=== PATIENT | male | born 1940 | race Caucasian/White ===

== ENCOUNTER → 2016-10-28 | Outpatient (CLI) | payer OTHER, MEDICARE ==
[2016-10-28 09:36] LABS: BASO % 0.2 %; BASO ABS # 0.02 K/uL (0-0.2); COMPLETE YES; EOS % 2.6 %; HEMATOCRIT 43.9 % (42-52); IG% 0.2 %; LYMPH % 49.6 %; LYMPH ABS # 4.22 K/uL (1.2-3.4); MEAN CELL VOLUME 90.7 fL (80-100); MEAN CORPUSCULAR HGB CONC 34.2 g/dl (32-36); MEAN PLATELET VOLUME 9.4 fL (7.4-10.4); MONO % 3.8 %; NEUT % 43.6 %; PLATELET COUNT 160 K/uL (130-400); RED BLOOD COUNT 4.84 M/uL (4.7-6.1)
[2016-10-28 09:55] LABS: AST/SGOT 18 U/L (15-37); BLOOD UREA NITROGEN 17 mg/dl (7-18); BUN/CREATININE RATIO 17.2 (10-20); CARBON DIOXIDE 32 mmol/L (21-32); CHLORIDE 105 mmol/L (98-107); CHOLESTEROL 224 mg/dl (0-200); CREATININE 0.98 mg/dl (0.60-1.40); GLUCOSE 116 mg/dl (70-99); POTASSIUM 4.6 mmol/L (3.5-5.1); SODIUM 142 mmol/L (136-145); TRIGLYCERIDES 99 mg/dl (0-150); VERY LOW DENSITY LIPOPROT CALC 20 mg/dl
[2016-10-28 10:05] LABS: ALB/GLOB RATIO 1.3 (0.9-2); ALKALINE PHOSPHATASE 65 U/L (45-117); ALT/SGPT 19 U/L (12-78); CHOLESTEROL/HDL RATIO 2.9; HDL CHOLESTEROL 78 mg/dl
[2016-10-28 10:09] LABS: CALCIUM 9.3 mg/dl (8.5-10.1)
== END | disposition home or self-care (01) ==
LOC: C.LAB 07:05
PROVIDERS: ATTEND Internal Medicine
DX: E78.5 Hyperlipidemia, unspecified (principal); R06.00 Dyspnea, unspecified; I73.00 Raynaud's syndrome without gangrene

== ENCOUNTER → 2016-10-31 | Outpatient (CLI) | payer OTHER, MEDICARE ==
--- NOTE | 2016-10-31 18:31 | EXERCISE STRESS ECHO ---
*NOTICE TO RECEIVING DEMOCRAT AGENCY This information is strictly Confidential and protected under [place] law. [place] law prohibits you from making any further disclosure of this information unless further disclosure is expressly permitted by the written consent of the person to whom it pertains or is authorized by law. A general authorization for the release of medical or other information is not sufficient for this purpose. Hospital accepts no responsibility if the information is made available to any other person, INCLUDING THE PATIENT. Interpretation Summary * Name: BRADY CALDERON Study Date: 10/31/2016 09:33 AM BP: 147/59 mmHg * Patient Location: [facility] HR: 47 * : 1940 (M/d/yyyy) Gender: Male Height: 68 in * Age: 76 yrs Ethnicity: CA Weight: 180 lb * Ordering Physician: Quinn Rodrigues * Referring Physician: Quinn Rodrigues * Performed By: Swapna Hyde RCS * * Reason For Study: EXERTIONAL DYSPNEA * BSA: 2.0 m2 * -- Conclusions -- * There is mild concentric left ventricular hypertrophy. * Left ventricular systolic function is normal. * Mild valvular aortic stenosis. * Right ventricular systolic pressure is elevated at 40-50mmHg. * The left atrium is mildly dilated. * The right atrium is mildly dilated. * Diagnostic exercise echocardiogram terminated due to hypertensive BP response to exercise. * Abnormal EKG response without evidence of inducible ischemia on echocardiogram suggesting a false positive EKG. * Impression: * Negative exercise echocardiogram. Procedure Details * Left Ventricular Findings with Stress Diagnostic exercise echocardiogram terminated due to hypertensive BP response to exercise. Abnormal EKG response without evidence of inducible ischemia on echocardiogram suggesting a false positive EKG. Impression: Negative exercise echocardiogram. * Left Ventricle The left ventricle is normal in size. There is mild concentric left ventricular hypertrophy. Ejection Fraction = 55-60%. Left ventricular systolic function is normal. The left ventricular wall motion is normal. * Right Ventricle The right ventricle is normal in size and function. * Atria The left atrium is mildly dilated. The right atrium is mildly dilated. * Mitral Valve The mitral valve is grossly normal. Significant mitral regurgitation is absent. * Tricuspid Valve The tricuspid valve is not well visualized, but is grossly normal. There is mild tricuspid regurgitation. Right ventricular systolic pressure is elevated at 40-50mmHg. * Aortic Valve The aortic valve is trileaflet. Mild valvular aortic stenosis. There is no significant aortic regurgitation. * Great Vessels The aortic root is normal size. * Pericardium There is no pericardial effusion. * Stress Parameters Normal baseline electrocardiogram. There was development of 1mm flat ST depression at peak exertion that resolved quickly in recovery The stress portion of this study was personally supervised by the undersigned interpreting physician. Rest heart rate was '47' BPM. Rest blood pressure was '147/59' Maximum heart rate achieved was 125 bpm. Maximum heart rate was 85 % of maximum age-predicted heart rate. Maximum blood pressure was '208/77' Total exercise time was '10:00' Maximum exercise MET level achieved was '11.70' METS Maximum treadmill speed was '4.20' miles per hour. Maximum treadmill elevation was '16.00'% grade. * Left Ventricular Findings with Stress Baseline EKG was normal with development of ischemic changes during exercise No symptoms were reported BP response to exercise was hypertensive Echo images werre normal at baseline and there was normal augmentation of the LV without development of regional wall motion abnormalities. * * MMode 2D Measurements and Calculations * IVSd 1.6 cm * IVSs 2.0 cm * * LVIDd 4.1 cm * LVIDs 3.2 cm * LVPWd 1.3 cm * LVPWs 1.3 cm * * IVS/LVPW 1.2 * FS 21.8 % * EDV(Teich) 75.6 ml * ESV(Teich) 41.9 ml * EF(Teich) 44.5 % * * EDV(cubed) 70.5 ml * ESV(cubed) 33.7 ml * EF(cubed) 52.2 % * % IVS thick 25.4 % * % LVPW thick -0.50 % * * LV mass(C)d 232.2 grams * LV mass(C)dI 118.8 grams/m\S\2 * LV mass(C)s 204.5 grams * LV mass(C)sI 104.6 grams/m\S\2 * * SV(Teich) 33.7 ml * SI(Teich) 17.2 ml/m\S\2 * SV(cubed) 36.8 ml * SI(cubed) 18.8 ml/m\S\2 * * Ao root diam 2.9 cm * Ao root area 6.5 cm\S\2 * LA dimension 4.3 cm * * LA/Ao 1.5 * LVOT diam 2.0 cm * LVOT area 3.2 cm\S\2 * * LVAd ap4 36.7 cm\S\2 * LVLd ap4 8.4 cm * EDV(MOD-sp4) 126.9 ml * EDV(sp4-el) 135.3 ml * LVAs ap4 23.2 cm\S\2 * LVLs ap4 6.9 cm * ESV(MOD-sp4) 64.0 ml * ESV(sp4-el) 65.9 ml * EF(MOD-sp4) 49.6 % * EF(sp4-el) 51.3 % * * LVAd ap2 32.4 cm\S\2 * LVLd ap2 8.7 cm * EDV(MOD-sp2) 98.0 ml * EDV(sp2-el) 102.2 ml * LVAs ap2 21.7 cm\S\2 * LVLs ap2 7.2 cm * ESV(MOD-sp2) 52.2 ml * ESV(sp2-el) 55.4 ml * EF(MOD-sp2) 46.8 % * EF(sp2-el) 45.8 % * * LVLd %diff 3.3 % * EDV(MOD-bp) 112.2 ml * LVLs %diff 4.6 % * ESV(MOD-bp) 59.3 ml * EF(MOD-bp) 47.2 % * * SV(MOD-sp4) 62.9 ml * SI(MOD-sp4) 32.2 ml/m\S\2 * * SV(MOD-sp2) 45.8 ml * SI(MOD-sp2) 23.4 ml/m\S\2 * * SV(MOD-bp) 53.0 ml * SI(MOD-bp) 27.1 ml/m\S\2 * * SV(sp4-el) 69.4 ml * SI(sp4-el) 35.5 ml/m\S\2 * * SV(sp2-el) 46.8 ml * SI(sp2-el) 23.9 ml/m\S\2 * * * Doppler Measurements and Calculations * MV E max josh 85.7 cm/sec * MV A max josh 62.6 cm/sec * * MV E/A 1.4 * * MV P1/2t max josh 93.0 cm/sec * MV P1/2t 114.1 msec * MVA(P1/2t) 1.9 cm\S\2 * MV dec slope 238.7 cm/sec\S\2 * MV dec time 0.26 sec * * Ao V2 max 238.9 cm/sec * Ao max PG 22.8 mmHg * Ao max PG (full) 18.2 mmHg * JEROME(V,A) 1.4 cm\S\2 * JEROME(V,D) 1.4 cm\S\2 * * LV V1 max PG 4.6 mmHg * * LV V1 max 107.3 cm/sec * * MR max josh 591.9 cm/sec * MR max PG 140.1 mmHg * * PA V2 max 94.2 cm/sec * PA max PG 3.5 mmHg * * PI max josh 150.7 cm/sec * PI max PG 9.1 mmHg * PI dec slope 92.8 cm/sec\S\2 * PI P1/2t 475.6 msec * * TR max josh 299.6 cm/sec * * * *
--- NOTE | 2016-11-05 11:39 | CODING QUERY MEDICAL NECESSITY ---
SUPPORTING DIAGNOSIS NEEDED A supporting diagnosis is required for the test/procedure performed on this patient in order for us to be reimbursed by the patient's insurance. Please provide a supporting diagnosis for the following test/procedure listed below next to the test name along with your signature. *If there is no additional diagnosis for this patient that would support the following test/procedure please document that below next to the test/procedure. Test(s)/Procedure(s) that require a supporting diagnosis: * ECHO EXERCISE DIAGNOSIS: Provider Signature: Date: Thank you Mandy Singh [employer] Management Once completed, please kindly fax back to [phone] For questions please call [phone]
== END | disposition home or self-care (01) ==
LOC: C.CPL 09:15
PROVIDERS: ATTEND Internal Medicine
DX: R06.09 Other forms of dyspnea (principal)

== ENCOUNTER → 2016-11-05 | Outpatient (CLI) | payer OTHER, MEDICARE ==
[2016-11-05 13:03] LABS: ESTIMATED AVERAGE GLUCOSE 114 mg/dl; HA1C FLAG Normal (Normal)
== END | disposition home or self-care (01) ==
LOC: C.LABSPEC 12:19
PROVIDERS: ATTEND Internal Medicine
DX: R73.9 Hyperglycemia, unspecified (principal)

== ENCOUNTER → 2017-01-20 | Outpatient (CLI) | payer OTHER, MEDICARE | END | disposition home or self-care (01) | LOC: C.LABSPEC 14:59 | PROVIDERS: ATTEND Internal Medicine | DX: N39.0 Urinary tract infection, site not specified (principal) ==

== ENCOUNTER → 2017-02-25 | Outpatient (CLI) | payer OTHER, MEDICARE ==
[2017-02-25 14:59] LABS: HEMATOCRIT 42.5 % (42-52); MEAN CELL VOLUME 88.5 fL (80-100); MEAN CORPUSCULAR HEMOGLOBIN 31.5 pg (25-34); MEAN CORPUSCULAR HGB CONC 35.5 g/dl (32-36); MEAN PLATELET VOLUME 10.1 fL (7.4-10.4); PLATELET COUNT 147 K/uL (130-400); WHITE BLOOD COUNT 9.15 K/uL (4.8-10.8)
[2017-02-25 15:08] LABS: ALT/SGPT 16 U/L (12-78); AST/SGOT 16 U/L (15-37); BLOOD UREA NITROGEN 18 mg/dl (7-18); BUN/CREATININE RATIO 20.1 (10-20); CARBON DIOXIDE 28 mmol/L (21-32); CHLORIDE 106 mmol/L (98-107); CREATININE 0.92 mg/dl (0.60-1.40); GLUCOSE 96 mg/dl (70-99); POTASSIUM 4.7 mmol/L (3.5-5.1); SODIUM 140 mmol/L (136-145)
[2017-02-25 15:11] LABS: ALB/GLOB RATIO 1.2 (0.9-2); ALKALINE PHOSPHATASE 72 U/L (45-117); AMYLASE 47 U/L (25-115)
[2017-02-25 15:26] LABS: URINE APPEARANCE CLEAR (CLEAR); URINE BILIRUBIN NEG (NEG); URINE COLOR YELLOW; URINE NITRITE NEG (NEG); URINE SPECIFIC GRAVITY 1.016 (1.000-1.030); UROBILINOGEN NEG (NEG)
[2017-02-25 15:52] LABS: MANUAL MICROSCOPIC REQUIRED? NO; REVIEW REQ? NO
[2017-02-25 16:17] LABS: BASO % 0.1 %; BASO ABS # 0.01 K/uL (0-0.2); COMPLETE YES; IG% 0.4 %; LYMPH % 54.4 %; LYMPH ABS # 4.98 K/uL (1.2-3.4); MONO % 5.1 %; SMUDGE CELLS PRESENT
== END | disposition home or self-care (01) ==
LOC: C.LABSPEC 14:44
PROVIDERS: ATTEND Internal Medicine
DX: R10.31 Right lower quadrant pain (principal); R10.11 Right upper quadrant pain

== ENCOUNTER → 2017-02-26 | Outpatient (CLI) | payer OTHER, MEDICARE ==
[~2017-02-26] MED LIST: OPTIRAY 320 IV PRN
--- NOTE | 2017-02-26 08:02 | DIAGNOSTIC IMAGING REPORT ---
ABD/PELVIS IV AND ORAL CONT HISTORY: 76 years-old Male R SIDE ABD PAIN/MASS acute right-sided abdominal pain. Initial exam COMPARISON: CT abdomen and pelvis 09/11/2015 TECHNIQUE: Multiple axial CT images of the abdomen and pelvis were obtained following the administration of both IV and oral contrast. Under 19 mL Optiray 320 was administered. A dose lowering technique was used consistent with the principals of ALA. FINDINGS: Lung bases are generally clear. There is no pneumoperitoneum identified. Imaged inferior cardiac chambers are mildly enlarged. Coronary arterial calcifications are present. The liver, spleen, gallbladder, pancreas and adrenal glands are unremarkable. Low attenuating subcentimeter lesions of the kidneys are seen, too small to characterize suggesting cysts. No renal calculi or hydronephrosis. Ureters and urinary bladder are unremarkable. Prostate is enlarged with central coarse calcifications. Moderate plaquing of the abdominal aorta without aneurysm or dissection. There are a few mildly prominent periaortic and iliac chain lymph nodes measuring up to 9 mm as seen on image 225 of series 3 for example these findings are unchanged from 09/11/2015 and likely physiologic. Note is made of retroaortic course of the left renal vein. There is no bowel obstruction or focal bowel wall thickening identified. Moderate volume of formed stool throughout the colon. The appendix appears normal. Soft tissues are unremarkable. Multilevel endplate spurring and advanced facet arthropathy of the spine. 6 mm anterolisthesis L4 on L5 is likely secondary to long-standing facet disease. Bones are mildly demineralized. IMPRESSION: 1. Moderate volume of formed stool throughout the colon suggests constipation. This may account for the cause of palpable concern. No focal mass identified within the abdomen or pelvis. 2. Prostamegaly. 3. Mildly prominent periaortic and iliac chain lymph nodes measuring up to 9 mm appear unchanged from comparison study 09/11/2015 suggesting physiologic etiology. The above report was generated using voice recognition software. It may contain grammatical, syntax or spelling errors. Electronically signed by: Chele Monteiro M.D. 02/26/2017 8:01 AM Dictated Date/Time: 02/26/2017 7:52 AM
== END | disposition home or self-care (01) ==
LOC: C.CTS 07:20
PROVIDERS: ATTEND Internal Medicine
DX: R10.9 Unspecified abdominal pain (principal); R19.00 Intra-abdominal and pelvic swelling, mass and lump, unspecified site; N40.0 Benign prostatic hyperplasia without lower urinary tract symptoms

== ENCOUNTER → 2017-03-30 | Outpatient (CLI) | payer OTHER, MEDICARE | LOC: C.LAB 11:54 | PROVIDERS: ATTEND Urology | DX: Z12.5 Encounter for screening for malignant neoplasm of prostate (principal) ==

== ENCOUNTER → 2017-06-03 | Outpatient (CLI) | payer OTHER, MEDICARE ==
[2017-06-03 15:25] LABS: HEMATOCRIT 42.6 % (42-52); HEMOGLOBIN 15.4 g/dL (14.0-18.0); MEAN CORPUSCULAR HEMOGLOBIN 31.8 pg (25-34); MEAN CORPUSCULAR HGB CONC 36.2 g/dl (32-36); MEAN PLATELET VOLUME 9.8 fL (7.4-10.4); PLATELET COUNT 159 K/uL (130-400); RED CELL DISTRIBUTION WIDTH CV 12.8 % (11.5-14.5); RED CELL DISTRIBUTION WIDTH SD 41.2 fL (36.4-46.3); WHITE BLOOD COUNT 9.34 K/uL (4.8-10.8)
[2017-06-03 15:34] LABS: BLOOD UREA NITROGEN 21 mg/dl (7-18); CALCIUM 9.3 mg/dl (8.5-10.1); CARBON DIOXIDE 27 mmol/L (21-32); CREATININE 0.89 mg/dl (0.60-1.40); GLUCOSE 121 mg/dl (70-99); POTASSIUM 4.4 mmol/L (3.5-5.1); SODIUM 136 mmol/L (136-145)
[2017-06-03 17:22] LABS: BASO % 0.2 %; BASO ABS # 0.02 K/uL (0-0.2); EOS % 1.4 %; EOS ABS # 0.13 K/uL (0-0.5); IG# 0.04 K/uL (0.00-0.02); LYMPH ABS # 4.76 K/uL (1.2-3.4); MONO % 5.7 %; MONO ABS # 0.53 K/uL (0.11-0.59); NEUT % 41.3 %; NEUT ABS # 3.86 K/uL (1.4-6.5)
== END | disposition home or self-care (01) ==
LOC: C.LABSPEC 14:49
PROVIDERS: ATTEND Internal Medicine
DX: Z01.818 Encounter for other preprocedural examination (principal)

== ENCOUNTER → 2017-07-09 | Outpatient (CLI) | payer OTHER, MEDICARE | END | disposition home or self-care (01) | LOC: C.PATHSPEC 17:43 | PROVIDERS: ATTEND Surgery | DX: M79.9 Soft tissue disorder, unspecified (principal) ==

== ENCOUNTER → 2017-07-24 | Outpatient (CLI) | payer OTHER, MEDICARE | END | disposition home or self-care (01) | LOC: C.LABSPEC 13:07 | PROVIDERS: ATTEND Internal Medicine | DX: T81.9XXA Unspecified complication of procedure, initial encounter (principal); X58.XXXA Exposure to other specified factors, initial encounter ==

== ENCOUNTER → 2017-12-31 | Day surgery (SDC) | payer OTHER, MEDICARE ==
[2017-12-23 14:50] VITALS: Ht 172.7 cm; Wt 77.3 kg
[~2017-12-31] VITALS: Ht 172.7 cm; Wt 77.3 kg
[~2017-12-31] MED LIST changes: +ASPI81TA28 PO; +DEXAMETHASONE SOD INJ 4 MG/ML VIAL ONE; +LIDOCAINE HCL 1% MPF 5 ML VIAL ONE; +MINO50TA PO; +OMEG10007 PO; -OPTIRAY 320 IV PRN
--- NOTE | 2017-12-31 09:24 | History & Physical Bridge - SC ---
H&P Re-Evaluation Bridge Note: I have examined the patient, reviewed the History & Physical and in the interval since the performance of the History & Physical I have noted the following changes of clinical significance: No changes noted
--- NOTE | 2017-12-31 09:44 | Discharge Instructions-SurgCtr ---
Discharge Instructions Date of Service Dec 31, 2017. Visit Reason for Visit: Lumbar Spinal Stenosis Discharge Discharge Diagnosis / Problem: same Discharge Goals Goal(s): Improve function Activity Recommendations Activity Limitations: resume your previous activity Anesthesia . Post Anesthesia Instructions: If you have had General Anesthesia or IV Sedation: * Do not drive today. * Resume driving when surgeon permits. * Do not make important decisions or sign legal documents today. * Call surgeon for: 1. Temperature elevations greater than 101 degrees F. 2. Uncontrollable pain. 3. Excessive bleeding. 4. Persistent nausea and vomiting. 5. Medication intolerance (nausea, vomiting or rash). * For nausea and vomiting use only clear liquids such as: tea, soda, bouillon until nausea subsides, then gradually increase diet as tolerated. * If you have any concerns or questions, call your surgeon's office. If physician is unavailable and it is an emergency, call 911 or go to the nearest emergency room. . Diet Recommendations Home Diet: no limitations Procedures Procedures Performed: L3-4, L4-5 Epidural Steroid Injection Pending Studies Studies pending at discharge: no Medical Emergencies . Who to Call and When: Medical Emergencies: If at any time you feel your situation is an emergency, please call 911 immediately. . Non-Emergent Contact Non-Emergency issues call your: Primary Care Provider . . "Provider Documentation" section prepared by Stevie Goldberg. .
--- NOTE | 2017-12-31 09:45 | [facility] Post Operative Brief Note ---
Immediate Operative Summary Operative Date Dec 31, 2017. Pre-Operative Diagnosis Spinal stenosis/spondylolisthesis Post-Operative Diagnosis Same Procedure(s) Performed L3-4, L4-5 Epidural Ster[address] In[address] Sur[address] Goldberg Proof Coins Inspector Surgeon(s) None Estimated Blood Loss 0 Findings Consistent with Post-Op Diagnosis Specimens 0 Anesthesia Type Local
[2017-12-31 09:49] VITALS: BP 171/76; PULSE 60; TEMP 36.5; O2SAT 96
--- NOTE | 2017-12-31 11:00 | OPERATIVE REPORT ---
DATE OF OPERATION: 12/31/2017 PREOPERATIVE DIAGNOSIS: Spinal stenosis, lumbar spine. POSTOPERATIVE DIAGNOSIS: Spinal stenosis, lumbar spine. PROCEDURE: Epidural steroid injections L3-L4, L4-L5 lumbar. No complications. DESCRIPTION OF PROCEDURE: The patient was taken to the minor procedure room and placed prone, scrubbed, prepped and draped sterile. I did an air acceptance technique, I did 2 levels, injected a 22-gauge spinal needle to the epidural area. The fit was perfect. Dexamethasone 1 mL injected in each of these areas without incident. The patient tolerated it well. Discharged to home. I attest to the content of the Intraoperative Record and any orders documented therein. Any exception s are noted below.
== END | disposition home or self-care (01) ==
LOC: X.SURG 08:42
PROVIDERS: ATTEND Orthopaedic Surgery Orthopaedic Surgery of the Spine
DX: M43.16 Spondylolisthesis, lumbar region (principal); M48.061 Spinal stenosis, lumbar region without neurogenic claudication; Z96.21 Cochlear implant status; Z79.82 Long term (current) use of aspirin

== ENCOUNTER 2022-05-23 14:50 | Inpatient (IN) ==
--- NOTE | 2022-05-23 15:09 | ED Triage Note ---
Date of Service May 23, 2022 History of Present Illness This patient was briefly evaluated while in triage. An abbreviated physical exam was performed. This patient is a 82-year-old Male with past medical history of CVA who presents to the ED for evaluation of left calf pain. Pain started yesterday suddenly, no injury. He has right sided weakness due to his previous stroke. Physical Exam VITALS: Vitals are noted on the nurse's note and reviewed by myself. GENERAL: This is an 82-year-old male, in no acute distress, well-developed well- nourished. SKIN: The skin was without rashes, erythema, edema, or bruising. EXTREMITIES: Tenderness in the left calf. No redness or warmth. No obvious edema. Initial orders for labs and / or imaging were placed and patient was placed in the waiting area until a bed is available. Please see further documentation for the full ED course.
[2022-05-23] MEDS ORDERED: FAMOTIDINE 20MG IV PUSH 20 MG/5 ML SYR IV STA (16:23)
[2022-05-23] MEDS ORDERED: ONDANSETRON INJ 2 MG/ML 2 ML VIAL IV STA (16:23)
[2022-05-23] MEDS ORDERED: ALBUT/IPRATROP 3MG/0.5MG NEB 3 ML VIAL NEB STA (16:23)
[2022-05-23] MEDS ORDERED: ACETAMINOPHEN 1,000 MG/100 ML VIAL IV STA (16:26)
[2022-05-23] MEDS ORDERED: SODIUM CHLORIDE 0.9% 1000ML 1,000 ML IV ONE (16:26)
[2022-05-23 16:31] LABS: Hematocrit (blood only) 45.2 % (40.1-51.0); Hemoglobin 15.5 g/dl (14.0-18.0); Mean Corpuscular Hemoglobin 31.3 pg (25.0-34.0); Mean Corpuscular Hgb Conc 34.3 g/dL (32.0-36.0); Mean Corpuscular Volume 91.1 fL (80.0-100.0); Mean Platelet Volume 9.7 fL (9.4-12.4); Platelet Count 256 K/uL (130-400); RDW Coefficient of Variation 12.9 % (11.5-14.5); RDW Standard Deviation 42.3 fL (36.4-46.3); Red Blood Count 4.96 M/uL (4.63-6.08); White Blood Count 26.58 K/ul (4.8-10.8)
--- NOTE | 2022-05-23 16:37 | Emergency Department Note ---
Impression & Plan Aspiration into airway, Fecal retention, Leukocytosis ED Provider Note NAME: BRADY CALDERON AGE: 82 SEX: M ARRIVES VIA: Walk-In INFORMANT: Patient ED PROVIDER(S): Ji Larson MD CHIEF COMPLAINT: Calf pain, referred. 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 The patient symptoms occur in the setting of having complained of pain yesterday for the first time. Of note, the patient had no other symptoms up until around the emergency department when he did have an episode of vomiting and subsequently has had a persistent cough. The patient is bedbound due to his prior stroke and is chronically weak on his right side but his left side has normally been strong. Of note, the patient did arrive to emergency department during time of high volume, acuity and prolonged emergency department waiting times. Critical pathways initiated from triage. On my examination the patient is uncomfortable persistent cough with heart in the 130s and temperature of 37.9 with O2 saturation 95% on room air. He appears clinically dry. He has wheeze and rhonchi of bilateral lower lung [place]. He has no significant tenderness of the left calf though there is mild edema that is asymmetric. CXR negative for acute cardiopulmonary process. WBC 26.5 with neutrophil predominance and left shift. H/H and platelets within normal limits. Chemistry without metabolic acidosis. Lactic acid 1.4, within normal limits. Procalcitonin is elevated however at 1.8. Lipase is not e levated. LFTs and electrolytes unremarkable. LUE US negative for DVT CT of the abdomen pelvis further evaluates lung bases and note is made of bibasilar opacities with mucous plugging which is suspicious for aspiration pneumonia given the clinical context. Note is made of moderate to extensive col onic fecal retention which may have contributed to patient's nausea and vomiting. Upon reevaluation patient was improved appearing after IV fluid hydration APAP, DuoNeb. He was treated empirically with IV Zosyn. Given the patient's severity of symptoms with fever and leukocytosis the patient and his at bedside agree with plan for admission for further management. Case was discussed with Dr. Conn, [facility] hospitalist, who will evaluate the patient for admission. Triage Nursing notes reviewed and agree them. Prior medical records reviewed Vital Signs: reviewed Differential diagnosis: Reactive airway disease, pneumonia, pneumothorax, COPD, CHF, infections, cardiac ischemia, pulmonary embolism, musculoskeletal, gastrointestinal, as well as other pathologies. ER treatment provided: See below. Diagnostics interpreted by me: Cardiac Monitoring: An order for continuous cardiac monitoring was placed and demonstrated Sinus tachycardia, 130 bpm, no ectopy. Laboratory studies: See below Imaging studies: See below Consultation(s): Case was discussed with Dr. Conn, [facility] hospitalist, who will evaluate the patient for admission. HPI: The patient is a pleasant 82-year-old gentleman with a past medical history of stroke/intraparenchymal hemorrhage related to hypertension who presents to the emergency department via private vehicle,accompanied by his for evaluation of left calf pain referred by the PCP office. The patient symptoms occur in the setting of having complained of pain yesterday for the first time. Of note, the patient had no other symptoms up until around the emergency department when he did have an episode of vomiting and subsequently has had a persistent cough. The patient is bedbound due to his prior stroke and is chronically weak on his right side but his left side has normally been strong. ROS: See above HPI for pertinent positives & negatives. A total of 10 systems reviewed and were otherwise negative. VITALS:See Below PHYSICAL EXAMINATION: GENERAL: Awake, alert, fatigued-appearing, in no distress HENT: Normocephalic, atraumatic. Oropharynx with dry mucous membranes and otherwise unremarkable. EYES: Normal conjunctiva. Sclera non-icteric. NECK: Supple. No nuchal rigidity. FROM. No JVD. RESPIRATORY: Wheezes and rhonchi bilateral lower lung [place] CARDIAC: Tachycardic rate, normal rhythm. Extremities warm and well perfused. Pulses equal. ABDOMEN: Soft, non-distended. No tenderness to palpation. No rebound or guarding. No masses. RECTAL: Deferred. MUSCULOSKELETAL: Chest examination reveals no tenderness. The back is symmetrical on inspection without obvious abnormality. There is no CVA tenderness to palpation. No joint edema. LOWER EXTREMITIES: No significant tenderness of the left calf though there is mild edema that is asymmetric. NEURO: Right-sided hemiparesis at baseline SKIN: No rash or jaundice noted. ED COURSE: Critical Care: I have personally spent greater than 35 minutes of critical care time in the direct management of this patient. This includes bedside care, interpretation of diagnostic studies, and testing, discussion with consultants, patient, and family members, and other required patient management activities. This 35 minutes is in excess of all separately billable procedures. Ji Larson MD Past Med/Surg History Medical History CVA (cerebrovascular accident due to intracerebral hemorrhage) Diabetes mellitus type 2 in nonobese Gout Hearing impaired Hyperlipidemia Hypertension Family History Other Family history non-contributory Social History Smoking Status: Former smoker Tobacco Type: Cigarettes Preferred Language: Citizen Of [place] Feels Safe at Home: Yes Allergies Allergies Allergy/AdvReac Type Severity Reaction Status Date / Time No Known Allergies Allergy Verified 05/23/22 19:49 Home Meds Home Medications Medication Instructions Recorded Confirmed amlodipine 5 mg tablet 5 mg PO HS 03/11/21 05/23/22 atorvastatin 20 mg tablet 20 mg PO HS 03/11/21 05/23/22 acetaminophen 325 mg tablet 650 mg PO Q4 PRN Pain 04/05/21 05/23/22 (Tylenol) docusate sodium 100 mg capsule 100 mg PO BID 05/23/22 05/23/22 (Stool Softener) lactulose 10 gram/15 mL oral 0 g PO DIRECTED PRN Constipation 05/23/22 05/23/22 solution losartan 50 mg tablet 50 mg PO DAILY 05/23/22 05/23/22 metformin 500 mg tablet 500 mg PO BID 05/23/22 05/23/22 Previous Rx's Medication Instructions Recorded sennosides 8.6 mg-docusate sodium 1 - 2 tab-cap PO BID PRN 04/01/22 50 mg tablet (Senokot-S) constipation #60 tabs Results & Data (ED) Vital Signs Vital Signs - 24 hr 05/23/22 15:04 05/23/22 16:32 05/23/22 17:16 Temperature 36.5 C 37.9 C H Temperature Source Temporal Artery Scan Oral Pulse Rate 102 H Pulse Rate [Apical] 130 H 103 H Pulse Rhythm Regular Pulse Strength Normal Respiratory Rate 18 20 20 Respiratory Effort / Characteristics Non-Labored Spontaneous Non-Labored Respiratory Depth Normal Normal Respiratory Pattern Regular Blood Pressure 158/72 H Blood Pressure [Left Arm] 139/80 136/68 Blood Pressure Mean 100 Blood Pressure Mean [Left Arm] 99 90 Blood Pressure Position Sitting Pulse Oximetry 98 95 92 Oxygen Delivery Method Room Air Room Air Room Air Sepsis Recent Fever Within 48 Hours No Sepsis New/Unexplained Change in Mental Status No Sepsis Action Taken by Nursing No Action Required 05/23/22 18:11 05/23/22 19:54 Temperature 38.1 C H 37.6 C H Temperature Source Oral Oral Pulse Rate Pulse Rate [Apical] 92 H 88 Pulse Rhythm Pulse Strength Respiratory Rate 18 18 Respiratory Effort / Characteristics Non-Labored Non-Labored Respiratory Depth Normal Normal Respiratory Pattern Blood Pressure Blood Pressure [Left Arm] 122/60 112/59 L Blood Pressure Mean Blood Pressure Mean [Left Arm] 80 76 Blood Pressure Position Pulse Oximetry 92 95 Oxygen Delivery Method Room Air Room Air Sepsis Recent Fever Within 48 Hours Sepsis New/Unexplained Change in Mental Status Sepsis Action Taken by Nursing Laboratory Data Attestation: I reviewed the patient's lab results. 05/23/22 16:15 05/23/22 16:15 Lab Results 05/23/22 05/23/22 05/23/22 Range/Units 16:15 16:15 16:15 WBC 26.58 H (4.8-10.8) K/ul RBC 4.96 (4.63-6.08) M/uL Hgb 15.5 (14.0-18.0) g/dl Hct 45.2 (40.1-51.0) % MCV 91.1 (80.0-100.0) fL MCH 31.3 (25.0-34.0) pg MCHC 34.3 (32.0-36.0) g/dL RDW Std Deviation 42.3 (36.4-46.3) fL RDW Coeff of Kenny 12.9 (11.5-14.5) % Plt Count 256 (130-400) K/uL MPV 9.7 (9.4-12.4) fL Immature Gran % (Auto) 0.6 % Neut % (Auto) 44.3 % Lymph % (Auto) 52.3 % Thomas % (Auto) 2.0 % Eos % (Auto) 0.5 % Baso % (Auto) 0.3 % Neut # (Auto) 11.79 H (1.4-6.5) K/uL Lymph # (Auto) 13.89 H (1.2-3.4) K/uL Thomas # (Auto) 0.53 (0.24-0.82) K/uL Eos # (Auto) 0.14 (0-0.50) K/uL Baso # (Auto) 0.08 (0-0.2) K/uL Immature Gran # (Auto) 0.15 H (0.00-0.02) K/uL PT 10.9 (9.0-12.0) Seconds INR 1.0 (0.9-1.1) APTT 25.4 (21.0-31.0) Seconds PTT Ratio 0.9 Sodium 141 (136-145) mmol/L Potassium 4.2 (3.5-5.1) mmol/L Chloride 103 (98-107) mmol/L Carbon Dioxide 24 (21-32) mmol/L Anion Gap 14 H (3-11) BUN 27 H (6-23) mg/dl Creatinine 1.31 (0.6-1.4) mg/dl Est Cr Clr Drug Dosing Not Reportable Est GFR ( Amer) 59.2 ml/min Est GFR (Non-Af Amer) 51.1 ml/min BUN/Creatinine Ratio 20.6 H (10-20) Glucose 154 H (70-99(Fasting)) mg/dl Lactate (0.4-2.0) mmol/L Calcium 10.2 H (8.5-10.1) mg/dl Total Bilirubin 0.8 (0.2-1.0) mg/dl AST 15 (13-39) U/L ALT 10 (7-52) U/L Alkaline Phosphatase 83 (34-104) U/L Total Protein 7.4 (6.0-8.3) gm/dl Albumin 4.7 (3.4-5.0) gm/dl Globulin 2.7 (2.5-4.0) gm/dl Albumin/Globulin Ratio 1.7 (0.9-2) Lipase (11-82) U/L Procalcitonin (0-0.5) ng/ml SARS-CoV-2 (PCR) (Negative) Influenza Type A (PCR) (Neg) Influenza Type B (PCR) (Neg) RSV (RT-PCR) (Neg) 05/23/22 05/23/22 05/23/22 Range/Units 16:15 16:45 18:33 WBC (4.8-10.8) K/ul RBC (4.63-6.08) M/uL Hgb (14.0-18.0) g/dl Hct (40.1-51.0) % MCV (80.0-100.0) fL MCH (25.0-34.0) pg MCHC (32.0-36.0) g/dL RDW Std Deviation (36.4-46.3) fL RDW Coeff of Kenny (11.5-14.5) % Plt Count (130-400) K/uL MPV (9.4-12.4) fL Immature Gran % (Auto) % Neut % (Auto) % Lymph % (Auto) % Thomas % (Auto) % Eos % (Auto) % Baso % (Auto) % Neut # (Auto) (1.4-6.5) K/uL Lymph # (Auto) (1.2-3.4) K/uL Thomas # (Auto) (0.24-0.82) K/uL Eos # (Auto) (0-0.50) K/uL Baso # (Auto) (0-0.2) K/uL Immature Gran # (Auto) (0.00-0.02) K/uL PT (9.0-12.0) Seconds INR (0.9-1.1) APTT (21.0-31.0) Seconds PTT Ratio Sodium (136-145) mmol/L Potassium (3.5-5.1) mmol/L Chloride (98-107) mmol/L Carbon Dioxide (21-32) mmol/L Anion Gap (3-11) BUN (6-23) mg/dl Creatinine (0.6-1.4) mg/dl Est Cr Clr Drug Dosing Est GFR ( Amer) ml/min Est GFR (Non-Af Amer) ml/min BUN/Creatinine Ratio (10-20) Glucose (70-99(Fasting)) mg/dl Lactate 1.4 (0.4-2.0) mmol/L Calcium (8.5-10.1) mg/dl Total Bilirubin (0.2-1.0) mg/dl AST (13-39) U/L ALT (7-52) U/L Alkaline Phosphatase (34-104) U/L Total Protein (6.0-8.3) gm/dl Albumin (3.4-5.0) gm/dl Globulin (2.5-4.0) gm/dl Albumin/Globulin Ratio (0.9-2) Lipase 46 (11-82) U/L Procalcitonin (0-0.5) ng/ml SARS-CoV-2 (PCR) NEGATIVE (Negative) Influenza Type A (PCR) Negative (Neg) Influenza Type B (PCR) Negative (Neg) RSV (RT-PCR) Negative (Neg) 05/23/22 Range/Units 18:34 WBC (4.8-10.8) K/ul RBC (4.63-6.08) M/uL Hgb (14.0-18.0) g/dl Hct (40.1-51.0) % MCV (80.0-100.0) fL MCH (25.0-34.0) pg MCHC (32.0-36.0) g/dL RDW Std Deviation (36.4-46.3) fL RDW Coeff of Kenny (11.5-14.5) % Plt Count (130-400) K/uL MPV (9.4-12.4) fL Immature Gran % (Auto) % Neut % (Auto) % Lymph % (Auto) % Thomas % (Auto) % Eos % (Auto) % Baso % (Auto) % Neut # (Auto) (1.4-6.5) K/uL Lymph # (Auto) (1.2-3.4) K/uL Thomas # (Auto) (0.24-0.82) K/uL Eos # (Auto) (0-0.50) K/uL Baso # (Auto) (0-0.2) K/uL Immature Gran # (Auto) (0.00-0.02) K/uL PT (9.0-12.0) Seconds INR (0.9-1.1) APTT (21.0-31.0) Seconds PTT Ratio Sodium (136-145) mmol/L Potassium (3.5-5.1) mmol/L Chloride (98-107) mmol/L Carbon Dioxide (21-32) mmol/L Anion Gap (3-11) BUN (6-23) mg/dl Creatinine (0.6-1.4) mg/dl Est Cr Clr Drug Dosing Est GFR ( Amer) ml/min Est GFR (Non-Af Amer) ml/min BUN/Creatinine Ratio (10-20) Glucose (70-99(Fasting)) mg/dl Lactate (0.4-2.0) mmol/L Calcium (8.5-10.1) mg/dl Total Bilirubin (0.2-1.0) mg/dl AST (13-39) U/L ALT (7-52) U/L Alkaline Phosphatase (34-104) U/L Total Protein (6.0-8.3) gm/dl Albumin (3.4-5.0) gm/dl Globulin (2.5-4.0) gm/dl Albumin/Globulin Ratio (0.9-2) Lipase (11-82) U/L Procalcitonin 1.82 H (0-0.5) ng/ml SARS-CoV-2 (PCR) (Negative) Influenza Type A (PCR) (Neg) Influenza Type B (PCR) (Neg) RSV (RT-PCR) (Neg) Administered Medications Amlodipine Besylate (Amlodipine Besylate 5 Mg Tab) 5 mg PO HS LOLA Stop: 06/22/22 21:44 Last Admin: 05/23/22 23:26 Dose: Not Given Documented By: CORRECTION Atorvastatin Calcium (Atorvastatin 20 Mg Tab) 20 mg PO HS LOLA Stop: 06/22/22 21:44 Last Admin: 05/23/22 23:26 Dose: Not Given Documented By: NOEMÍ Docusate Sodium (Docusate Sodium 100 Mg Cap) 100 mg PO BID LOLA Stop: 06/22/22 21:44 Last Admin: 05/23/22 23:26 Dose: Not Given Documented By: NOEMÍ Guaifenesin (Guaifenesin 600 Mg Tabcr) 1,200 mg PO Q12 LOLA Stop: 06/22/22 21:44 Last Admin: 05/23/22 23:26 Dose: Not Given Documented By: CORRECTION Piperacillin Sod/Tazobactam (Sod 3.375 gm/ Dextrose) 115 mls @ 28.75 mls/hr IV Q8H [facility]; Protocol Stop: 05/31/22 00:00 Last Admin: 05/24/22 00:38 Dose: 28.8 mls/hr Documented By: NOEMÍ Lactated Ringer's (Lr) 1,000 mls @ 100 mls/hr IV .Q10H LOLA Stop: 05/24/22 17:44 Last Admin: 05/23/22 21:56 Dose: 100 mls/hr Documented By: NOEMÍ Acetaminophen (Ofirmev) 1,000 mg in 100 mls @ 400 mls/hr IV Q8H PRN PRN Reason: fever or pain Stop: 05/26/22 22:48 Last Infusion: 05/23/22 23:29 Dose: 0 mls/hr Documented By: Admin: 05/23/22 23:11 Dose: 400 mls/hr Documented By: NOEMÍ Insulin Aspart (Insulin Aspart Per Unit) 0 units SC ACHS [facility] Stop: 06/22/22 21:44 Last Admin: 05/23/22 23:27 Dose: Not Given Documented By: NOEMÍ Co-signed By: BETSEY Insulin Glargine (Lantus Per Unit Charge) 5 units SQ BID LOLA Stop: 06/22/22 21:44 Last Admin: 05/23/22 23:26 Dose: Not Given Documented By: NOEMÍ Ondansetron HCl (Ondansetron Inj 2 Mg/Ml 2 Ml Vial) 4 mg IV Q6H PRN PRN Reason: Nausea Stop: 06/22/22 21:44 Last Admin: 05/23/22 22:39 Dose: 4 mg Documented By: NOEMÍ Discontinued Medications Albuterol (Albut/Ipratrop 3mg/0.5mg Neb 3 Ml Vial) 3 ml NEB NOW STA; Protocol Stop: 05/23/22 16:24 Last Admin: 05/23/22 16:37 Dose: 3 ml Documented By: SUBHASH Famotidine (Pepcid 20mg Iv Push) 20 mg in 5 mls @ 2.5 mls/min IV NOW STA Stop: 05/23/22 16:24 Last Admin: 05/23/22 16:37 Dose: 2.5 mls/min Documented By: SUBHASH Sodium Chloride (Nss 1000ml) 1,000 mls @ 999 mls/hr IV .Q1H1M ONE Stop: 05/23/22 17:26 Last Infusion: 05/23/22 17:35 Dose: 0 mls/hr Documented By: Admin: 05/23/22 16:34 Dose: 999 mls/hr Documented By: SUBHASH Acetaminophen (Ofirmev) 1,000 mg in 100 mls @ 400 mls/hr IV NOW STA Stop: 05/23/22 16:40 Last Infusion: 05/23/22 16:52 Dose: 0 mls/hr Documented By: Admin: 05/23/22 16:37 Dose: 400 mls/hr Documented By: SUBHASH Piperacillin Sod/Tazobactam Sod (Zosyn) 4.5 gm in 120 mls @ 240 mls/hr IV NOW ONE Stop: 05/23/22 18:28 Last Infusion: 05/23/22 19:20 Dose: 0 mls/hr Documented By: Admin: 05/23/22 18:32 Dose: 240 mls/hr Documented By: FREEMAN Ioversol (Optiray 350 100ml) 84 ml IV ONCE ONE Stop: 05/23/22 18:59 Last Admin: 05/23/22 18:59 Dose: 84 ml Documented By: ROCHELLE Ondansetron HCl (Ondansetron Inj 2 Mg/Ml 2 Ml Vial) 4 mg IV NOW STA Stop: 05/23/22 16:24 Last Admin: 05/23/22 16:36 Dose: 4 mg Documented By: SUBHASH Imaging Data Radiologist's Impression: Venous Doppler Study 05/23/22 15:05 LEFT LOWER EXTREMITY VENOUS DOPPLER HISTORY: Acute pain and swelling of the left lower extremity Left calf pain COMPARISON STUDY: None. FINDINGS: There is normal compressibility, flow, and augmentation within the left lower extremity deep venous system. IMPRESSION: No DVT within the left lower extremity. ACT 112: Negative or not required by law. Electronically signed by: Ronnie Monteiro M.D. 05/23/2022 6:12 PM Abdomen/Pelvis CT 05/23/22 16:[address] WITH IV CONTRAST CT DOSE: 462.51 mGy.cm HISTORY: Acute nausea with vomiting nausea vomiting TECHNIQUE: Multiaxial CT images of the abdomen and pelvis were performed following the IV administration of 84 cc of Optiray, A dose lowering technique was utilized adhering to the principles of ALARA. COMPARISON STUDY: 02/26/2017 FINDINGS: Extensive coronary artery calcifications. Mild nonspecific subcarinal lymphadenopathy. Mucous plugging with patchy bibasilar groundglass opacities, left greater than right. No pneumatosis or pneumoperitoneum. Study is limited secondary to respiratory motion artifact and upper extremity positioning. Spleen is enlarged measuring up to 15.5 cm in length. Unremarkable pancreas and adrenal glands. Mild gallbladder distention is similar to prior. Unremarkable liver. Patency of the hepatic and portal veins. Unremarkable kidneys. Subcentimeter hypodense foci of the left kidney are too small to characterize, however favor cysts. Heterogeneous prostate with prostamegaly. The majority of the right mid transitional zone is hypodense measuring up to 2 cm. Urinary bladder wall thickening with partial distention. Atherosclerosis of the aorta. Iliac chain lymph nodes measuring up to 10 mm are similar to prior. No bowel obstruction. Moderate to extensive colonic fecal retention. Mild rectal wall thickening with trace perirectal stranding. No CT evidence of acute appendicitis. Unremarkable soft tissues. Degenerative changes of the spine, pelvis and hips. Posterior interbody chon and screw fusion hardware L4-L5. IMPRESSION: 1. Moderate to extensive colonic fecal retention with findings suggestive of stercoral proctitis. 2. No bowel obstruction or pneumoperitoneum. 3. Prostamegaly with chronic bladder obstruction. Questioned lesion versus heterogeneity of the prostate. Correlate with PSA level. 4. Bibasilar opacities with mucous plugging suggestive of pneumonia versus aspiration pneumonitis. 5. Splenomegaly. 6. Bilateral iliac chain lymphadenopathy, similar to prior. 7. Additional findings as above. ACT 112: Negative or not required by law. The above report was generated using voice recognition software. It may contain grammatical, syntax or spelling errors. Electronically signed by: Ronnie Monteiro M.D. 05/23/2022 7:44 PM Chest X-Ray 05/23/22 16:23 XR chest 1V portable CLINICAL HISTORY: sob TECHNIQUE: Single frontal radiograph of the chest was obtained. Comparison: Comparison is made to chest radiograph 05/29/2021 FINDINGS: No lines and tubes are seen. The cardiomediastinal silhouette is normal. The lungs are clear. No evidence of pleural effusion or pneumothorax. IMPRESSION: No acute abnormalities and in particular no evidence of pneumonia. ACT 112: Negative or not required by law. Electronically signed by: Leo Hannah M.D. 05/23/2022 4:51 PM Discharge Plan Visit Data Chief Complaint: Calf Pain Stated Complaint: L CALF PAIN ED Provider: Ji Larson Discharge Problem: Aspiration into airway, Fecal retention, Leukocytosis Patient Disposition: Admitted As Inpatient Discharge Instructions Interventions: ED Discharge Assessment Last Done: 05/23/22 21:29
[2022-05-23 16:45] LABS: Partial Thromboplastin Ratio 0.9; Partial Thromboplastin Time 25.4 Seconds (21.0-31.0); Prothrombin Time 10.9 Seconds (9.0-12.0)
--- NOTE | 2022-05-23 16:52 | XRay Report ---
XR chest 1V portable CLINICAL HISTORY: sob TECHNIQUE: Single frontal radiograph of the chest was obtained. Comparison: Comparison is made to chest radiograph 05/29/2021 FINDINGS: No lines and tubes are seen. The cardiomediastinal silhouette is normal. The lungs are clear. No evid ence of pleural effusion or pneumothorax. IMPRESSION: No acute abnormalities and in particular no evidence of pneumonia. ACT 112: Negative or not required by law. Electronically signed by: Leo Hannah M.D. 05/23/2022 4:51 PM
[2022-05-23 16:58] LABS: Alanine Aminotransferase 10 U/L (7-52); Albumin Globulin Ratio 1.7 (0.9-2); Albumin Level 4.7 gm/dl (3.4-5.0); Alkaline Phosphatase 83 U/L (34-104); Anion Gap 14 (3-11); Aspartate Aminotransferase 15 U/L (13-39); BUN Creatinine Ratio 20.6 (10-20); Bilirubin,Total 0.8 mg/dl (0.2-1.0); Blood Urea Nitrogen 27 mg/dl (6-23); Calcium 10.2 mg/dl (8.5-10.1); Carbon Dioxide 24 mmol/L (21-32); Chloride 103 mmol/L (98-107); Est GFR (African American) 59.2 ml/min; Est GFR (Non-African American) 51.1 ml/min; Globulin 2.7 gm/dl (2.5-4.0); Glucose 154 mg/dl (70-99(Fasting)); Potassium 4.2 mmol/L (3.5-5.1); Sodium 141 mmol/L (136-145); Total Protein 7.4 gm/dl (6.0-8.3)
[2022-05-23 17:11] LABS: Basophils # (auto) 0.08 K/uL (0-0.2); Basophils % (auto) 0.3 %; Eosinophils # (auto) 0.14 K/uL (0-0.50); Eosinophils % (auto) 0.5 %; Immature Granulocytes # (auto) 0.15 K/uL (0.00-0.02); Immature Granulocytes % (auto) 0.6 %; Lymphocytes # (auto) 13.89 K/uL (1.2-3.4); Lymphocytes % (auto) 52.3 %; Monocytes # (auto) 0.53 K/uL (0.24-0.82); Neutrophils # (auto) 11.79 K/uL (1.4-6.5); Neutrophils % (auto) 44.3 %
[2022-05-23 17:47] LABS: Influenza A virus by PCR Negative (Neg); Influenza B virus by PCR Negative (Neg); RSV by PCR Negative (Neg); SARS CoV2 RNA(COVID-19) Ceph NEGATIVE (Negative)
[2022-05-23] MEDS ORDERED: PIPERACILLIN/TAZOBACTAM 4.5 GM/120 ML BAG IV ONE (17:59)
--- NOTE | 2022-05-23 18:13 | Ultrasound Report ---
LEFT LOWER EXTREMITY VENOUS DOPPLER HISTORY: Acute pain and swelling of the left lower extremity Left calf pain COMPARISON STUDY: None. FINDINGS: There is normal compressibility, flow, and augmentation within the left lower extremity irma p venous system. IMPRESSION: No DVT within the left lower extremity. ACT 112: Negative or not required by law. Electronically signed by: Ronnie Monteiro M.D. 05/23/2022 6:12 PM
[2022-05-23] MEDS ORDERED: OPTIRAY 350 100ml IV ONE (18:58)
--- NOTE | 2022-05-23 19:46 | CT Scan Report ---
ABDOMEN AND PELVIS CT WITH IV CONTRAST CT DOSE: 462.51 mGy.cm HISTORY: Acute nausea with vomiting nausea vomiting TECHNIQUE: Multiaxial CT images of the abdomen and pelvis were performed following the IV administrat ion of 84 cc of Optiray, A dose lowering technique was utilized adhering to the principles of ALARA. COMPARISON STUDY: 02/26/2017 FINDINGS: Extensive coronary artery calcifications. Mild nonspecific subcarinal lymphadenopathy. Muco us plugging with patchy bibasilar groundglass opacities, left greater than right. No pneumatosis or p neumoperitoneum. Study is limited secondary to respiratory motion artifact and upper extremity positi oning. Spleen is enlarged measuring up to 15.5 cm in length. Unremarkable pancreas and adrenal glands . Mild gallbladder distention is similar to prior. Unremarkable liver. Patency of the hepatic and por tony veins. Unremarkable kidneys. Subcentimeter hypodense foci of the left kidney are too small to characterize, however favor cysts. Heterogeneous prostate with prostamegaly. The majority of the right mid transiti onal zone is hypodense measuring up to 2 cm. Urinary bladder wall thickening with partial distention. Atherosclerosis of the aorta. Iliac chain lymph nodes measuring up to 10 mm are similar to prior. No bowel obstruction. Moderate to extensive colonic fecal retention. Mild rectal wall thickening with trace perirectal stranding. No CT evidence of acute appendicitis. Unremarkable soft tissues. Degener ative changes of the spine, pelvis and hips. Posterior interbody chon and screw fusion hardware L4-L5. IMPRESSION: 1. Moderate to extensive colonic fecal retention with findings suggestive of stercoral proctitis. 2. No bowel obstruction or pneumoperitoneum. 3. Prostamegaly with chronic bladder obstruction. Questioned lesion versus heterogeneity of the prost ate. Correlate with PSA level. 4. Bibasilar opacities with mucous plugging suggestive of pneumonia versus aspiration pneumonitis. 5. Splenomegaly. 6. Bilateral iliac chain lymphadenopathy, similar to prior. 7. Additional findings as above. ACT 112: Negative or not required by law. The above report was generated using voice recognition software. It may contain grammatical, syntax o r spelling errors. Electronically signed by: Ronnie Monteiro M.D. 05/23/2022 7:44 PM
--- NOTE | 2022-05-23 20:11 | History & Physical Report ---
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 Patient began coughing violently while in the ER and subsequently vomited and aspirated. Meets sepsis criteria with SIRS 2/4 with a pulmonary source of infection. Presently febrile at 38.5, elevated WBC=26.58 and elevated procalcitonin at 1.82. No respiratory distress. Patient with adequate oxygenation on room air. He had a stroke in the past with residual right sided deficit. His does report that he often pockets food in his right cheek. She reports that she sweeps his mouth after meals. Has never aspirated in the past. -Observation to medical -Maintain aspiration precautions -Monitor for oral pocketing -Monitor respiratory status -Continue Zosyn -Tylenol as needed for fever -Mucinex BID -CXR in AM -Flutter valve and incentive spirometry (2) Fecal retention: Plan: Patient with moderate to extensive colonic fecal retention with findings suggestive of stercoral proctitis. No bowel obstruction noted. -Miralax 17gm po daily -Colace 100mg po BID -Docusate/Senna 2tabs po BID PRN -Dulcolax suppository daily -Gentle IVF (3) Hypertension: Plan: Blood pressure well controlled. Presently 129/70 -Continue Amlodipine 5mg po qHS -Continue Losartan 50mg po daily -Monitor (4) Hyperlipidemia: Plan: Chronic. Stable -Continue Atorvastatin (5) CVA (cerebrovascular accident due to intracerebral hemorrhage): Plan: Remote history -Aspiration precautions -Turn and position as needed (6) Diabetes mellitus type 2 in nonobese: Plan: Well controlled DM. Last GfbB2F=9.4. 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 Patient woke this morning with pain and cramping in his left calf. His called the PCP and it was recommended that he come to get a LLE ultrasound to rule out DVT. Patient was in the ER waiting room when he began to cough violently. He then vomited and aspirated his vomit. No respiratory distress at present. No oxygen requirement. is at bedside and provides history. No additional complaints. Patient does have some constipation at baseline. He denies fever, chills, SOB, abdominal pain, nausea. In the ER he is febrile at 38.5, HD stable, adequate oxygenation on room air. Patient continues to cough, non-productive but wet sounding. His states that he coughs frequently like this. ER Course: Zosyn 4.5gm Tylenol Pepcid Albuterol Zofran NSS x 1L Allergies Allergy/AdvReac Type Severity Reaction Status Date / Time No Known Allergies Allergy Verified 05/23/22 19:49 Home Medications Medication Instructions Recorded Confirmed Type amlodipine 5 mg tablet 5 mg PO HS 03/11/21 05/23/22 History atorvastatin 20 mg tablet 20 mg PO HS 03/11/21 05/23/22 History acetaminophen 325 mg tablet 650 mg PO Q4 PRN Pain 04/05/21 05/23/22 History (Tylenol) sennosides 8.6 mg-docusate sodium 1 - 2 tab-cap PO BID PRN 04/01/22 05/23/22 Rx 50 mg tablet (Senokot-S) constipation #60 tabs docusate sodium 100 mg capsule 100 mg PO BID 05/23/22 05/23/22 History (Stool Softener) lactulose 10 gram/15 mL oral 0 g PO DIRECTED PRN Constipation 05/23/22 05/23/22 History solution losartan 50 mg tablet 50 mg PO DAILY 05/23/22 05/23/22 History metformin 500 mg tablet 500 mg PO BID 05/23/22 05/23/22 History Past Med/Surg History Medical History (Updated 05/23/22 @ 22:36 by Lisa Conn DO) CVA (cerebrovascular accident due to intracerebral hemorrhage) Diabetes mellitus type 2 in nonobese Gout Hearing impaired Hyperlipidemia Hypertension Social History Smoking Status: Former smoker Tobacco Type: Cigarettes Preferred Language: [place] Feels Safe at Home: Yes Review of Systems Review of Systems: All systems reviewed & are unremarkable except as noted in HPI & below Physical Exam Physical Exam: General: patient resting comfortably, NAD, non-toxic in appearance, 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 Skin: warm, dry, intact, no rashes or lesions HEENT: NC/AT, PERRL, EOMI, anicteric sclera, conjunctiva without injection, external ear normal to inspection and nontender, nares patent, moist mucus membranes, dentition intact, no oropharyngeal lesions, neck supple, trachea midline, no LAD, no thyromegaly, no JVD Heart: +S1/S2, regular, 4/6 DEJAN across precordium with radiation to bilateral carotids Lungs: coarse breath sounds bilaterally, R > L, no wheeze Abd: diminished bowel sounds, soft, NT/ND, no masses/organomegaly/ascites Ext: warm, 2+ pulses in UE/LE bilaterally, no clubbing/cyanosis or edema Neuro: right sided paralysis, minimally verbal Results & Data Results & Data ([facility]) Vital Signs (Past 12 Hours) Vital Signs Temp Pulse Pulse Resp BP BP Pulse Ox 05/23/22 19:54 37.6 C H 88 18 112/59 L 95 05/23/22 18:11 38.1 C H 92 H 18 122/60 92 05/23/22 17:16 103 H 20 136/68 92 05/23/22 16:32 37.9 C H 130 H 20 139/80 95 05/23/22 15:04 36.5 C 102 H 18 158/72 H 98 O2 Del Method 05/23/22 19:54 Room Air 05/23/22 18:11 Room Air 05/23/22 17:16 Room Air 05/23/22 16:32 Room Air 05/23/22 15:04 Room Air Laboratory Results Laboratory Results WBC 26.58 K/ul (4.8-10.8) H 05/23/22 16:15 RBC 4.96 M/uL (4.63-6.08) 05/23/22 16:15 Hgb 15.5 g/dl (14.0-18.0) 05/23/22 16:15 Hct 45.2 % (40.1-51.0) 05/23/22 16:15 MCV 91.1 fL (80.0-100.0) 05/23/22 16:15 MCH 31.3 pg (25.0-34.0) 05/23/22 16:15 MCHC 34.3 g/dL (32.0-36.0) 05/23/22 16:15 RDW Std Deviation 42.3 fL (36.4-46.3) 05/23/22 16:15 RDW Coeff of Kenny 12.9 % (11.5-14.5) 05/23/22 16:15 Plt Count 256 K/uL (130-400) 05/23/22 16:15 MPV 9.7 fL (9.4-12.4) 05/23/22 16:15 Immature Gran % (Auto) 0.6 % 05/23/22 16:15 Neut % (Auto) 44.3 % 05/23/22 16:15 Lymph % (Auto) 52.3 % 05/23/22 16:15 [place] % (Auto) 2.0 % 05/23/22 16:15 Eos % (Auto) 0.5 % 05/23/22 16:15 Baso % (Auto) 0.3 % 05/23/22 16:15 Neut # (Auto) 11.79 K/uL (1.4-6.5) H 05/23/22 16:15 Lymph # (Auto) 13.89 K/uL (1.2-3.4) H 05/23/22 16:15 [place] # (Auto) 0.53 K/uL (0.24-0.82) 05/23/22 16:15 Eos # (Auto) 0.14 K/uL (0-0.50) 05/23/22 16:15 Baso # (Auto) 0.08 K/uL (0-0.2) 05/23/22 16:15 Immature Gran # (Auto) 0.15 K/uL (0.00-0.02) H 05/23/22 16:15 PT 10.9 Seconds (9.0-12.0) 05/23/22 16:15 INR 1.0 (0.9-1.1) 05/23/22 16:15 APTT 25.4 Seconds (21.0-31.0) 05/23/22 16:15 PTT Ratio 0.9 05/23/22 16:15 Sodium 141 mmol/L (136-145) 05/23/22 16:15 Potassium 4.2 mmol/L (3.5-5.1) 05/23/22 16:15 Chloride 103 mmol/L (98-107) 05/23/22 16:15 Carbon Dioxide 24 mmol/L (21-32) 05/23/22 16:15 Anion Gap 14 (3-11) H 05/23/22 16:15 BUN 27 mg/dl (6-23) H 05/23/22 16:15 Creatinine 1.31 mg/dl (0.6-1.4) 05/23/22 16:15 Est Cr Clr Drug Dosing Not Reportable 05/23/22 16:15 Est GFR ( Amer) 59.2 ml/min 05/23/22 16:15 Est GFR (Non-Af Amer) 51.1 ml/min 05/23/22 16:15 BUN/Creatinine Ratio 20.6 (10-20) H 05/23/22 16:15 Glucose 154 mg/dl (70-99(Fasting)) H 05/23/22 16:15 POC Glucose 139 mg/dl (70-99) H 05/23/22 21:54 Lactate 1.4 mmol/L (0.4-2.0) 05/23/22 18:33 Calcium 10.2 mg/dl (8.5-10.1) H 05/23/22 16:15 Total Bilirubin 0.8 mg/dl (0.2-1.0) 05/23/22 16:15 AST 15 U/L (13-39) 05/23/22 16:15 ALT 10 U/L (7-52) 05/23/22 16:15 Alkaline Phosphatase 83 U/L (34-104) 05/23/22 16:15 Total Protein 7.4 gm/dl (6.0-8.3) 05/23/22 16:15 Albumin 4.7 gm/dl (3.4-5.0) 05/23/22 16:15 Globulin 2.7 gm/dl (2.5-4.0) 05/23/22 16:15 Albumin/Globulin Ratio 1.7 (0.9-2) 05/23/22 16:15 Lipase 46 U/L (11-82) 05/23/22 16:15 Procalcitonin 1.82 ng/ml (0-0.5) H 05/23/22 18:34 SARS-CoV-2 (PCR) NEGATIVE (Negative) 05/23/22 16:45 Influenza Type A (PCR) Negative (Neg) 05/23/22 16:45 Influenza Type B (PCR) Negative (Neg) 05/23/22 16:45 RSV (RT-PCR) Negative (Neg) 05/23/22 16:45 Impressions Venous Doppler Study 05/23/22 15:05 LEFT LOWER EXTREMITY VENOUS DOPPLER HISTORY: Acute pain and swelling of the left lower extremity Left calf pain COMPARISON STUDY: None. FINDINGS: There is normal compressibility, flow, and augmentation within the le ft lower extremity deep venous system. IMPRESSION: No DVT within the left lower extremity. ACT 112: Negative or not required by law. Electronically signed by: Ronnie Monteiro M.D. 05/23/2022 6:12 PM Abdomen/Pelvis CT 05/23/22 16:[address] WITH IV CONTRAST CT DOSE: 462.51 mGy.cm HISTORY: Acute nausea with vomiting nausea vomiting TECHNIQUE: Multiaxial CT images of the abdomen and pelvis were performed following the IV administration of 84 cc of Optiray, A dose lowering technique was utilized adhering to the principles of ALARA. COMPARISON STUDY: 02/26/2017 FINDINGS: Extensive coronary artery calcifications. Mild nonspecific subcarinal lymphadenopathy. Mucous plugging with patchy bibasilar groundglass opacities, le ft greater than right. No pneumatosis or pneumoperitoneum. Study is limited secondary to respiratory motion artifact and upper extremity positioning. Spleen is enlarged measuring up to 15.5 cm in length. Unremarkable pancreas and adrenal glands. Mild gallbladder distention is similar to prior. Unremarkable liver. Patency of the hepatic and portal veins. Unremarkable kidneys. Subcentimeter hypodense foci of the left kidney are too small to characterize, however favor cysts. Heterogeneous prostate with prostamegaly. The majority of the right mid transitional zone is hypodense measuring up to 2 cm. Urinary bladder wall thickening with partial distention. Atherosclerosis of the aorta. Iliac chain lymph nodes measuring up to 10 mm are similar to prior. No bowel obstruction. Moderate to extensive colonic fecal retention. Mild rectal wall thickening with trace perirectal stranding. No CT evidence of acute appendicitis. Unremarkable soft tissues. Degenerative changes of the spine, pelvis and hips. Posterior interbody chon and screw fusion hardware L4-L5. IMPRESSION: 1. Moderate to extensive colonic fecal retention with findings suggestive of stercoral proctitis. 2. No bowel obstruction or pneumoperitoneum. 3. Prostamegaly with chronic bladder obstruction. Questioned lesion versus heterogeneity of the prostate. Correlate with PSA level. 4. Bibasilar opacities with mucous plugging suggestive of pneumonia versus aspiration pneumonitis. 5. Splenomegaly. 6. Bilateral iliac chain lymphadenopathy, similar to prior. 7. Additional findings as above. ACT 112: Negative or not required by law. The above report was generated using voice recognition software. It may contain grammatical, syntax or spelling errors. Electronically signed by: Ronnie Monteiro M.D. 05/23/2022 7:44 PM Chest X-Ray 05/23/22 16:23 XR chest 1V portable CLINICAL HISTORY: sob TECHNIQUE: Single frontal radiograph of the chest was obtained. Comparison: Comparison is made to chest radiograph 05/29/2021 FINDINGS: No lines and tubes are seen. The cardiomediastinal silhouette is normal. The lungs are clear. No evidence of pleural effusion or pneumothorax. IMPRESSION: No acute abnormalities and in particular no evidence of pneumonia. ACT 112: Negative or not required by law. Electronically signed by: Leo Hannah M.D. 05/23/2022 4:51 PM PG Care Time/CCT Total # of Minutes Spent Total Time Spent with Patient: Total time spent is greater than 50% in coordination of care (as documented) at patient's floor/unit and/or counseling patient: Coding Level of Care Code 98405 INT INP/OBS CARE 3/75MIN Diagnoses Aspiration into airway T17.908A Fecal retention K59.00 Hypertension I10 Hyperlipidemia E78.5 CVA (cerebrovascular accident due to intracerebral hemorrhage) I61.9 Diabetes mellitus type 2 in nonobese E11.9
[2022-05-23] MEDS ORDERED: ACETAMINOPHEN 325 MG TAB PO PRN (21:45)
[2022-05-23] MEDS ORDERED: CARBOHYDRATES FOR HYPOGLYCEMIA PO PRN (21:45)
[2022-05-23] MEDS ORDERED: GLUCAGON FOR INJ 1 MG VIAL SQ PRN (21:45)
[2022-05-23] MEDS ORDERED: ONDANSETRON INJ 2 MG/ML 2 ML VIAL IV PRN (21:45)
[2022-05-23] MEDS ORDERED: GLUCOSE 40% GEL 15 GM TUBE PO PRN (21:45)
[2022-05-23] MEDS ORDERED: GLUCOSE 10 TAB/TUBE PO PRN (21:45)
[2022-05-23] MEDS ORDERED: DOCUSATE SODIUM/SENNA 50/8.6MG TAB PO PRN (21:45)
[2022-05-23] MEDS ORDERED: DEXTROSE 50% 50 ML SYRINGE IV PRN (21:45)
[2022-05-23] MEDS: LACTATED RINGER'S 1,000 ML IV SCH (21:56)
[2022-05-23] MEDS: ACETAMINOPHEN 1,000 MG/100 ML VIAL IV PRN (23:11)
[2022-05-23] MEDS: LANTUS PER UNIT CHARGE SQ SCH (23:26)
[2022-05-23] MEDS: DOCUSATE SODIUM 100 MG CAP PO SCH (23:26)
[2022-05-23] MEDS: guaiFENesin 600 MG TABCR PO SCH (23:26)
[2022-05-23] MEDS: amLODIPine BESYLATE 5 MG TAB PO SCH (23:26)
[2022-05-23] MEDS: ATORVASTATIN 20 MG TAB PO SCH (23:26)
[2022-05-23] MEDS: INSULIN ASPART PER UNIT SC SCH (23:27)
[2022-05-24] MEDS: PIPERACILLIN/TAZOBACTAM 3.375 GM in DEXTROSE 5% 100 ML IV SCH ×3 (00:38→16:32)
[2022-05-24 06:44] LABS: Hematocrit (blood only) 37.6 % (40.1-51.0); Mean Corpuscular Hemoglobin 31.1 pg (25.0-34.0); Mean Corpuscular Hgb Conc 34.6 g/dL (32.0-36.0); Mean Platelet Volume 9.8 fL (9.4-12.4); Platelet Count 150 K/uL (130-400); RDW Coefficient of Variation 12.9 % (11.5-14.5); Red Blood Count 4.18 M/uL (4.63-6.08); White Blood Count 15.14 K/ul (4.8-10.8)
[2022-05-24 07:16] LABS: BUN Creatinine Ratio 19.1 (10-20); Calcium 9.4 mg/dl (8.5-10.1); Creatinine Clr Calc Pharmacy 35.5 ml/min; Est GFR (African American) 54.1 ml/min; Est GFR (Non-African American) 46.7 ml/min
--- NOTE | 2022-05-24 07:43 | Hospitalist Progress Note ---
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 Patient began coughing violently while in the ER and subsequently vomited and aspirated. Meets sepsis criteria with SIRS 2/4 with a pulmonary source of infection. Presently febrile at 38.5, elevated WBC=26.58 and elevated procalcitonin at 1.82. No respiratory distress. Patient with adequate oxygenation on room air. He had a stroke in the past with residual right sided deficit. His does report that he often pockets food in his right cheek. She reports that she sweeps his mouth after meals. Has never aspirated in the past. -[employer] evaluation ordered -Maintain aspiration precautions -Monitor for oral pocketing -Monitor respiratory status -Continue Zosyn -Tylenol as needed for fever -Mucinex BID -CXR in AM -Flutter valve and incentive spirometry (2) Fecal retention: Plan: Patient with moderate to extensive colonic fecal retention with findings suggestive of stercoral proctitis. No bowel obstruction noted. -Miralax 17gm po daily (if no BM after 24 hours to increase to 34 gm ) -Colace 100mg po BID -Dulcolax suppository prn -Gentle IVFs -Discussed increasing po water intake, fiber supplementation daily (3) Hypertension: Plan: Blood pressure stable currently 152/73 -Continue Amlodipine 5mg po qHS -Continue Losartan 50mg po daily -Monitor (4) Hyperlipidemia: Plan: Chronic. Stable -Continue Atorvastatin (5) CVA (cerebrovascular accident due to intracerebral hemorrhage): Plan: Remote history -Aspiration precautions -Turn and position as needed -Patient's states they have care givers who are there 10 hours daily and they also have family help and assistance to provide 24/7 care (6) Diabetes mellitus type 2 in nonobese: Plan: Well controlled DM. Last QpuC9H=9.4. Blood sugar presently 139 -Hold Metformin -Lantus 5u BID -ISS (7) CLL (chronic lymphocytic leukemia): Plan: Patient follows with [facility] (8) Leukocytosis: Plan: Improved Hx CLL (9) Abnormal CT of the abdomen: Plan: Discussed CT findings with patient, his and his granddaughter - the fecal retention and the need for a good bowel regimen - the prostatomegaly with chronic bladder obstruction and question of lesion vs heterogenicity of the prostate and options for urological evaluation, PSA. states she will follow up with patient's PCP - Dr Swan regarding this issue - Bibasilar opacities with mucus plugging suggestive of pneumonia vs aspiration pneumonitis - bilateral iliac chain lymphadenopathy (similar to prior) Plan DVT prophylaxis - bilateral SCD History of CVA due to intracerebral hemorrhage [employer] evaluation Admission and Anticipated Discharge Date Admission Date: May 23, 2022 Subjective When I first came into patient's room he was not talking and did not answer my questions but would shake his head yes and no. After I was in his room awhile his nurse and then his family arrived and he was able to communicate and actually answer my questions. Patient was instructed to come to the ER due to left calf pain and to r/o DVT. while in the ER waiting he vomited and aspirated his vomit and it was felt patient had aspiration pneumonia and he was made NPO. Currently patient states he has no leg pain. He still has a cough Review of Systems Constitutional: + fatigue; no fever and no chills Eyes: no blind spots, no diplopia, no eye pain and no photophobia Ear, Nose, Mouth, Throat: no nasal congestion, no post nasal drip and no mouth lesions Respiratory: + cough; no dyspnea, no hemoptysis and no pain on inspiration Cardiovascular: no chest pain, no dyspnea, no lightheadedness and no syncope Additional Comments: Initially patient was having left calf pain and was instructed by his PCP to go to the ER to r/o a DVT Patient had normal U/S doppler and currently has no calf pain Gastrointestinal: + constipation; no abdominal pain, no nausea and no vomiting Per patient has had constipation for a long time. He will go 5 days or more with no BM and then will have up to 7 BMs daily for several days and then repeat this cycle all over again. Neurologic: right sided paralysis mild aphasia Physical Exam Constitutional: well nourished, + well hydrated and + thin; no acute distress Respiratory: course breath sounds clear somewhat with coughing Cardiovascular: Rate/Rhythm: regular rate and regular rhythm Heart Sounds: normal S1, normal S2 and + murmur (3/6 DEJAN) Gastrointestinal (Abdomen): Inspection/Auscultation: abdomen normal to inspection Percussion/Palpation: abdomen soft; abdomen nontender, no guarding and no hepatosplenomegaly old healed surgical scar LUQ (previous PEG tube) Neurologic: awake mild aphasia, right sided paralysis Psychiatric: Orientation: alert, oriented to person and cooperative [facility] Results & Data Results & Data ([facility]) Vital Signs (Past 12 Hours) Vital Signs Temp Pulse Pulse Resp BP Pulse Ox O2 Del Method 05/23/22 21:45 38.5 C H 85 18 129/70 96 Room Air 05/23/22 21:29 Room Air 05/23/22 21:00 87 18 125/70 95 Room Air 05/23/22 20:30 89 18 119/58 L 94 Room Air 05/23/22 19:54 37.6 C H 88 18 112/59 L 95 Room Air Laboratory Results Abnormal lab results 05/23/22 05/23/22 05/23/22 Range/Units 16:15 16:15 18:34 WBC 26.58 H (4.8-10.8) K/ul RBC (4.63-6.08) M/uL Hgb (14.0-18.0) g/dl Hct (40.1-51.0) % Neut # (Auto) 11.79 H (1.4-6.5) K/uL Lymph # (Auto) 13.89 H (1.2-3.4) K/uL Immature Gran # (Auto) 0.15 H (0.00-0.02) K/uL Anion Gap 14 H (3-11) BUN 27 H (6-23) mg/dl Creatinine (0.6-1.4) mg/dl BUN/Creatinine Ratio 20.6 H (10-20) Glucose 154 H (70-99(Fasting)) mg/dl POC Glucose (70-99) mg/dl Calcium 10.2 H (8.5-10.1) mg/dl Procalcitonin 1.82 H (0-0.5) ng/ml 05/23/22 05/24/22 05/24/22 Range/Units 21:54 06:04 06:04 WBC 15.14 H D (4.8-10.8) K/ul RBC 4.18 L (4.63-6.08) M/uL Hgb 13.0 L (14.0-18.0) g/dl Hct 37.6 L (40.1-51.0) % Neut # (Auto) (1.4-6.5) K/uL Lymph # (Auto) (1.2-3.4) K/uL Immature Gran # (Auto) (0.00-0.02) K/uL Anion Gap (3-11) BUN 27 H (6-23) mg/dl Creatinine 1.41 H (0.6-1.4) mg/dl BUN/Creatinine Ratio (10-20) Glucose 159 H (70-99(Fasting)) mg/dl POC Glucose 139 H (70-99) mg/dl Calcium (8.5-10.1) mg/dl Procalcitonin (0-0.5) ng/ml 05/24/22 05/24/22 Range/Units 08:34 12:20 WBC (4.8-10.8) K/ul RBC (4.63-6.08) M/uL Hgb (14.0-18.0) g/dl Hct (40.1-51.0) % Neut # (Auto) (1.4-6.5) K/uL Lymph # (Auto) (1.2-3.4) K/uL Immature Gran # (Auto) (0.00-0.02) K/uL Anion Gap (3-11) BUN (6-23) mg/dl Creatinine (0.6-1.4) mg/dl BUN/Creatinine Ratio (10-20) Glucose (70-99(Fasting)) mg/dl POC Glucose 146 H 183 H (70-99) mg/dl Calcium (8.5-10.1) mg/dl Procalcitonin (0-0.5) ng/ml Diagnostic Findings Venous Doppler Study 05/23/22 15:05 LEFT LOWER EXTREMITY VENOUS DOPPLER HISTORY: Acute pain and swelling of the left lower extremity Left calf pain COMPARISON STUDY: None. FINDINGS: There is normal compressibility, flow, and augmentation within the left lower extremity deep venous system. IMPRESSION: No DVT within the left lower extremity. ACT 112: Negative or not required by law. Electronically signed by: Ronnie Monteiro M.D. 05/23/2022 6:12 PM Abdomen/Pelvis CT 05/23/22 16:[address] WITH IV CONTRAST CT DOSE: 462.51 mGy.cm HISTORY: Acute nausea with vomiting nausea vomiting TECHNIQUE: Multiaxial CT images of the abdomen and pelvis were performed following the IV administration of 84 cc of Optiray, A dose lowering technique was utilized adhering to the principles of ALARA. COMPARISON STUDY: 02/26/2017 FINDINGS: Extensive coronary artery calcifications. Mild nonspecific subcarinal lymphadenopathy. Mucous plugging with patchy bibasilar groundglass opacities, left greater than right. No pneumatosis or pneumoperitoneum. Study is limited secondary to respiratory motion artifact and upper extremity positioning. Spleen is enlarged measuring up to 15.5 cm in length. Unremarkable pancreas and adrenal glands. Mild gallbladder distention is similar to prior. Unremarkable liver. Patency of the hepatic and portal veins. Unremarkable kidneys. Subcentimeter hypodense foci of the left kidney are too small to characterize, however favor cysts. Heterogeneous prostate with prostamegaly. The majority of the right mid transitional zone is hypodense measuring up to 2 cm. Urinary bladder wall thickening with partial distention. Atherosclerosis of the aorta. Iliac chain lymph nodes measuring up to 10 mm are similar to prior. No bowel obstruction. Moderate to extensive colonic fecal retention. Mild rectal wall thickening with trace perirectal stranding. No CT evidence of acute appendicitis. Unremarkable soft tissues. Degenerative changes of the spine, pelvis and hips. Posterior interbody chon and screw fusion hardware L4-L5. IMPRESSION: 1. Moderate to extensive colonic fecal retention with findings suggestive of stercoral proctitis. 2. No bowel obstruction or pneumoperitoneum. 3. Prostamegaly with chronic bladder obstruction. Questioned lesion versus heterogeneity of the prostate. Correlate with PSA level. 4. Bibasilar opacities with mucous plugging suggestive of pneumonia versus aspiration pneumonitis. 5. Splenomegaly. 6. Bilateral iliac chain lymphadenopathy, similar to prior. 7. Additional findings as above. ACT 112: Negative or not required by law. The above report was generated using voice recognition software. It may contain grammatical, syntax or spelling errors. Electronically signed by: Ronnie Monteiro M.D. 05/23/2022 7:44 PM Chest X-Ray 05/23/22 16:23 XR chest 1V portable CLINICAL HISTORY: sob TECHNIQUE: Single frontal radiograph of the chest was obtained. Comparison: Comparison is made to chest radiograph 05/29/2021 FINDINGS: No lines and tubes are seen. The cardiomediastinal silhouette is normal. The lungs are clear. No evidence of pleural effusion or pneumothorax. IMPRESSION: No acute abnormalities and in particular no evidence of pneumonia. ACT 112: Negative or not required by law. Electronically signed by: Leo Hannah M.D. 05/23/2022 4:51 PM Chest X-Ray 05/24/22 09:00 XR chest 1V portable CLINICAL HISTORY: Aspiration TECHNIQUE: Single frontal radiograph of the chest was obtained. Comparison: Comparison is made to chest radiograph 05/23/2022 FINDINGS: No lines and tubes are seen. The cardiomediastinal silhouette is normal. Lungs are underinflated but clear apart from atelectasis in the left lung base. No evidence of pleural effusion or pneumothorax. IMPRESSION: No acute abnormality and in particular no evidence of aspiration. Lungs are underinflated atelectasis is seen in the left lung base. ACT 112: Negative or not required by law. Electronically signed by: Leo Hannah M.D. 05/24/2022 9:54 AM PG Care Time/CCT Total # of Minutes Spent Total Time Spent with Patient: Total time spent is greater than 50% in coordination of care (as documented) at patient's floor/unit and/or counseling patient: Coding Level of Care Code 28761 SUB INP/OBS CARE 2/35MIN Diagnoses Aspiration into airway T17.908A Fecal retention K59.00 Hypertension I10 Hyperlipidemia E78.5 CVA (cerebrovascular accident due to intracerebral hemorrhage) I61.9 Diabetes mellitus type 2 in nonobese E11.9 CLL (chronic lymphocytic leukemia) C91.[address] of the abdomen R93.5
[2022-05-24] MEDS: INSULIN ASPART PER UNIT SC SCH ×4 (08:40→21:28)
[2022-05-24] MEDS: LANTUS PER UNIT CHARGE SQ SCH ×2 (08:40→21:28)
[2022-05-24] MEDS: ACETAMINOPHEN 1,000 MG/100 ML VIAL IV PRN (08:44)
[2022-05-24] MEDS ORDERED: bisacodyL 10 MG SUPP PR SCH (09:00)
[2022-05-24] MEDS: LOSARTAN POTASSIUM 50 MG TAB PO SCH ×2 (09:23→10:23)
[2022-05-24] MEDS: POLYETHYLENE (MIRALAX) 17 GM PACK PO SCH (09:23)
[2022-05-24] MEDS: guaiFENesin 600 MG TABCR PO SCH ×2 (09:23→21:03)
[2022-05-24] MEDS: DOCUSATE SODIUM 100 MG CAP PO SCH ×2 (09:23→21:03)
--- NOTE | 2022-05-24 09:56 | XRay Report ---
XR chest 1V portable CLINICAL HISTORY: Aspiration TECHNIQUE: Single frontal radiograph of the chest was obtained. Comparison: Comparison is made to chest radiograph 05/23/2022 FINDINGS: No lines and tubes are seen. The cardiomediastinal silhouette is normal. Lungs are underinflated but clear apart from atelectasis in the left lung base. No evidence of pleural effusion or pneumothorax. IMPRESSION: No acute abnormality and in particular no evidence of aspiration. Lungs are underinflated atelectasis is seen in the left lung base. ACT 112: Negative or not required by law. Electronically signed by: Leo Hannah M.D. 05/24/2022 9:54 AM
[2022-05-24] MEDS ORDERED: INFLUENZA VACCINE HIGH DOSE PF 65+ 0.7 ML SYR IM ONE (12:03)
[2022-05-24] MEDS: LACTATED RINGER'S 1,000 ML IV SCH (12:24)
--- NOTE | 2022-05-24 17:25 | Urology Consultation ---
Date of Consultation May 24, 2022 Assessment & Plan (1) Enlarged prostate: (2) Bladder wall thickening: Plan 82-year-old male admitted to the hospital who was incidentally seen to have prostatomegaly and bladder wall thickening on a CT scan performed for other reasons. Patient has no urinary complaints Would not recommend any further work-up simply for incidental findings on the CT scan. Reviewed patient's recent PSAs which were well within normal limits for his age. Do not recommend any further PSA screening given his age. Additionally, he has no family history of prostate cancer No further urologic work-up needed. Offered patient outpatient follow-up but he declined and it is not necessary as he is asymptomatic Urology to sign off History of Present Illness Reason for Consultation: Urinary obstruction and prostatic megaly Attending Physician: Malcom Han History of Present Illness 82-year-old male with a history of stroke. He had left lower extremity swelling and came to the ED for DVT T work-up. While in the ED, he began to cough violently then vomited and aspirated. Initial labs showed a leukocytosis of 26.5, hemoglobin of 15.5, creatinine of 1.31. Labs today show a white blood cell count of 15.1, hemoglobin of 13, creatinine of 1.41. CT scan the abdomen pelvis was performed on 05/23/2022 which I independently reviewed. This shows a thick-walled bladder and mildly enlarged prostate with significant constipation. A PSA was 1.53 from 07/05/2020. A bladder scan in the system shows a PVR of 197. Patient denies any history of urologic procedures. He denies any dysuria, hematuria, urgency, frequency or incontinence. He has no family history of prostate cancer Allergies Allergy/AdvReac Type Severity Reaction Status Date / Time No Known Allergies Allergy Verified 05/23/22 19:49 Home Medications Medication Instructions Recorded Confirmed Type amlodipine 5 mg tablet 5 mg PO HS 03/11/21 05/23/22 History atorvastatin 20 mg tablet 20 mg PO HS 03/11/21 05/23/22 History acetaminophen 325 mg tablet 650 mg PO Q4 PRN Pain 04/05/21 05/23/22 History (Tylenol) sennosides 8.6 mg-docusate sodium 1 - 2 tab-cap PO BID PRN 04/01/22 05/23/22 Rx 50 mg tablet (Senokot-S) constipation #60 tabs docusate sodium 100 mg capsule 100 mg PO BID 05/23/22 05/23/22 History (Stool Softener) lactulose 10 gram/15 mL oral 0 g PO DIRECTED PRN Constipation 05/23/22 05/23/22 History solution losartan 50 mg tablet 50 mg PO DAILY 05/23/22 05/23/22 History metformin 500 mg tablet 500 mg PO BID 05/23/22 05/23/22 History Patient History Medical History CVA (cerebrovascular accident due to intracerebral hemorrhage) Diabetes mellitus type 2 in nonobese Gout Hearing impaired Hyperlipidemia Hypertension Family History Other Family history non-contributory Social History Smoking Status: Never smoker Tobacco Type: Cigarettes Hx Alcohol Use: Yes Alcohol type: wine Hx Substance Use: No Preferred Language: Citizen Of [place] Communication Ability: Impaired Communication Ability Comment: APHASIC 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 Officer Required: No Current Living Situation: Spouse Other Information That Helps Us Care for You: No Feels Safe at Home: Yes Safety Concerns: Feels Safe At This Time Assistive Devices: Hearing Aid - Bilateral and Wheelchair Review of Systems Review of Systems: 14 point review of systems negative outside of what is listed above in HPI Physical Exam Physical Exam: General: Alert and oriented, no acute distress HEENT: Normocephalic, mucous membranes moist Pulmonary: Nonlabored respirations Abdomen: Nondistended Extremities: Moves all 4 spontaneously Neuro: No gross deficits Skin: Warm, dry, no rashes noted Results & Data ([facility]) Vital Signs (Past 12 Hours) Vital Signs Temp Pulse Resp BP Pulse Ox O2 Del Method 05/24/22 16:35 37.1 C 74 16 131/72 96 Room Air 05/24/22 12:56 36.6 C 76 152/73 H 95 Room Air 05/24/22 11:50 36.6 C 76 152/73 H 95 Room Air 05/24/22 08:00 Room Air 05/24/22 09:09 37.4 C 71 18 130/67 97 Room Air PG Care Time/CCT Total # of Minutes Spent Total Time Spent with Patient: Total time spent is greater than 50% in coordination of care (as documented) at patient's floor/unit and/or counseling patient: Coding Level of Care Code 43884 INT INP/OBS CARE 2MIN Diagnoses Enlarged prostate N40.0 Bladder wall thickening N32.89
[2022-05-24] MEDS: amLODIPine BESYLATE 5 MG TAB PO SCH (21:02)
[2022-05-24] MEDS: ATORVASTATIN 20 MG TAB PO SCH (21:02)
[2022-05-24 23:21] LABS: A calco-baum cmplx NotReported Not Detected (NotDetected); Bact fragilis Not Reported Not Detected (NotDetected); C auris Not Reported Not Detected (NotDetected); Calbicans Not Reported Not Detected (NotDetected); Candida glabrata Not Reported Not Detected (NotDetected); Candida krusei Not Reported Not Detected (NotDetected); Cneoformans/gatti Not Reported Not Detected (NotDetected); Cparapsilosis Not Reported Not Detected (NotDetected); Ctropicalis Not Reported Not Detected (NotDetected); E cloacae compx Not Reported Not Detected (NotDetected); Efaecalis Not Reported Not Detected (NotDetected); Efaecium Not Reported Not Detected (NotDetected); Enterobacterales Not Reported Not Detected (NotDetected); Escherichia coli Not Reported Not Detected (NotDetected); H influenzae Not Reported Not Detected (NotDetected); K aerogenes Not Reported Not Detected (NotDetected); Koxytoca Not Reported Not Detected (NotDetected); Kpneumoniae grp Not Reported Not Detected (NotDetected); Lmonocyt Not Reported Not Detected (NotDetected); N meningitidis Not Reported Not Detected (NotDetected); P aeruginosa Not Reported Not Detected (NotDetected); Proteus spp Not Reported Not Detected (NotDetected); Salmonella spp Not Reported Not Detected (NotDetected); Smarcescens Not Reported Not Detected (NotDetected); Staph lugdunensis Not Reported Not Detected (NotDetected); Staph spp. Not Reported DETECTED (NotDetected); Staphaureus Not Reported Not Detected (NotDetected); Staphepi Not Reported Not Detected (NotDetected); Staphylococcus spp. DETECTED (NotDetected); Stenmaltophilia Not Reported Not Detected (NotDetected); Strep agal(GrpB) Not Reported Not Detected (NotDetected); Strep pneum Not Reported Not Detected (NotDetected); Strep pyog (GrpA) Not Reported Not Detected (NotDetected); Strep spp Not Reported Not Detected (NotDetected)
[2022-05-25] MEDS: PIPERACILLIN/TAZOBACTAM 3.375 GM in DEXTROSE 5% 100 ML IV SCH ×3 (00:05→17:09)
[2022-05-25 08:26] LABS: Hematocrit (blood only) 34.6 % (40.1-51.0); Mean Corpuscular Hemoglobin 31.3 pg (25.0-34.0); Mean Corpuscular Hgb Conc 34.7 g/dL (32.0-36.0); Mean Corpuscular Volume 90.1 fL (80.0-100.0); Mean Platelet Volume 9.5 fL (9.4-12.4); Platelet Count 135 K/uL (130-400); RDW Coefficient of Variation 12.9 % (11.5-14.5); RDW Standard Deviation 42.3 fL (36.4-46.3); Red Blood Count 3.84 M/uL (4.63-6.08); White Blood Count 13.22 K/ul (4.8-10.8)
[2022-05-25] MEDS: LOSARTAN POTASSIUM 50 MG TAB PO SCH (08:35)
[2022-05-25] MEDS: POLYETHYLENE (MIRALAX) 17 GM PACK PO SCH (08:35)
[2022-05-25] MEDS: LANTUS PER UNIT CHARGE SQ SCH ×2 (08:35→20:51)
[2022-05-25] MEDS: guaiFENesin 600 MG TABCR PO SCH ×2 (08:36→20:36)
[2022-05-25] MEDS: DOCUSATE SODIUM 100 MG CAP PO SCH ×2 (08:36→20:39)
[2022-05-25 09:10] LABS: Calcium 9.3 mg/dl (8.5-10.1); Est GFR (African American) 62.6 ml/min; Potassium 3.9 mmol/L (3.5-5.1)
[2022-05-25] MEDS: INSULIN ASPART PER UNIT SC SCH ×4 (09:43→20:52)
--- NOTE | 2022-05-25 11:16 | Hospitalist Progress Note ---
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 Patient began coughing violently while in the ER and subsequently vomited and aspirated. Meets sepsis criteria with SIRS 2/4 with a pulmonary source of infection. Presently afebrile, elevated WBC=26.58 on admission (hx CLL) currently WBC improved to 13.2 and elevated procalcitonin at 1.82. No respiratory distress. Patient with adequate oxygenation on room air - 94% Now with + blood culture - preliminary Repeat Blood Cultures He had a stroke in the past with residual right sided deficit. His does report that he often pockets food in his right cheek. She reports that she sweeps his mouth after meals. Has never aspirated in the past. -PAINTER AND BODY MECHANIC APPRENTICE evaluation ordered and recommended -Maintain aspiration precautions -Monitor for oral pocketing -Monitor respiratory status -Continue Zosyn -Tylenol as needed for fever -Mucinex BID -CXR in AM -Flutter valve and incentive spirometry (2) Bacteremia: Plan: Repeat blood cultures this afternoon Continue IV Zosyn check urine C&S (3) Fecal retention: Plan: Patient with moderate to extensive colonic fecal retention with findings sug gestive of stercoral proctitis. No bowel obstruction noted. -Miralax 17gm po daily (if no BM after 24 hours to increase to 34 gm ) -Colace 100mg po BID -Dulcolax suppository prn -Gentle IVFs -Discussed increasing po water intake, fiber supplementation daily (4) Hypertension: Plan: Blood pressure stable currently 131/70 -Continue Amlodipine 5mg po qHS -Continue Losartan 50mg po daily -Monitor (5) Hyperlipidemia: Plan: Chronic. Stable -Continue Atorvastatin (6) CVA (cerebrovascular accident due to intracerebral hemorrhage): Plan: Remote history -Aspiration precautions -Turn and position as needed -Patient's states they have care givers who are there 10 hours daily and they also have family help and assistance to provide 24/7 care (7) Diabetes mellitus type 2 in nonobese: Plan: Well controlled DM. Last BjcT9G=1.4. Blood sugar presently 139 -Hold Metformin -Lantus 5u BID -ISS (8) CLL (chronic lymphocytic leukemia): Plan: Patient follows with [facility] (9) Leukocytosis: Plan: Improving Now with bacteremia Hx CLL, so always baseline elevated (10) Abnormal CT of the abdomen: Plan: Discussed CT findings with patient, his and his granddaughter - the fecal retention and the need for a good bowel regimen - the prostatomegaly with chronic bladder obstruction and question of lesion vs heterogenicity of the prostate and options for urological evaluation, PSA. Urology was consulted - Bibasilar opacities with mucus plugging suggestive of pneumonia vs aspiration pneumonitis - bilateral iliac chain lymphadenopathy (similar to prior) Urology consulted and have signed off. Recommended no further PSA screening due to patient's age and previous normal screening Plan DVT prophylaxis - bilateral SCDs History of CVA due to intracerebral hemorrhage PAINTER AND BODY MECHANIC APPRENTICE evaluation Admission and Anticipated Discharge Date Admission Date: May 23, 2022 Subjective Patient was awake in bed. He denies any abdominal pain today. Patient's blood culture last night was + Gram + cocci Staphylococcus species. MRSA nares negative. Patient is afebrile currently. Patient's and grand daughter are at bedside. Send urine for U/A C&S. Patient continues on IV Zosyn. Review of Systems Constitutional: + fatigue; no fever and no chills Eyes: no blind spots, no diplopia, no eye pain and no photophobia Ear, Nose, Mouth, Throat: no nasal congestion, no post nasal drip and no mouth lesions Respiratory: + cough; no dyspnea, no hemoptysis and no pain on inspiration Cardiovascular: no chest pain, no dyspnea, no lightheadedness and no syncope Additional Comments: Initially patient was having left calf pain and was instructed by his PCP to go to the ER to r/o a DVT Patient had normal U/S doppler and currently has no calf pain Gastrointestinal: + constipation; no abdominal pain, no nausea and no vomiting Per patient has had constipation for a long time. He will go 5 days or more with no BM and then will have up to 7 BMs daily for several days and then repeat this cycle all over again. Integumentary: no rash, no lesions and no new lesions Neurologic: right sided paralysis mild aphasia Physical Exam Constitutional: well nourished, + well hydrated and + thin; no acute distress Respiratory: normal respiratory effort and + cough; no respiratory distress and no labored breathing Cardiovascular: Rate/Rhythm: regular rate and regular rhythm Heart Sounds: normal S1, normal S2 and + murmur (3/6 DEJAN) Gastrointestinal (Abdomen): Inspection/Auscultation: abdomen normal to inspection Percussion/Palpation: abdomen soft; abdomen nontender, no guarding and no hepatosplenomegaly Neurologic: awake Psychiatric: Orientation: alert, oriented to person and cooperative Results & Data Results & Data ([facility]) Vital Signs (Past 12 Hours) Vital Signs Temp Pulse Resp BP Pulse Ox O2 Del Method 05/25/22 08:00 37.1 C 73 22 131/70 94 Room Air Laboratory Results Abnormal lab results 05/23/22 05/24/22 05/24/22 Range/Units 18:25 12:20 17:28 WBC (4.8-10.8) K/ul RBC (4.63-6.08) M/uL Hgb (14.0-18.0) g/dl Hct (40.1-51.0) % Glucose (70-99(Fasting)) mg/dl POC Glucose 183 H 116 H (70-99) mg/dl Staphylococcus sp PCR DETECTED A (NotDetected) 05/24/22 05/25/22 05/25/22 Range/Units 20:36 08:11 08:11 WBC 13.22 H (4.8-10.8) K/ul RBC 3.84 L (4.63-6.08) M/uL Hgb 12.0 L (14.0-18.0) g/dl Hct 34.6 L (40.1-51.0) % Glucose 107 H (70-99(Fasting)) mg/dl POC Glucose 188 H (70-99) mg/dl Staphylococcus sp PCR (NotDetected) 05/25/22 Range/Units 08:17 WBC (4.8-10.8) K/ul RBC (4.63-6.08) M/uL Hgb (14.0-18.0) g/dl Hct (40.1-51.0) % Glucose (70-99(Fasting)) mg/dl POC Glucose 112 H (70-99) mg/dl Staphylococcus sp PCR (NotDetected) PG Care Time/CCT Total # of Minutes Spent Total Time Spent with Patient: Total time spent is greater than 50% in coordination of care (as documented) at patient's floor/unit and/or counseling patient: Coding Level of Care Code 51270 SUB INP/OBS CARE 2/35MIN Diagnoses Aspiration into airway T17.908A Bacteremia R78.81 Fecal retention K59.00 Hypertension I10 Hyperlipidemia E78.5 CVA (cerebrovascular accident due to intracerebral hemorrhage) I61.9 Diabetes mellitus type 2 in nonobese E11.9 CLL (chronic lymphocytic leukemia) C91.[address] of the abdomen R93.5
[2022-05-25 11:47] LABS: Appearance Urine Clear (Clear); Bacteria Urine Automated Negative (Negative); Bilirubin Urine Negative (Negative); Blood Urine 2+ (Negative); Color Urine Yellow; Epithelial Cell Urine Auto 0-5 /lpf (0-5); Glucose Urine UA Negative (Negative); Ketones Urine Negative (Negative); Leukocyte Esterase Urine 3+ (Negative); Nitrite Urine Negative (Negative); Protein Urine Trace (Negative); RBC Urine Automated 0-4 /hpf (0-4); Specific Gravity Urine 1.013 (1.000-1.030); Urobilinogen Urine Negative (Negative); WBC Urine Automated >30 /hpf (0-5); pH Urine 6.5 (4.5-7.5)
--- NOTE | 2022-05-25 15:43 | XRay Report ---
KUB CLINICAL HISTORY: Constipation. FINDINGS: An AP, portable, supine abdominal radiograph is compared to study dated 04/01/2022 and cintia elated with abdominal CT dated 05/23/2022. There is a nonobstructed abdominal bowel gas pattern. Moder ate fecal retention is noted throughout the colon. No evidence of intraperitoneal free air is seen on this supine image. There are no abnormal abdominal calcifications. Phleboliths are seen in the pelvi s. The skeletal structures are osteopenic and appear intact. There is advanced lumbosacral spondylosi s as well as scoliosis. Postsurgical change is noted in the lumbar spine. IMPRESSION: Moderate constipation. Electronically signed by: Renny Hare M.D. 05/25/2022 3:42 PM
[2022-05-25] MEDS: amLODIPine BESYLATE 5 MG TAB PO SCH (20:35)
[2022-05-25] MEDS: ATORVASTATIN 20 MG TAB PO SCH (20:36)
[2022-05-26] MEDS: PIPERACILLIN/TAZOBACTAM 3.375 GM in DEXTROSE 5% 100 ML IV SCH ×3 (00:54→16:53)
[2022-05-26 08:44] LABS: Hematocrit (blood only) 33.4 % (40.1-51.0); Hemoglobin 11.7 g/dl (14.0-18.0); Mean Corpuscular Hemoglobin 31.4 pg (25.0-34.0); Mean Corpuscular Volume 89.5 fL (80.0-100.0); Mean Platelet Volume 9.7 fL (9.4-12.4); Platelet Count 147 K/uL (130-400); RDW Coefficient of Variation 12.8 % (11.5-14.5); RDW Standard Deviation 42.2 fL (36.4-46.3); Red Blood Count 3.73 M/uL (4.63-6.08); White Blood Count 10.99 K/ul (4.8-10.8)
[2022-05-26] MEDS: POLYETHYLENE (MIRALAX) 17 GM PACK PO SCH ×2 (08:46→20:13)
[2022-05-26] MEDS: guaiFENesin 600 MG TABCR PO SCH ×2 (08:46→20:13)
[2022-05-26] MEDS: LOSARTAN POTASSIUM 50 MG TAB PO SCH (08:47)
[2022-05-26] MEDS: DOCUSATE SODIUM 100 MG CAP PO SCH ×2 (08:47→20:13)
[2022-05-26] MEDS: LANTUS PER UNIT CHARGE SQ SCH ×2 (08:56→21:30)
[2022-05-26] MEDS: INSULIN ASPART PER UNIT SC SCH ×4 (08:56→21:30)
[2022-05-26 09:51] LABS: Basophils # (auto) 0.02 K/uL (0-0.2); Basophils % (auto) 0.2 %; Eosinophils # (auto) 0.14 K/uL (0-0.50); Eosinophils % (auto) 1.3 %; Immature Granulocytes # (auto) 0.05 K/uL (0.00-0.02); Immature Granulocytes % (auto) 0.5 %; Lymphocytes # (auto) 6.78 K/uL (1.2-3.4); Lymphocytes % (auto) 61.7 %; Monocytes # (auto) 0.52 K/uL (0.24-0.82); Monocytes % (auto) 4.7 %; Neutrophils # (auto) 3.48 K/uL (1.4-6.5); Neutrophils % (auto) 31.6 %; Polychromasia 1+; Smudge Cells Present
[2022-05-26] MEDS: ACETAMINOPHEN 1,000 MG/100 ML VIAL IV PRN (11:02)
--- NOTE | 2022-05-26 17:19 | Hospitalist Progress Note ---
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 Patient began coughing violently while in the ER and subsequently vomited and aspirated. Meets sepsis criteria with SIRS 2/4 with a pulmonary source of infection. Presently afebrile, elevated WBC=26.58 on admission (hx CLL) currently WBC improved to 13.2 and elevated procalcitonin at 1.82. No respiratory distress. Patient with adequate oxygenation on room air - 94% Now with + blood culture - likely contaminant, awaiting repeat cultures x 2 He had a stroke in the past with residual right sided deficit. His does report that he often pockets food in his right cheek. She reports that she sweeps his mouth after meals. Has never aspirated in the past. -CISTERN ROOM WORKING SUPERVISOR cleared for diet with aspiration precautions -Maintain aspiration precautions -Monitor for oral pocketing -Monitor respiratory status -Continue Zosyn -Tylenol as needed for fever -Mucinex BID -Flutter valve and incentive spirometry (2) Bacteremia: Plan: Repeat blood cultures prelim no growth Continue IV Zosyn await urine C&S (3) Fecal retention: Plan: Patient with moderate to extensive colonic fecal retention with findings suggestive of stercoral proctitis. No bowel obstruction noted. -Miralax 17gm po daily (if no BM after 24 hours to increase to 34 gm ) -Colace 100mg po BID -Dulcolax suppository prn -Gentle IVFs -Discussed increasing po water intake, fiber supplementation daily (4) Hypertension: Plan: Blood pressure stable currently 119/67 -Continue Amlodipine 5mg po qHS -Continue Losartan 50mg po daily -Monitor (5) Hyperlipidemia: Plan: Chronic. Stable -Continue Atorvastatin (6) CVA (cerebrovascular accident due to intracerebral hemorrhage): Plan: Remote history -Aspiration precautions -Turn and position as needed -Patient's states they have care givers who are there 10 hours daily and they also have family help and assistance to provide 24/7 care (7) Diabetes mellitus type 2 in nonobese: Plan: Well controlled DM. Last [id number]=4.4. Blood sugar presently 139 -Hold Metformin -Lantus 5u BID -ISS (8) CLL (chronic lymphocytic leukemia): Plan: Patient follows with [facility] (9) Leukocytosis: Plan: Improving Now with bacteremia Hx CLL, so always baseline elevated (10) Abnormal CT of the abdomen: Plan: Discussed CT findings with patient, his and his granddaughter - the fecal retention and the need for a good bowel regimen - the prostatomegaly with chronic bladder obstruction and question of lesion vs heterogenicity of the prostate and options for urological evaluation, PSA. Urology was consulted - Bibasilar opacities with mucus plugging suggestive of pneumonia vs aspiration pneumonitis - bilateral iliac chain lymphadenopathy (similar to prior) Urology consulted and have signed off. Recommended no further PSA screening due to patient's age and previous normal screening Plan DVT prophylaxis - bilateral SCDs History of CVA due to intracerebral hemorrhage CISTERN ROOM WORKING SUPERVISOR evaluated and provided recs Admission and Anticipated Discharge Date Admission Date: May 25, 2022 Subjective Patient was awake in bed. He complained of suprapubic pain. Patient is afebrile currently. Nursing bladder scanned and was over 500. Moya cath placed and abdominal discomfort resolved. Patient's is at bedside. Awaiting U/A C&S and repeat cultures. Patient continues on IV Zosyn. Procalcitonin and CRP were elevated and repeat Procalcitonin improved from 13 to 7. Review of Systems Constitutional: + fatigue; no fever and no chills Eyes: no blind spots, no diplopia, no eye pain and no photophobia Ear, Nose, Mouth, Throat: no nasal congestion, no post nasal drip and no mouth lesions Respiratory: + cough; no dyspnea, no hemoptysis and no pain on inspiration Cardiovascular: no chest pain, no dyspnea, no lightheadedness and no syncope Additional Comments: Initially patient was having left calf pain and was instructed by his PCP to go to the ER to r/o a DVT Patient had normal U/S doppler and currently has no calf pain Gastrointestinal: + constipation; no abdominal pain, no nausea and no vomiting Per patient has had constipation for a long time. He will go 5 days or more with no BM and then will have up to 7 BMs daily for several days and then repeat this cycle all over again. Integumentary: no rash, no lesions and no new lesions Neurologic: right sided paralysis mild aphasia Physical Exam Constitutional: well nourished, + well hydrated and + thin; no acute distress Respiratory: normal respiratory effort and + cough; no respiratory distress and no labored breathing Cardiovascular: Rate/Rhythm: regular rate and regular rhythm Heart Sounds: normal S1, normal S2 and + murmur (3/6 DEJAN) Gastrointestinal (Abdomen): Inspection/Auscultation: abdomen normal to inspection Percussion/Palpation: + abdomen tender and abdomen soft; no guarding and no hepatosplenomegaly tender to palpation suprapubic area Neurologic: awake Psychiatric: Orientation: alert, oriented to person and cooperative Results & Data Results & Data ([facility]) Vital Signs (Past 12 Hours) Vital Signs Temp Pulse Resp BP Pulse Ox O2 Del Method 05/26/22 14:43 36.9 C 69 16 119/67 96 Room Air 05/26/22 08:15 Room Air 05/26/22 07:26 36.6 C 68 18 129/64 97 Room Air Laboratory Results Abnormal lab results 05/25/22 05/26/22 05/26/22 Range/Units 20:38 08:08 08:25 WBC 10.99 H (4.8-10.8) K/ul RBC 3.73 L (4.63-6.08) M/uL Hgb 11.7 L (14.0-18.0) g/dl Hct 33.4 L (40.1-51.0) % Lymph # (Auto) 6.78 H (1.2-3.4) K/uL Immature Gran # (Auto) 0.05 H (0.00-0.02) K/uL POC Glucose 135 H 114 H (70-99) mg/dl Procalcitonin (0-0.5) ng/ml 05/26/22 05/26/22 Range/Units 08:25 12:05 WBC (4.8-10.8) K/ul RBC (4.63-6.08) M/uL Hgb (14.0-18.0) g/dl Hct (40.1-51.0) % Lymph # (Auto) (1.2-3.4) K/uL Immature Gran # (Auto) (0.00-0.02) K/uL POC Glucose 144 H (70-99) mg/dl Procalcitonin 7.87 H (0-0.5) ng/ml PG Care Time/CCT Total # of Minutes Spent Total Time Spent with Patient: Total time spent is greater than 50% in coordination of care (as documented) at patient's floor/unit and/or counseling patient: Coding Level of Care Code 46207 SUB INP/OBS CARE 2/35MIN Diagnoses Aspiration into airway T17.908A Bacteremia R78.81 Fecal retention K59.00 Hypertension I10 Hyperlipidemia E78.5 CVA (cerebrovascular accident due to intracerebral hemorrhage) I61.9 Diabetes mellitus type 2 in nonobese E11.9 CLL (chronic lymphocytic leukemia) C91.[address] of the abdomen R93.5
[2022-05-26] MEDS: ATORVASTATIN 20 MG TAB PO SCH (20:13)
[2022-05-26] MEDS: amLODIPine BESYLATE 5 MG TAB PO SCH (20:13)
[2022-05-27] MEDS: PIPERACILLIN/TAZOBACTAM 3.375 GM in DEXTROSE 5% 100 ML IV SCH ×2 (00:25→09:09)
[2022-05-27] MEDS: INSULIN ASPART PER UNIT SC SCH ×2 (08:54→12:57)
[2022-05-27] MEDS: LANTUS PER UNIT CHARGE SQ SCH (08:55)
[2022-05-27] MEDS: DOCUSATE SODIUM 100 MG CAP PO SCH (09:08)
[2022-05-27] MEDS: POLYETHYLENE (MIRALAX) 17 GM PACK PO SCH (09:08)
[2022-05-27] MEDS: LOSARTAN POTASSIUM 50 MG TAB PO SCH (09:08)
[2022-05-27] MEDS: guaiFENesin 600 MG TABCR PO SCH (09:08)
--- NOTE | 2022-05-27 12:08 | Discharge Summary ---
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 Patient woke this morning with pain and cramping in his left calf. His called the PCP and it was recommended that he come to get a LLE ultrasound to rule out DVT. Patient was in the ER waiting room when he began to cough violently. He then vomited and aspirated his vomit. No respiratory distress at present. No oxygen requirement. is at bedside and provides history. No additional complaints. Patient does have some constipation at baseline. He denies fever, chills, SOB, abdominal pain, nausea. In the ER he is febrile at 38.5, HD stable, adequate oxygenation on room air. Patient continues to cough, non-productive but wet sounding. His states that he coughs frequently like this. 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 Skin: warm, dry, intact, no rashes or lesions HEENT: NC/AT, PERRL, EOMI, anicteric sclera, conjunctiva without injection, external ear normal to inspection and nontender, nares patent, moist mucus membranes, dentition intact, no oropharyngeal lesions, neck supple, trachea midline, no LAD, no thyromegaly, no JVD Heart: +S1/S2, regular, 4/6 DEJAN across precordium with radiation to bilateral carotids Lungs: coarse breath sounds bilaterally, R > L, no wheeze Abd: diminished bowel sounds, soft, NT/ND, no masses/organomegaly/ascites Ext: warm, 2+ pulses in UE/LE bilaterally, no clubbing/cyanosis or edema Neuro: right sided paralysis, minimally verbal Principal Diagnosis Aspiration pneumonia Discharge Exam Constitutional well nourished, + well hydrated and + thin; no acute distress Respiratory normal respiratory effort and + cough; no respiratory distress and no labored breathing Cardiovascular Rate/Rhythm: regular rate and regular rhythm Heart Sounds: normal S1, normal S2 and + murmur (3/6 DEJAN) Gastrointestinal (Abdomen) Inspection/Auscultation: abdomen normal to inspection Percussion/Palpation: abdomen soft; abdomen nontender, no guarding, abdomen not rigid and no hepatosplenomegaly Neurologic awake right side flacid 2/2 previous CVA Psychiatric Orientation: alert, oriented to person and cooperative Discharge Data Allergies Allergy/AdvReac Type Severity Reaction Status Date / Time No Known Allergies Allergy Verified 05/23/22 19:49 Consultations 05/23/22 20:17 ED Decision to Admit Stat 05/24/22 16:53 Consult Urology Routine Ordered Studies 05/23/22 15:05 US venous doppler LE LT Stat FINDINGS: There is normal compressibility, flow, and augmentation within the left lower extremity deep venous system. IMPRESSION: No DVT within the left lower extremity. 05/23/22 16:23 CT abd pelvis IV con only Stat IMPRESSION: 1. Moderate to extensive colonic fecal retention with findings suggestive of stercoral proctitis. 2. No bowel obstruction or pneumoperitoneum. 3. Prostamegaly with chronic bladder obstruction. Questioned lesion versus heterogeneity of the prostate. Correlate with PSA level. 4. Bibasilar opacities with mucous plugging suggestive of pneumonia versus aspiration pneumonitis. 5. Splenomegaly. 6. Bilateral iliac chain lymphadenopathy, similar to prior. 7. Additional findings as above. 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 Patient began coughing violently while in the ER and subsequently vomited and aspirated. Meets sepsis criteria with SIRS 2/4 with a pulmonary source of infection. Presently afebrile, elevated WBC=26.58 on admission (hx CLL) currently WBC improved to 13.2 and elevated procalcitonin at 1.82. No respiratory distress. Patient with adequate oxygenation on room air - 94% Now with + blood culture - likely contaminant, awaiting repeat cultures x 2 Repeat blood cultures negative He had a stroke in the past with residual right sided deficit. His does report that he often pockets food in his right cheek. She reports that she sweeps his mouth after meals. Has never aspirated in the past. 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 No bowel obstruction noted. -Miralax 17gm po daily (if no BM after 24 hours to increase to 34 gm ) -Colace 100mg po BID -Dulcolax suppository prn -Gentle IVFs -Discussed increasing po water intake, fiber supplementation daily Discussed good bowel regimen with patient's (4) Hypertension: Blood pressure stable currently 114/68 -Continue Amlodipine 5mg po qHS -Continue Losartan 50mg po daily -Monitor (5) Hyperlipidemia: Chronic. Stable -Continue Atorvastatin (6) CVA (cerebrovascular accident due to intracerebral hemorrhage): Remote history -Aspiration precautions -Turn and position as needed -Patient's states they have care givers who are there 10 hours daily and they also have family help and assistance to provide 01/12 care (7) Diabetes mellitus type 2 in nonobese: Well controlled DM. Last MhqH3G=5.4. Blood sugar presently 139 -Hold Metformin -Lantus 5u BID -ISS (8) CLL (chronic lymphocytic leukemia): Patient follows with [facility] (9) Leukocytosis: Improved to baseline Hx CLL, so always baseline elevated (10) Abnormal CT of the abdomen: Discussed CT findings with patient, his and his granddaughter - the fecal retention and the need for a good bowel regimen - the prostatomegaly with chronic bladder obstruction and question of lesion vs heterogenicity of the prostate and options for urological evaluation, PSA. Urology was consulted and stated they would not recommend any further work-up simply for incidental f indings on the CT scan. Reviewed patient's recent PSAs which were well within normal limits for his age. Do not recommend any further PSA screening given his age. Additionally, he has no family history of prostate cancer. No further urologic work-up needed. Offered patient outpatient follow-up but he declined and urology signed off Patient had some suprapubic tenderness and bladder scan revealed 500 and had a Moya placed. wished to d/c Moya, and have a few bladder scans prior to discharge home and go back to trying to get him to void on his own and use depends at home. She is aware if there is problems to follow up with urology. - Bibasilar opacities with mucus plugging suggestive of pneumonia vs aspiration pneumonitis - bilateral iliac chain lymphadenopathy (similar to prior) Urology consulted and have signed off. Recommended no further PSA screening due to patient's age and previous normal screening Plan DVT prophylaxis - bilateral SCDs History of CVA due to intracerebral hemorrhage PERMANENT MOLD SUPERVISOR evaluated and provided recs Total Time Total Time Spent Total Time Spent (In Minutes): 35 Discharge Plan Discharge Items Patient Disposition: Home - Self-Care Reason For Visit: ASPIRATION EVENT Discharge Diagnosis: aspiration pneumonia Condition on Discharge: Fair Activity: Resume your previous activity Lifting: None Weightbearing Comment: mainly bed ridden Non-emergency contact: Primary Care Provider Call non-emergency contact if: you have any medication questions and your symptoms worsen Follow-up/Referrals: Swapna Swan MD [Primary Care Provider] - Diet: Carb Consistent or DM2 Diet Comment: Continue with aspiration precautions and have assistance with meals Addtl Attending Provider Instructions: You cam to the ER as instructed by your family doctor for complaints of left calf pain. You had an U/S revealing no evidence of any DVT You had scan of your abdomen that incidentally revealed possible aspiration pneumonia and you were started on IV antibiotics. You had one blood culture that was initially + but then revealed contaminate. Repeat cultures were negative. You also were seen by a urologist for the finding of the enlarged prostate with chronic bladder obstruction. Discussion regarding a good bowel regimen was discussed with patient's . Patient should increase his po water intake, take daily fiber supplementation (1Tsp daily of Psyllium fiber) Take Miralax 17gm 2 x per day and stool softener 2 x per day. If no BM in 24 hours then double the miralax dose, if no BM after 48 hours then add Lactulose. And if persists after that to call family doctor. Also discussed if patient is having trouble urinating to follow up with urology. Pending Studies at Discharge: No Stand-Alone Forms: My [employer] Medications and DC Order Prescriptions: New polyethylene glycol 3350 [Miralax] 17 gram Powder In Packet 17 g PO BID 30 Days Qty: 30 0RF Continued atorvastatin 20 mg tablet 20 mg PO HS amlodipine 5 mg tablet 5 mg PO HS sennosides-docusate sodium [Senokot-S] 8.6-50 mg tablet 1 - 2 tab-cap PO BID PRN (Reason: constipation) Qty: 60 2RF losartan 50 mg tablet 50 mg PO DAILY metformin 500 mg tablet 500 mg PO BID docusate sodium [Stool Softener] 100 mg Capsule 100 mg PO BID lactulose 10 gram/15 mL solution 0 g PO DIRECTED PRN (Reason: Constipation) acetaminophen [Tylenol] 325 mg Tablet 650 mg PO Q4 PRN (Reason: Pain) Discharge Orders: Discharge Order (Routine); Ordered 05/27/22 Ordered By: Solange Rea/Other Patient Handouts: ED Constipation (Adult), High Fiber Diet Dc, Treating Constipation Admission Data Admit Date/Time: 05/25/22 15:09 Attending Provider: Malcom Han Admit Provider: Lisa Conn Primary Care Provider: Swapna Swan Other Providers: Lisa Conn ; Porter Nur ; Todd White ; Conor Bloom ; Leonie Headley ; Garcia More ; Shanna Cabrera ; Judie Mckenzie ; Maikel Mello ; Lexi Mckee ; Akanksha Levine ; Efra Stack ; Del Escamilla Coding Level of Care Code HOSP INP/OBS DISCH >30 MIN Diagnoses Aspiration into airway T17.908A Bacteremia R78.81 Fecal retention K59.00 Hypertension I10 Hyperlipidemia E78.5 CVA (cerebrovascular accident due to intracerebral hemorrhage) I61.9 Diabetes mellitus type 2 in nonobese E11.9 CLL (chronic lymphocytic leukemia) C91.[address] of the abdomen R93.5 Time Spent (min) 35
== END 2022-05-27 17:29 | disposition home or self-care (01) | DRG 871 ==
LOC: 3N 14:50 → ED 14:50 → SUATTDRO 20:11 → 3N 21:29

== ENCOUNTER 2022-12-25 15:13 | Inpatient (IN) ==
--- NOTE | 2022-12-25 15:59 | Electrocardiogram Report ---
Test Reason : Blood Pressure : / mmHG Vent. Rate : 095 BPM Atrial Rate : 095 BPM P-R Int : 132 ms QRS Dur : 082 ms QT Int : 354 ms P-R-T Axes : 036 -12 092 degrees QTc Int : 444 ms Poor data quality, interpretation may be adversely affected Normal sinus rhythm Left ventricular hypertrophy with repolarization abnormality ( R in aVL ) Abnormal ECG When compared with ECG of 11-MAR-2021 07:39, Vent. rate has increased BY 41 BPM Criteria for Septal infarct are no longer Present Confirmed by Ant Self ([id number]) on 12/25/2022 3:59:16 PM Referred By: Confirmed By:Ant Self
[2022-12-25 16:11] LABS: Hematocrit (blood only) 40.8 % (42.0-52.0); Hemoglobin 14.4 g/dl (14.0-18.0); Mean Corpuscular Hemoglobin 31.2 pg (25.0-34.0); Mean Corpuscular Hgb Conc 35.3 g/dL (32.0-36.0); Mean Corpuscular Volume 88.3 fL (80.0-100.0); Mean Platelet Volume 9.5 fL (9.4-12.4); Platelet Count 213 K/uL (130-400); RDW Coefficient of Variation 12.7 % (11.5-14.5); RDW Standard Deviation 40.9 fL (36.4-46.3); Red Blood Count 4.62 M/uL (4.70-6.10)
--- NOTE | 2022-12-25 16:17 | XRay Report ---
XR chest 1V not portable CLINICAL HISTORY: abd pain TECHNIQUE: Single frontal radiograph of the chest was obtained. Comparison: Comparison is made to chest radiograph 05/24/2022 FINDINGS: No lines and tubes are seen. The cardiomediastinal silhouette is normal. Lungs are underinflated but clear. No evidence of pleural effusion or pneumothorax. IMPRESSION: No acute chest disease. ACT 112: Negative or not required by law. Electronically signed by: Leo Hannah M.D. 12/25/2022 4:16 PM
[2022-12-25 16:26] LABS: Alanine Aminotransferase 8 U/L (7-52); Albumin Globulin Ratio 1.5 (0.9-2); Albumin Level 4.1 gm/dl (3.4-5.0); Alkaline Phosphatase 57 U/L (34-104); Anion Gap 7 (3-11); Aspartate Aminotransferase 14 U/L (13-39); BUN Creatinine Ratio 18.5 (10-20); Bilirubin,Total 1.4 mg/dl (0.2-1.0); Blood Urea Nitrogen 17 mg/dl (6-23); Calcium 9.6 mg/dl (8.6-10.3); Carbon Dioxide 27 mmol/L (21-32); Chloride 102 mmol/L (98-107); Est GFR (African American) 90.7 ml/min; Est GFR (Non-African American) 78.3 ml/min; Globulin 2.7 gm/dl (2.5-4.0); Glucose 108 mg/dl (70-99(Fasting)); Potassium 4.5 mmol/L (3.5-5.1); Sodium 136 mmol/L (136-145); Total Protein 6.8 gm/dl (6.0-8.3)
[2022-12-25 16:37] LABS: INR 1.1 (0.9-1.1); Partial Thromboplastin Ratio 1.1; Partial Thromboplastin Time 30.2 Seconds (21.0-31.0); Prothrombin Time 11.5 Seconds (9.0-12.0)
[2022-12-25] MEDS ORDERED: SODIUM CHLORIDE 0.9% 1000ML 1,000 ML IV ONE (17:37)
[2022-12-25] MEDS ORDERED: ONDANSETRON INJ 2 MG/ML 2 ML VIAL IV STA (17:37)
--- NOTE | 2022-12-25 17:40 | Emergency Department Note ---
Impression & Plan Abdominal pain, CLL (chronic lymphocytic leukemia), Abnormal CT scan, gallbladder, Leukocytosis ED Provider Note NAME: BRADY CALDERON AGE: 82 SEX: M : 1940 ARRIVES VIA: Walk-In INFORMANT: Patient ED PROVIDER(S): Chepe aBll DO CHIEF COMPLAINT: abdominal pain HPI: Patient is an 82-year-old male who presents to the ER for left mid abdominal pain. This has been present for the past 2 days. He has not been eating or drinking. He has been much more tired. He notes it is suprapubic as well. Denies any headache or change in vision. No chest pain or shortness of breath. No dysuria, urgency, or frequency. No other exacerbating or remitting factors. PAST MEDICAL HISTORY:See Below PAST SURGICAL HISTORY:See Below FAMILY HISTORY:See Below SOCIAL HISTORY:See Below HOME MEDICATIONS:See Below ALLERGIES:See Below VITALS:See Below PHYSICAL EXAMINATION: GENERAL: Sitting up in bed, alert, well appearing, well nourished, no distress, non-toxic EYE EXAM: normal conjunctiva. OROPHARYNX: Dry mucous membranes NECK: supple, no nuchal rigidity, no adenopathy, non-tender LUNGS: Clear to auscultation. Normal chest wall mechanics HEART: no murmurs, S1 normal and S2 normal ABDOMEN: abdomen soft, TTP in LUQ, normo-active bowel sounds, no masses, no rebound or guarding. UPPER EXTREMITIES: upper extremities are grossly normal. LOWER EXTREMITIES: No pitting edema. NEURO EXAM: Normal sensorium, cranial nerves II-XII grossly intact, normal speech. MEDICAL DECISION MAKING: Patient is an 82-year-old male who presents ER for above-stated complaint. IV was established blood work was obtained. External records reviewed. Labs show leukocytosis of 22,000. Does have a history of CLL and difficult to ascertain if this is truly secondary to a to his CLL as he has had a rising white count upon review of his previous lab work versus infectious. INR unremarkable. BMP was unremarkable. T. bili slightly up at 1.4. LFTs and lipase were unremarkable. UA with no white cells to suggest infection. CT abdomen pelvis shows colitis without abnormal gallbladder on CT. Ultrasound was obtained and and showed bladder wall thickening and pericholecystic fluid and could not rule out a calculus cholecystitis. Patient was covered with IV antibiotics. Discussed the case with Dr. Troy Stokes for further evaluation management and treatment admission. He is not tender in the right upper quadrant all pain is focal in the left mid abdomen. Triage Nursing notes reviewed. Limited review of prior medical records performed Vital Signs: reviewed and remarkable for no significant abnormalities Differential diagnosis: Differential diagnoses includes but is not limited to gastritis, peptic ulcer disease, GERD, gallbladder disease, pancreatitis, small bowel obstruction, appendicitis, diverticulitis, hernia, urinary tract infection, torsion, perforation, trauma, infectious. ER treatment provided: See below Diagnostics interpreted by me include EKG and cardiac monitoring as listed below: -Cardiac Monitoring: An order was placed for continuous cardiac monitoring. The monitor shows a rate of 90 with sinus rhythm. -ECG: none -Laboratory studies:Interpreted by me as stated above in MDM and shown below. Imaging studies: Xrays: As interpreted by me: Portable AP upright 1 view of the chest shows no focal infiltrate CTs show: CT abdomen pelvis showed abnormal gallbladder and colitis Consultation(s): As described in MDM Procedures:none Critical Care: None Past Med/Surg History Medical History CVA (cerebrovascular accident due to intracerebral hemorrhage) Diabetes mellitus type 2 in nonobese Gout Hearing impaired Hyperlipidemia Hypertension Family History Other Family history non-contributory Social History Smoking Status: Never smoker Tobacco Type: Cigarettes Hx Alcohol Use: Yes Alcohol type: wine Hx Substance Use: No Preferred Language: Malay Communication Ability: Impaired Communication Ability Comment: APHASIC Staff Development Nurse Required: No Current Living Situation: Spouse Feels Safe at Home: Yes Assistive Devices: Walker and Wheelchair Allergies Allergies Allergy/AdvReac Type Severity Reaction Status Date / Time No Known Allergies Allergy Verified 05/23/22 19:49 Home Meds Home Medications Medication Instructions Recorded Confirmed atorvastatin 20 mg tablet 20 mg PO HS 03/11/21 12/25/22 acetaminophen 325 mg tablet 650 mg PO Q4 PRN Pain 04/05/21 12/25/22 (Tylenol) docusate sodium 100 mg capsule 100 mg PO BID 05/23/22 12/25/22 (Stool Softener) losartan 50 mg tablet 50 mg PO DAILY 05/23/22 12/25/22 metformin 500 mg tablet 500 mg PO BID 05/23/22 12/25/22 amlodipine 2.5 mg tablet 2.5 mg PO HS 12/25/22 12/25/22 metoprolol succinate 25 mg 25 mg PO DAILY 12/25/22 12/25/22 tablet,extended release 24 hr omeprazole 20 mg capsule,delayed 20 mg PO DAILY 12/25/22 12/25/22 release paroxetine HCl 10 mg tablet 10 mg PO DAILY 12/25/22 12/25/22 Results & Data (ED) Vital Signs Vital Signs - 24 hr 12/25/22 15:28 12/25/22 17:46 Temperature 36.8 C Temperature Source Temporal Artery Scan Pulse Rate 86 Pulse Rate [Apical] 90 Pulse Rhythm Regular Pulse Rhythm [Apical] Regular Respiratory Rate 20 16 Respiratory Effort / Characteristics Non-Labored Spontaneous Respiratory Depth Normal Normal Respiratory Pattern Regular Blood Pressure 126/61 Blood Pressure [Left Arm] 132/80 Blood Pressure Mean 82 Blood Pressure Mean [Left Arm] 97 Pulse Oximetry 97 98 Oxygen Delivery Method Room Air Room Air Sepsis Recent Fever Within 48 Hours No Sepsis New/Unexplained Change in Mental Status N/A Sepsis Action Taken by Nursing No Action Required Laboratory Data 12/25/22 15:40 12/25/22 15:40 Lab Results 12/25/22 12/25/22 12/25/22 Range/Units 15:40 15:40 15:40 WBC 22.90 H (4.8-10.8) K/ul RBC 4.62 L (4.70-6.10) M/uL Hgb 14.4 (14.0-18.0) g/dl Hct 40.8 L (42.0-52.0) % MCV 88.3 (80.0-100.0) fL MCH 31.2 (25.0-34.0) pg MCHC 35.3 (32.0-36.0) g/dL RDW Std Deviation 40.9 (36.4-46.3) fL RDW Coeff of Kenny 12.7 (11.5-14.5) % Plt Count 213 (130-400) K/uL MPV 9.5 (9.4-12.4) fL Immature Gran % (Auto) 0.4 % Neut % (Auto) 33.6 % Lymph % (Auto) 62.1 % Gonzales % (Auto) 3.6 % Eos % (Auto) 0.1 % Baso % (Auto) 0.2 % Neut # (Auto) 7.68 H (1.40-6.50) K/uL Lymph # (Auto) 14.22 H (1.2-3.4) K/uL Gonzales # (Auto) 0.83 H (0.11-0.59) K/uL Eos # (Auto) 0.03 (0-0.50) K/uL Baso # (Auto) 0.04 (0-0.2) K/uL Immature Gran # (Auto) 0.10 (0.01-0.20) K/uL Acanthocytes (Spur) 1+ PT 11.5 (9.0-12.0) Seconds INR 1.1 (0.9-1.1) APTT 30.2 (21.0-31.0) Seconds PTT Ratio 1.1 Sodium 136 (136-145) mmol/L Potassium 4.5 (3.5-5.1) mmol/L Chloride 102 (98-107) mmol/L Carbon Dioxide 27 (21-32) mmol/L Anion Gap 7 (3-11) BUN 17 (6-23) mg/dl Creatinine 0.92 (0.6-1.4) mg/dl Est Cr Clr Drug Dosing Not Reportable Est GFR ( Amer) 90.7 ml/min Est GFR (Non-Af Amer) 78.3 ml/min BUN/Creatinine Ratio 18.5 (10-20) Glucose 108 H (70-99(Fasting)) mg/dl Calcium 9.6 (8.6-10.3) mg/dl Total Bilirubin 1.4 H (0.2-1.0) mg/dl AST 14 (13-39) U/L ALT 8 (7-52) U/L Alkaline Phosphatase 57 (34-104) U/L Total Protein 6.8 (6.0-8.3) gm/dl Albumin 4.1 (3.4-5.0) gm/dl Globulin 2.7 (2.5-4.0) gm/dl Albumin/Globulin Ratio 1.5 (0.9-2) Lipase 25 (11-82) U/L Urine Color Urine Appearance (Clear) Urine pH (4.5-7.5) Ur Specific Wallace (1.000-1.030) Urine Protein (Negative) Urine Glucose (UA) (Negative) Urine Ketones (Negative) Urine Blood (Negative) Urine Nitrite (Negative) Urine Bilirubin (Negative) Urine Urobilinogen (Negative) Ur Leukocyte Esterase (Negative) Urine WBC (Auto) (0-5) /hpf Urine RBC (Auto) (0-4) /hpf U Hyaline Cast (Auto) (0-5) /lpf U Epithel Cells (Auto) (0-5) /lpf Urine Bacteria (Auto) (Negative) Ur Renal Epithelial Cell 12/25/22 Range/Units Unknown WBC (4.8-10.8) K/ul RBC (4.70-6.10) M/uL Hgb (14.0-18.0) g/dl Hct (42.0-52.0) % MCV (80.0-100.0) fL MCH (25.0-34.0) pg MCHC (32.0-36.0) g/dL RDW Std Deviation (36.4-46.3) fL RDW Coeff of Kenny (11.5-14.5) % Plt Count (130-400) K/uL MPV (9.4-12.4) fL Immature Gran % (Auto) % Neut % (Auto) % Lymph % (Auto) % Gonzales % (Auto) % Eos % (Auto) % Baso % (Auto) % Neut # (Auto) (1.40-6.50) K/uL Lymph # (Auto) (1.2-3.4) K/uL Gonzales # (Auto) (0.11-0.59) K/uL Eos # (Auto) (0-0.50) K/uL Baso # (Auto) (0-0.2) K/uL Immature Gran # (Auto) (0.01-0.20) K/uL Acanthocytes (Spur) PT (9.0-12.0) Seconds INR (0.9-1.1) APTT (21.0-31.0) Seconds PTT Ratio Sodium (136-145) mmol/L Potassium (3.5-5.1) mmol/L Chloride (98-107) mmol/L Carbon Dioxide (21-32) mmol/L Anion Gap (3-11) BUN (6-23) mg/dl Creatinine (0.6-1.4) mg/dl Est Cr Clr Drug Dosing Est GFR ( Amer) ml/min Est GFR (Non-Af Amer) ml/min BUN/Creatinine Ratio (10-20) Glucose (70-99(Fasting)) mg/dl Calcium (8.6-10.3) mg/dl Total Bilirubin (0.2-1.0) mg/dl AST (13-39) U/L ALT (7-52) U/L Alkaline Phosphatase (34-104) U/L Total Protein (6.0-8.3) gm/dl Albumin (3.4-5.0) gm/dl Globulin (2.5-4.0) gm/dl Albumin/Globulin Ratio (0.9-2) Lipase (11-82) U/L Urine Color [place] Urine Appearance Clear (Clear) Urine pH 6.5 (4.5-7.5) Ur Specific Wallace 1.018 (1.000-1.030) Urine Protein 1+ H (Negative) Urine Glucose (UA) Negative (Negative) Urine Ketones Negative (Negative) Urine Blood 3+ H (Negative) Urine Nitrite Negative (Negative) Urine Bilirubin Negative (Negative) Urine Urobilinogen Negative (Negative) Ur Leukocyte Esterase Trace H (Negative) Urine WBC (Auto) 1-5 (0-5) /hpf Urine RBC (Auto) >30 H (0-4) /hpf U Hyaline Cast (Auto) 1-5 (0-5) /lpf U Epithel Cells (Auto) >30 H (0-5) /lpf Urine Bacteria (Auto) Negative (Negative) Ur Renal Epithelial Cell Not Reportable Administered Medications Discontinued Medications Sodium Chloride (Nss 1000ml) 1,000 mls @ 999 mls/hr IV .Q1H1M ONE Stop: 12/25/22 18:37 Last Admin: 12/25/22 17:54 Dose: 999 mls/hr Documented By: AGUSTIN Piperacillin Sod/Tazobactam Sod (Zosyn) 4.5 gm in 120 mls @ 240 mls/hr IV NOW ONE Stop: 12/25/22 19:17 Last Admin: 12/25/22 19:31 Dose: 240 mls/hr Documented By: ALB Ioversol (Optiray 320 100ml) 90 ml IV ONCE ONE Stop: 12/25/22 17:58 Last Admin: 12/25/22 17:58 Dose: 90 ml Documented By: DANIEL Ondansetron HCl (Ondansetron Inj 2 Mg/Ml 2 Ml Vial) 4 mg IV NOW STA Stop: 12/25/22 17:38 Last Admin: 12/25/22 17:54 Dose: 4 mg Documented By: KV Imaging Data Radiologist's Impression: Chest X-Ray 12/25/22 15:32 XR chest 1V not portable CLINICAL HISTORY: abd pain TECHNIQUE: Single frontal radiograph of the chest was obtained. Comparison: Comparison is made to chest radiograph 05/24/2022 FINDINGS: No lines and tubes are seen. The cardiomediastinal silhouette is normal. Lungs are underinflated but clear. No evidence of pleural effusion or pneumothorax. IMPRESSION: No acute chest disease. ACT 112: Negative or not required by law. Electronically signed by: Leo Hannah M.D. 12/25/2022 4:16 PM Abdomen/Pelvis CT 12/25/22 17:[address] WITH IV CONTRAST CT DOSE: 834.97 mGy.cm HISTORY: Acute left-sided abdominal pain with leukocytosis l mid abd pain wbc 22k TECHNIQUE: Multiaxial CT images of the abdomen and pelvis were performed following the IV administration of 90 cc of Optiray, A dose lowering technique was utilized adhering to the principles of ALARA. COMPARISON STUDY: 05/23/2022 FINDINGS: Cardiomegaly with coronary artery calcifications. Trace pleural effusions with mild bibasilar densities favoring atelectasis. No free air. Spleen is enlarged, 14.5 cm. Unremarkable pancreas and adrenal glands. Distended gallbladder with wall thickening and sludge versus stones within the gallbladder neck. Questioned wall thickening/enhancement of the common bile duct. Trace pericholecystic edema. Unremarkable liver. Patent portal vein. Increased size of a right anterior diaphragmatic lymph node on image 68 measuring 2.1 x 0.8 cm, not Small cyst of the inferior pole left kidney. Mild nonspecific bilateral perinephric stranding. No hydronephrosis. Prostamegaly with urinary bladder wall thickening and perivesicular stranding. Atherosclerosis of the aorta and branch vessels. Retroperitoneal adenopathy includes a 3.2 x 1.5 cm periaortic lymph node on image 164, previously 2.7 x 1.4 cm. Iliac chain adenopathy is similar to prior. Trace ascites. Nonspecific circumferential wall thickening of the rectum. Gaseous distention of the transverse colon with moderate fecal retention in the ascending colon. Circumferential wall thickening of the ascending colon with pericolonic stranding. Wall thickening is most pronounced in the cecum and terminal ileum. Air filled appendix measures up to 8 mm. Unremarkable soft tissues. No acute fracture. Degenerative changes of the spine, pelvis and hips. Posterior bilateral chon and screw fusion hardware L4-L5. The hardware appears intact. IMPRESSION: 1. Findings suggestive of a nonspecific enterocolitis with wall thickening of the colon most pronounced in the cecum and ascending segment. 2. Trace ascites with trace pleural effusions. 3. No pneumoperitoneum. 4. Distended gallbladder with wall thickening, pericholecystic edema and sludge versus cholelithiasis. Findings could be correlated with ultrasound. 5. Nonspecific lymphadenopathy is again noted which is most pronounced in the precaval, periaortic and iliac chains, mildly progressed from prior. 6. Prostatomegaly with chronic bladder outlet obstruction. 7. Additional findings as above. ACT 112: Negative or not required by law. The above report was generated using voice recognition software. It may contain grammatical, syntax or spelling errors. Electronically signed by: Ronnie Monteiro M.D. 12/25/2022 6:34 PM Gallbladder Ultrasound 12/25/22 18:48 Exam(s): US GALLBLADDER EXAM: US Abdomen Limited, Gallbladder CLINICAL HISTORY: Reason for exam: ? Cholecystitis. TECHNIQUE: Real-time ultrasound of the right upper quadrant with image documentation. COMPARISON: None. FINDINGS: Limitations: Exam is limited due to gas artifact in the bowel. Gallbladder: The gallbladder is distended. No bladder wall measures 4. 6 mm. Slight within the gallbladder. No gallstones. Common bile duct: The common bile wall measures 4.8 mm. No stones. No dilation. Pancreas: The pancreas is obscured. Right kidney: The right kidney measures 10.0 cm. Free fluid: Small amount of cholecystic fluid anteriorly. IMPRESSION: Slight within the gallbladder with thickening of the gallbladder wall, mild pericholecystic fluid otherwise negative Milligan sign. Cannot entirely exclude acalculous cholecystitis, differential diagnosis including liver disease or congestive heart failure. If this represents a clinical concern, follow-up with HIDA scan. Electronically signed by: Randi Mai MD 12/25/22 20:54 PM Discharge Plan Visit Data Chief Complaint: Abdominal Pain Stated Complaint: ABD PAIN ED Provider: Chepe Ball Discharge Problem: Abdominal pain, CLL (chronic lymphocytic leukemia), Abnormal CT scan, gallbladder, Leukocytosis Forms Stand Alone Forms: My [facility] Prescriptions Prescriptions: No Action atorvastatin 20 mg tablet 20 mg PO HS losartan 50 mg tablet 50 mg PO DAILY metformin 500 mg tablet 500 mg PO BID docusate sodium [Stool Softener] 100 mg Capsule 100 mg PO BID amlodipine 2.5 mg tablet 2.5 mg PO HS paroxetine HCl 10 mg tablet 10 mg PO DAILY omeprazole 20 mg capsule,delayed release(DR/EC) 20 mg PO DAILY metoprolol succinate 25 mg tablet extended release 24 hr 25 mg PO DAILY acetaminophen [Tylenol] 325 mg Tablet 650 mg PO Q4 PRN (Reason: Pain) Referrals Referrals: Swapna Swan MD [Primary Care Provider] -
[2022-12-25 17:49] LABS: Acanthocytes 1+; Basophils # (auto) 0.04 K/uL (0-0.2); Basophils % (auto) 0.2 %; Eosinophils # (auto) 0.03 K/uL (0-0.50); Eosinophils % (auto) 0.1 %; Immature Granulocytes % (auto) 0.4 %; Lymphocytes # (auto) 14.22 K/uL (1.2-3.4); Lymphocytes % (auto) 62.1 %; Monocytes # (auto) 0.83 K/uL (0.11-0.59); Monocytes % (auto) 3.6 %; Neutrophils # (auto) 7.68 K/uL (1.40-6.50); Neutrophils % (auto) 33.6 %
[2022-12-25] MEDS ORDERED: OPTIRAY 320 100ml IV ONE (17:57)
[2022-12-25 17:59] LABS: Lipase 25 U/L (11-82)
[2022-12-25 18:06] LABS: Appearance Urine Clear (Clear); Bacteria Urine Automated Negative (Negative); Bilirubin Urine Negative (Negative); Blood Urine 3+ (Negative); Color Urine Orange; Epithelial Cell Urine Auto >30 /lpf (0-5); Glucose Urine UA Negative (Negative); Ketones Urine Negative (Negative); Leukocyte Esterase Urine Trace (Negative); Nitrite Urine Negative (Negative); Protein Urine 1+ (Negative); RBC Urine Automated >30 /hpf (0-4); Specific Gravity Urine 1.018 (1.000-1.030); Urobilinogen Urine Negative (Negative); pH Urine 6.5 (4.5-7.5)
--- NOTE | 2022-12-25 18:37 | CT Scan Report ---
ABDOMEN AND PELVIS CT WITH IV CONTRAST CT DOSE: 834.97 mGy.cm HISTORY: Acute left-sided abdominal pain with leukocytosis l mid abd pain wbc 22k TECHNIQUE: Multiaxial CT images of the abdomen and pelvis were performed following the IV administrat ion of 90 cc of Optiray, A dose lowering technique was utilized adhering to the principles of ALARA. COMPARISON STUDY: 05/23/2022 FINDINGS: Cardiomegaly with coronary artery calcifications. Trace pleural effusions with mild bibasil ar densities favoring atelectasis. No free air. Spleen is enlarged, 14.5 cm. Unremarkable pancreas an d adrenal glands. Distended gallbladder with wall thickening and sludge versus stones within the gall bladder neck. Questioned wall thickening/enhancement of the common bile duct. Trace pericholecystic e estefani. Unremarkable liver. Patent portal vein. Increased size of a right anterior diaphragmatic lymph node on image 68 measuring 2.1 x 0.8 cm, not Small cyst of the inferior pole left kidney. Mild nonspecific bilateral perinephric stranding. No hyd ronephrosis. Prostamegaly with urinary bladder wall thickening and perivesicular stranding. Atheroscl erosis of the aorta and branch vessels. Retroperitoneal adenopathy includes a 3.2 x 1.5 cm periaortic lymph node on image 164, previously 2.7 x 1.4 cm. Iliac chain adenopathy is similar to prior. Trace ascites. Nonspecific circumferential wall thickening of the rectum. Gaseous distention of the t ransverse colon with moderate fecal retention in the ascending colon. Circumferential wall thickening of the ascending colon with pericolonic stranding. Wall thickening is most pronounced in the cecum a nd terminal ileum. Air filled appendix measures up to 8 mm. Unremarkable soft tissues. No acute fract ure. Degenerative changes of the spine, pelvis and hips. Posterior bilateral chon and screw fusion yue dware L4-L5. The hardware appears intact. IMPRESSION: 1. Findings suggestive of a nonspecific enterocolitis with wall thickening of the colon most pronounc ed in the cecum and ascending segment. 2. Trace ascites with trace pleural effusions. 3. No pneumoperitoneum. 4. Distended gallbladder with wall thickening, pericholecystic edema and sludge versus cholelithiasis . Findings could be correlated with ultrasound. 5. Nonspecific lymphadenopathy is again noted which is most pronounced in the precaval, periaortic an d iliac chains, mildly progressed from prior. 6. Prostatomegaly with chronic bladder outlet obstruction. 7. Additional findings as above. ACT 112: Negative or not required by law. The above report was generated using voice recognition software. It may contain grammatical, syntax o r spelling errors. Electronically signed by: Ronnie Monteiro M.D. 12/25/2022 6:34 PM
[2022-12-25] MEDS ORDERED: PIPERACILLIN/TAZOBACTAM 4.5 GM/120 ML BAG IV ONE (18:48)
--- NOTE | 2022-12-25 20:56 | Ultrasound Report ---
Exam(s): US GALLBLADDER EXAM: US Abdomen Limited, Gallbladder CLINICAL HISTORY: Reason for exam: ? Cholecystitis. TECHNIQUE: Real-time ultrasound of the right upper quadrant with image documentation. COMPARISON: None. FINDINGS: Limitations: Exam is limited due to gas artifact in the bowel. Gallbladder: The gallbladder is distended. No bladder wall measures 4. 6 mm. Slight within the gallbladder. No gallstones. Common bile duct: The common bile wall measures 4.8 mm. No stones. No dilation. Pancreas: The pancreas is obscured. Right kidney: The right kidney measures 10.0 cm. Free fluid: Small amount of cholecystic fluid anteriorly. IMPRESSION: Slight within the gallbladder with thickening of the gallbladder wall, mild pericholecystic fluid otherwise negative Milligan sign. Cannot entirely exclude acalculous cholecystitis, differential diagnosis including liver disease or congestive heart failure. If this represents a clinical concern, follow-up with HIDA scan. Electronically signed by: Randi Mai MD 12/25/22 20:54 PM
--- NOTE | 2022-12-25 21:21 | History & Physical Report ---
Date of Service December 25, 2022 Assessment & Plan (1) Enterocolitis: (2) Abnormal CT scan, gallbladder: (3) Paralysis of right lower extremity: (4) CLL (chronic lymphocytic leukemia): (5) CVA (cerebrovascular accident due to intracerebral hemorrhage): (6) Hypertension: (7) Hyperlipidemia: (8) Diabetes mellitus type 2 in nonobese: (9) BPH with obstruction/lower urinary tract symptoms: Plan Enterocolitis/possible acalculus cholecystitis- Symptoms within 1 day after eating preprepared sushi and rice from a local grocery store Patient did receive Zosyn 4.5 g IV from the ED Admit on Unasyn 3 g IV every 6 hours We will cover for usual enteric pathogens, plus Listeria. He could have elements of an endotoxin food poisoning as well NPO Order HIDA scan NSS + KCl 20 MEQ's at 80 mils per hour Zofran 4 mg IV every 6 hours as needed Acetaminophen 1 g IV every 8 hours as needed for mild pain or fever Morphine sulfate 2 mg IV every 4 hours as needed for moderate to severe pain Hypertension- Hold metoprolol succinate, amlodipine and losartan Hydralazine 10 mg IV every 6 hours as needed systolic blood pressure above 160 Diabetes mellitus- Hold metformin Hold on Accu-Cheks unless morning glucose becomes elevated History of Present Illness Chief Complaint: The patient is brought to the emergency department by family, and daughter, who provide most of the information, as the patient has difficulty communicating secondary to CVA. The patient has experienced abdominal discomfort and nausea, with vomiting x1, over the past 2 days. Upon questioning of food intake, the patient did eat preprepared sushi and rice from one of the local grocery stores. Primary Care Provider: Swapna Swan MD The patient is a 82-year-old male with a past medical history including paralysis of right lower extremity secondary to CVA, CLL, CVA due to intracerebral hemorrhage, hypertension, hyperlipidemia, diabetes mellitus, aphasia, depression and GERD. The patient presents with family relating story as noted above. He does periodically have shooting pains in his abdomen during our conversation. CT scan of abdomen pelvis consistent with enterocolitis, and gallbladder wall thickness with pericholecystic edema and sludge. There is some generalized lymphadenopathy which has been present in the past. BPH with bladder outlet obs truction as noted, and enlarged spleen is noted as well. From the ED the patient received the following: Normal saline 1 L, Zosyn 4.5 g IV, and Zofran 4 mg IV. Allergies Allergy/AdvReac Type Severity Reaction Status Date / Time No Known Allergies Allergy Verified 05/23/22 19:49 Home Medications Medication Instructions Recorded Confirmed Type atorvastatin 20 mg tablet 20 mg PO HS 03/11/21 12/25/22 History acetaminophen 325 mg tablet 650 mg PO Q4 PRN Pain 04/05/21 12/25/22 History (Tylenol) docusate sodium 100 mg capsule 100 mg PO BID 05/23/22 12/25/22 History (Stool Softener) losartan 50 mg tablet 50 mg PO DAILY 05/23/22 12/25/22 History metformin 500 mg tablet 500 mg PO BID 05/23/22 12/25/22 History amlodipine 2.5 mg tablet 2.5 mg PO HS 12/25/22 12/25/22 History metoprolol succinate 25 mg 25 mg PO DAILY 12/25/22 12/25/22 History tablet,extended release 24 hr omeprazole 20 mg capsule,delayed 20 mg PO DAILY 12/25/22 12/25/22 History release paroxetine HCl 10 mg tablet 10 mg PO DAILY 12/25/22 12/25/22 History Past Med/Surg History Medical History CVA (cerebrovascular accident due to intracerebral hemorrhage) Diabetes mellitus type 2 in nonobese Gout Hearing impaired Hyperlipidemia Hypertension Family History Other Family history non-contributory Social History Smoking Status: Never smoker Tobacco Type: Cigarettes Hx Alcohol Use: Yes Alcohol type: wine Hx Substance Use: No Preferred Language: Belarusian Communication Ability: Impaired Communication Ability Comment: APHASIC [place] Tier Required: No Current Living Situation: Spouse Feels Safe at Home: Yes Assistive Devices: Walker and Wheelchair Review of Systems Review of Systems: Review of systems is as relayed by the family The patient has not had chest pain, palpitations, shortness of breath, dyspnea on exertion, cough, lower extremity swelling, sore throat, fevers, chills, sweats, blood in urine or stool, dysuria, urinary frequency or urgency, lightheadedness, dizziness, headache, memory loss, loss of consciousness, rash, abnormal bruising or bleeding, imbalance, generalized arthralgias or myalgias, back or neck pain, or night sweats. The review of systems is otherwise negative other than for that already noted above, and at least 10 systems have been reviewed. Physical Exam Physical Exam: The patient is awake, alert and oriented 3, well developed and well nourished, normocephalic and atraumatic, lying in bed and in no acute distress. HEENT--PERRL, EOMI, mucous membranes and oropharynx mildly dry. Neck--supple. No JVD. No bruits. Thyroid normal, trachea midline, no adenopathy. Heart--normal S1 and S2. No murmurs, rubs or gallops. Lungs--clear bilaterally, no respiratory distress, no accessory muscle use. Abdomen--normal bowel sounds and soft. Generalized tenderness, nondistended Extremities--no cyanosis or clubbing. No edema. Dermatologic--normal skin turgor, normal color, no abnormal lymph nodes, no rash. Neurologic--right lower extremity weakness is noted Rheumatologic--normal range of motion except right lower extremity Psychiatric--normal affect. Results & Data Results & Data Vital Signs (Past 12 Hours) Vital Signs Temp Pulse Pulse Resp BP BP Pulse Ox 12/25/22 17:46 90 16 132/80 98 12/25/22 15:28 36.8 C 86 20 126/61 97 O2 Del Method 12/25/22 17:46 Room Air 12/25/22 15:28 Room Air Laboratory Results Laboratory Results WBC 22.90 K/ul (4.8-10.8) H 12/25/22 15:40 RBC 4.62 M/uL (4.70-6.10) L 12/25/22 15:40 Hgb 14.4 g/dl (14.0-18.0) 12/25/22 15:40 Hct 40.8 % (42.0-52.0) L 12/25/22 15:40 MCV 88.3 fL (80.0-100.0) 12/25/22 15:40 MCH 31.2 pg (25.0-34.0) 12/25/22 15:40 MCHC 35.3 g/dL (32.0-36.0) 12/25/22 15:40 RDW Std Deviation 40.9 fL (36.4-46.3) 12/25/22 15:40 RDW Coeff of Kenny 12.7 % (11.5-14.5) 12/25/22 15:40 Plt Count 213 K/uL (130-400) 12/25/22 15:40 MPV 9.5 fL (9.4-12.4) 12/25/22 15:40 Immature Gran % (Auto) 0.4 % 12/25/22 15:40 Neut % (Auto) 33.6 % 12/25/22 15:40 Lymph % (Auto) 62.1 % 12/25/22 15:40 Bailey % (Auto) 3.6 % 12/25/22 15:40 Eos % (Auto) 0.1 % 12/25/22 15:40 Baso % (Auto) 0.2 % 12/25/22 15:40 Neut # (Auto) 7.68 K/uL (1.40-6.50) H 12/25/22 15:40 Lymph # (Auto) 14.22 K/uL (1.2-3.4) H 12/25/22 15:40 Bailey # (Auto) 0.83 K/uL (0.11-0.59) H 12/25/22 15:40 Eos # (Auto) 0.03 K/uL (0-0.50) 12/25/22 15:40 Baso # (Auto) 0.04 K/uL (0-0.2) 12/25/22 15:40 Immature Gran # (Auto) 0.10 K/uL (0.01-0.20) 12/25/22 15:40 Acanthocytes (Spur) 1+ 12/25/22 15:40 PT 11.5 Seconds (9.0-12.0) 12/25/22 15:40 INR 1.1 (0.9-1.1) 12/25/22 15:40 APTT 30.2 Seconds (21.0-31.0) 12/25/22 15:40 PTT Ratio 1.1 12/25/22 15:40 Sodium 136 mmol/L (136-145) 12/25/22 15:40 Potassium 4.5 mmol/L (3.5-5.1) 12/25/22 15:40 Chloride 102 mmol/L (98-107) 12/25/22 15:40 Carbon Dioxide 27 mmol/L (21-32) 12/25/22 15:40 Anion Gap 7 (3-11) 12/25/22 15:40 BUN 17 mg/dl (6-23) 12/25/22 15:40 Creatinine 0.92 mg/dl (0.6-1.4) 12/25/22 15:40 Est Cr Clr Drug Dosing Not Reportable 12/25/22 15:40 Est GFR ( Amer) 90.7 ml/min 12/25/22 15:40 Est GFR (Non-Af Amer) 78.3 ml/min 12/25/22 15:40 BUN/Creatinine Ratio 18.5 (10-20) 12/25/22 15:40 Glucose 108 mg/dl (70-99(Fasting)) H 12/25/22 15:40 Calcium 9.6 mg/dl (8.6-10.3) 12/25/22 15:40 Total Bilirubin 1.4 mg/dl (0.2-1.0) H 12/25/22 15:40 AST 14 U/L (13-39) 12/25/22 15:40 ALT 8 U/L (7-52) 12/25/22 15:40 Alkaline Phosphatase 57 U/L (34-104) 12/25/22 15:40 Total Protein 6.8 gm/dl (6.0-8.3) 12/25/22 15:40 Albumin 4.1 gm/dl (3.4-5.0) 12/25/22 15:40 Globulin 2.7 gm/dl (2.5-4.0) 12/25/22 15:40 Albumin/Globulin Ratio 1.5 (0.9-2) 12/25/22 15:40 Lipase 25 U/L (11-82) 12/25/22 15:40 Urine Color [place] 12/25/22 Unknown Urine Appearance Clear (Clear) 12/25/22 Unknown Urine pH 6.5 (4.5-7.5) 12/25/22 Unknown Ur Specific [place] 1.018 (1.000-1.030) 12/25/22 Unknown Urine Protein 1+ (Negative) H 12/25/22 Unknown Urine Glucose (UA) Negative (Negative) 12/25/22 Unknown Urine Ketones Negative (Negative) 12/25/22 Unknown Urine Blood 3+ (Negative) H 12/25/22 Unknown Urine Nitrite Negative (Negative) 12/25/22 Unknown Urine Bilirubin Negative (Negative) 12/25/22 Unknown Urine Urobilinogen Negative (Negative) 12/25/22 Unknown Ur Leukocyte Esterase Trace (Negative) H 12/25/22 Unknown Urine WBC (Auto) 1-5 /hpf (0-5) 12/25/22 Unknown Urine RBC (Auto) >30 /hpf (0-4) H 12/25/22 Unknown U Hyaline Cast (Auto) 1-5 /lpf (0-5) 12/25/22 Unknown U Epithel Cells (Auto) >30 /lpf (0-5) H 12/25/22 Unknown Urine Bacteria (Auto) Negative (Negative) 12/25/22 Unknown Ur Renal Epithelial Cell Not Reportable 12/25/22 Unknown Impressions Chest X-Ray 12/25/22 15:32 XR chest 1V not portable CLINICAL HISTORY: abd pain TECHNIQUE: Single frontal radiograph of the chest was obtained. Comparison: Comparison is made to chest radiograph 05/24/2022 FINDINGS: No lines and tubes are seen. The cardiomediastinal silhouette is normal. Lungs are underinflated but clear. No evidence of pleural effusion or pneumothorax. IMPRESSION: No acute chest disease. ACT 112: Negative or not required by law. Electronically signed by: Leo Hannah M.D. 12/25/2022 4:16 PM Abdomen/Pelvis CT 12/25/22 17:[address] WITH IV CONTRAST CT DOSE: 834.97 mGy.cm HISTORY: Acute left-sided abdominal pain with leukocytosis l mid abd pain wbc 22k TECHNIQUE: Multiaxial CT images of the abdomen and pelvis were performed following the IV administration of 90 cc of Optiray, A dose lowering technique was utilized adhering to the principles of ALARA. COMPARISON STUDY: 05/23/2022 FINDINGS: Cardiomegaly with coronary artery calcifications. Trace pleural effusions with mild bibasilar densities favoring atelectasis. No free air. Spleen is enlarged, 14.5 cm. Unremarkable pancreas and adrenal glands. Distended gallbladder with wall thickening and sludge versus stones within the gallbladder neck. Questioned wall thickening/enhancement of the common bile duct. Trace pericholecystic edema. Unremarkable liver. Patent portal vein. Increased size of a right anterior diaphragmatic lymph node on image 68 measuring 2.1 x 0.8 cm, not Small cyst of the inferior pole left kidney. Mild nonspecific bilateral perinephric stranding. No hydronephrosis. Prostamegaly with urinary bladder wall thickening and perivesicular stranding. Atherosclerosis of the aorta and branch vessels. Retroperitoneal adenopathy includes a 3.2 x 1.5 cm periaortic lymph node on image 164, previously 2.7 x 1.4 cm. Iliac chain adenopathy is similar to prior. Trace ascites. Nonspecific circumferential wall thickening of the rectum. Gaseous distention of the transverse colon with moderate fecal retention in the ascending colon. Circumferential wall thickening of the ascending colon with pericolonic stranding. Wall thickening is most pronounced in the cecum and terminal ileum. Air filled appendix measures up to 8 mm. Unremarkable soft tissues. No acute fracture. Degenerative changes of the spine, pelvis and hips. Posterior bilateral chon and screw fusion hardware L4-L5. The hardware appears intact. IMPRESSION: 1. Findings suggestive of a nonspecific enterocolitis with wall thickening of the colon most pronounced in the cecum and ascending segment. 2. Trace ascites with trace pleural effusions. 3. No pneumoperitoneum. 4. Distended gallbladder with wall thickening, pericholecystic edema and sludge versus cholelithiasis. Findings could be correlated with ultrasound. 5. Nonspecific lymphadenopathy is again noted which is most pronounced in the precaval, periaortic and iliac chains, mildly progressed from prior. 6. Prostatomegaly with chronic bladder outlet obstruction. 7. Additional findings as above. ACT 112: Negative or not required by law. The above report was generated using voice recognition software. It may contain grammatical, syntax or spelling errors. Electronically signed by: Ronnie Monteiro M.D. 12/25/2022 6:34 PM Gallbladder Ultrasound 12/25/22 18:48 Exam(s): US GALLBLADDER EXAM: US Abdomen Limited, Gallbladder CLINICAL HISTORY: Reason for exam: ? Cholecystitis. TECHNIQUE: Real-time ultrasound of the right upper quadrant with image documentation. COMPARISON: None. FINDINGS: Limitations: Exam is limited due to gas artifact in the bowel. Gallbladder: The gallbladder is distended. No bladder wall measures 4. 6 mm. Slight within the gallbladder. No gallstones. Common bile duct: The common bile wall measures 4.8 mm. No stones. No dilation. Pancreas: The pancreas is obscured. Right kidney: The right kidney measures 10.0 cm. Free fluid: Small amount of cholecystic fluid anteriorly. IMPRESSION: Slight within the gallbladder with thickening of the gallbladder wall, mild pericholecystic fluid otherwise negative Milligan sign. Cannot entirely exclude acalculous cholecystitis, differential diagnosis including liver disease or congestive heart failure. If this represents a clinical concern, follow-up with HIDA scan. Electronically signed by: Randi Mai MD 12/25/22 20:54 PM Code Status & VTE Plan Code Status Full code VTE Prophylaxis Plan VTE Prophylaxis will be ordered: Yes PG Care Time/CCT Total # of Minutes Spent Total Time Spent with Patient: Total time spent is greater than 50% in coordination of care (as documented) at patient's floor/unit and/or counseling patient: Coding Level of Care Code 59397 INT INP/OBS CARE 3/75MIN Diagnoses Enterocolitis K52.[address] scan, gallbladder R93.2 Paralysis of right lower extremity G83.11 CLL (chronic lymphocytic leukemia) C91.10 CVA (cerebrovascular accident due to intracerebral hemorrhage) I61.9 Hypertension I10 Hyperlipidemia E78.5 Diabetes mellitus type 2 in nonobese E11.9 BPH with obstruction/lower urinary tract symptoms N40.1; N13.8
[2022-12-25] MEDS ORDERED: hydrALAZINE HCL 20 MG/ML VIAL IV PRN (21:32)
[2022-12-25] MEDS: MoRPHine SULFATE 2 MG/ML CARP IV PRN (22:41)
[2022-12-26] MEDS ORDERED: ONDANSETRON INJ 2 MG/ML 2 ML VIAL IV PRN (00:54)
[2022-12-26] MEDS ORDERED: ACETAMINOPHEN 1000 MG/100 ML IV IV PRN (00:54)
[2022-12-26] MEDS ORDERED: ACETAMINOPHEN 1,000 MG/100 ML VIAL IV PRN (01:08)
[2022-12-26] MEDS: NSS + 20MEQ KCL 20 MEQ/1,000 ML BAG IV SCH ×2 (01:51→15:27)
[2022-12-26] MEDS: AMPICILLIN/SULBACTAM SOD 3,000 MG in 0.9 % SODIUM CHLORIDE 100 ML IV SCH ×4 (01:51→20:39)
[2022-12-26 08:09] LABS: Hematocrit (blood only) 39.7 % (42.0-52.0); Hemoglobin 13.6 g/dl (14.0-18.0); Mean Corpuscular Hgb Conc 34.3 g/dL (32.0-36.0); Mean Corpuscular Volume 90.4 fL (80.0-100.0); Mean Platelet Volume 9.3 fL (9.4-12.4); Platelet Count 181 K/uL (130-400); RDW Coefficient of Variation 12.8 % (11.5-14.5); RDW Standard Deviation 42.2 fL (36.4-46.3); Red Blood Count 4.39 M/uL (4.70-6.10); White Blood Count 17.69 K/ul (4.8-10.8)
[2022-12-26 08:59] LABS: Basophils # (auto) 0.05 K/uL (0-0.2); Basophils % (auto) 0.3 %; Echinocytes 1+; Eosinophils # (auto) 0.01 K/uL (0-0.50); Eosinophils % (auto) 0.1 %; Immature Granulocytes # (auto) 0.05 K/uL (0.01-0.20); Immature Granulocytes % (auto) 0.3 %; Lymphocytes # (auto) 10.22 K/uL (1.2-3.4); Lymphocytes % (auto) 57.8 %; Monocytes # (auto) 0.58 K/uL (0.11-0.59); Monocytes % (auto) 3.3 %; Neutrophils # (auto) 6.78 K/uL (1.40-6.50); Neutrophils % (auto) 38.2 %; Smudge Cells Present
[2022-12-26 09:11] LABS: Albumin Globulin Ratio 1.4 (0.9-2); Albumin Level 3.6 gm/dl (3.4-5.0); BUN Creatinine Ratio 16.1 (10-20); Bilirubin,Total 1.1 mg/dl (0.2-1.0); Creatinine Clr Calc Pharmacy 61.3 ml/min; Est GFR (African American) 89.5 ml/min; Est GFR (Non-African American) 77.3 ml/min; Globulin 2.5 gm/dl (2.5-4.0); Magnesium 1.6 mg/dl (1.7-2.4); Potassium 4.3 mmol/L (3.5-5.1); Total Protein 6.1 gm/dl (6.0-8.3)
[2022-12-26] MEDS ORDERED: SINCALIDE 1.4 MCG in 0.9 % SODIUM CHLORIDE 100 ML IV ONE (10:30)
[2022-12-26] MEDS ORDERED: PANTOprazole 40 MG in SYRINGE 0 ML IV SCH (11:00)
[2022-12-26] MEDS: MoRPHine SULFATE 2 MG/ML CARP IV PRN (11:32)
--- NOTE | 2022-12-26 12:28 | Nuclear Medicine Report ---
NUCLEAR MEDICINE HEPATOBILIARY SCAN HISTORY: Abnormal CT with gallbladder wall thickening. Upper abdominal pain. COMPARISON: None. TECHNIQUE: Immediately following the intravenous administration of 5.0 mCi Tc-99m Choletec, dynamic a nterior abdominal imaging was performed. FINDINGS: Uniform hepatic tracer accumulation is shown. Prompt intrahepatic biliary excretion is seen. The comm on bile duct and small bowel are visualized by 20 minutes. The gallbladder was not identified during the initial 60 minutes of imaging. Therefore, an additional 30 minutes of imaging was performed follo wing the intravenous administration of 2 mg of morphine. Static images from 60 through 90 minutes do not demonstrate radiotracer within the expected location of the gallbladder. Dynamic images from the 65 through 73 minute suggest the possibility of a small amount of radiotracer within the gallbladder. However, this may represent the duodenum in an obliquely oriented patient. IMPRESSION: 1. The gallbladder is not identified during the initial 60 minutes of imaging. 2. Static images from 60 through 90 minutes do not demonstrate radiotracer within the expected locati on of the gallbladder. Dynamic images from the 65 through 73 minute suggest the possibility of a smal l amount of radiotracer within the gallbladder. However, this may represent the duodenum in an obliqu brad oriented patient. Therefore, these findings are concerning for an acute cholecystitis. A chronic cholecystitis also remains within the differential diagnosis. ACT 112: Negative or not required by law. Electronically signed by: Ciro Tai M.D. 12/26/2022 12:26 PM
--- NOTE | 2022-12-26 13:17 | Hospitalist Progress Note ---
Date of Service December 26, 2022 Assessment & Plan (1) Sepsis: Plan: With leukocytosis, fever and acute cholecystitis as source. Not severe sepsis. LFTs rising today with TBili 1.1, AST 114, ALT 61, alk phos 171 but no CBD dilation seen on CT or RUQ US. 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 RCRI is 2 giving him a 10.1% risk of /[place]/cardiac arrest in 30 days after surgery; ACS preop risk 14%-above average/high risk for serious complications Cardiology recommends not proceeding with lap jaron and rather to do perc tube No IR capabilities available here--> called [facility] and awaiting acceptance after case reviewed with IR -continue IVFs, replace magnesium with 2 grams IV mag -continue IV Unasyn -follow CBC, CMP, Mag in AM -keep NPO -Moya in place-monitor UOP -appreciate GI and Surgery consultations -morphine for pain, tylenol for pain and/or fever -continue PPI IV daily (2) Acute cholecystitis: Plan: as above (3) Aortic stenosis: Plan: mod-severe on last ECHO 02/2022 (4) Enterocolitis: Plan: noted on CT, no diarrhea likely related to acute cholecystitis (5) Lymphadenopathy: Plan: seen on CT abd/pel, was present before but now increased in size-possibly related to CLL f/u outpt with Heme/Onc (6) CLL (chronic lymphocytic leukemia): Plan: not currently receiving treatment WBCs here elevated over baseline due to acute jaron follow CBC (7) CVA (cerebrovascular accident due to intracerebral hemorrhage): Plan: h/o hypertensive ICH requiring craniotomy in 2020, seen at [facility] with residual right sided hemiparesis and aphasia supportive care, BP control (8) Hypertension: Plan: BPs elevated on admission and now normal holding home po meds IV hydralazine prn (9) Hyperlipidemia: Plan: hold statin while NPO (10) Diabetes mellitus type 2 in nonobese: Plan: continue Novolog supplemental insulin as needed hold home metformin (11) BPH with obstruction/lower urinary tract symptoms: Plan: Moya in place Plan DVT proph-SCDs Dispo-continued stay, awaiting transfer to tertiary care with IR capabilities. Admission and Anticipated Discharge Date Admission Date: December 25, 2022 Subjective Continues to have RUQ pain and spasms, feels nauseated. Can shake head yes or no for questions. HIDA scan results reviewed and show acute cholecystitis. Discussed his care extensively today with his Box Printing Machine Operator Dr. Finch regarding his mod-severe ,LVOT on ECHO from 02/2022. Also discussed care extensively on multiple occasions today with Surgery, GI, and IR. He is high risk for CV complications and based on his comorbidities and it's felt he's not a good surgical candidate. Perc jaron tube felt to be less risky for him. Unfortunately, IR is not able to do this procedure in this facility as there is no Radiology attending to supervise the IR PA. Discussed care with pt's and daughter on multiple occasions throughout the day. I spent 150 minutes of time on this patient in coordinating care and calling Ingrid Renteria in transfer preparations. Review of Systems Review of Systems: All systems reviewed & are unremarkable except as noted in HPI & below Physical Exam Constitutional: WD/WN, vitals as above ENMT: external ear and nose normal, oropharynx normal Neck: trachea midline, no thyromegaly Respiratory: normal respiratory effort, lungs clear to auscultation Cardiovascular: RRR, no murmur, no edema Chest (Breasts): Chest: normal inspection of chest Gastrointestinal (Abdomen): Inspection/Auscultation: + hypoactive bowel sounds Percussion/Palpation: + abdomen tender (RUQ and epigastric region), + guarding and abdomen soft Musculoskeletal: Extremities: no cyanosis and no clubbing Skin: no rashes, warm and dry Neurologic: + focal motor deficit (right hemiparesis) and awake Speech / Cognition: + expressive aphasia Genitourinary: Moya in place draining clear yellow urine Lymphatic: no lymphedema Results & Data Results & Data Vital Signs (Past 12 Hours) Vital Signs Temp Pulse Resp BP Pulse Ox O2 Del Method 12/26/22 07:17 37.0 C 75 16 134/66 97 Room Air 12/26/22 02:43 144/71 H Laboratory Results CBC, CMP, magnesium reviewed Diagnostic Findings Gallbladder Ultrasound 12/25/22 18:48 Exam(s): US GALLBLADDER EXAM: US Abdomen Limited, Gallbladder CLINICAL HISTORY: Reason for exam: ? Cholecystitis. TECHNIQUE: Real-time ultrasound of the right upper quadrant with image documentation. COMPARISON: None. FINDINGS: Limitations: Exam is limited due to gas artifact in the bowel. Gallbladder: The gallbladder is distended. No bladder wall measures 4. 6 mm. Slight within the gallbladder. No gallstones. Common bile duct: The common bile wall measures 4.8 mm. No stones. No dilation. Pancreas: The pancreas is obscured. Right kidney: The right kidney measures 10.0 cm. Free fluid: Small amount of cholecystic fluid anteriorly. IMPRESSION: Slight within the gallbladder with thickening of the gallbladder wall, mild pericholecystic fluid otherwise negative Milligan sign. Cannot entirely exclude acalculous cholecystitis, differential diagnosis including liver disease or congestive heart failure. If this represents a clinical concern, follow-up with HIDA scan. Electronically signed by: Randi Mai MD 12/25/22 20:54 PM Hepatobiliary Scan Nuclear Medicine 12/26/22 10:15 NUCLEAR MEDICINE HEPATOBILIARY SCAN HISTORY: Abnormal CT with gallbladder wall thickening. Upper abdominal pain. COMPARISON: None. TECHNIQUE: Immediately following the intravenous administration of 5.0 mCi Tc- 99m Choletec, dynamic anterior abdominal imaging was performed. FINDINGS: Uniform hepatic tracer accumulation is shown. Prompt intrahepatic biliary excretion is seen. The common bile duct and small bowel are visualized by 20 minutes. The gallbladder was not identified during the initial 60 minutes of i maging. Therefore, an additional 30 minutes of imaging was performed following the intravenous administration of 2 mg of morphine. Static images from 60 through 90 minutes do not demonstrate radiotracer within the expected location of the gallbladder. Dynamic images from the 65 through 73 minute suggest the possibility of a small amount of radiotracer within the gallbladder. However, this may represent the duodenum in an obliquely oriented patient. IMPRESSION: 1. The gallbladder is not identified during the initial 60 minutes of imaging. 2. Static images from 60 through 90 minutes do not demonstrate radiotracer within the expected location of the gallbladder. Dynamic images from the 65 through 73 minute suggest the possibility of a small amount of radiotracer within the gallbladder. However, this may represent the duodenum in an obliquely oriented patient. Therefore, these findings are concerning for an acute cholecystitis. A chronic cholecystitis also remains within the differential diagnosis. ACT 112: Negative or not required by law. Electronically signed by: Ciro Tai M.D. 12/26/2022 12:26 PM PG Care Time/CCT Total # of Minutes Spent Total Time Spent with Patient: Total time spent is greater than 50% in coordination of care (as documented) at patient's floor/unit and/or counseling patient: Prolonged Care Time Prolonged Care Time: Yes Total Prolonged Care Time: 150 Coding Level of Care Code 76129 SUB INP/OBS CARE 3/50MIN (25 - SIGNIFICANT, SEPARATELY IDENTIFIABLE ) Diagnoses Sepsis A41.9 Acute cholecystitis K81.0 Aortic stenosis I35.0 Enterocolitis K52.9 Lymphadenopathy R59.1 CLL (chronic lymphocytic leukemia) C91.10 CVA (cerebrovascular accident due to intracerebral hemorrhage) I61.9 Hypertension I10 Hyperlipidemia E78.5 Diabetes mellitus type 2 in nonobese E11.9 BPH with obstruction/lower urinary tract symptoms N40.1; N13.8 Additional Codes Prolonged Care Time - Prolonged Care Time: Yes ([id number])
--- NOTE | 2022-12-26 13:30 | Gastrointestinal Consultation ---
Date of Consultation December 26, 2022 Assessment & Plan (1) Acute cholecystitis: (2) Elevated LFTs: Plan No clear indication for ERCP at this time. Bile ducts are clear on US, CT and HIDA though elevated LFTs are worrisome for possible choledocholithiasis they can be elevated with cholecystitis w/o choledocholithiasis For now, would defer ERCP, will watch for OR cholangiogram results. Will plan for ERCP if stones on cholangiogram. Supervising Physician Co-Signing Physician Notes I performed a history and physical examination of the patient today, including specifically on physical exam - soft abdomen. I have discussed the patient's management with the advanced practitioner. Please refer to the nurse practitioner's note for the documented findings and plan of care. Patient will benefit from MRCP however has Cochlear implant hence best option is IOC with his cholecystectomy. If IOC is positive then will perform ERCP. Monitor LFTs. Recall GI if condition or plan changes. History of Present Illness Reason for Consultation: cholangitis suspected,acute cholecystitis Requesting Physician: Dr. Echavarria Attending Physician: Dina Echavarria MD History of Present Illness Mr. Oli Diaz is an 82 yr old male pt of Dr. 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 On [address] CT w non specific enterocolitis, wall thickening of the cecum, distended gallbladder, no bile duct dilation or stones. US w distended gallbladder, normal bile ducts. HIDA suggestive of acute cholecystitis contrast did enter the duodenum. LFTs were essentially normal on arrival w T Bili mildly elevated at 1.4, but others normal. Today, T BIli is normal but transaminases and Alk Phos are significantly elevated: BT Bili 1.1, AST 114, ALT 61, Alk PHos 171. Lipase is normal. He does have significant leukocytosis 22 on arrival, now 17 today. He had a temp of 38 early this morning. He is receiving Zosyn. GI is consulted to consider ERCP. Allergies Allergy/AdvReac Type Severity Reaction Status Date / Time No Known Allergies Allergy Verified 05/23/22 19:49 Home Medications Medication Instructions Recorded Confirmed Type atorvastatin 20 mg tablet 20 mg PO HS 03/11/21 12/25/22 History acetaminophen 325 mg tablet 650 mg PO Q4 PRN Pain 04/05/21 12/25/22 History (Tylenol) docusate sodium 100 mg capsule 100 mg PO BID 05/23/22 12/25/22 History (Stool Softener) losartan 50 mg tablet 50 mg PO DAILY 05/23/22 12/25/22 History metformin 500 mg tablet 500 mg PO BID 05/23/22 12/25/22 History amlodipine 2.5 mg tablet 2.5 mg PO HS 12/25/22 12/25/22 History metoprolol succinate 25 mg 25 mg PO DAILY 12/25/22 12/25/22 History tablet,extended release 24 hr omeprazole 20 mg capsule,delayed 20 mg PO DAILY 12/25/22 12/25/22 History release paroxetine HCl 10 mg tablet 10 mg PO DAILY 12/25/22 12/25/22 History Patient History Medical History Abnormal CT of the abdomen Aortic stenosis Aspiration into airway Bladder wall thickening CVA (cerebrovascular accident due to intracerebral hemorrhage) Diabetes mellitus type 2 in nonobese Enlarged prostate Fecal retention Gout Hearing impaired Hyperlipidemia Hypertension Leukocytosis Family History Other Family history non-contributory Social History Smoking Status: Never smoker Tobacco Type: Cigarettes Hx Alcohol Use: No Hx Substance Use: No Preferred Language: Turkmen Communication Ability: Effective Communication Ability Comment: APHASIC Director Digital Sales Required: No Beliefs That Will Affect Care: None Current Living Situation: Spouse Feels Safe at Home: Yes Assistive Devices: Walker Review of Systems Review of Systems: Non verbal, answers for him though he is able to indicate yes/no with eye/facial motions A total of 12 systems reviewed: + for fever here (non prior to arrival), + as per HPI, otherwise (-). Specifically denies yellow eyes, yellow skin, dark urine, GI bleeding, CP or SOB. Did have mild constipation. Physical Exam Constitutional: well developed and well nourished; no acute distress Eyes: PERRL, conjunctivae normal, anicteric sclerae ENMT: external ear and nose normal, oropharynx normal Neck: trachea midline, no thyromegaly Respiratory: normal respiratory effort, lungs clear to auscultation Cardiovascular: Heart Sounds: normal S1, normal S2 and + murmur (3/6 systolic murmur) Gastrointestinal (Abdomen): Inspection/Auscultation: abdomen normal to inspection; abdomen not distended Very tender in the RUQ, hypoactive BS, abd is soft, non distended, no masses. Results & Data Vital Signs (Past 12 Hours) Vital Signs Temp Pulse Resp BP Pulse Ox O2 Del Method 12/26/22 07:17 37.0 C 75 16 134/66 97 Room Air 12/26/22 02:43 144/71 H Laboratory Results WBC 17, Hb 13, Hct 39, Plts 181, Na 138, K 43, Cl 105, CO2 26, BUN 15, Cr 09, glucose 126. Diagnostic Findings HIDA 12/26/22: 1. The gallbladder is not identified during the initial 60 minutes of imaging. 2. Static images from 60 through 90 minutes do not demonstrate radiotracer within the expected location of the gallbladder. Dynamic images from the 65 through 73 minute suggest the possibility of a small amount of radiotracer within the gallbladder. However, this may represent the duodenum in an obliquely oriented patient. Therefore, these findings are concerning for an acute cholecystitis. A chronic cholecystitis also remains within the differential diagnosis. CTAP 12/25/22: 1. Findings suggestive of a nonspecific enterocolitis with wall thickening of the colon most pronounced in the cecum and ascending segment. 2. Trace ascites with trace pleural effusions. 3. No pneumoperitoneum. 4. Distended gallbladder with wall thickening, pericholecystic edema and sludge versus cholelithiasis. Findings could be correlated with ultrasound. 5. Nonspecific lymphadenopathy is again noted which is most pronounced in the precaval, periaortic and iliac chains, mildly progressed from prior. 6. Prostatomegaly with chronic bladder outlet obstruction. GB US 12/25/22: Slight within the gallbladder with thickening of the gallbladder wall, mild pericholecystic fluid otherwise negative Milligan sign. Cannot entirely exclude acalculous cholecystitis, differential diagnosis including liver disease or congestive heart failure. If this represents a clinical concern, follow-up with HIDA scan.
--- NOTE | 2022-12-26 14:24 | Surgery Consultation ---
Date of Consultation December 26, 2022 Assessment & Plan (1) Elevated LFTs: (2) Acute cholecystitis: General surgery was consulted today due to the patient having elevated LFTs total bilirubin 1.1, AST 114, ALT 61, Alkaline phosphatase 171, and a distended gallbladder on CT scan. An US shows slight gallbladder wall thickening, and the HIDA reads concern for acute cholecystitis. Patients denies the patient having fever, vomiting. Keep NPO at Midnight for possible surgical intervention tomorrow Supervising Physician Co-Signing Physician Notes I personally saw and evaluated the patient with JORGE Bird and agree w ith the assessment and plan. 82-year-old male with questionable acute cholecystitis on CT ultrasound and HIDA scan He does have a complicated cardiovascular history with moderate aortic stenosis on his most recent echo in February 2022 as well as a CVA with right-sided paralysis in 2020 He had a PEG tube placed when he was recovering from his CVA, however no other abdominal surgeries He has mild elevation in his LFTs which are likely due to his acute cholecystitis Would need clearance prior to cholecystectomy We will follow along and the patient may be a prohibitive risk of surgery and need a cholecystostomy tube For now keep n.p.o., give IV antibiotics and will follow along History of Present Illness Reason for Consultation: Acute cholecystitis Attending Physician: Dina Echavarria MD History of Present Illness Patient is a 82 year old male with a PMH of DM2, CLL, CVA, Paralysis of right lower extremity, BPH, aortic stenosis, lymphadenopathy that presented to the [facility] ER on 12/25/22 with a complaint of abdominal pain, fatigue and anorexia that started 2 days prior. reports that the patient was crying out in pain intermittently on Thursday at which point she thought he was constipated and gave patient an enema. The patient continued crying out on which prompted her to bring him to the ER. General surgery was consulted today due to the patient having elevated LFTs total bilirubin 1.1, AST 114, ALT 61, Alkaline phosphatase 171, and a distended gallbladder on CT scan. An US shows slight gallbladder wall thickening, and the HIDA reads concern for acute cholecystitis. Patients denies the patient having fever, vomiting. Allergies Allergy/AdvReac Type Severity Reaction Status Date / Time No Known Allergies Allergy Verified 05/23/22 19:49 Home Medications Medication Instructions Recorded Confirmed Type atorvastatin 20 mg tablet 20 mg PO HS 03/11/21 12/25/22 History acetaminophen 325 mg tablet 650 mg PO Q4 PRN Pain 04/05/21 12/25/22 History (Tylenol) docusate sodium 100 mg capsule 100 mg PO BID 05/23/22 12/25/22 History (Stool Softener) losartan 50 mg tablet 50 mg PO DAILY 05/23/22 12/25/22 History metformin 500 mg tablet 500 mg PO BID 05/23/22 12/25/22 History amlodipine 2.5 mg tablet 2.5 mg PO HS 12/25/22 12/25/22 History metoprolol succinate 25 mg 25 mg PO DAILY 12/25/22 12/25/22 History tablet,extended release 24 hr omeprazole 20 mg capsule,delayed 20 mg PO DAILY 12/25/22 12/25/22 History release paroxetine HCl 10 mg tablet 10 mg PO DAILY 12/25/22 12/25/22 History Patient History Medical History Abnormal CT of the abdomen Aortic stenosis Aspiration into airway Bladder wall thickening CVA (cerebrovascular accident due to intracerebral hemorrhage) Diabetes mellitus type 2 in nonobese Enlarged prostate Fecal retention Gout Hearing impaired Hyperlipidemia Hypertension Leukocytosis Family History Other Family history non-contributory Social History Smoking Status: Never smoker Tobacco Type: Cigarettes Hx Alcohol Use: No Hx Substance Use: No Preferred Language: Slovak Communication Ability: Effective Communication Ability Comment: APHASIC Local Coordinator Required: No Beliefs That Will Affect Care: None Current Living Situation: Spouse Feels Safe at Home: Yes Assistive Devices: Walker Review of Systems Constitutional: no fever, no chills and no sweats Respiratory: no dyspnea Cardiovascular: no chest pain Gastrointestinal: + abdominal pain and + constipation; no nausea and no vomiting Genitourinary: + problem reported (ward cath in place) Physical Exam Constitutional: cooperative and comfortable; no acute distress Respiratory: normal respiratory effort and able to speak in complete sentences; no respiratory distress and does not use accessory muscles Cardiovascular: Rate/Rhythm: regular rate Gastrointestinal (Abdomen): Inspection/Auscultation: + abdominal surgical scar (priveous peg tube); abdomen not distended Percussion/Palpation: + abdomen tender (RUQ and RUL ) and abdomen soft Results & Data Vital Signs (Past 12 Hours) Vital Signs Temp Pulse Resp BP Pulse Ox O2 Del Method 12/26/22 07:17 98.6 F 75 16 134/66 97 Room Air 12/26/22 02:43 144/71 H Diagnostic Findings [place], [place] [phone] Nuclear Medicine Report Patient:BRADY CALDERON Admit Date:12/25/22 MR#:[id number] Address1:[address] Acct ID:[id number] Address2: Date:1940 [facility] [facility] Zip:[place] [address] Age:82 Location:3W Sex:M Room/Bed:[facility] Att Phy:Dina Echavarria MD Diagnosis:ENTEROCOLITIS Aiyana Phy:Swapna Swan M.D. Service Date:12/26/22 Fam Phy: Interpreting Phy:Ciro Tai MDAdmit Phy:Troy Stokes MD Ordering Phy:Dina Echavarria MD cc: ~ NUCLEAR MEDICINE HEPATOBILIARY SCAN HISTORY: Abnormal CT with gallbladder wall thickening. Upper abdominal pain. COMPARISON: None. TECHNIQUE: Immediately following the intravenous administration of 5.0 mCi Tc- 99m Choletec, dynamic anterior abdominal imaging was performed. FINDINGS: Uniform hepatic tracer accumulation is shown. Prompt intrahepatic biliary excretion is seen. The common bile duct and small bowel are visualized by 20 minutes. The gallbladder was not identified during the initial 60 minutes of imaging. Therefore, an additional 30 minutes of imaging was performed following the intravenous administration of 2 mg of morphine. Static images from 60 through 90 minutes do not demonstrate radiotracer within the expected location of the gallbladder. Dynamic images from the 65 through 73 minute suggest the p ossibility of a small amount of radiotracer within the gallbladder. However, this may represent the duodenum in an obliquely oriented patient. IMPRESSION: 1. The gallbladder is not identified during the initial 60 minutes of imaging. 2. Static images from 60 through 90 minutes do not demonstrate radiotracer within the expected location of the gallbladder. Dynamic images from the 65 through 73 minute suggest the possibility of a small amount of radiotracer within the gallbladder. However, this may represent the duodenum in an obliquely oriented patient. Therefore, these findings are concerning for an acute cholecystitis. A chronic cholecystitis also remains within the differential diagnosis. ACT 112: Negative or not required by law. Electronically signed by: Ciro Tai M.D. 12/26/2022 12:26 PM Dictated:12/26/22 1220 Transcribed: 12/26/22 1220 PG Care Time/CCT Total # of Minutes Spent Total Time Spent with Patient: Total time spent is greater than 50% in coordination of care (as documented) at patient's floor/unit and/or counseling patient: Coding Level of Care Code 57786 INT INP/OBS CARE 2MIN Diagnoses Elevated LFTs R79.89 Acute cholecystitis K81.0
--- NOTE | 2022-12-26 19:08 | Discharge Summary ---
Discharge Summary Date of Service December 26, 2022 Notes For Next Care Provider Medication Changes From Visit Unasyn IV q6h Morphine prn APAP IV prn Admission HPI Per Admitting Provider The patient is a 82-year-old male with a past medical history including paralysis of right lower extremity secondary to CVA, CLL, CVA due to intracerebral hemorrhage, hypertension, hyperlipidemia, diabetes mellitus, aphasia, depression and GERD. The patient presents with family relating story as noted above. He does periodically have shooting pains in his abdomen during our conversation. CT scan of abdomen pelvis consistent with enterocolitis, and gallbladder wall thickness with pericholecystic edema and sludge. There is some generalized lymphadenopathy which has been present in the past. BPH with bladder outlet obstruction as noted, and enlarged spleen is noted as well. From the ED the patient received the following: Normal saline 1 L, Zosyn 4.5 g IV, and Zofran 4 mg IV. Principal Dx & Hospital Course #1 = Principal Diagnosis (1) Sepsis: With leukocytosis, fever and acute cholecystitis as source. Not severe sepsis. LFTs rising today with TBili 1.1, AST 114, ALT 61, alk phos 171 but no CBD dilation seen on CT or RUQ US. HIDA shows tracer into small bowel so not likely ot have CBD obstruction LFs likely up from acute jaron but not choledocholithiasis Appreciate GI recommendations-recommended lap jaron with IOC however pt too high risk for surgery Surgery recommended perc jaron tube since high risk for surgery Discussed care with his [employer] and last ECHO 02/2022 with mod-severe , LVOT, hyperdynamic EF Here with harsh murmur likely from and LVOT With h/o hemorrhagic CVA, DMII, etc. RCRI is 2 giving him a 10.1% risk of /GA/cardiac arrest in 30 days after surgery; ACS preop risk 14%-above average/high risk for serious complications Cardiology recommends not proceeding with lap jaron and rather to do perc tube No IR capabilities available here--> transfer to [facility] -accepting hospitalist Dr. Landin -continue IVFs, replace magnesium with 2 grams IV mag -continue IV Unasyn -follow CBC, CMP, Mag in AM -keep NPO -Moya in place-monitor UOP -appreciate GI and Surgery consultations -morphine for pain, tylenol for pain and/or fever -continue PPI IV daily (2) Acute cholecystitis: as above (3) Aortic stenosis: mod-severe on last ECHO 02/2022 (4) Enterocolitis: noted on CT, no diarrhea likely related to acute cholecystitis (5) Lymphadenopathy: seen on CT abd/pel, was present before but now increased in size-possibly related to CLL f/u outpt with Heme/Onc (6) CLL (chronic lymphocytic leukemia): not currently receiving treatment WBCs here elevated over baseline due to acute jaron follow CBC (7) CVA (cerebrovascular accident due to intracerebral hemorrhage): h/o hypertensive ICH requiring craniotomy in 2020, seen at [facility] with residual right sided hemiparesis and aphasia supportive care, BP control (8) Hypertension: BPs elevated on admission and now normal holding home po meds IV hydralazine prn (9) Hyperlipidemia: hold statin while NPO (10) Diabetes mellitus type 2 in nonobese: continue Novolog supplemental insulin as needed hold home metformin (11) BPH with obstruction/lower urinary tract symptoms: Moya in place Depression-holding home Paxil Plan DVT proph-SCDs Dispo- transfer to tertiary care with IR capabilities at [facility] Discharge Exam Constitutional WD/WN, vitals as above ENMT external ear and nose normal, oropharynx normal Neck trachea midline, no thyromegaly Respiratory normal respiratory effort, lungs clear to auscultation Cardiovascular RRR, no murmur, no edema Chest (Breasts) Chest: normal inspection of chest Gastrointestinal (Abdomen) Inspection/Auscultation: + hypoactive bowel sounds Percussion/Palpation: + abdomen tender (RUQ and epigastric region), + guarding and abdomen soft Musculoskeletal Extremities: no cyanosis and no clubbing Skin no rashes, warm and dry Neurologic + focal motor deficit (right hemiparesis) and awake Speech / Cognition: + expressive aphasia Lymphatic no lymphedema Updated Medication List Medication Instructions Recorded Confirmed Type atorvastatin 20 mg tablet 20 mg PO HS 03/11/21 12/25/22 History acetaminophen 325 mg tablet 650 mg PO Q4 PRN Pain 04/05/21 12/25/22 History (Tylenol) docusate sodium 100 mg capsule 100 mg PO BID 05/23/22 12/25/22 History (Stool Softener) losartan 50 mg tablet 50 mg PO DAILY 05/23/22 12/25/22 History metformin 500 mg tablet 500 mg PO BID 05/23/22 12/25/22 History amlodipine 2.5 mg tablet 2.5 mg PO HS 12/25/22 12/25/22 History metoprolol succinate 25 mg 25 mg PO DAILY 12/25/22 12/25/22 History tablet,extended release 24 hr omeprazole 20 mg capsule,delayed 20 mg PO DAILY 12/25/22 12/25/22 History release paroxetine HCl 10 mg tablet 10 mg PO DAILY 12/25/22 12/25/22 History Hospital Stay Data Consultations 12/25/22 20:31 ED Decision to Admit Stat 12/26/22 12:38 Consult Gastroenterology Routine 12/26/22 12:40 Consult General Surgery Routine Procedures Performed Operation Date: 12/27/22 07:30 <No data on this case meets the specified criteria> Diagnostic Imagining Performed 12/25/22 17:36 CT Abd and Pelvis [CT abd pelvis IV con only] Stat 12/25/22 18:48 US gallbladder Stat Pending Results Patient Have Any Pending Studies at Discharge: No Discharge Instructions Given to Patient (Per Discharging Provider) transferred to tertiary care Total Time Total Time Spent Total Time Spent (In Minutes): 150 min Coding Level of Care Code 53895 INP/OBS DISCH >30 MIN Diagnoses Sepsis A41.9 Acute cholecystitis K81.0 Aortic stenosis I35.0 Enterocolitis K52.9 Lymphadenopathy R59.1 CLL (chronic lymphocytic leukemia) C91.10 CVA (cerebrovascular accident due to intracerebral hemorrhage) I61.9 Hypertension I10 Hyperlipidemia E78.5 Diabetes mellitus type 2 in nonobese E11.9 BPH with obstruction/lower urinary tract symptoms N40.1; N13.8
[2022-12-26] MEDS: MAGNESIUM SULFATE / D5W 1 GM/100 ML BAG IV SCH ×2 (19:45→21:52)
== END 2022-12-26 22:15 | disposition short-term general hospital (02) | DRG 872 ==
LOC: ED 15:13 → SUATTDRO 21:20 → 3W 21:20

== ENCOUNTER 2023-08-16 20:09 | Observation (INO) ==
--- OUTSIDE RECORDS SUMMARY | 2023-08-16 20:13 | External Medical Summary | Continuity of Care Document ---
Author Name Unknown Organization [address] [id number] Care Team Providers Care Photolettering Machine Operator Name Role Phone Swapna Swan Primary Care Physician [phone] Encounter [facility] [id number] Date(s): 06/24/23 - 06/24/[address] [address] [phone] Encounter Diagnosis Proctocolitis(Discharge Diagnosis) - 06/24/23 Cholecystitis(Discharge Diagnosis) - 06/24/23 Discharge Disposition: Home or Self Care Attending Physician: JORGE Solorzano Tara Allergies, Adverse Reactions, Alerts Substance Reaction Severity Status lisinopril cough Active Assessment and Plan Extracted from: Title:follow up Author:JORGE Solorzano Tara Date: 1.Proctocolitis Acute/Chronic: acute Goal:Resolution/ control Status:ongoing Data: records/pt report Plan:Was treated with abx and has completed. His symptoms are better but not completely resolved. This CT and other CT has shown proctocolitis. GI referral ordered. Most likely needs colonoscopy to evaluate for non infectious cause of CT findings such as lymphocytic colitis. Can use metamucil daily. Contd with miralax as needed. 2.Cholecystitis Acute/Chronic: chronic Goal:Resolution/ control Status:stable/controlled Data: records/pt report Plan: Had stent placed for cholecystitis. It was exchanged in April. Recent CT scan showed decrease distention of gallbladder. Daughter states he has not follow up with [facility] for stent. She was under the impression that it was a permanent stent. I discussed with GI who agreed that most stents are not permanent and need to be exchanged on a routine bases to prevent blockage/infection. Have referred to GI who will assess need for exchange. time spent reviewing chart, face to face visit, orders, documentation, discussion with GI, reviewed HIE: 43 min Immunizations Given and Recorded Vaccine Date Status Refusal Reason influenza virus vaccine, inactivated 03/04/23 Give n Medications atorvastatin 20 mg oral tablet Start: 02/03/23 20:00:00 EDT, See Instructions, Disp# 90 tab, Refills: 3, TAKE 1 TABLET BY MOUTH ONCE DAILY, Pharmacy: [id number] Start Date: 02/03/23 Status: Ordered losartan 50 mg oral tablet Start: 04/06/23 8:45:00 EST, 1 tab, PO, Daily, Disp# 30 tab, Refills: 3, Pharmacy: [facility] Start Date: 04/06/23 Status: Ordered metFORMIN 500 mg oral tablet Start: 01/30/23 12:18:00 EDT, See Instructions, Disp# 60 tab, Refills: 6, TAKE 1 TABLET BY MOUTH TWICE DAILY, Pharmacy: [facility] Start Date: 01/30/23 Status: Ordered Norvasc 2.5 mg oral tablet Start: 09/24/22 12:04:00 EDT, 1 tab, PO, Daily, Disp# 90 tab, Refills: 3, Pharmacy: [facility] Start Date: 09/24/22 Status: Ordered omeprazole 20 mg oral delayed release capsule Start: 11/26/22 19:43:00 EDT, See Instructions, Disp# 90 cap, Refills: 3, TAKE 1 CAPSULE BY MOUTH EVERY MORNING BEFORE BREAKFAST , Pharmacy: [facility] Start Date: 11/26/22 Status: Ordered One Touch Delica Plus (30G) Lancets Start: 03/31/22 12:10:00 EST, See Instructions, Disp# 100 each, Refills: 6, test BSG twice daily E11.9, Pharmacy: [facility] Start Date: 03/31/22 Status: Ordered One Touch Verio Test Strips Start: 03/31/22 12:10:00 EST, See Instructions, Disp# 100 strip, Refills: 6, test BSG twice daily dx e11.9, Pharmacy: [facility] Start Date: 03/31/22 Status: Ordered PARoxetine 20 mg oral tablet Start: 04/30/23 7:58:00 EST, 1 tab, PO, Daily, Disp# 90 tab, Refills: 3, Pharmacy: [facility] Start Date: 04/30/23 Status: Ordered Mental Status 06/24/23 Barriers to Learning one year None evide nt Mandatory Health Literacy Documentation Yes Health Literacy Communication Barriers A lways Health Literacy Reading Assist s/p strok e Primary Language Armenian Problem List Condition Confirmation Course Effective Dates Status H ealth Status Informant Allergic conjunctivitis Confirmed Active Heart murmur, aortic Confirmed Active Aphasia Confirmed Active Bilateral hearing loss Confirmed Active Constipation, chronic Confirmed Active Chronic cough Confirmed Active CLL (chronic lymphocytic leukemia) Confirmed Active CLL (chronic lymphocytic leukemia) Confirmed Active Depression Confirmed Active Depression Confirmed Active 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 Confirmed Active Stroke, hemorrhagic Confirmed Active HTN (hypertension) Confirmed Active IFG (impaired fasting glucose) Confirmed Active Enlarged prostate Confirmed Active Acute hypotension Confirmed Active Lumbar radiculopathy Confirmed Active Lymphocytosis Confirmed Active Aortic stenosis, moderate Confirmed Active Sacral decubitus ulcer Confirmed Active Muscle spasm Confirmed Active Loss of weight Confirmed Active Diagnosis Diagnosis Type Effective Dates Health Status Cl inical Service Informant Proctocolitis Discharge Diagnosis 06/24/23 Non-Specified Cholecystitis Discharge Diagnosis 06/24/23 Procedures Procedure Date Related Diagnosis Body Site Status Surgery 2018 Completed Cochlear implant Complete d 1back surgery Vital Signs Most recent to oldest [Reference Range]: 1 Patient Weight 61.6 kg (06/24/23 2:32 PM) Heart Rate 73 bpm (06/24/23 2:32 PM) Respiratory Rate 16 br/min (06/24/23 2:32 PM) Blood Pressure 124/62mmHg (06/24/23 2:32 PM) Cuff Pulse Pressure 62 mmHg (06/24/23 2:32 PM) Social History Social History Type Response Tobacco Former smoker, Stopp ed age 37 Years. Smoking Status Never smoked cigaret alexis Sex Male [facility] Outpt Note * JORGE Solorzano Tara: PERFORM Event Display: FCM Outpt Note Authored Date: [id number] Chief Complaint f/u and c/o continuing RLQ pain History of Present Illness Pt was seen on 06/10/23 for abd pain. He underwent a CT scan. It showed proctocolitis. He was placedon augmentin. He completed augmentin 2 days ago. He contd to have mild abd pain. When he is asked he points to his RUQ, RLQ and LLQ.[facility] he get confused at times so this may not be accurate. He is able to answer yes and no and simple phrases. No loose stools. He has aBM every 1-2 days.No blood.He take metamucil and miralax as needed.No fevers. per Dr. Gallo's note previous CT scans have shown proctocolitis. I was not able to findthis in his chart. Review of Systems Constitutional: No fever, chills, sweats Pulmonary: No shortness of breath, dyspnea with exertion, cough, hemoptysis, wheezing, chest pain. Cardiovascular: No chest pain, palpitations, syncope, edema, cyanosis, claudication, orthopnea. GI: as per HPI Physical Exam Vitals & Measurements HR:73(Monitored) RR:16 BP:124/62 SpO2:98% WT:61.6kg WT:61.600kg(Dosing) PHQ2 Data(Data Documented on:06/24/2023 15:00) Emotional health assessment NEGATIVE head- normocephalic eyes- PERRLA , conjunctiva clear, sclera white, anicteric, Pulmonary- chest expansion symmetric, CTA (clear to auscultation), eupnea, no adventitious sounds (rales, crackles, wheezes) CV (cardiovascular)- RRR no m/r/g (systolic ejection murmur, rubs, gallops), good peripheral perfusion abdomen- soft w/o masses, BS present, no hepatosplenomegaly, no bruits. Mild tenderness on palpation of LLQ. Assessment/Plan 1.Proctocolitis Acute/Chronic: acute Goal:Resolution/ control Status:ongoing Data: records/pt report Plan:Was treated with abx and has completed. His symptoms are better but not completely resolved.This CT and other CT has shown proctocolitis. GI referral ordered. Most likely needs colonoscopy toevaluate for non infectious cause of CT findings such as lymphocytic colitis. Can use metamucil daily. Contd with miralax as needed. 2.Cholecystitis Acute/Chronic: chronic Goal:Resolution/ control Status:stable/controlled Data: records/pt report Plan:Had stent placed for cholecystitis. It was exchanged in April. Recent CT scan showed decrease distention of gallbladder. Daughter states he has not follow up with [facility] for stent. She was under the impression that it was a permanent stent. I discussed with GI who agreed that most stents are not permanent and need to be exchanged on a routine bases to prevent blockage/infection. Havereferred to GI who will assess need for exchange. 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 HTN (hypertension) IFG (impaired fasting glucose) Loss of weight Lumbar radiculopathy Lymphocytosis Muscle spasm Sacral decubitus ulcer Stroke, hemorrhagic Historical Annual physical exam Procedure/Surgical History Surgery (2019)Cochlear implant Medications amLODIPine(Norvasc 2.5 mg oral tablet), 2.5 mg= 1 tab, PO, Daily, 3 refills atorvastatin(atorvastatin 20 mg oral tablet), See Instructions diabetes supplies(One Touch Verio Test Strips), See Instructions, 6 refills diabetes supplies(One Touch Delica Plus (30G) Lancets), See Instructions, 6 refills losartan(losartan 50 mg oral tablet), 1 tab, PO, Daily metFORMIN(metFORMIN 500 mg oral tablet), See Instructions omeprazole(omeprazole 20 mg oral delayed release capsule), See Instructions PARoxetine(PARoxetine 20 mg oral tablet), 20 mg= 1 tab, PO, Daily, 3 refills Allergies lisinoprilcough Social History Smoking Status Never smoked cigarettes Alcohol Type:Beer Frequency:Daily Has anyone been hurt or at risk by your drinking:No Ready to change:No Concerns about alcohol use in household:No Tobacco Use:Former smoker Stopped at age:37Years Family History Cancer: Sister. Heart attack: Father. Hypertension: Mother, Father and Sister. Melanoma in situ of skin: Sister. Type II diabetes mellitus: Father and Sister.Negative: Brother. Health Status Family Member(s) Immunizations Vaccine Date Status influenza virus vaccine, inactivated 03/04/2023 Given Recommendations Health Maintenance Pending(in the next year) OverDue Diabetic Eye Exam due12/13/17and every 366day Body Mass Index due11/07/21and every 366day Due Adult COVID-19 Vaccination due06/24/23Unknown Frequency Adult Social Determinants of Health Screening due06/24/23Unknown Frequency Adult Tdap/Td Vaccine due06/24/23Unknown Frequency Falls Plan of Care due06/24/23Unknown Frequency Medicare Annual Wellness Visit due06/24/23and every 1year Pneumococcal Vaccine Older Adults due06/24/23One-time only Shingles Vaccine due06/24/23One-time only Due In Future Diabetes Management A1c not due until09/25/23and every 366day Adult Influenza Vaccine not due until11/08/23and every 1year Satisfied(in the past 1 year) Satisfied Adult Influenza Vaccine on03/04/23.Satisfied by BALDEMAR Lanier Karli R Diabetes Management A1c on09/24/22.Satisfied by Contributor_system, [place] [employer] Electronic Signature on File Electronically Reviewed/Signed by: JORGE Gomes Author Signature Dt/Tm:06/24/2023 08:16 PM Department of Family Medicine TB Patient Care team information Care Team Personnel Name: MD Beny, Swapna Bedoya Position: Physician - Family Med Member Role: Primary Care Provider Address: Address: [address] [place] [address], [place] [address] Care Team Related Persons Name: RAKESH CALDERON Address: [address] [place] [phone]
--- OUTSIDE RECORDS SUMMARY | 2023-08-16 20:13 | External Medical Summary | Continuity of Care Document ---
Author Name Unknown Organization [place] [id number] [place] [phone] Care Team Providers Care Hospital Insurance Representative Name Role Phone Swapna Swan Primary Care Physician [phone] [id number] Date(s): 06/24/23 - 06/24/23 [facility] [address] [place] [address] Medical [facility] [address] [phone] Discharge Disposition: Home or Self Care Attending Physician: JAEL Michelle, Solange Wray Referring Physician: MD Beny, Swapna Bedoya Allergies, Adverse Reactions, Alerts Substance Reaction Severity Status lisinopril cough Active Immunizations Given and Recorded Vaccine Date Status Refusal Reason influenza virus vaccine, inactivated 03/04/23 Give n Medications atorvastatin 20 mg oral tablet Start: 02/03/23 20:00:00 EDT, See Instructions, Disp# 90 tab, Refills: 3, TAKE 1 TABLET BY MOUTH ONCE DAILY, Pharmacy: [facility] Start Date: 02/03/23 Status: Ordered losartan 50 mg oral tablet Start: 04/06/23 8:45:00 EST, 1 tab, PO, Daily, Disp# 30 tab, Refills: 3, Pharmacy: [facility] Start Date: 04/06/23 Status: Ordered metFORMIN 500 mg oral tablet Start: 01/30/23 12:18:00 EDT, See Instructions, Disp# 60 tab, Refills: 6, TAKE 1 TABLET BY MOUTH TWICE DAILY, Pharmacy: [facility] Start Date: 01/30/23 Status: Ordered Norvasc 2.5 mg oral tablet Start: 09/24/22 12:04:00 EDT, 1 tab, PO, Daily, Disp# 90 tab, Refills: 3, Pharmacy: [facility] Start Date: 09/24/22 Status: Ordered omeprazole 20 mg oral delayed release capsule Start: 11/26/22 19:43:00 EDT, See Instructions, Disp# 90 cap, Refills: 3, TAKE 1 CAPSULE BY MOUTH EVERY MORNING BEFORE BREAKFAST , Pharmacy: [facility] Start Date: 11/26/22 Status: Ordered One Touch Delica Plus (30G) Lancets Start: 03/31/22 12:10:00 EST, See Instructions, Disp# 100 each, Refills: 6, test BSG twice daily E11.9, Pharmacy: [facility] Start Date: 03/31/22 Status: Ordered One Touch Verio Test Strips Start: 03/31/22 12:10:00 EST, See Instructions, Disp# 100 strip, Refills: 6, test BSG twice daily dx e11.9, Pharmacy: [facility] Start Date: 03/31/22 Status: Ordered PARoxetine 20 mg oral tablet Start: 04/30/23 7:58:00 EST, 1 tab, PO, Daily, Disp# 90 tab, Refills: 3, Pharmacy: [facility] Start Date: 04/30/23 Status: Ordered Mental Status 06/24/23 Barriers to Learning one year None evide nt Mandatory Health Literacy Documentation Yes Health Literacy Communication Barriers A lways Health Literacy Reading Assist s/p strok e Primary Language Gibraltarian Problem List Condition Confirmation Course Effective Dates [...] Confirmed Active Loss of weight Confirmed Active Procedures Procedure Date Related Diagnosis Body Site Status Surgery 2018 Completed Cochlear implant Complete d 1back surgery Social History Social History Type Response Tobacco Former smoker, Stopp ed age 37 Years. Smoking Status Never smoked cigaret alexis Sex Male Patient Care team information Care Team Personnel Name: MD Beny, Swapna Bedoya Position: Physician - Family Med Member Role: Primary Care Provider Address: Address: [address] [place] [address], [place] [address] Care Team Related Persons Name: RAKESH CALDERON Address: home [address] [place], [place] [phone]
--- OUTSIDE RECORDS SUMMARY | 2023-08-16 20:13 | External Medical Summary | Continuity of Care Document ---
Author Name Unknown Organization [facility] [address] [place] [id number] Care Team Providers Care Stock Transfer Clerk Name Role Phone Swapna Swan Primary Care Physician [phone] Encounter [facility] [id number] Date(s): 06/10/23 - 06/10/23 [facility] [address] [facility] [address] [phone] Encounter Diagnosis Aortic stenosis, moderate(Discharge Diagnosis) - 06/10/23 CLL (chronic lymphocytic leukemia)(Discharge Diagnosis) - 06/10/23 Change in stool habits(Discharge Diagnosis) - 06/10/23 Left lower quadrant pain(Discharge Diagnosis) - 06/10/23 Discharge Disposition: Home or Self Care Attending Physician: DO Gallo Franklin J Allergies, Adverse Reactions, Alerts Substance Reaction Severity Status lisinopril cough Active Assessment and Plan Extracted from: Title:Abdominal Pain Author:DO Gallo Franklin J Date:06/10/23 Impression and Plan Diagnosis CLL (chronic lymphocytic leukemia) ([id number] C91.10, Discharge, Medical). Aortic stenosis, moderate ([id number]-EH I35.0, Discharge, Medical). Left lower quadrant pain (RGI40-YG R10.32, Discharge, Medical). Change in stool habits (UOQ64-XZ R19.4, Discharge, Medical). Plan: Left lower quadrant pain Change in stool pattern Afebrile, nontoxic, however he does have focal tenderness in the left lower quadrant The recalls him having a colonoscopy, although it has been several years ago and I could not find records in our EMR to see if he has a history of diverticulosis; however, neither the patient or his recall him ever being diagnosed with diverticulitis CT scan of the abdomen pelvis with IV and p.o. contrast CBC and CMP prior to CT (most recent renal function was within normal limits) Aortic stenosis Appreciated; hemodynamically stable, that would complicate infection so stressed need for early defecation of infection CLL Noted on previous lab work; will have to take a look at the CBC with this in mind 7:00pm Addendum Blood work reviewed. Leukocytosis consistent with known history of CLL. CMP unremarkable. Results of CT scan reviewed. Distal sigmoid rectal proctocolitis. I also reviewed two previous CT scans that had similar findings. Attempted to call patient twice - 's phone went to [employer] both times. Left message. Will discuss with GI (will see who he has seen previously). . Orders PowerOrders Laboratory: CMP Request (Order): Routine, 06/10/2023 13:24 EST, Requested Timeframe Immediate CBC w Platelets and Diff Request (Order): Routine, 06/10/2023 13:24 EST, Requested Timeframe Immediate Radiology: CT Abdomen and Pelvis w/ Contrast (Order): *Est. 06/10/2023, STAT, LLQ pain, question diverticulitis, IV and PO, Left lower quadrant pain | Change in stool habits, Standard CT, No, Exam to be performed outside organization?, Order for future visit, [facility] Evaluation and Management: [id number] Outpatient Visit Est Lvl 5 (Order): 06/10/2023 13:24 EST, [facility], Change in stool habits | Left lower quadrant pain | Aortic stenosis, moderate | CLL (chronic lymphocytic leukemia). Immunizations Given and Recorded Vaccine Date Status Refusal Reason influenza virus vaccine, inactivated 03/04/23 Give n Medications atorvastatin 20 mg oral tablet Start: 02/03/23 20:00:00 EDT, See Instructions, Disp# 90 tab, Refills: 3, TAKE 1 TABLET BY MOUTH ONCE DAILY, Pharmacy: [facility] Start Date: 02/03/23 Status: Ordered Augmentin 875 mg-125 mg oral tablet Start: 06/11/23 15:26:00 EST, amoxicillin 1 tab, PO, q12h, Disp# 20, Refills: 0, Pharmacy: [facility] Start Date: 06/11/23 Stop Date: 06/21/23 Status: Ordered losartan 50 mg oral tablet Start: 04/06/23 8:45:00 EST, 1 tab, PO, Daily, Disp# 30 tab, Refills: 3, Pharmacy: [facility] Start Date: 04/06/23 Status: Ordered metFORMIN 500 mg oral tablet Start: 01/30/23 12:18:00 EDT, See Instructions, Disp# 60 tab, Refills: 6, TAKE 1 TABLET BY MOUTH TWICE DAILY, Pharmacy: [facility] Start Date: 01/30/23 Status: Ordered Norvasc 2.5 mg oral tablet Start: 09/24/22 12:04:00 EDT, 1 tab, PO, Daily, Disp# 90 tab, Refills: 3, Pharmacy: [facility] Start Date: 09/24/22 Status: Ordered omeprazole 20 mg oral delayed release capsule Start: 11/26/22 19:43:00 EDT, See Instructions, Disp# 90 cap, Refills: 3, TAKE 1 CAPSULE BY MOUTH EVERY MORNING BEFORE BREAKFAST , Pharmacy: [facility] Start Date: 11/26/22 Status: Ordered One Touch Delica Plus (30G) Lancets Start: 03/31/22 12:10:00 EST, See Instructions, Disp# 100 each, Refills: 6, test BSG twice daily E11.9, Pharmacy: [facility] Start Date: 03/31/22 Status: Ordered One Touch Verio Test Strips Start: 03/31/22 12:10:00 EST, See Instructions, Disp# 100 strip, Refills: 6, test BSG twice daily dx e11.9, Pharmacy: [facility] Start Date: 03/31/22 Status: Ordered PARoxetine 20 mg oral tablet Start: 04/30/23 7:58:00 EST, 1 tab, PO, Daily, Disp# 90 tab, Refills: 3, Pharmacy: [facility] Start Date: 04/30/23 Status: Ordered Mental Status 06/10/23 Barriers to Learning one year None evide nt Mandatory Health Literacy Documentation Yes Health Literacy Communication Barriers N ever Primary Language Tajik Problem List Condition Confirmation Course Effective Dates [...] Confirmed Active Aortic stenosis, moderate Confirmed Active Annual physical exam Confirmed Active Sacral decubitus ulcer Confirmed Active Muscle spasm Confirmed Active Loss of weight Confirmed Active Diagnosis Diagnosis Type Effective Dates Health Status Clinical Service Informant CLL (chronic lymphocytic leukemia) Discharge Diagnosis 06/10/23 Non-Specified Left lower quadrant pain Discharge Diagnosis 06/10/23 Non-Specified Change in stool habits Discharge Diagnosis 06/10/23 Non-Specified Aortic stenosis, moderate Discharge Diagnosis 06/10/23 Non-Specified Procedures Procedure Date Related Diagnosis Body Site Status Surgery 2018 Completed Cochlear implant Complete d 1back surgery Vital Signs Most recent to oldest [Reference Range]: 1 Heart Rate 74 bpm (06/10/23 1:01 PM) Blood Pressure 118/60mmHg (06/10/23 1:01 PM) Cuff Pulse Pressure 58 mmHg (06/10/23 1:01 PM) Social History Social History Type Response Tobacco Former smoker, Stopp ed age 37 Years. Smoking Status Never smoked cigaret alexis Sex Male Outpatient Note * DO Gallo Franklin J: MODIFY, SIGN, VERIFY, PERFORM, MODIFY Event Display: .Outpt Note Authored Date: Patient: BRADY CALDERON Age: 83 years Sex: Male : 1940 Associated Diagnoses: None Author: DO Gallo Franklin J Visit Information Visit type: New symptom. Chief Complaint 06/10/2023 12:59 EST Diarrhea, pain right before having to go. Loose yesterday and today watery. "Not himself"- tired, no appetite. History of Present Illness Reji presents this afternoon for an acute visit. His , Rakesh, and caregiver Chele are here with him and help with the history. The patient has a history of constipation, and as such, they have been keeping a stool chart indicating the time of his bowel movements and the quantity (in terms of size) of his bowel movements. Hisbowel movements are normally like " mush" and today day they have been watery. He had 5 bowel movements yesterday - loose -normally only has 12 bowel movements. He seems to be having some left lower quadrant abdominal pain. He does have a history of a stroke and as such his speech is mostly clear, but sentences are short;the history is piece together with the help of Chele Garcia, and the patient himself. No fever or chills. His does note that he does not seem to be himself -more fatigued/tired today compared to usual. No sick contacts (gastrointestinal illness) appreciated. Review of Systems Constitutional: Fatigue, Decreased activity. Respiratory: Negative. Cardiovascular: Negative. Gastrointestinal: Diarrhea, No nausea, No vomiting. Abdominal pain: The severity is moderate, Characterized as ( Cramping/colicky ). Neurologic: Alert and oriented X4. Health Status Allergies: Allergic Reactions (Selected) Severity Not Documented Lisinopril- Cough.. Current medications: (Selected) Prescriptions Prescribed Norvasc 2.5 mg oral tablet: 1 tab, PO, Daily, 90 tab, 3 Refill(s) One Touch Delica Plus (30G) Lancets: See Instructions, test BSG twice daily E11.9, 100 each, 6 Refill(s) One Touch Verio Test Strips: See Instructions, test BSG twice daily dx e11.9, 100 strip, 6 Refill(s) PARoxetine 20 mg oral tablet: 1 tab, PO, Daily, 90 tab, 3 Refill(s) atorvastatin 20 mg oral tablet: See Instructions, TAKE 1 TABLET BY MOUTH ONCE DAILY, 90 tab, 3 Refill(s) lactulose 10 g/15 mL oral syrup: 15 mL, PO, Daily, PRN: as needed for constipation, 300 mL, 2 Refill(s) losartan 50 mg oral tablet: 1 tab, PO, Daily, 30 tab, 3 Refill(s) metFORMIN 500 mg oral tablet: See Instructions, TAKE 1 TABLET BY MOUTH TWICE DAILY, 60 tab, 6 Refill(s) omeprazole 20 mg oral delayed release capsule: See Instructions, TAKE 1 CAPSULE BY MOUTH EVERY MORNING BEFORE BREAKFAST, 90 cap, 3 Refill(s). 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 /SNOMED CT 9122393189 / Confirmed Constipation, chronic / SNOMED CT 985263203 / Confirmed Chronic cough / SNOMED CT 567907694 / Confirmed IFG (impaired fasting glucose) / SNOMED CT 7307779287 / Confirmed Heart murmur, aortic / SNOMED CT 387809485 / Confirmed Muscle spasm / SNOMED CT 12843833 / Confirmed Bilateral hearing loss / SNOMED CT 039884477 / Confirmed Loss of weight / SNOMED CT 431502796 / Confirmed Aortic stenosis, moderate / SNOMED CT 0579452232 / Confirmed Lymphocytosis / SNOMED CT 655919938 / Confirmed Acute hypotension / SNOMED CT 741185201 / Confirmed CLL (chronic lymphocytic leukemia) / SNOMED CT 108843212 / Confirmed Enlarged prostate / SNOMED CT 340475344 / Confirmed CLL (chronic lymphocytic leukemia) / SNOMED CT 617978366 / Confirmed Allergic conjunctivitis / SNOMED CT 9498496041 / Confirmed Depression / SNOMED CT 44660113 / Confirmed Sacral decubitus ulcer / SNOMED CT 6985695728 / Confirmed All Problems HTN (hypertension) / SNOMED CT 0321270218 / Confirmed Lumbar radiculopathy / SNOMED CT 045479315 / Confirmed Annual physical exam / SNOMED CT 830982242 / Confirmed Stroke, hemorrhagic / SNOMED CT 650809741 / Confirmed Depression / SNOMED CT 07467660 / Confirmed Aphasia / SNOMED CT 231771554 / Confirmed 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 /SNOMED CT 4678588856 / Confirmed Constipation, chronic / SNOMED CT 697163428 / Confirmed Chronic cough / SNOMED CT 455634206 / Confirmed IFG (impaired fasting glucose) / SNOMED CT 4055955318 / Confirmed Heart murmur, aortic / SNOMED CT 476979109 / Confirmed Muscle spasm / SNOMED CT 18837548 / Confirmed Bilateral hearing loss / SNOMED CT 384205316 / Confirmed Loss of weight / SNOMED CT 401092113 / Confirmed Aortic stenosis, moderate / SNOMED CT 0220297268 / Confirmed Lymphocytosis / SNOMED CT 145171144 / Confirmed Acute hypotension / SNOMED CT 933483192 / Confirmed CLL (chronic lymphocytic leukemia) / SNOMED CT 123242925 / Confirmed Enlarged prostate / SNOMED CT 747859009 / Confirmed CLL (chronic lymphocytic leukemia) / SNOMED CT 699215999 / Confirmed Allergic conjunctivitis / SNOMED CT 4008942616 / Confirmed Depression / SNOMED CT 13683036 / Confirmed Sacral decubitus ulcer / SNOMED CT 6039952023 / Confirmed. Histories Family History: Hypertension Mother Father Sister Melanoma in situ of skin Sister Heart attack Father Type II diabetes mellitus Father Sister Cancer Sister . Social History Social & Psychosocial Habits Alcohol 11/29/2021 Type: Beer Frequency: Daily Has anyone been hurt or at risk by your drinking: No Ready to change: No Concerns about alcohol use in household: No Tobacco 11/29/2021 Use: Former smoker Stopped at age: 37 Years . Physical Examination Vital Signs 06/10/2023 13:01 EST Heart Rate 74 bpm Systolic Blood Pressure 118 mmHg Diastolic Blood Pressure 60 mmHg Cuff Pulse Pressure 58 mmHg SpO2 97 % Measurements from flowsheet : Measurements 06/10/2023 13:01 EST Wheelchair weight 20.7 kg Height/Weight Refused Height/Weight Taken General: Alert and oriented, No acute distress, Seated in wheelchair. Eye: Pupils are equal, round and reactive to light. HENT: Normocephalic, Normal hearing, Oral mucosa is moist. Neck: Supple, Non-tender. Respiratory: Lungs are clear to auscultation, Respirations are non-labored, Somewhat decreased in the bases secondary to inspiratory effort, otherwise clear. Cardiovascular: Normal rate, Regular rhythm, 23/6 systolic murmur heard throughout the pericardium. Gastrointestinal: Tenderness appreciated in the left lower quadrant to midline lower abdominal area. Right upper quadrant and left upper quadrant without tenderness No rebound or guarding appreciated anywhere in the abdominal area Bowel sounds are normal active. Musculoskeletal Normal range of motion. Integumentary: Warm, Dry, [place]. Neurologic: Alert, Oriented, Normal sensory. Cognition and Speech: Oriented. Psychiatric: Cooperative, Appropriate mood & affect. Health Maintenance Health Maintenance Pending (in the next year) OverDue Diabetic Eye Exam due 12/13/17 and every 366 day Body Mass Index due 11/07/21 and every 366 day Due Adult COVID-19 Vaccination due 06/10/23 Unknown Frequency Adult Social Determinants of Health Screening due 06/10/23 Unknown Frequency Adult Tdap/Td Vaccine due 06/10/23 Unknown Frequency Falls Plan of Care due 06/10/23 Unknown Frequency Medicare Annual Wellness Visit due 06/10/23 and every 1 year Pneumococcal Vaccine Older Adults due 06/10/23 One-time only Shingles Vaccine due 06/10/23 One-time only Due In Future Diabetes Management A1c not due until 09/25/23 and every 366 day Adult Influenza Vaccine not due until 11/08/23 and every 1 year Satisfied (in the past 1 year) Satisfied Adult Influenza Vaccine on 03/04/23. Satisfied by BALDEMAR Lanier Karli R Diabetes Management A1c on 09/24/22. Satisfied by Contributor[employer]system, [employer] Impression and Plan Diagnosis CLL (chronic lymphocytic leukemia) (WHE06-WO C91.10, Discharge, Medical). Aortic stenosis, moderate (FHK87-YR I35.0, Discharge, Medical). Left lower quadrant pain (XAL90-WR R10.32, Discharge, Medical). Change in stool habits (VOG84-RE R19.4, Discharge, Medical). Plan: Left lower quadrant pain Change in stool pattern Afebrile, nontoxic, however he does have focal tenderness in the left lower quadrant The recalls him having a colonoscopy, although it has been several years ago and I could not find records in our EMR to see if he has a history of diverticulosis; however, neither the patient orhis recall him ever being diagnosed with diverticulitis CT scan of the abdomen pelvis with IV and p.o. contrast CBC and CMP prior to CT (most recent renal function was within normal limits) Aortic stenosis Appreciated; hemodynamically stable, that would complicate infection so stressed need for early defecation of infection CLL Noted on previous lab work; will have to take a look at the CBC with this in mind 7:00pm Addendum Blood work reviewed. Leukocytosis consistent with known history of CLL. CMP unremarkable. Results of CT scan reviewed. Distal sigmoid rectal proctocolitis. I also reviewed two previous CT scans that had similar findings. Attempted to call patient twice - 's phone went to voicemail both times. Left message. Will discuss with GI (will see who he has seen previously). . Orders PowerOrders Laboratory: CMP Request (Order): Routine, 06/10/2023 13:24 EST, Requested Timeframe Immediate CBC w Platelets and Diff Request (Order): Routine, 06/10/2023 13:24 EST, Requested Timeframe Immediate Radiology: CT Abdomen and Pelvis w/ Contrast (Order): *Est. 06/10/2023, STAT, LLQ pain, question diverticulitis, IV and PO, Left lower quadrant pain | Change in stool habits, Standard CT, No, Exam to be performed outside organization?, Order for future visit, [facility] Evaluation and Management: [id number] Outpatient Visit Est Lvl 5 (Order): 06/10/2023 13:24 EST, FAMILY MEDICINE, Change in stool habits | Left lower quadrant pain | Aortic stenosis, moderate | CLL (chronic lymphocytic leukemia). Professional Services [id number] time: 25 minutes Documentation and orders: 10 minutes Follow-up of lab work and CT scan (same day): 15 minutes Electronic Signature on File Electronically Reviewed/Signed by: Servando Gallo DO Author Signature Dt/Tm:06/11/2023 11:03 AM Department of Family Medicine [facility] Patient Care team information Care Team Personnel Name: MD Beny, Swapna Bedoya Position: Physician - Family Med Member Role: Primary Care Provider Address: Address: [address] [place] [address], [place] [address] [place] Care Team Related Persons Name: RAKESH CALDERON Address: home [address] [phone]
--- OUTSIDE RECORDS SUMMARY | 2023-08-16 20:13 | External Medical Summary | Continuity of Care Document ---
Author Name Unknown Organization [address] Address [address] [place] [phone] Care Team Providers Care Call Center Analyst Name Role Phone Swapna Swan Primary Care Physician [phone] Encounter [facility] [id number] Date(s): 07/21/23 - 07/21/[address] [address] [phone] Encounter Diagnosis History of biliary stent insertion(Discharge Diagnosis) - 07/21/[address] of the abdomen(Discharge Diagnosis) - 07/21/23 Discharge Disposition: Home or Self Care Attending Physician: MD William, Billy Jenkins Referring Physician: JORGE Solorzano Tara Allergies, Adverse Reactions, Alerts Substance Reaction Severity Status lisinopril cough Active Assessment and Plan Extracted from: Title:Office Visit Note Author:MD William, Billy Jenkins Date:07/21/23 1.History of biliary stent insertion I told them that when I inserted stents into the bile duct that were alf we changed them at least every three months. I asked the daughter to call [facility] in [place] since they put it in and talk to them about it. They should give her guidance on when it should be changed. I advised her what to watch for for signs of stent issues. 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 I think these are all separate and unrelated and the most recent one was related to an acute infectious process. He has minimal symptoms now. I did tell them we could do a colonoscopy if the family felt it appropriate but I felt it would be normal. He shook his head "no" that he did not want to go through a colonoscopy unless he had to. He does have some irregularity with his bowel movements and the daughter tells me her mother is not consistent with giving him miralax. I suggested miralax daily. I also suggested that metformin could be messing with his bowel movements and contributing to his pain so, since he is on it for "pre-diabetic", she will hold it for two weeks to see how he does. He will return here as needed. Immunizations Given and Recorded Vaccine Date Status Refusal Reason influenza virus vaccine, inactivated 03/04/23 Give n Medications atorvastatin 20 mg oral tablet Start: 02/03/23 20:00:00 EDT, See Instructions, Disp# 90 tab, Refills: 3, TAKE 1 TABLET BY MOUTH ONCE DAILY, Pharmacy: [id number] Start Date: 02/03/23 Status: Ordered losartan 50 mg oral tablet Start: 04/06/23 8:45:00 EST, 1 tab, PO, Daily, Disp# 30 tab, Refills: 3, Pharmacy: [id number] Start Date: 04/06/23 Status: Ordered medical marijauana Start: 07/21/23 8:38:00 EDT, medical marijauana Start Date: 07/21/23 Status: Ordered metFORMIN 500 mg oral tablet Start: 01/30/23 12:18:00 EDT, See Instructions, Disp# 60 tab, Refills: 6, TAKE 1 TABLET BY MOUTH TWICE DAILY, Pharmacy: [id number] Start Date: 01/30/23 Status: Ordered Norvasc 2.5 mg oral tablet Start: 09/24/22 12:04:00 EDT, 1 tab, PO, Daily, Disp# 90 tab, Refills: 3, Pharmacy: [id number] Start Date: 09/24/22 Status: Ordered omeprazole 20 mg oral delayed release capsule Start: 11/26/22 19:43:00 EDT, See Instructions, Disp# 90 cap, Refills: 3, TAKE 1 CAPSULE BY MOUTH EVERY MORNING BEFORE BREAKFAST , Pharmacy: [id number] Start Date: 11/26/22 Status: Ordered One Touch Delica Plus (30G) Lancets Start: 03/31/22 12:10:00 EST, See Instructions, Disp# 100 each, Refills: 6, test BSG twice daily E11.9, Pharmacy: [id number] Start Date: 03/31/22 Status: Ordered One Touch Verio Test Strips Start: 03/31/22 12:10:00 EST, See Instructions, Disp# 100 strip, Refills: 6, test BSG twice daily dx e11.9, Pharmacy: [id number] Start Date: 03/31/22 Status: Ordered PARoxetine 20 mg oral tablet Start: 04/30/23 7:58:00 EST, 1 tab, PO, Daily, Disp# 90 tab, Refills: 3, Pharmacy: [id number] Start Date: 04/30/23 Status: Ordered Mental Status 07/21/23 Barriers to Learning one year None evide nt Mandatory Health Literacy Documentation Yes Health Literacy Communication Barriers N ever Primary Language Nepali Problem List Condition Confirmation Course Effective Dates [...] Dates Health Status Cl inical Service Informant History of biliary stent insertion Discharge Diagnosis 07/21/[address] of the abdomen Discharge Diagnosis 07/21/23 Procedures Procedure Date Related Diagnosis Body Site Status Surgery 2018 Completed Cochlear implant Complete d 1back surgery Vital Signs Most recent to oldest [Reference Range]: 1 Heart Rate 59 bpm (07/21/23 8:40 AM) Respiratory Rate 18 br/min (07/21/23 8:40 AM) Blood Pressure 118/58mmHg (07/21/23 8:40 AM) Cuff Pulse Pressure 60 mmHg (07/21/23 8:40 AM) Social History Social History Type Response Tobacco Former smoker, Stopp ed age 37 Years. Smoking Status Never smoked cigaret alexis Sex Male Gastroenterology Outpatient Note * MD William, Billy Jenkins: PERFORM Event Display: Gastroenterology Outpt Note Authored Date: [id number] Chief Complaint proctolitis, discuss stent exchange for cholecystitis Accompanied by:daughter History of Present Illness 83 year old man who is here for two different reasons. First is to discuss stent change for stentin gallbladder. This was done last year in [place]. He has had no follow up. He does have pain, he indicates in his right mid abdomen. Which brings us to the second reason he is here. He had a spell of bad diarrhea several weeks ago and had a CT that showed nonspecific proctocolitis. He took antibiotics and his diarrhea went away. He continued to have a little pain but again it wasindicated on the right side. He does have tenderness on exam on left. However that pain improves and now he has constipation. Reviewing other CT scans that he has had, when he had his gallbladder problem he had "nonspecific colitis" on the right side of his colon involving the cecum and theascending colon. CT prior to that one in May of last year showed stercoral proctitis. Review of Systems 12 system ROS discussed with patient and negative except as in HPI Physical Exam Vitals & Measurements HR:59(Monitored) RR:18 BP:118/58 SpO2:98% Pleasant elderly man in wheelchair in no distress, participating in discussion by head nods Heart-RRR, S1, S2 normal Lungs-clear Abdomen (examined sitting up) tender in the left lower abdomen and the right upper abdomen Assessment/Plan 1.History of biliary stent insertion I told them that when I inserted stents into the bile duct that were continuous churn buttermaker we changed them at least every three months. I asked the daughter to call [facility] in [place] since they put it in and talk to them about it. They should give her guidance on when it should be changed. I advised her what to watch for for signs of stent issues. 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 I think these are all separate and unrelated and the most recent one was related to an acute infectious process. He has minimal symptoms now. I did tell them we could do a colonoscopy if the family felt itappropriate but I felt it would be normal. He shook his head "no" that he did not want to go through a colonoscopy unless he had to. He does have some irregularity with his bowel movements and the daughter tells me her mother is not consistent with giving him miralax. I suggested miralax daily. I also suggested that metformin could be messing with his bowel movements and contributing to his pain so, since he is on it for "pre-diabetic", she will hold it for two weeks to see how he does. He will return here as needed. Problem List/Past Medical History Ongoing Acute hypotension [...] hemorrhagic Historical Annual physical exam Procedure/Surgical History Surgery| Service Date: 2018Cochlear implant Medications amLODIPine(Norvasc 2.5 mg oral tablet), [...] mg= 1 tab, PO, Daily, 3 refills unknown medication(medical nilam) Allergies lisinoprilcough Social History Smoking Status Never [...] Health Maintenance Pending(in the next year) OverDue Body Mass Index due11/07/21and every 366day Due Adult COVID-19 Vaccination due07/21/23Unknown Frequency Adult Social Determinants of Health Screening due07/21/23Unknown Frequency Adult Tdap/Td Vaccine due07/21/23Unknown Frequency Falls Plan of Care due07/21/23Unknown Frequency Medicare Annual Wellness Visit due07/21/23and every 1year Pneumococcal Vaccine Older Adults due07/21/23One-time only Shingles Vaccine due07/21/23One-time only Due In Future Diabetes Management A1c not due until09/25/23and every 366day Adult Influenza Vaccine not due until11/08/23and every 1year Satisfied(in the past 1 year) Satisfied Adult Influenza Vaccine on03/04/23.Satisfied by BALDEMAR Lanier Karli R Diabetes Management A1c on09/24/22.Satisfied by Contributor_system, [employer] Electronic Signature on File Electronically Reviewed/Signed by: Billy Thomas M.D. Author Signature Dt/Tm:07/21/2023 09:16AM Division of Gastroenterology [facility] Patient Care team information Care Team Personnel Name: MD Beny, Swapna Bedoya Position: Physician - Family Med Member Role: Primary Care Provider Address: Address: [address] [place] [address], [place] [address] Care Team Related Persons Name: RAKESH CALDERON Address: [address] [place] [phone]
--- NOTE | 2023-08-16 20:49 | Emergency Department Note ---
Impression & Plan Seizure, CLL (chronic lymphocytic leukemia), Vomiting, Acute constipation ED Provider Note NAME: BRADY CALDERON AGE: 83 SEX: M : 1940 ARRIVES VIA: Ambulance INFORMANT: Patient, ED PROVIDER(S): Ant Justice DO CHIEF COMPLAINT: Seizure HPI: The patient is an 83-year-old male who presented to the emergency department for an evaluation after having a seizure. He was witnessed to have shaking in his left upper extremity. His does not think he was unconscious for this event. She has a history of a stroke in the past which left him with right-sided weakness. He does not normally talk. The patient had multiple episodes of emesis after this this is why they called the ambulance to come the emergency department. The patient himself does indicate he may be having some abdominal pain. He denies having any chest pain. He denies any difficulty breathing. ROS: See above HPI for pertinent positives & negatives. A total of 10 systems reviewed and were otherwise negative. PAST MEDICAL HISTORY: See Below PAST SURGICAL HISTORY: See Below FAMILY HISTORY: See Below SOCIAL HISTORY: See Below HOME MEDICATIONS: See Below ALLERGIES: See Below VITALS: See Below PHYSICAL EXAMINATION: GENERAL: The patient is awake and alert. He does not appear to be anxious. EYES: The conjunctivae are clear. The pupils are round and reactive. EARS, NOSE, MOUTH AND THROAT: The nose is without any evidence of any deformity. NECK: The neck is nontender and supple. RESPIRATORY: Normal respiratory effort is noted there is no evidence of wheezing rhonchi or rales CARDIOVASCULAR: Regular rate and rhythm was noted to auscultation. Systolic murmur was suggested. GASTROINTESTINAL: The abdomen is soft. Abdomen is nontender. MUSCULOSKELETAL/EXTREMITIES: There is no evidence of gross deformity full range of motion is noted in the hips and shoulders. SKIN: Trace pedal edema was noted bilaterally. NEUROLOGIC: The patient is awake and looking around the room. He cannot use his right arm or right leg. MEDICAL DECISION MAKING: The patient is an 83-year-old male who presented to the emergency department for possible seizure. The patient's caregivers noticed an episode that could be consistent with seizure. It was not clear. The patient also had episodes of emesis. The patient's abdominal exam was not consistent with an acute surgical abdomen. Radiographic studies were obtained. There is no changes that would be consistent with intracranial hemorrhage although there was some abnormality that could be consistent with calcification from his previous stroke. It is possible this represents a seizure. The vomiting did not appear to be secondary to bowel obstruction or other intracranial process. The patient was treated for nausea. I discussed patient's laboratory and radiographic studies with him and his family members. Given his presentation I did discuss his condition with the on- call [facility] hospitalist. Triage Nursing notes reviewed. Vital Signs: reviewed and remarkable for no significant abnormalities Differential diagnosis: Epilepsy, infection, hypoglycemia, electrolyte abnormalities, cardiac sources, intracerebral event, trauma, toxicologic, neurologic, syncope, as well as other pathologies. ER treatment provided: See below Diagnostics interpreted by me: ECG: EKG was obtained in the emergency department. My interpretation is sinus rhythm at 67 bpm. PVCs were noted. ST segment depressions with T wave abnormalities were noted in the lateral leads. This was compared to a tracing from December 25, 2022. The ST segment abnormalities are increased compared to previous otherwise no changes were noted. Cardiac Monitoring: An order was placed for continuous cardiac monitoring. The monitor shows a rate of 64 bpm with sinus rhythm. Laboratory studies: As stated above and show below. Imaging studies: See below. Radiographic imaging was reviewed by myself Consultation(s): I discussed this case with Dr. Marx who is on-call for the [facility] Past Med/Surg History Medical History Aortic stenosis Bladder wall thickening Enlarged prostate Abnormal CT of the abdomen Leukocytosis Fecal retention Aspiration into airway Hearing impaired Diabetes mellitus type 2 in nonobese Hyperlipidemia Gout Hypertension CVA (cerebrovascular accident due to intracerebral hemorrhage) Family History Other Family history non-contributory Social History Smoking Status: Unknown if ever smoked Tobacco Type: Cigarettes Hx Alcohol Use: No Hx Substance Use: No Preferred Language: Czech Communication Ability: Effective Communication Ability Comment: APHASIC Service Writer Required: No Beliefs That Will Affect Care: None Current Living Situation: Spouse Feels Safe at Home: Yes Assistive Devices: Walker Allergies Allergies Allergy/AdvReac Type Severity Reaction Status Date / Time No Known Allergies Allergy Verified 08/16/23 21:06 Home Meds Home Medications Medication Instructions Recorded Confirmed atorvastatin 20 mg tablet 20 mg PO QAM 03/11/21 08/16/23 docusate sodium 100 mg capsule 100 mg PO BID PRN Constipation 05/23/22 08/16/23 (Stool Softener) losartan 50 mg tablet 50 mg PO DAILY 05/23/22 08/16/23 amlodipine 2.5 mg tablet 2.5 mg PO QAM 12/25/22 08/16/23 omeprazole 20 mg capsule,delayed 20 mg PO DAILY 12/25/22 08/16/23 release Cbd Gummies 1 tab PO DAILY 08/16/23 08/16/23 paroxetine HCl 20 mg tablet 20 mg PO HS 08/16/23 08/16/23 Results & Data (ED) Vital Signs Vital Signs - 24 hr 08/16/23 20:15 08/16/23 20:16 08/16/23 20:20 Temperature Temperature Source Pulse Rate 67 68 68 Pulse Rate [Apical] Pulse Rate from SpO2 Sensor 68 Pulse Rhythm [Apical] Pulse Strength [Apical] Respiratory Rate 24 Respiratory Effort / Characteristics Respiratory Depth Respiratory Pattern Blood Pressure Blood Pressure [Right Arm] Blood Pressure Mean Blood Pressure Mean [Right Arm] Blood Pressure Position [Right Arm] Pulse Oximetry 97 Oxygen Delivery Method Sepsis Recent Fever Within 48 Hours Sepsis New/Unexplained Change in Mental Status Sepsis Action Taken by Nursing 08/16/23 20:23 08/16/23 20:23 08/16/23 20:30 Temperature 37 C Temperature Source Oral Oral Pulse Rate 68 Pulse Rate [Apical] Pulse Rate from SpO2 Sensor Pulse Rhythm [Apical] Pulse Strength [Apical] Respiratory Rate 15 Respiratory Effort / Characteristics Non-Labored Spontaneous Respiratory Depth Normal Respiratory Pattern Blood Pressure 151/78 H 159/77 H Blood Pressure [Right Arm] Blood Pressure Mean 102 115 Blood Pressure Mean [Right Arm] Blood Pressure Position [Right Arm] Pulse Oximetry 96 Oxygen Delivery Method Room Air Sepsis Recent Fever Within 48 Hours No Sepsis New/Unexplained Change in Mental Status N/A Sepsis Action Taken by Nursing No Action Required 08/16/23 20:30 08/16/23 20:40 08/16/23 20:50 Temperature Temperature Source Pulse Rate 65 66 65 Pulse Rate [Apical] Pulse Rate from SpO2 Sensor 66 66 64 Pulse Rhythm [Apical] Pulse Strength [Apical] Respiratory Rate 23 Respiratory Effort / Characteristics Respiratory Depth Respiratory Pattern Blood Pressure Blood Pressure [Right Arm] Blood Pressure Mean Blood Pressure Mean [Right Arm] Blood Pressure Position [Right Arm] Pulse Oximetry 96 96 97 Oxygen Delivery Method Sepsis Recent Fever Within 48 Hours Sepsis New/Unexplained Change in Mental Status Sepsis Action Taken by Nursing 08/16/23 21:00 08/16/23 21:00 08/16/23 21:07 Temperature Temperature Source Pulse Rate 68 Pulse Rate [Apical] Pulse Rate from SpO2 Sensor 68 Pulse Rhythm [Apical] Pulse Strength [Apical] Respiratory Rate Respiratory Effort / Characteristics Respiratory Depth Respiratory Pattern Blood Pressure 176/79 H Blood Pressure [Right Arm] Blood Pressure Mean 122 Blood Pressure Mean [Right Arm] Blood Pressure Position [Right Arm] Pulse Oximetry 97 Oxygen Delivery Method Room Air Sepsis Recent Fever Within 48 Hours Sepsis New/Unexplained Change in Mental Status Sepsis Action Taken by Nursing 08/16/23 21:23 08/16/23 21:30 08/16/23 21:30 Temperature Temperature Source Pulse Rate 62 Pulse Rate [Apical] Pulse Rate from SpO2 Sensor 66 59 L Pulse Rhythm [Apical] Pulse Strength [Apical] Respiratory Rate 24 Respiratory Effort / Characteristics Respiratory Depth Respiratory Pattern Blood Pressure 155/73 H Blood Pressure [Right Arm] Blood Pressure Mean 105 Blood Pressure Mean [Right Arm] Blood Pressure Position [Right Arm] Pulse Oximetry 96 96 Oxygen Delivery Method Sepsis Recent Fever Within 48 Hours Sepsis New/Unexplained Change in Mental Status Sepsis Action Taken by Nursing 08/16/23 21:40 08/16/23 21:50 08/16/23 22:00 Temperature Temperature Source Pulse Rate 64 63 62 Pulse Rate [Apical] Pulse Rate from SpO2 Sensor 62 64 Pulse Rhythm [Apical] Pulse Strength [Apical] Respiratory Rate 17 24 18 Respiratory Effort / Characteristics Respiratory Depth Respiratory Pattern Blood Pressure Blood Pressure [Right Arm] Blood Pressure Mean Blood Pressure Mean [Right Arm] Blood Pressure Position [Right Arm] Pulse Oximetry 96 97 Oxygen Delivery Method Sepsis Recent Fever Within 48 Hours Sepsis New/Unexplained Change in Mental Status Sepsis Action Taken by Nursing 08/16/23 22:00 08/16/23 22:10 08/16/23 22:20 Temperature Temperature Source Pulse Rate 61 63 Pulse Rate [Apical] Pulse Rate from SpO2 Sensor 62 62 Pulse Rhythm [Apical] Pulse Strength [Apical] Respiratory Rate 15 19 Respiratory Effort / Characteristics Respiratory Depth Respiratory Pattern Blood Pressure 141/63 H Blood Pressure [Right Arm] Blood Pressure Mean 75 Blood Pressure Mean [Right Arm] Blood Pressure Position [Right Arm] Pulse Oximetry 96 96 Oxygen Delivery Method Sepsis Recent Fever Within 48 Hours Sepsis New/Unexplained Change in Mental Status Sepsis Action Taken by Nursing 08/16/23 22:30 08/16/23 22:30 08/16/23 22:40 Temperature Temperature Source Pulse Rate 62 64 Pulse Rate [Apical] Pulse Rate from SpO2 Sensor 62 64 Pulse Rhythm [Apical] Pulse Strength [Apical] Respiratory Rate 20 23 Respiratory Effort / Characteristics Respiratory Depth Respiratory Pattern Blood Pressure 139/65 Blood Pressure [Right Arm] Blood Pressure Mean 92 Blood Pressure Mean [Right Arm] Blood Pressure Position [Right Arm] Pulse Oximetry 96 97 Oxygen Delivery Method Sepsis Recent Fever Within 48 Hours Sepsis New/Unexplained Change in Mental Status Sepsis Action Taken by Nursing 08/16/23 22:50 08/16/23 23:00 08/16/23 23:00 Temperature Temperature Source Pulse Rate 68 63 Pulse Rate [Apical] Pulse Rate from SpO2 Sensor 68 63 Pulse Rhythm [Apical] Pulse Strength [Apical] Respiratory Rate Respiratory Effort / Characteristics Respiratory Depth Respiratory Pattern Blood Pressure 140/64 Blood Pressure [Right Arm] Blood Pressure Mean 115 Blood Pressure Mean [Right Arm] Blood Pressure Position [Right Arm] Pulse Oximetry 96 97 Oxygen Delivery Method Sepsis Recent Fever Within 48 Hours Sepsis New/Unexplained Change in Mental Status Sepsis Action Taken by Nursing 08/16/23 23:00 08/16/23 23:10 Temperature Temperature Source Pulse Rate 64 Pulse Rate [Apical] 63 Pulse Rate from SpO2 Sensor 64 Pulse Rhythm [Apical] Regular Pulse Strength [Apical] Normal Respiratory Rate 18 20 Respiratory Effort / Characteristics Non-Labored Spontaneous Respiratory Depth Normal Respiratory Pattern Regular Blood Pressure Blood Pressure [Right Arm] 140/64 Blood Pressure Mean Blood Pressure Mean [Right Arm] 89 Blood Pressure Position [Right Arm] Lying Pulse Oximetry 96 97 Oxygen Delivery Method Room Air Sepsis Recent Fever Within 48 Hours Sepsis New/Unexplained Change in Mental Status Sepsis Action Taken by Long Term Medications Current Medication List: was personally reviewed by me Laboratory Data Attestation: I reviewed the patient's lab results. 08/16/23 20:20 08/16/23 20:20 Lab Results 08/16/23 08/16/23 Range/Units 20:20 22:58 WBC 19.37 H (4.8-10.8) K/ul RBC 4.44 L (4.70-6.10) M/uL Hgb 13.8 L (14.0-18.0) g/dl Hct 40.5 L (42.0-52.0) % MCV 91.2 (80.0-100.0) fL MCH 31.1 (25.0-34.0) pg MCHC 34.1 (32.0-36.0) g/dL RDW Std Deviation 41.2 (36.4-46.3) fL RDW Coeff of Kenny 12.6 (11.5-14.5) % Plt Count 132 (130-400) K/uL MPV 9.8 (9.4-12.4) fL Immature Gran % (Auto) 0.4 % Neut % (Auto) 35.9 % Lymph % (Auto) 60.8 % [place] % (Auto) 2.6 % Eos % (Auto) 0.1 % Baso % (Auto) 0.2 % Neut # (Auto) 6.97 H (1.40-6.50) K/uL Lymph # (Auto) 11.77 H (1.20-3.40) K/uL [place] # (Auto) 0.51 (0.11-0.59) K/uL Eos # (Auto) 0.01 (0.00-0.50) K/uL Baso # (Auto) 0.04 (0.00-0.20) K/uL Immature Gran # (Auto) 0.07 (0.01-0.20) K/uL Smudge Cells Present PT 11.1 (9.0-12.0) Seconds INR 1.0 (0.9-1.1) APTT 25 (21-31) Seconds PTT Ratio 0.9 Sodium 139 (136-145) mmol/L Potassium 4.9 (3.5-5.1) mmol/L Chloride 105 (98-107) mmol/L Carbon Dioxide 29 (21-32) mmol/L Anion Gap 5 (3-11) BUN 22 (6-23) mg/dl Creatinine 1.01 (0.6-1.4) mg/dl Est Cr Clr Drug Dosing 52.2 ml/min Est GFR ( Amer) 80.5 ml/min Est GFR (Non-Af Amer) 69.4 ml/min BUN/Creatinine Ratio 21.8 H (10-20) Glucose 185 H (70-99(Fasting)) mg/dl Calcium 9.1 (8.6-10.3) mg/dl Total Bilirubin 0.8 (0.2-1.0) mg/dl AST 20 (13-39) U/L ALT 11 (7-52) U/L Alkaline Phosphatase 70 (34-104) U/L Troponin I High Sens 6.7 (0-20) pg/ml Total Protein 6.2 (6.0-8.3) gm/dl Albumin 4.0 (3.4-5.0) gm/dl Globulin 2.2 L (2.5-4.0) gm/dl Albumin/Globulin Ratio 1.8 (0.9-2) Lipase 26 (11-82) U/L Urine Color Yellow Urine Appearance Clear (Clear) Urine pH 7.0 (4.5-7.5) Ur Specific [place] 1.017 (1.000-1.030) Urine Protein Trace H (Negative) Urine Glucose (UA) Negative (Negative) Urine Ketones Trace H (Negative) Urine Blood Negative (Negative) Urine Nitrite Negative (Negative) Urine Bilirubin Negative (Negative) Urine Urobilinogen Negative (Negative) Ur Leukocyte Esterase Negative (Negative) Urine WBC (Auto) 1-5 (0-5) /hpf Urine RBC (Auto) 5-10 H (0-4) /hpf U Hyaline Cast (Auto) 1-5 (0-5) /lpf U Epithel Cells (Auto) >30 H (0-5) /lpf Urine Bacteria (Auto) Negative (Negative) Ur Renal Epithelial Cell Not Reportable Administered Medications Discontinued Medications Sodium Chloride (Nss) 500 mls @ 999 mls/hr IV .Q31M STA Stop: 08/16/23 21:04 Last Infusion: 08/16/23 22:22 Dose: Infused Documented By: Admin: 08/16/23 21:25 Dose: 999 mls/hr Documented By: MED Imaging Data Attestation: I personally reviewed and interpreted this imaging study as follows: My Impression: 1 view chest x-ray was obtained in the emergency department. My interpretation is no definite filtrate or free air, final report pending. CT the brain was obtained in the emergency department. My interpretation is no intracranial hemorrhage or mass effect, final report below. Radiologist's Impression: Abdomen/Pelvis CT 08/16/23 20:34 Exam(s): CT ABDOMEN + PELVIS Without Contrast EXAM: CT Abdomen and Pelvis Without Intravenous Contrast CLINICAL HISTORY: Reason for exam: vomitng. TECHNIQUE: Axial computed tomography images of the abdomen and pelvis without intravenous contrast. CTDI is 15.67 mGy and DLP is 2185.51 mGy-cm. Automated exposure control was utilized for the study. A dose lowering technique was utilized adhering to the principles of ALARA. COMPARISON: No relevant prior studies available. FINDINGS: Lung bases: Unremarkable. No mass. No consolidation. ABDOMEN: Liver: Unremarkable. Gallbladder and bile ducts: Catheter extends from the gallbladder to the adjacent small bowel, correlate with surgical history. No calcified stones. No ductal dilation. Pancreas: Unremarkable. No ductal dilation. Spleen: Unremarkable. No splenomegaly. Adrenals: Unremarkable. No mass. Kidneys and ureters: Unremarkable. No hydronephrosis or nephrolithiasis. Stomach and bowel: Mild-moderate fecal retention, correlate for constipation. No small bowel obstruction. PELVIS: Appendix: No findings to suggest acute appendicitis. Bladder: Unremarkable. No stones. Reproductive: Unremarkable as visualized. ABDOMEN and PELVIS: Intraperitoneal space: Unremarkable. No free air. No significant fluid collection. Bones/joints: Degenerative changes of the spine. No acute fracture. No dislocation. Posterior fusion at L4-L5. Soft tissues: Unremarkable. Vasculature: Atherosclerotic changes of the aorta. No abdominal aortic aneurysm. Lymph nodes: Unremarkable. No enlarged lymph nodes. IMPRESSION: 1. Catheter extends from the gallbladder to the adjacent small bowel, correlate with surgical history. 2. Mild-moderate fecal retention, correlate for constipation. Electronically signed by: Von Mac MD 08/16/23 22:[address] 08/16/23 20:34 CT head/brain wo con CLINICAL HISTORY: seizure Technique: Contiguous axial CT images of the head were acquired from the base of the skull to the vertex without intravenous contrast administration. Images were viewed in brain, subdural and bone windows. Automated dose lowering techniques and/or adjustment according to patient size were utilized for this exam. Comparison: Comparison is made to CT head 06/27/2020 Findings: Areas of decreased attenuation are present in the periventricular and subcortical white matter bilaterally consistent with small vessel ischemic disease. Generalized cerebral volume loss with commensurate enlargement of the ventricles, sulci, and cisterns is also present. There is a tiny region of hyperdensity in the previously noted left frontal region of encephalomalacia. Imaged portions of the paranasal sinuses and mastoid air cells are clear. The orbits appear normal. There are no acute fractures of the calvaria or scalp swelling. Impression: Tiny region of encephalomalacia in the region of the previously noted left external capsule craniotomy. This may represent dystrophic calcifications, however a tiny intraparenchymal hemorrhage cannot be entirely excluded. Clinical correlation and short-term follow-up can be performed. ACT 112: Negative or not required by law. Electronically signed by: Leo Hannah M.D. 08/16/2023 9:44 PM Discharge Plan Visit Data Chief Complaint: Vomiting Stated Complaint: Vomiting, Seizure ED Provider: Ant Justice Discharge Problem: Seizure, CLL (chronic lymphocytic leukemia), Vomiting, Acute constipation Patient Disposition: Being Evaluated by Hospitalist Forms Stand Alone Forms: On License Of [facility] Prescriptions Prescriptions: No Action atorvastatin 20 mg tablet 20 mg PO QAM losartan 50 mg tablet 50 mg PO DAILY docusate sodium [Stool Softener] 100 mg Capsule 100 mg PO BID PRN (Reason: Constipation) amlodipine 2.5 mg tablet 2.5 mg PO QAM omeprazole 20 mg capsule,delayed release(DR/EC) 20 mg PO DAILY paroxetine HCl 20 mg tablet 20 mg PO HS Cbd Gummies 1 tab PO DAILY Referrals Referrals: Swapna Swan MD [Primary Care Provider] - Discharge Problem: Vomiting Qualifiers: Vomiting type: unspecified Nausea presence: with nausea Qualified Code(s): R 11.2 - Nausea with vomiting, unspecified
[2023-08-16 21:23] LABS: Partial Thromboplastin Ratio 0.9; Partial Thromboplastin Time 25 Seconds (21-31); Prothrombin Time 11.1 Seconds (9.0-12.0)
[2023-08-16] MEDS: SODIUM CHLORIDE 0.9% 500 ML IV STA (21:25)
[2023-08-16 21:28] LABS: Albumin Globulin Ratio 1.8 (0.9-2); BUN Creatinine Ratio 21.8 (10-20); Bilirubin,Total 0.8 mg/dl (0.2-1.0); Calcium 9.1 mg/dl (8.6-10.3); Creatinine Clr Calc Pharmacy 52.2 ml/min; Est GFR (African American) 80.5 ml/min; Est GFR (Non-African American) 69.4 ml/min; Globulin 2.2 gm/dl (2.5-4.0); Potassium 4.9 mmol/L (3.5-5.1); Total Protein 6.2 gm/dl (6.0-8.3)
[2023-08-16 21:35] LABS: Troponin I High Sensitivity 6.7 pg/ml (0-20)
[2023-08-16 21:38] LABS: Hematocrit (blood only) 40.5 % (42.0-52.0); Hemoglobin 13.8 g/dl (14.0-18.0); Mean Corpuscular Hemoglobin 31.1 pg (25.0-34.0); Mean Corpuscular Hgb Conc 34.1 g/dL (32.0-36.0); Mean Corpuscular Volume 91.2 fL (80.0-100.0); Mean Platelet Volume 9.8 fL (9.4-12.4); Platelet Count 132 K/uL (130-400); RDW Coefficient of Variation 12.6 % (11.5-14.5); RDW Standard Deviation 41.2 fL (36.4-46.3); Red Blood Count 4.44 M/uL (4.70-6.10); White Blood Count 19.37 K/ul (4.8-10.8)
--- NOTE | 2023-08-16 21:46 | CT Scan Report ---
CT head/brain wo con CLINICAL HISTORY: seizure Technique: Contiguous axial CT images of the head were acquired from the base of the skull to the siddhartha abhishek without intravenous contrast administration. Images were viewed in brain, subdural and bone [facility]. Automated dose lowering techniques and/or adjustment according to patient size were utilized for this exam. Comparison: Comparison is made to CT head 06/27/2020 Findings: Areas of decreased attenuation are present in the periventricular and subcortical white matter bilate rally consistent with small vessel ischemic disease. Generalized cerebral volume loss with commensura te enlargement of the ventricles, sulci, and cisterns is also present. There is a tiny region of hype rdensity in the previously noted left frontal region of encephalomalacia. Imaged portions of the paranasal sinuses and mastoid air cells are clear. The orbits appear normal. There are no acute fractures of the calvaria or scalp swelling. Impression: Tiny region of encephalomalacia in the region of the previously noted left external capsule craniotom y. This may represent dystrophic calcifications, however a tiny intraparenchymal hemorrhage cannot be entirely excluded. Clinical correlation and short-term follow-up can be performed. ACT 112: Negative or not required by law. Electronically signed by: Leo Hannah M.D. 08/16/2023 9:44 PM
[2023-08-16 22:38] LABS: Basophils # (auto) 0.04 K/uL (0.00-0.20); Basophils % (auto) 0.2 %; Eosinophils # (auto) 0.01 K/uL (0.00-0.50); Eosinophils % (auto) 0.1 %; Immature Granulocytes # (auto) 0.07 K/uL (0.01-0.20); Immature Granulocytes % (auto) 0.4 %; Lymphocytes # (auto) 11.77 K/uL (1.20-3.40); Lymphocytes % (auto) 60.8 %; Monocytes # (auto) 0.51 K/uL (0.11-0.59); Monocytes % (auto) 2.6 %; Neutrophils # (auto) 6.97 K/uL (1.40-6.50); Neutrophils % (auto) 35.9 %; Smudge Cells Present
--- NOTE | 2023-08-16 23:00 | CT Scan Report ---
Exam(s): CT ABDOMEN + PELVIS Without Contrast EXAM: CT Abdomen and Pelvis Without Intravenous Contrast CLINICAL HISTORY: Reason for exam: vomitng. TECHNIQUE: Axial computed tomography images of the abdomen and pelvis without intravenous contrast. CTDI is 15.67 mGy and DLP is 2185.51 mGy-cm. Automated exposure control was utilized for the study. A dose lowering technique was utilized adhering to the principles of ALARA. COMPARISON: No relevant prior studies available. FINDINGS: Lung bases: Unremarkable. No mass. No consolidation. ABDOMEN: Liver: Unremarkable. Gallbladder and bile ducts: Catheter extends from the gallbladder to the adjacent small bowel, correlate with surgical history. No calcified stones. No ductal dilation. Pancreas: Unremarkable. No ductal dilation. Spleen: Unremarkable. No splenomegaly. Adrenals: Unremarkable. No mass. Kidneys and ureters: Unremarkable. No hydronephrosis or nephrolithiasis. Stomach and bowel: Mild-moderate fecal retention, correlate for constipation. No small bowel obstruction. PELVIS: Appendix: No findings to suggest acute appendicitis. Bladder: Unremarkable. No stones. Reproductive: Unremarkable as visualized. ABDOMEN and PELVIS: Intraperitoneal space: Unremarkable. No free air. No significant fluid collection. Bones/joints: Degenerative changes of the spine. No acute fracture. No dislocation. Posterior fusion at L4-L5. Soft tissues: Unremarkable. Vasculature: Atherosclerotic changes of the aorta. No abdominal aortic aneurysm. Lymph nodes: Unremarkable. No enlarged lymph nodes. IMPRESSION: 1. Catheter extends from the gallbladder to the adjacent small bowel, correlate with surgical history. 2. Mild-moderate fecal retention, correlate for constipation. Electronically signed by: Von Mac MD 08/16/23 22:59 PM
[2023-08-16 23:10] LABS: Appearance Urine Clear (Clear); Bacteria Urine Automated Negative (Negative); Bilirubin Urine Negative (Negative); Blood Urine Negative (Negative); Color Urine Yellow; Epithelial Cell Urine Auto >30 /lpf (0-5); Glucose Urine UA Negative (Negative); Ketones Urine Trace (Negative); Leukocyte Esterase Urine Negative (Negative); Nitrite Urine Negative (Negative); Protein Urine Trace (Negative); Specific Gravity Urine 1.017 (1.000-1.030); Urobilinogen Urine Negative (Negative)
--- NOTE | 2023-08-17 00:47 | History & Physical Report ---
Date of Service August 17, 2023 Assessment & Plan (1) Seizure-like activity: (2) Nausea and vomiting: (3) Aortic stenosis: (4) BPH with obstruction/lower urinary tract symptoms: (5) CLL (chronic lymphocytic leukemia): (6) CVA (cerebrovascular accident due to intracerebral hemorrhage): (7) Hypertension: (8) Hyperlipidemia: (9) Right sided weakness: (10) Anxiety: Plan Seizure-like activity/history of CVA- Unclear whether this were true seizure activity CT scan of head shows previous area of encephalomalacia Radiology reads as cannot rule out a tiny intraparenchymal hemorrhage Will repeat CT scan in 12 hours Patient unable to have MRI Suspect symptoms are more related to encephalopathy associated with nausea/vomiting and GI disturbance Nausea with vomiting/history of gallbladder tube for acute cholecystitis- Was diagnosed with acute cholecystitis on 12/26/2022, and was sent to [facility] where tube was placed CT notes gallbladder tube draining into the small bowel Will place patient empirically on Zosyn 4.5 g IV every 8 hours for potential infection WBC is elevated at 19.37, but the patient does have CLL Patient will be kept n.p.o. except medications, until seen by gastroenterology NSS 500 mL bolus given in ED Continue NSS at 80 mL/h x 1 additional liter Will consult gastroenterology for their opinion Depression- Continue paroxetine CODE STATUS: DNR/DNI History of Present Illness Chief Complaint: The patient presents to the emergency department due to family concerns regarding seizure, or where he was witnessed to have shaking in his left upper extremity. The patient does have paraplegia, being unable to move his right side due to previous stroke, and is nonverbal. His thinks he was still conscious through the entire event. He had appeared to be more confused after the event, and family was willing to keep him home, until he had 3 episodes of emesis afterwards, and a recalled ambulance to bring him to the emergency department. 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 He presents the emergency department for workup regarding recent seizure, and due to 3 episodes of nausea and vomiting. Allergies Allergy/AdvReac Type Severity Reaction Status Date / Time No Known Allergies Allergy Verified 08/16/23 21:06 Home Medications Medication Instructions Recorded Confirmed Type atorvastatin 20 mg tablet 20 mg PO QAM 03/11/21 08/16/23 History docusate sodium 100 mg capsule 100 mg PO BID PRN Constipation 05/23/22 08/16/23 History (Stool Softener) losartan 50 mg tablet 50 mg PO DAILY 05/23/22 08/16/23 History amlodipine 2.5 mg tablet 2.5 mg PO QAM 12/25/22 08/16/23 History omeprazole 20 mg capsule,delayed 20 mg PO DAILY 12/25/22 08/16/23 History release Cbd Gummies 1 tab PO DAILY 08/16/23 08/16/23 History paroxetine HCl 20 mg tablet 20 mg PO HS 08/16/23 08/16/23 History Past Med/Surg History Medical History (Updated 08/17/23 @ 02:39 by Troy Stokes MD) Anxiety Right sided weakness Aortic stenosis Bladder wall thickening Enlarged prostate Abnormal CT of the abdomen Leukocytosis Fecal retention Aspiration into airway Hearing impaired Diabetes mellitus type 2 in nonobese Hyperlipidemia Gout Hypertension CVA (cerebrovascular accident due to intracerebral hemorrhage) Family History Other Family history non-contributory Social History Smoking Status: Unknown if ever smoked Tobacco Type: Cigarettes Hx Alcohol Use: No Hx Substance Use: No Preferred Language: Malay Communication Ability: Effective Communication Ability Comment: APHASIC Billing Customer Service Representative Required: No Beliefs That Will Affect Care: None Current Living Situation: Spouse Feels Safe at Home: Yes Assistive Devices: Walker Review of Systems Review of Systems: HPI and review of systems are provided by family Physical Exam Physical Exam: The patient is awake, makes eye contact but does not communicate, normocephalic and atraumatic, lying in bed and in no acute distress. HEENT--PERRL, EOMI, mucous membranes and oropharynx dry. Neck--supple. No JVD. No bruits. Thyroid normal, trachea midline, no adenopathy. Heart--normal S1 and S2. No murmurs, rubs or gallops. Lungs--clear bilaterally, no respiratory distress, no accessory muscle use. Abdomen--normal bowel sounds and soft. Nontender. Nondistended, no hernias or masses, no organomegaly. Extremities--no cyanosis or clubbing. No edema. There are good distal pulses b/l. Dermatologic--normal skin turgor, normal color, no abnormal lymph nodes, no rash. Neurologic--cranial nerves II through XII grossly intact. Right hemiplegia Rheumatologic--limited due to right hemiplegia Psychiatric--nonagitated Results & Data Results & Data Vital Signs (Past 12 Hours) Vital Signs Temp Pulse Pulse Resp BP BP Pulse Ox 08/17/23 00:18 63 08/16/23 23:10 64 20 97 08/16/23 23:00 63 18 140/64 96 08/16/23 23:00 140/64 08/16/23 23:00 63 97 08/16/23 22:50 68 96 08/16/23 22:40 64 23 97 08/16/23 22:30 139/65 08/16/23 22:30 62 20 96 08/16/23 22:20 63 19 96 08/16/23 22:10 61 15 96 08/16/23 22:00 141/63 H 08/16/23 22:00 62 18 08/16/23 21:50 63 24 97 08/16/23 21:40 64 17 96 08/16/23 21:30 62 24 96 08/16/23 21:30 155/73 H 08/16/23 21:23 96 08/16/23 21:07 08/16/23 21:00 68 97 08/16/23 21:00 176/79 H 08/16/23 20:50 65 97 08/16/23 20:40 66 96 08/16/23 20:30 65 23 96 08/16/23 20:30 159/77 H 08/16/23 20:23 37 C 68 15 151/78 H 96 08/16/23 20:20 68 24 97 08/16/23 20:16 68 08/16/23 20:15 67 O2 Del Method 08/17/23 00:18 08/16/23 23:10 08/16/23 23:00 Room Air 08/16/23 23:00 08/16/23 23:00 08/16/23 22:50 08/16/23 22:40 08/16/23 22:30 08/16/23 22:30 08/16/23 22:20 08/16/23 22:10 08/16/23 22:00 08/16/23 22:00 08/16/23 21:50 08/16/23 21:40 08/16/23 21:30 08/16/23 21:30 08/16/23 21:23 08/16/23 21:07 Room Air 08/16/23 21:00 08/16/23 21:00 08/16/23 20:50 08/16/23 20:40 08/16/23 20:30 08/16/23 20:30 08/16/23 20:23 Room Air 08/16/23 20:20 08/16/23 20:16 08/16/23 20:15 Laboratory Results Laboratory Results WBC 19.37 K/ul (4.8-10.8) H 08/16/23 20:20 RBC 4.44 M/uL (4.70-6.10) L 08/16/23 20:20 Hgb 13.8 g/dl (14.0-18.0) L 08/16/23 20:20 Hct 40.5 % (42.0-52.0) L 08/16/23 20:20 MCV 91.2 fL (80.0-100.0) 08/16/23 20:20 MCH 31.1 pg (25.0-34.0) 08/16/23 20:20 MCHC 34.1 g/dL (32.0-36.0) 08/16/23 20:20 RDW Std Deviation 41.2 fL (36.4-46.3) 08/16/23 20:20 RDW Coeff of Kenny 12.6 % (11.5-14.5) 08/16/23 20:20 Plt Count 132 K/uL (130-400) 08/16/23 20:20 MPV 9.8 fL (9.4-12.4) 08/16/23 20:20 Immature Gran % (Auto) 0.4 % 08/16/23 20:20 Neut % (Auto) 35.9 % 08/16/23 20:20 Lymph % (Auto) 60.8 % 08/16/23 20:20 [place] % (Auto) 2.6 % 08/16/23 20:20 Eos % (Auto) 0.1 % 08/16/23 20:20 Baso % (Auto) 0.2 % 08/16/23 20:20 Neut # (Auto) 6.97 K/uL (1.40-6.50) H 08/16/23 20:20 Lymph # (Auto) 11.77 K/uL (1.20-3.40) H 08/16/23 20:20 [place] # (Auto) 0.51 K/uL (0.11-0.59) 08/16/23 20:20 Eos # (Auto) 0.01 K/uL (0.00-0.50) 08/16/23 20:20 Baso # (Auto) 0.04 K/uL (0.00-0.20) 08/16/23 20:20 Immature Gran # (Auto) 0.07 K/uL (0.01-0.20) 08/16/23 20:20 Smudge Cells Present 08/16/23 20:20 PT 11.1 Seconds (9.0-12.0) 08/16/23 20:20 INR 1.0 (0.9-1.1) 08/16/23 20:20 APTT 25 Seconds (21-31) 08/16/23 20:20 PTT Ratio 0.9 08/16/23 20:20 Sodium 139 mmol/L (136-145) 08/16/23 20:20 Potassium 4.9 mmol/L (3.5-5.1) 08/16/23 20:20 Chloride 105 mmol/L (98-107) 08/16/23 20:20 Carbon Dioxide 29 mmol/L (21-32) 08/16/23 20:20 Anion Gap 5 (3-11) 08/16/23 20:20 BUN 22 mg/dl (6-23) 08/16/23 20:20 Creatinine 1.01 mg/dl (0.6-1.4) 08/16/23 20:20 Est Cr Clr Drug Dosing 52.2 ml/min 08/16/23 20:20 Est GFR ( Amer) 80.5 ml/min 08/16/23 20:20 Est GFR (Non-Af Amer) 69.4 ml/min 08/16/23 20:20 BUN/Creatinine Ratio 21.8 (10-20) H 08/16/23 20:20 Glucose 185 mg/dl (70-99(Fasting)) H 08/16/23 20:20 Calcium 9.1 mg/dl (8.6-10.3) 08/16/23 20:20 Total Bilirubin 0.8 mg/dl (0.2-1.0) 08/16/23 20:20 AST 20 U/L (13-39) 08/16/23 20:20 ALT 11 U/L (7-52) 08/16/23 20:20 Alkaline Phosphatase 70 U/L (34-104) 08/16/23 20:20 Troponin I High Sens 6.7 pg/ml (0-20) 08/16/23 20:20 Total Protein 6.2 gm/dl (6.0-8.3) 08/16/23 20:20 Albumin 4.0 gm/dl (3.4-5.0) 08/16/23 20:20 Globulin 2.2 gm/dl (2.5-4.0) L 08/16/23 20:20 Albumin/Globulin Ratio 1.8 (0.9-2) 08/16/23 20:20 Lipase 26 U/L (11-82) 08/16/23 20:20 Urine Color Yellow 08/16/23 22:58 Urine Appearance Clear (Clear) 08/16/23 22:58 Urine pH 7.0 (4.5-7.5) 08/16/23 22:58 Ur Specific Williams 1.017 (1.000-1.030) 08/16/23 22:58 Urine Protein Trace (Negative) H 08/16/23 22:58 Urine Glucose (UA) Negative (Negative) 08/16/23 22:58 Urine Ketones Trace (Negative) H 08/16/23 22:58 Urine Blood Negative (Negative) 08/16/23 22:58 Urine Nitrite Negative (Negative) 08/16/23 22:58 Urine Bilirubin Negative (Negative) 08/16/23 22:58 Urine Urobilinogen Negative (Negative) 04/07/24 22:58 Ur Leukocyte Esterase Negative (Negative) 08/16/23 22:58 Urine WBC (Auto) 1-5 /hpf (0-5) 08/16/23 22:58 Urine RBC (Auto) 5-10 /hpf (0-4) H 08/16/23 22:58 U Hyaline Cast (Auto) 1-5 /lpf (0-5) 08/16/23 22:58 U Epithel Cells (Auto) >30 /lpf (0-5) H 08/16/23 22:58 Urine Bacteria (Auto) Negative (Negative) 08/16/23 22:58 Ur Renal Epithelial Cell Not Reportable 08/16/23 22:58 Impressions Abdomen/Pelvis CT 08/16/23 20:34 Exam(s): CT ABDOMEN + PELVIS Without Contrast EXAM: CT Abdomen and Pelvis Without Intravenous Contrast CLINICAL HISTORY: Reason for exam: vomitng. TECHNIQUE: Axial computed tomography images of the abdomen and pelvis without intravenous contrast. CTDI is 15.67 mGy and DLP is 2185.51 mGy-cm. Automated exposure control was utilized for the study. A dose lowering technique was utilized adhering to the principles of ALARA. COMPARISON: No relevant prior studies available. FINDINGS: Lung bases: Unremarkable. No mass. No consolidation. ABDOMEN: Liver: Unremarkable. Gallbladder and bile ducts: Catheter extends from the gallbladder to the adjacent small bowel, correlate with surgical history. No calcified stones. No ductal dilation. Pancreas: Unremarkable. No ductal dilation. Spleen: Unremarkable. No splenomegaly. Adrenals: Unremarkable. No mass. Kidneys and ureters: Unremarkable. No hydronephrosis or nephrolithiasis. Stomach and bowel: Mild-moderate fecal retention, correlate for constipation. No small bowel obstruction. PELVIS: Appendix: No findings to suggest acute appendicitis. Bladder: Unremarkable. No stones. Reproductive: Unremarkable as visualized. ABDOMEN and PELVIS: Intraperitoneal space: Unremarkable. No free air. No significant fluid collection. Bones/joints: Degenerative changes of the spine. No acute fracture. No dislocation. Posterior fusion at L4-L5. Soft tissues: Unremarkable. Vasculature: Atherosclerotic changes of the aorta. No abdominal aortic aneurysm. Lymph nodes: Unremarkable. No enlarged lymph nodes. IMPRESSION: 1. Catheter extends from the gallbladder to the adjacent small bowel, correlate with surgical history. 2. Mild-moderate fecal retention, correlate for constipation. Electronically signed by: Von Mac MD 08/16/23 22:[address] 08/16/23 20:34 CT head/brain wo con CLINICAL HISTORY: seizure Technique: Contiguous axial CT images of the head were acquired from the base of the skull to the vertex without intravenous contrast administration. Images were viewed in brain, subdural and bone windows. Automated dose lowering techniques and/or adjustment according to patient size were utilized for this exam. Comparison: Comparison is made to CT head 06/27/2020 Findings: Areas of decreased attenuation are present in the periventricular and subcortical white matter bilaterally consistent with small vessel ischemic disease. Generalized cerebral volume loss with commensurate enlargement of the ventricles, sulci, and cisterns is also present. There is a tiny region of hyperdensity in the previously noted left frontal region of encephalomalacia. Imaged portions of the paranasal sinuses and mastoid air cells are clear. The orbits appear normal. There are no acute fractures of the calvaria or scalp swelling. Impression: Tiny region of encephalomalacia in the region of the previously noted left external capsule craniotomy. This may represent dystrophic calcifications, however a tiny intraparenchymal hemorrhage cannot be entirely excluded. Clinical correlation and short-term follow-up can be performed. ACT 112: Negative or not required by law. Electronically signed by: Leo Hannah M.D. 08/16/2023 9:44 PM Code Status & VTE Plan Code Status DNR/DNI VTE Prophylaxis Plan VTE Prophylaxis will be ordered: Yes PG Care Time/CCT Total # of Minutes Spent Total Time Spent with Patient: Total time spent is greater than 50% in coordination of care (as documented) at patient's floor/unit and/or counseling patient: Coding Level of Care Code 35721 INT INP/OBS CARE 3/75MIN Diagnoses Seizure-like activity R56.9 Nausea and vomiting R11.2 Aortic stenosis I35.0 BPH with obstruction/lower urinary tract symptoms N40.1; N13.8 CLL (chronic lymphocytic leukemia) C91.10 CVA (cerebrovascular accident due to intracerebral hemorrhage) I61.9 Hypertension I10 Hyperlipidemia E78.5 Right sided weakness R53.1 Anxiety F41.9
[2023-08-17] MEDS: PARoxetine HCL 20 MG TAB PO STA (01:18)
[2023-08-17] MEDS: SODIUM CHLORIDE 0.9% 1,000 ML IV STA (01:19)
[2023-08-17] MEDS ORDERED: PROMETHAZINE HCL 12.5 MG in SODIUM CHLORIDE 0.9% 50 ML IV PRN (04:10)
[2023-08-17] MEDS ORDERED: ONDANSETRON INJ 2 MG/ML 2 ML VIAL IV PRN (04:10)
[2023-08-17 06:38] LABS: Hematocrit (blood only) 36.7 % (42.0-52.0); Hemoglobin 12.3 g/dl (14.0-18.0); Mean Corpuscular Hemoglobin 30.8 pg (25.0-34.0); Mean Corpuscular Hgb Conc 33.5 g/dL (32.0-36.0); Mean Platelet Volume 9.8 fL (9.4-12.4); Nucleated RBC # (auto) 0.02 K/uL (0.00-0.12); Nucleated RBC % (auto) 0.1 %; Platelet Count 127 K/uL (130-400); RDW Coefficient of Variation 12.6 % (11.5-14.5); RDW Standard Deviation 42.2 fL (36.4-46.3); Red Blood Count 3.99 M/uL (4.70-6.10); White Blood Count 17.53 K/ul (4.8-10.8)
[2023-08-17 06:53] LABS: Albumin Level 3.6 gm/dl (3.4-5.0); BUN Creatinine Ratio 22.6 (10-20); Creatinine Clr Calc Pharmacy 56.7 ml/min; Est GFR (African American) 88.9 ml/min; Est GFR (Non-African American) 76.7 ml/min; Phosphorus 2.9 mg/dl (2.5-4.9); Potassium 4.9 mmol/L (3.5-5.1)
--- NOTE | 2023-08-17 07:36 | XRay Report ---
XR chest 1V portable HISTORY: seizure COMPARISON: Chest 12/25/2022. FINDINGS: No pneumothorax. No pleural effusions. There are low lung volumes. There is a punctate calc ified granuloma within the left upper lobe. Otherwise, lungs are clear. The heart is top normal in si ze. No acute fractures. No evidence for pulmonary edema. IMPRESSION: No significant change compared to the prior study. No acute process. ACT 112: Negative or not required by law. Electronically signed by: Ciro Tai M.D. 08/17/2023 7:35 AM
[2023-08-17 07:51] LABS: Basophils # (auto) 0.03 K/uL (0.00-0.20); Basophils % (auto) 0.2 %; Immature Granulocytes # (auto) 0.06 K/uL (0.01-0.20); Immature Granulocytes % (auto) 0.3 %; Lymphocytes # (auto) 12.23 K/uL (1.20-3.40); Lymphocytes % (auto) 69.8 %; Monocytes # (auto) 0.18 K/uL (0.11-0.59); Neutrophils # (auto) 5.03 K/uL (1.40-6.50); Neutrophils % (auto) 28.7 %; Polychromasia 1+
--- NOTE | 2023-08-17 08:49 | CT Scan Report ---
CT head/brain wo con CLINICAL HISTORY: follow up of previous evening CT Technique: Contiguous axial CT images of the head were acquired from the base of the skull to the siddhartha abhishek without intravenous contrast administration. Images were viewed in brain, subdural and [facility] Automated dose lowering techniques and/or adjustment according to patient size were utilized for this exam. Comparison: Comparison is made to CT head 08/16/2023 Findings: Densities in the left frontal lobe in the region of encephalomalacia are unchanged from prior exam. Imaged portions of the paranasal sinuses and mastoid air cells are clear. The orbits appear normal. There are no acute fractures of the calvaria or scalp swelling. Impression: Densities in the region of left frontal encephalomalacia are essentially unchanged from prior exam an d are favored to represent dystrophic calcification rather than acute hemorrhage. Clinical correlatio n is recommended. ACT 112: Negative or not required by law. Electronically signed by: Leo Hannah M.D. 08/17/2023 8:47 AM
[2023-08-17] MEDS: PIPERACILLIN/TAZOBACTAM 4.5 GM in DEXTROSE 5% MINI-B 100 ML IV SCH (09:25)
[2023-08-17] MEDS: PANTOprazole 40 MG in SYRINGE 0 ML IV SCH (11:50)
--- NOTE | 2023-08-17 13:24 | Gastrointestinal Consultation ---
Date of Consultation August 17, 2023 Assessment & Plan (1) Nausea and vomiting: No acute findings on CT. LFTs fine. No further n/v today. If n/v returns, utilize anti-emetic prn and obtain a viral panel. No GI explanations for neuro symptoms at present. Supervising Physician Co-Signing Physician Notes Agree with JEAN Quintana as above Abd: Soft, NT, ND, +BS Continue current therapy and supportive care History of Present Illness Reason for Consultation: N/V, GB catheter drain to small bowel Attending Physician: Dina Echavarria MD History of Present Illness Patient is an 83 yo male with history of CVA. He was brought in due to family co ncerns of seizure-like activity. They note 3 episodes of emesis at home. Patient is not exhibiting any GI symptoms at present. A CT abdomen/pelvis showed placement of a catheter from bile ducts to small bowel without complication, consistent with patient's history of IR placed jaron tube at [facility]. AST, ALT, T bili unremarkable. No acute changes otherwise. Patient does not communicate. Imaging cannot rule out small stroke. H/H 12.3/36.7. Allergies Allergy/AdvReac Type Severity Reaction Status Date / Time No Known Allergies Allergy Verified 08/16/23 21:06 Home Medications Medication Instructions Recorded Confirmed Type atorvastatin 20 mg tablet 20 mg PO QAM 03/11/21 08/16/23 History docusate sodium 100 mg capsule 100 mg PO BID PRN Constipation 05/23/22 08/16/23 History (Stool Softener) losartan 50 mg tablet 50 mg PO DAILY 05/23/22 08/16/23 History amlodipine 2.5 mg tablet 2.5 mg PO QAM 12/25/22 08/16/23 History omeprazole 20 mg capsule,delayed 20 mg PO DAILY 12/25/22 08/16/23 History release Cbd Gummies 1 tab PO DAILY 08/16/23 08/16/23 History paroxetine HCl 20 mg tablet 20 mg PO HS 08/16/23 08/16/23 History Patient History Medical History Anxiety Right sided weakness Aortic stenosis Bladder wall thickening Enlarged prostate Abnormal CT of the abdomen Leukocytosis Fecal retention Aspiration into airway Hearing impaired Diabetes mellitus type 2 in nonobese Hyperlipidemia Gout Hypertension CVA (cerebrovascular accident due to intracerebral hemorrhage) Family History Other Family history non-contributory Social History Smoking Status: Never smoker Tobacco Type: Cigarettes Second Hand Exposure: No; Do You Dip or Chew Tobacco: No; Hx Alcohol Use: No Hx Substance Use: No Preferred Language: Chinese Communication Ability: nonverbal Communication Ability 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: 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 Cooker Casing Required: No Beliefs That Will Affect Care: None Current Living Situation: Spouse Feels Safe at Home: Yes Assistive Devices: Hearing Aid - Bilateral, Hospital Bed and Walker Review of Systems Review of Systems: Unobtainable due to cognitive status Physical Exam Constitutional: well developed Respiratory: normal respiratory effort Cardiovascular: Rate/Rhythm: regular rate Gastrointestinal (Abdomen): normal bowel sounds, soft, nontender, no hepatosplenomegaly Psychiatric: Orientation: alert and oriented x 3 Results & Data Vital Signs (Past 12 Hours) Vital Signs Temp Pulse Pulse Resp BP Pulse Ox Pulse Ox 08/17/23 10:44 48 L 16 96 08/17/23 09:39 48 L 16 96 08/17/23 06:56 55 L 08/17/23 05:47 36.8 C 59 L 18 123/61 97 08/17/23 05:00 57 L 18 120/57 L 95 08/17/23 04:10 59 L 18 131/76 96 08/17/23 04:10 96 08/17/23 04:10 58 L 08/17/23 03:00 60 18 120/67 96 O2 Del Method O2 Del Method O2 Flow Rate 08/17/23 10:44 Room Air 08/17/23 09:39 Room Air 08/17/23 06:56 08/17/23 05:47 Room Air 08/17/23 05:00 Room Air 08/17/23 04:10 Room Air 08/17/23 04:10 Room Air 0 08/17/23 04:10 08/17/23 03:00 Room Air PG Care Time/CCT Total # of Minutes Spent Total Time Spent with Patient: Total time spent is greater than 50% in coordination of care (as documented) at patient's floor/unit and/or counseling patient: Coding Level of Care Code 22048 INT INP/OBS CARE MIN Diagnoses Nausea and vomiting R11.2
--- NOTE | 2023-08-17 18:14 | History & Physical Bridge Note ---
Date of Service August 17, 2023 History & Physical Bridge Note I have examined the patient, reviewed the History & Physical and in the interval since the performance of the History & Physical I have noted the following changes of clinical significance: Patient not having any nausea or vomiting and feels hungry-advance diet to clear liquids and will advance as tolerated Vitals reviewed Gen: Alert and awake, nonverbal except for a few short sentences, NAD HEENT: Anicteric sclerae, EOMI CV: RRR no mgr nl S1S2 Pulm: CTAB no wcr Abd: +BS soft NT ND no masses or hernias Ext: No edema Skin: No rashes, warm/dry Neuro: Right-sided hemiparesis Given the possible seizure activity and postictal period, consult neurology for further recommendations. He certainly is at risk for seizures given history of cranial hemorrhage with encephalomalacia. Awaiting neurology consultation Monitor for further seizures. Otherwise CLL is stable, no evidence of infection or renal failure or electrolyte abnormalities. Discussed care with at the bedside
[2023-08-17] MEDS ORDERED: DOCUSATE SODIUM 100 MG CAP PO PRN (18:31)
[2023-08-17] MEDS: PARoxetine HCL 20 MG TAB PO SCH (20:32)
--- NOTE | 2023-08-18 05:52 | Electrocardiogram Report ---
Test Reason : Blood Pressure : / mmHG Vent. Rate : 067 BPM Atrial Rate : 067 BPM P-R Int : 168 ms QRS Dur : 086 ms QT Int : 408 ms P-R-T Axes : 062 055 244 degrees QTc Int : 431 ms Sinus rhythm with Premature ventricular complexes Septal infarct , age undetermined Abnormal ECG When compared with ECG of 25-DEC-2022 15:35, Premature ventricular complexes are now Present Septal infarct is now Present Non-specific change in ST segment in Inferolateral leads T wave inversion now evident in Inferolateral leads Confirmed by Jamal Benitez ([id number]) on 08/18/2023 5:52:19 AM Referred By: NO PCP Confirmed By:Jamal Benitez
[2023-08-18 06:59] LABS: Hematocrit (blood only) 36.8 % (42.0-52.0); Hemoglobin 13.1 g/dl (14.0-18.0); Mean Corpuscular Hemoglobin 31.6 pg (25.0-34.0); Mean Corpuscular Hgb Conc 35.6 g/dL (32.0-36.0); Mean Corpuscular Volume 88.7 fL (80.0-100.0); Mean Platelet Volume 9.8 fL (9.4-12.4); Nucleated RBC # (auto) 0.04 K/uL (0.00-0.12); Nucleated RBC % (auto) 0.2 %; Platelet Count 129 K/uL (130-400); RDW Coefficient of Variation 12.6 % (11.5-14.5); RDW Standard Deviation 41.1 fL (36.4-46.3); Red Blood Count 4.15 M/uL (4.70-6.10); White Blood Count 17.93 K/ul (4.8-10.8)
[2023-08-18 07:26] LABS: Albumin Level 3.5 gm/dl (3.4-5.0); BUN Creatinine Ratio 17.1 (10-20); Calcium 9.1 mg/dl (8.6-10.3); Creatinine Clr Calc Pharmacy 49.8 ml/min; Est GFR (African American) 76.8 ml/min; Est GFR (Non-African American) 66.3 ml/min; Magnesium 1.9 mg/dl (1.7-2.4); Phosphorus 3.7 mg/dl (2.5-4.9); Potassium 4.2 mmol/L (3.5-5.1)
[2023-08-18 08:06] LABS: Acanthocytes 1+; Basophils # (auto) 0.04 K/uL (0.00-0.20); Basophils % (auto) 0.2 %; Eosinophils # (auto) 0.09 K/uL (0.00-0.50); Eosinophils % (auto) 0.5 %; Immature Granulocytes # (auto) 0.02 K/uL (0.01-0.20); Immature Granulocytes % (auto) 0.1 %; Lymphocytes % (auto) 71.4 %; Monocytes # (auto) 1.18 K/uL (0.11-0.59); Monocytes % (auto) 6.6 %; Neutrophils % (auto) 21.2 %; Polychromasia 1+; Smudge Cells Present
[2023-08-18] MEDS: amLODIPine BESYLATE 5 MG TAB PO SCH (09:20)
[2023-08-18] MEDS: LOSARTAN POTASSIUM 50 MG TAB PO SCH (09:20)
[2023-08-18] MEDS: ATORVASTATIN 20 MG TAB PO SCH (09:21)
--- NOTE | 2023-08-18 09:46 | Neurology Consultation ---
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 No prior episodes of seizure-like activity. Patient may have had focal onset seizure related to his history of left hemispheric injury, followed by secondary generalization, but without obvious observed seizure activity affecting the hemiplegic right side. Could also consider "shaking TIA" or transient ischemic injury to the right cerebral hemisphere, although probably less likely. No evidence of acute or subacute ischemic injury on CT of the head. Unfortunately, unable to have brain MRI as he has bilateral cochlear implants. He does not have any residual left-sided weakness, however. I have ordered an EEG and carotid ultrasound. If the EEG does not reveal obvious epileptiform abnormalities, I would not recommend starting an antiseizure medication at this time. However, if he were to have another potential seizure episode, even with an unremarkable EEG, would likely recommend starting an antiseizure medication in that context, likely Keppra 500 mg twice daily. I will advise further pending completion of the EEG and carotid ultrasound. If the carotid ultrasound suggests significant stenosis, would consider obtaining a CT angiogram for further assessment. In light of his histo ry of hemorrhagic stroke, however, I would not recommend starting an antiplatelet medication or other blood thinner at this time. He may continue with atorvastatin. Please contact me with any questions. Thank you for the consult. History of Present Illness Reason for Consultation: seizure Requesting Physician: [place] Attending Physician: Dina Echavarria MD History of Present Illness The patient is an 83-year-old male with a history of of left hemispheric, subcortical hemorrhagic infarct and chronic residual right hemiplegia, face arm and leg, profound weakness, who presented to the emergency department yesterday after an episode of involuntary shaking of the left upper limb. His daughter is at bedside who provided some historical details although she did not witness the event. The episode may have lasted a minute or so and was followed by confusion, followed by nausea and emesis about 1 hour later. He has never had a similar episode previously. No residual weakness of the left upper limb after this event. The episode did not involve the legs or right side of the body. There may have been some alteration in awareness or consciousness although this detail is uncertain. Patient is incontinent at baseline. There was no tongue bite with this episode. History also notable for bilateral cochlear implants, unable to have MRI. He has had 2 head CTs in the context of this hospitalization. No evidence of hemorrhage or evolving process. 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 I independently reviewed these images. Allergies Allergy/AdvReac Type Severity Reaction Status Date / Time No Known Allergies Allergy Verified 08/16/23 21:06 Home Medications Medication Instructions Recorded Confirmed Type atorvastatin 20 mg tablet 20 mg PO QAM 03/11/21 08/16/23 History docusate sodium 100 mg capsule 100 mg PO BID PRN Constipation 05/23/22 08/16/23 History (Stool Softener) losartan 50 mg tablet 50 mg PO DAILY 05/23/22 08/16/23 History amlodipine 2.5 mg tablet 2.5 mg PO QAM 12/25/22 08/16/23 History omeprazole 20 mg capsule,delayed 20 mg PO DAILY 12/25/22 08/16/23 History release Cbd Gummies 1 tab PO DAILY 08/16/23 08/16/23 History paroxetine HCl 20 mg tablet 20 mg PO HS 08/16/23 08/16/23 History Patient History Medical History Anxiety Right sided weakness Aortic stenosis Bladder wall thickening Enlarged prostate Abnormal CT of the abdomen Leukocytosis Fecal retention Aspiration into airway Hearing impaired Diabetes mellitus type 2 in nonobese Hyperlipidemia Gout Hypertension CVA (cerebrovascular accident due to intracerebral hemorrhage) Family History Other Family history non-contributory Social History Smoking Status: Never smoker Tobacco Type: Cigarettes Second Hand Exposure: No; Do You Dip or Chew Tobacco: No; Hx Alcohol Use: No Hx Substance Use: No Preferred Language: Austrian Communication Ability: nonverbal Communication Ability Comment: APHASIC Movement Assembly Final Inspector Required: No Beliefs That Will Affect Care: None Current Living Situation: Spouse Feels Safe at Home: Yes Assistive Devices: Hearing Aid - Bilateral, Hospital Bed and Walker Review of Systems Constitutional: no fever and no chills Eyes: no blind spots and no diplopia Ear, Nose, Mouth, Throat: + hearing loss Respiratory: no cough and no dyspnea Cardiovascular: no chest pain and no palpitations Gastrointestinal: as per Subjective / HPI, + nausea and + vomiting Genitourinary: + urinary incontinence Musculoskeletal: + muscle weakness; no neck pain and no m yalgia Integumentary: no rash and no lesions Neurologic: as per Subjective / HPI, + gait abnormality, + localized weakness, + loss of sensation, + seizure-like activity and + abnormal speech; no memory loss Psychiatric: no depression and no anxiety Hematologic / Lymphatic: no easy bleeding and no easy bruising Exam (Neuro) Constitutional: well developed and + frail appearing; no acute distress Eyes: normal visual [place] by confrontation, PERRL and EOM intact bilaterally; no nystagmus Neurologic: Oriented to:: Person, Place and Time Memory: Short Term Intact and Remote Intact Attention: Span Intact and Concentration Intact Speech Fluency: Dysarthria and Dysfluency Speech Aphasia: Aphasia Fund of Knowledge: Current Events, Past History and Vocabulary Cranial Nerves: Normal II, III, IV, , V, IX, X, XI and XII; Abnorm VII (Right lower facial weakness noted) or VIII Motor Strength: Hemiplegia (0/5 for the arm and leg) Laterality: Right Hypertonicity: Arms Laterality: Right and Legs Laterality: Right Muscle Bulk/Involuntary Movements: No Involuntary Movements; negative Muscle Atrophy Sensation: negative Light Touch Intact (Hemisensory deficit noted for the right for all modalities), Pain/Temperature Intact, Vibration Intact or Proprioception Intact Coordination: Finger-Nose Abnormal Laterality: Right and Heel-Pugh Abnormal Laterality: Right Deep Tendon Reflexes: Rt Triceps: 3+, Lt Triceps: 2+, Rt Biceps: 3+, Lt Biceps: 2+, Rt Brachioradialis: 3+, Lt Brachioradialis: 2+, Rt Patellar: 3+ and Lt Patellar: 2+ Special Tests: Babinski Present Details: Gait cannot be tested, patient nonambulatory Results & Data Vital Signs (Past 12 Hours) Vital Signs Temp Pulse Pulse Resp BP Pulse Ox Pulse Ox 08/18/23 07:47 36.5 C 53 L 16 149/62 H 96 0409/24 07:46 60 08/18/23 04:10 95 08/18/23 03:24 36.9 C 52 L 18 130/60 95 08/17/23 22:35 37.0 C 50 L 18 146/62 H 96 08/17/23 21:59 52 L O2 Del Method O2 Del Method 08/18/23 07:47 Room Air 08/18/23 07:46 08/18/23 04:10 Room Air 08/18/23 03:24 Room Air 08/17/23 22:35 Room Air 08/17/23 21:59 Laboratory Results WBC 17.93, hemoglobin 13.1, hematocrit 36.8, platelet count 129, sodium 141, potassium 4.2, BUN 18, creatinine 1.05, glucose 91, calcium 9.1, magnesium 1.9, AST 20, ALT [address] of the head x 2 as described in the HPI, I independently reviewed these images. An electrocardiogram reveals a sinus rhythm with PVCs, 67 bpm. Coding Level of Care Code 98363 INT INP/OBS CARE 75MIN Diagnoses Seizure-like activity R56.9 Hemiplegia and hemiparesis following cerebral infarction affecting right dominant side I69.351 Time Spent (min) 80 Comment Total time includes patient contact, chart review, counseling, note preparation
--- NOTE | 2023-08-18 11:01 | Ultrasound Report ---
ULTRASOUND OF THE CAROTID ARTERIES CLINICAL HISTORY: stroke like episode, LUE shaking TECHNIQUE: Real-time, grayscale, and color Doppler sonography of the bilateral carotid arteries is pe rformed. Images are reviewed in the transverse and longitudinal planes. COMPARISON: Comparison is made to carotid Doppler 11/24/2014 FINDINGS: The carotid arteries are patent bilaterally and demonstrate antegrade flow. There is moderate atheros clerotic plaque on the right and moderate atherosclerotic plaque on the left. Normal doppler arterial waveforms are seen throughout. Velocity measurements are listed below. Common carotid peak systolic velocity (cm/sec): RIGHT: 74 LEFT: 76 ICA peak systolic velocity (cm/sec): RIGHT: 88 LEFT: 74 ICA/CC peak systolic ratio: RIGHT: 1.2 LEFT: 1.0 Antegrade flow was shown in the vertebral arteries. The external carotid arteries are patent. Probabl e lymph nodes in the lateral neck measure up to 0.8 cm in short axis. IMPRESSION: 1. There is no sonographic evidence of hemodynamically significant stenosis in the right or left car otid arterial system. Atherosclerosis is seen, stable to minimally increased from prior exam. 2. Antegrade flow is shown in the vertebral arteries. Society of Radiologists in Ultrasound consensus guidelines: Normal: ICA PSV is <125 cm/sec and no plaque or intimal thickening is visible sonographically additional criteria include ICA/CCA PSV ratio <2.0 and ICA EDV <40 cm/sec <50% ICA stenosis: ICA PSV is <125 cm/sec and plaque or intimal thickening is visible sonographically additional criteria include ICA/CCA PSV ratio <2.0 and ICA EDV <40 cm/sec 50-69% ICA stenosis: ICA PSV is 125-230 cm/sec and plaque is visible sonographically additional criteria include ICA/CCA PSV ratio of 2.0-4.0 and ICA EDV of 40-100 cm/sec ?70% ICA stenosis but less than near occlusion: ICA PSV is >230 cm/sec and visible plaque and luminal narrowing are seen at berger-scale and color Dopp ler ultrasound (the higher the Doppler parameters lie above the threshold of 230 cm/sec, the greater the likelihood of severe disease) additional criteria include ICA/CCA PSV ratio >4 and ICA EDV >100 cm/sec ACT 112: Negative or not required by law. Electronically signed by: Leo Hannah M.D. 08/18/2023 10:59 AM
--- NOTE | 2023-08-18 13:39 | Electroencephalogram ---
EEG Procedure Note Date of Service August 18, 2023 Start / End Times Start Time: 1:15 PM End Time: 1:35 PM Referring Physician Rosalie History focal seizure LUE?, h/o left hemispheric hemorrhagic CVA with right hemiplegia Home Medication List Medication Instructions Recorded Confirmed Type atorvastatin 20 mg tablet 20 mg PO QAM 03/11/21 08/16/23 History docusate sodium 100 mg capsule 100 mg PO BID PRN Constipation 05/23/22 08/16/23 History (Stool Softener) losartan 50 mg tablet 50 mg PO DAILY 05/23/22 08/16/23 History amlodipine 2.5 mg tablet 2.5 mg PO QAM 12/25/22 08/16/23 History omeprazole 20 mg capsule,delayed 20 mg PO DAILY 12/25/22 08/16/23 History release Cbd Gummies 1 tab PO DAILY 08/16/23 08/16/23 History paroxetine HCl 20 mg tablet 20 mg PO HS 08/16/23 08/16/23 History Inpatient Medication List Amlodipine Besylate (Amlodipine Besylate 5 Mg Tab) 2.5 mg PO [facility] Stop: 09/17/23 08:59 Last Admin: 08/18/23 09:20 Dose: 2.5 mg Documented By: LEANDRO Atorvastatin Calcium (Atorvastatin 20 Mg Tab) 20 mg PO [facility] Stop: 09/17/23 08:59 Last Admin: 08/18/23 09:21 Dose: 20 mg Documented By: LEANDRO Pantoprazole Sodium 40 mg/ (Syringe) 10 mls @ 5 mls/min IV DAILY@1100 [facility] Stop: 09/16/23 10:59 Last Admin: 08/18/23 11:12 Dose: 5 mls/min Documented By: KOLTON Co-signed By: ANA Admin: 08/17/23 11:50 Dose: 5 mls/min Documented By: AGUSTIN Losartan Potassium (Losartan Potassium 50 Mg Tab) 50 mg PO DAILY [facility] Stop: 09/17/23 08:59 Last Admin: 08/18/23 09:20 Dose: 50 mg Documented By: LEANDRO Paroxetine HCl (Paroxetine Hcl 20 Mg Tab) 20 mg PO [facility] Stop: 09/16/23 20:59 Last Admin: 08/17/23 20:32 Dose: 20 mg Documented By: ANGIE Discontinued Medications Sodium Chloride (Nss) 500 mls @ 999 mls/hr IV .Q31M STA Stop: 08/16/23 21:04 Last Infusion: 08/16/23 22:22 Dose: Infused Documented By: Admin: 08/16/23 21:25 Dose: 999 mls/hr Documented By: MED Sodium Chloride (Nss) 1,000 mls @ 80 mls/hr IV .[id number] STA Stop: 08/17/23 13:09 Last Infusion: 08/17/23 09:25 Dose: Infused Documented By: Admin: 08/17/23 01:19 Dose: 80 mls/hr Documented By: GIL Piperacillin Sod/Tazobactam (Sod 4.5 gm/ Dextrose) 100 mls @ 25 mls/hr IV Q8H [facility]; Protocol Stop: 08/27/23 07:59 Last Infusion: 08/18/23 09:10 Dose: Infused Documented By: Admin: 08/18/23 08:17 Dose: 25 mls/hr Documented By: KOLTON Co-signed By: ANA Infusion: 08/18/23 04:35 Dose: Infused Documented By: Admin: 08/18/23 00:35 Dose: 25 mls/hr Documented By: Infusion: 08/17/23 22:11 Dose: Infused Documented By: Admin: 08/17/23 18:11 Dose: 25 mls/hr Documented By: Infusion: 08/17/23 13:30 Dose: Infused Documented By: Admin: 08/17/23 09:25 Dose: 25 mls/hr Documented By: AGUSTIN Paroxetine HCl (Paroxetine Hcl 20 Mg Tab) 20 mg PO NOW STA Stop: 08/17/23 00:41 Last Admin: 08/17/23 01:18 Dose: 20 mg Documented By: IDD Description This is a 21 electrode EEG with a single channel dedicated to limited EKG. The electrodes were placed in accordance with the International 10-20 system. There is a posterior dominant rhythm of 8 Hz which is symmetrically distributed and attenuates with eye opening. There is a normal anterior to posterior organization. Photic stimulation is unremarkable. There is intermittent rhythmic left frontal polyspike activity and associated frontal delta slowing. Interpretation Abnormal awake/drowsy EEG with potential epileptiform abnormalities localizing to the left frontal area. May have an element of breech rhythm as well related to h/o craniotomy. [facility] EEG Procedure Codes Indication for Procedure (1) Seizure-like activity: Neurology Neurology: 61894 EEG include record awake & drowsy
--- NOTE | 2023-08-18 13:56 | Communication Note ---
Date of Service: August 18, 2023 By CMS guidelines, a determination that the admission or continued stay is not medically necessary has been made by a member of the UR committee and a physi carli for this hospital stay, therefore a Code 44 will be completed and the Inpatient admission will be changed to outpatient. Robert Meza MD Member, Utilization Review Committee
--- NOTE | 2023-08-18 13:57 | Discharge Summary ---
Discharge Summary Date of Service August 18, 2023 Notes For Next Care Provider Follow up with Neurology in 2 weeks Medication Changes From Visit Added keppra 500mg po bid Admission HPI Per Admitting Provider The patient is an 83-year-old male with a past medical history including sepsis, acute cholecystitis treated with gallbladder tube, aortic stenosis, BPH with LUTS, enterocolitis, CVA causing residual right sided weakness, CLL, hypertension, hyperlipidemia, diabetes mellitus and hearing impairment. He presents the emergency department for workup regarding recent seizure, and due to 3 episodes of nausea and vomiting. Principal Dx & Hospital Course #1 = Principal Diagnosis (1) Seizure-like activity: Presented with shaking of LUE followed by confusion, N/V. Shaking lasted less than 1 minute followed by 20-[address] scan of head shows previous area of encephalomalacia from hemorrhagic stroke on left frontal region Radiology reads as cannot rule out a tiny intraparenchymal hemorrhage but repeat head CT stable and likely calcification from dystrophic changes from old stroke Cannot have brain MRI due to cochlear implants Labs fairly unremarkable, no metabolic disturbances, no infectious sources. N/V related to seizure Neuro consulted and had EEG which was abnormal, showed epileptiform waves in left frontal region Started Keppra 500mg po bid, gave seizure precautions for when to return to hospital Ok to continue CBD gummies and THC for sleep-he has medical marijuana card Dc to home and f/u with Neurology Discussed care extensively with , patient, daughter, and also with Neurology (2) Nausea and vomiting: related to seizure, resolved CT abd/pel no acute issues, has internalized jaron tube to small bowel, LFTs normal GI consulted but no further eval recommended (3) Aortic stenosis: [id number] as outpt (4) CLL (chronic lymphocytic leukemia): stable, WBC count 17, follows with Oncology, no treatment (5) CVA (cerebrovascular accident due to intracerebral hemorrhage): previous hemorrhagic stroke with right sided hemiparesis (6) Hypertension: BPs controlled continue home losartan, amlodipine (7) Hyperlipidemia: continue statin (8) Anxiety: continue CBD gummies which are helping continue Paxil Plan Dispo-dc to home with family and caregivers 01/12 Discharge Exam Constitutional WD/WN, vitals as above Respiratory normal respiratory effort, lungs clear to auscultation Cardiovascular RRR, no murmur, no edema Gastrointestinal (Abdomen) Inspection/Auscultation: normal bowel sounds; abdomen not distended Percussion/Palpation: + abdomen tender (mild in RUQ, chronic for him) and abdomen soft; no guarding and abdomen not rigid Neurologic right hemiparesis Updated Medication List Medication Instructions Recorded Confirmed Type atorvastatin 20 mg tablet 20 mg PO QAM 03/11/21 08/16/23 History docusate sodium 100 mg capsule 100 mg PO BID PRN Constipation 05/23/22 08/16/23 History (Stool Softener) losartan 50 mg tablet 50 mg PO DAILY 05/23/22 08/16/23 History amlodipine 2.5 mg tablet 2.5 mg PO QAM 12/25/22 08/16/23 History omeprazole 20 mg capsule,delayed 20 mg PO DAILY 12/25/22 08/16/23 History release Cbd Gummies 1 tab PO DAILY 08/16/23 08/16/23 History paroxetine HCl 20 mg tablet 20 mg PO HS 08/16/23 08/16/23 History levetiracetam 500 mg tablet 500 mg PO BID #60 tabs 08/18/23 Rx (Scott) Hospital Stay Data Consultations 08/17/23 00:02 ED Decision to Admit Stat 08/17/23 02:43 Consult Gastroenterology Routine 08/17/23 04:10 Consult Gastroenterology Routine 08/17/23 10:01 Consult Neurology Routine Procedures Performed EEG: Description This is a 21 electrode EEG with a single channel dedicated to limited EKG. The electrodes were placed in accordance with the International 10-20 system. There is a posterior dominant rhythm of 8 Hz which is symmetrically distributed and attenuates with eye opening. There is a normal anterior to posterior organization. Photic stimulation is unremarkable. There is intermittent rhythmic left frontal polyspike activity and associated frontal delta slowing. Interpretation Abnormal awake/drowsy EEG with potential epileptiform abnormalities localizing to the left frontal area. May have an element of breech rhythm as well related to h/o craniotomy. Diagnostic Imagining Performed 08/16/23 20:34 CT abd pelvis wo con Stat CT head/brain wo con Stat 08/17/23 08:00 CT head/brain wo con Routine 08/18/23 09:28 US carotid doppler BI Routine Abdomen/Pelvis CT 08/16/23 20:34 Exam(s): CT ABDOMEN + PELVIS Without Contrast EXAM: CT Abdomen and Pelvis Without Intravenous Contrast CLINICAL HISTORY: Reason for exam: vomitng. TECHNIQUE: Axial computed tomography images of the abdomen and pelvis without intravenous contrast. CTDI is 15.67 mGy and DLP is 2185.51 mGy-cm. Automated exposure control was utilized for the study. A dose lowering technique was utilized adhering to the principles of ALARA. COMPARISON: No relevant prior studies available. FINDINGS: Lung bases: Unremarkable. No mass. No consolidation. ABDOMEN: Liver: Unremarkable. Gallbladder and bile ducts: Catheter extends from the gallbladder to the adjacent small bowel, correlate with surgical history. No calcified stones. No ductal dilation. Pancreas: Unremarkable. No ductal dilation. Spleen: Unremarkable. No splenomegaly. Adrenals: Unremarkable. No mass. Kidneys and ureters: Unremarkable. No hydronephrosis or nephrolithiasis. Stomach and bowel: Mild-moderate fecal retention, correlate for constipation. No small bowel obstruction. PELVIS: Appendix: No findings to suggest acute appendicitis. Bladder: Unremarkable. No stones. Reproductive: Unremarkable as visualized. ABDOMEN and PELVIS: Intraperitoneal space: Unremarkable. No free air. No significant fluid collection. Bones/joints: Degenerative changes of the spine. No acute fracture. No dislocation. Posterior fusion at L4-L5. Soft tissues: Unremarkable. Vasculature: Atherosclerotic changes of the aorta. No abdominal aortic aneurysm. Lymph nodes: Unremarkable. No enlarged lymph nodes. IMPRESSION: 1. Catheter extends from the gallbladder to the adjacent small bowel, correlate with surgical history. 2. Mild-moderate fecal retention, correlate for constipation. Electronically signed by: Von Mac MD 08/16/23 22:59 PM Chest X-Ray 08/16/23 20:34 XR chest 1V portable HISTORY: seizure COMPARISON: Chest 12/25/2022. FINDINGS: No pneumothorax. No pleural effusions. There are low lung volumes. There is a punctate calcified granuloma within the left upper lobe. Otherwise, lungs are clear. The heart is top normal in size. No acute fractures. No evidence for pulmonary edema. IMPRESSION: No significant change compared to the prior study. No acute process. ACT 112: Negative or not required by law. Electronically signed by: Ciro Tai M.D. 08/17/2023 7:[address] 08/16/23 20:34 CT head/brain wo con CLINICAL HISTORY: seizure Technique: Contiguous axial CT images of the head were acquired from the base of the skull to the vertex without intravenous contrast administration. Images were viewed in brain, subdural and bone windows. Automated dose lowering techniques and/or adjustment according to patient size were utilized for this exam. Comparison: Comparison is made to CT head 06/27/2020 Findings: Areas of decreased attenuation are present in the periventricular and subcortical white matter bilaterally consistent with small vessel ischemic disease. Generalized cerebral volume loss with commensurate enlargement of the ventricles, sulci, and cisterns is also present. There is a tiny region of hyperdensity in the previously noted left frontal region of encephalomalacia. Imaged portions of the paranasal sinuses and mastoid air cells are clear. The orbits appear normal. There are no acute fractures of the calvaria or scalp swelling. Impression: Tiny region of encephalomalacia in the region of the previously noted left external capsule craniotomy. This may represent dystrophic calcifications, however a tiny intraparenchymal hemorrhage cannot be entirely excluded. Clinical correlation and short-term follow-up can be performed. ACT 112: Negative or not required by law. Electronically signed by: eLo Hannah M.D. 08/16/2023 9:[address] 08/17/23 08:00 CT head/brain wo con CLINICAL HISTORY: follow up of previous evening CT Technique: Contiguous axial CT images of the head were acquired from the base of the skull to the vertex without intravenous contrast administration. Images were viewed in brain, subdural and bone windows. Automated dose lowering techniques and/or adjustment according to patient size were utilized for this exam. Comparison: Comparison is made to CT head 08/16/2023 Findings: Densities in the left frontal lobe in the region of encephalomalacia are unchanged from prior exam. Imaged portions of the paranasal sinuses and mastoid air cells are clear. The orbits appear normal. There are no acute fractures of the calvaria or scalp swelling. Impression: Densities in the region of left frontal encephalomalacia are essentially unchanged from prior exam and are favored to represent dystrophic calcification rather than acute hemorrhage. Clinical correlation is recommended. ACT 112: Negative or not required by law. Electronically signed by: Leo Hannah M.D. 08/17/2023 8:47 AM Carotid Doppler Study 08/18/23 09:28 ULTRASOUND OF THE CAROTID ARTERIES CLINICAL HISTORY: stroke like episode, LUE shaking TECHNIQUE: Real-time, grayscale, and color Doppler sonography of the bilateral carotid arteries is performed. Images are reviewed in the transverse and longitudinal planes. COMPARISON: Comparison is made to carotid Doppler 11/24/2014 FINDINGS: The carotid arteries are patent bilaterally and demonstrate antegrade flow. There is moderate atherosclerotic plaque on the right and moderate atherosclerotic plaque on the left. Normal doppler arterial waveforms are seen throughout. Velocity measurements are listed below. Common carotid peak systolic velocity (cm/sec): RIGHT: 74 LEFT: 76 ICA peak systolic velocity (cm/sec): RIGHT: 88 LEFT: 74 ICA/CC peak systolic ratio: RIGHT: 1.2 LEFT: 1.0 Antegrade flow was shown in the vertebral arteries. The external carotid arteries are patent. Probable lymph nodes in the lateral neck measure up to 0.8 cm in short axis. IMPRESSION: 1. There is no sonographic evidence of hemodynamically significant stenosis in the right or left carotid arterial system. Atherosclerosis is seen, stable to minimally increased from prior exam. 2. Antegrade flow is shown in the vertebral arteries. Society of Radiologists in Ultrasound consensus guidelines: Normal: ICA PSV is <125 cm/sec and no plaque or intimal thickening is visible sonographically additional criteria include ICA/CCA PSV ratio <2.0 and ICA EDV <40 cm/sec <50% ICA stenosis: ICA PSV is <125 cm/sec and plaque or intimal thickening is visible sonographica lly additional criteria include ICA/CCA PSV ratio <2.0 and ICA EDV <40 cm/sec 50-69% ICA stenosis: ICA PSV is 125-230 cm/sec and plaque is visible sonographically additional criteria include ICA/CCA PSV ratio of 2.0-4.0 and ICA EDV of 40-100 cm/sec ?70% ICA stenosis but less than near occlusion: ICA PSV is >230 cm/sec and visible plaque and luminal narrowing are seen at berger-scale and color Doppler ultrasound (the higher the Doppler parameters lie above the threshold of 230 cm/sec, the greater the likelihood of severe disease) additional criteria include ICA/CCA PSV ratio >4 and ICA EDV >100 cm/sec ACT 112: Negative or not required by law. Electronically signed by: Leo Hannah M.D. 08/18/2023 10:59 AM Pending Results Patient Have Any Pending Studies at Discharge: No Discharge Instructions Given to Patient (Per Discharging Provider) You were admitted with a seizure and vomiting likely as an after effect of the seizure.Your EEG showed ongoing seizure activity in your electrical brainwaves and you were started on a medication called Scott to help prevent seizures. If you or your caregiver notices any recurrent shaking of an arm or a leg, staring spells, confusion, or any other abnormal episodes, please call 911 and return to the hospital. You should follow up with the Neurologist within 2 weeks-this appointment will be arranged for you. Total Time Total Time Spent Total Time Spent (In Minutes): 60 min Coding Level of Care Code 08312 INP/OBS DISCH >30 MIN Diagnoses Seizure-like activity R56.9 Nausea and vomiting R11.2 Aortic stenosis I35.0 CLL (chronic lymphocytic leukemia) C91.10 CVA (cerebrovascular accident due to intracerebral hemorrhage) I61.9 Hypertension I10 Hyperlipidemia E78.5 Anxiety F41.9
[2023-08-18] MEDS: levETIRAcetam 500 MG TAB PO SCH (16:19)
== END 2023-08-18 17:00 | disposition home or self-care (01) | DRG 101 ==
LOC: ED 20:09 → EDINP 08-17 00:46 → INTOOBSV 08-17 00:46 → SUATTDRO 08-17 00:46 → EDINP 08-17 15:29 → 2S 08-17 16:22

== ENCOUNTER 2024-11-15 10:16 | Inpatient (IN) ==
--- NOTE | 2024-11-15 11:36 | XRay Report ---
SINGLE VIEW PELVIS; 2 VIEWS RIGHT HIP CLINICAL HISTORY: Fall. Right hip pain. FINDINGS: An AP view of the pelvis and AP and crosstable lateral views of the right hip are correlate d with pelvic CT dated 09/14/2024. The skeletal structures are osteopenic. There is an impacted nondisp laced subcapital fracture of the right proximal femur. Overlying soft tissue edema is observed. No ad ditional acute fracture is seen involving the left hip or the bony pelvis. Moderate arthritic change and joint space narrowing is seen in the hips. Degenerative sclerosis is noted in the sacroiliac join ts and pubic symphysis. Enthesophytes arise from the anterior superior iliac spines. Postsurgical and spondylotic change is noted in the lower lumbar spine. There is no bowel obstruction. Tiny phlebolit hs are seen in the pelvis. IMPRESSION: Impacted subcapital fracture of the right proximal femur. Electronically signed by: Renny Hare M.D. 11/15/2024 11:35 AM
--- NOTE | 2024-11-15 12:35 | Emergency Department Note ---
ED Visit Note I was consulted by the Advanced Practice Provider. I personally made/approved the management plan and take responsibility for the patient management. This includes the aspects of: -History/Physical -MDM
--- NOTE | 2024-11-15 12:53 | CT Scan Report ---
CT SCAN OF THE CERVICAL SPINE CLINICAL HISTORY: Fall. COMPARISON STUDY: Cervical spine radiographs October 17, 2015. Neck CT September 14, 2024. TECHNIQUE: CT scan of the cervical spine is performed from the skull base to the upper thoracic spine . Images are reviewed in the axial, sagittal, and coronal planes. IV contrast was not administered fo r this examination. A dose lowering technique was utilized adhering to the principles of ALARA. CT DOSE: 1231.48 mGy.cm FINDINGS: Numerous mildly enlarged bilateral cervical lymph nodes are similar to neck CT of September 14. An index left level 5 lymph node on image 311 measures 1.5 x 1.1 cm. There are no cervical spine fractures. Alignment of the cervical spine is anatomic. Vertebral body heights are maintained. There are no osseous lesions. Posterior disc osteophyte complex at the C5-C6 levels unchanged. There is mod erate facet arthrosis and degenerative disc disease within the cervical spine. The central canal and neural foramen are suboptimally assessed given CT technique. IMPRESSION: 1. No acute cervical spine fracture or subluxation. 2. No change in numerous mildly enlarged bilateral cervical lymph nodes since CT of September 14, 2024 consi stent with known history of CLL. ACT 112: Negative or not required by law. Electronically signed by: Naveed Berry M.D. 11/15/2024 12:52 PM
--- NOTE | 2024-11-15 13:02 | CT Scan Report ---
CT SCAN OF THE BRAIN WITHOUT IV CONTRAST CLINICAL HISTORY: Fall. COMPARISON STUDY: CT of the brain dated 08/17/2023 TECHNIQUE: Unenhanced axial CT scan of the brain is performed from the vertex to the skull base. Imag es are reviewed in the axial, sagittal, coronal planes. A dose lowering technique was utilized adheri ng to the principles of ALARA. Examination is degraded by streak artifact from bilateral cochlear imp lants. FINDINGS: Brain parenchyma: Again seen is asymmetric left hemispheric cortical atrophy, with a focus of left fr ontal encephalomalacia. There is asymmetric white matter hypodensities as well as periventricular nita cifications seen on the left and these findings are unchanged from prior studies. There is no hemorrh age, mass effect, or evidence of acute territorial ischemia by CT criteria. Ponce-white matter differe ntiation is preserved. No extra-axial fluid collection is seen. Ventricles, sulci, cisterns: Prominent secondary to involutional change. Intracranial vasculature: There is atherosclerotic calcification of the cavernous carotid arteries. Calvarium: There is post surgical change in left frontal craniotomy. No destructive calvarial lesion is seen. Sinuses and mastoids: The paranasal sinuses are clear. There is evidence of bilateral mastoid surgery with cochlear implants in place. The mastoid air cells appear well-pneumatized. Orbits: The bony orbits are grossly intact. There are bilateral ocular lens implants. Soft tissues: A 5 mm metallic foreign body seen in the left frontal scalp. An 8 mm metallic foreign b laury overlies the left temporal convexity on image #33. IMPRESSION: 1. There is no hemorrhage, mass effect, or evidence of acute territorial ischemia by CT criteria. 2. Chronic and postsurgical changes as above. There has been no significant change from 08/17/2023. 3. Metallic foreign bodies are noted within the frontal scalp and overlying the left temporal convexi ty. ACT 112: Negative or not required by law. Electronically signed by: Renny Hare M.D. 11/15/2024 1:01 PM
--- NOTE | 2024-11-15 13:10 | History & Physical Report ---
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 Patient got out of bed quickly without assistance. His typically assists him out of bed for transfers as he does not walk/weight-bear at home. As he got out of bed he fell to the floor. Since the fall he complained constantly to his of pain in the right groin/right hip region. #right hip fracture - [place] Bakari Conn [place] [facility] [place] consulted -he plans ORIF tomorrow on 11/16 -NPO after MN tonight -in light of prior echo showing LVOT obstruction & will repeat echo to reassess LV function & his -patient appears volume contracted - will hydrate with isotonic fluids -pain control - tylenol 500mg TID scheduled; norco prn; morphine prn -bedrest -25-OH vit D level was normal today #aortic stenosis & LVOT obstruction - -2019 echo showed both issues -will repeat an echo today in preparation for surgery tomorrow #known h/o CLL, not on treatment - -CBC findings today are c/w CLL -he has had mild-moderately low platelets since 2023 -repeat a CBC in am for stability -checked B12 level - wnl #h/o hemorrhagic stroke on left with resulting right-sided hemiparesis - -CT head today is stable with no new ICH or area of stroke -2 metallic foreign bodies were seen in the left scalp on CT today; etiology? #BPH - -due to bedrest status place ward -he is not on alpha sea at baseline #seizure disorder - -dx 2023 -continue lamictal 100mg BID -no recent obvious seizure activity #HTN - -cont amlodipine -hold ARB due to pending surgery and risk of maria de jesus-operative ALICIA #GERD - -cont PPI #hyperlipidemia - -LFTs & CPK all wnl -cont statin #T2DM - -check Hba1c -novolog sliding scale -BSGs ac/hs #DVT proph - -asa 81mg BID post-op? #FEN - -diet until MN tonight, then NPO after MN -NS at 80ml/hr -repeat BMP am #Metallic foreign bodies on scalp - seen on CT head - -etiology? -will need to get more information from pt's and inspect the scalp more thoroughly will ultimately need PT/OT post-ORIF care d/w Dr Conn via [place] correspondence pt's updated during the admission process History of Present Illness Chief Complaint: fall, right hip/right groin pain Primary Care Provider: Swapna Swan MD 84yo male with history of left-sided hemorrhagic stroke with resulting right- sided hemiparesis and aphasia in 2020, seizure disorder, HTN, T2DM, aortic stenosis, CLL, BPH, and hearing loss with cochlear implants presents after suffering a fall this past Thursday evening about 930pm. Patient was in bed and heard fireworks outside. He got startled by them, and got out of bed quickly without assistance. His typically assists him out of bed for transfers as he does not walk/weight-bear at home - he uses a wheelchair at his house. As he got out of bed he fell to the floor. EMS was summoned to his home to help him back to bed as his could not help him off the floor. Since the fall he complained constantly to his of pain in the right groin/right hip region. Any movement, rolling in bed, etc was causing pain. was providing tylenol for pain. No recent illnesses. He has been eating/drinking but today has had nothing by mouth. During my encounter with him he kept pointing to both ears as if the ears were bothering him. He said "all the time" multiple times but myself nor his could decipher what he was trying to communicate to us. His mentioned that the cochlear implants sometimes bother him. Patient finally came to the ER today because of persistent right groin pain. Allergies Allergy/AdvReac Type Severity Reaction Status Date / Time No Known Allergies Allergy Verified 11/15/24 13:53 Home Medications Medication Instructions Recorded Confirmed Type atorvastatin 20 mg tablet 20 mg PO QAM 03/11/21 11/15/24 History losartan 50 mg tablet 50 mg PO DAILY 05/23/22 11/15/24 History amlodipine 2.5 mg tablet 2.5 mg PO QAM 12/25/22 11/15/24 History omeprazole 20 mg capsule,delayed 20 mg PO DAILY 12/25/22 11/15/24 History release paroxetine HCl 20 mg tablet 20 mg PO HS 08/16/23 11/15/24 History lamotrigine 100 mg tablet 100 mg PO BID #180 tabs 11/26/23 11/15/24 Rx Past Med/Surg History Problem List (Updated 11/15/24 @ 23:24 by Robert Meza MD) Thrombocytopenia Hip fracture, right Displaced fracture of right femoral neck Hemiplegia and hemiparesis following cerebral infarction affecting right dominant side Anxiety Right sided weakness Elevated LFTs Lymphadenopathy Acute cholecystitis Sepsis Aortic stenosis Abdominal pain (Acute) Leukocytosis (Acute) BPH with obstruction/lower urinary tract symptoms Abnormal CT scan, gallbladder (Acute) Enterocolitis History of stroke Paralysis of right lower extremity CLL (chronic lymphocytic leukemia) (Acute) Hypertension Hyperlipidemia Diabetes mellitus type 2 in nonobese Hearing impaired Medical History (Updated 11/15/24 @ 23:24 by Robert Meza MD) 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 Seizure Bladder wall thickening Enlarged prostate Abnormal CT of the abdomen Leukocytosis Fecal retention Aspiration into airway Gout Surgical History (Updated 11/15/24 @ 23:14 by Robert Meza MD) H/O craniotomy 2020 - for hemorrhagic stroke Family History Other Family history non-contributory Social History Smoking Status: Former smoker Tobacco Type: Cigarettes Second Hand Exposure: No; Do You Dip or Chew Tobacco: No; Hx Alcohol Use: No Hx Substance Use: No Preferred Language: Urugu[place] Communication Ability: Aphasic Communication Ability Comment: pt has expressive aphasia Negative Restorer Required: No Beliefs That Will Affect Care: None Current Living Situation: Spouse Current Living Situation Comment: home with Feels Safe at Home: Yes Safety Concerns: Feels Safe At This Time Assistive Devices: Hearing Aid - Left and Wheelchair Assistive Devices Comment: cochlear impant left ear with batteries and horseback riding instructor with pt on admission. Review of Systems Review of Systems: gen - no recent fevers/chills, had been eating well eyes - no visual changes HENT - ?sore throat vs dry mouth; b/l ear pain?; chronic hearing loss with cochlear implaints CV - no chest pain pulm - no dyspnea or cough GI - no vomiting/diarrhea - urinary frequency and poor urinary stream? musculo - right hip/groin pain x 2 days; no other joints with pain endo - no diabetes skin - no rash neuro - no headache, chronic right-sided weakness, aphasia Physical Exam Physical Exam: gen - lying in bed, mixed expressive/receptive aphasia, looks dehydrated, ?confusion present? eyes - PERRL HENT - b/l TMs clear; no cerumen impaction b/l; nose clear; mouth - MM very dry, no lesions; cochlear implant device left ear face - right-sided facial droop neck - no goiter heart - 2-3/6 holosystolic murmur, s1, s2 can be heard, RRR lungs - CTA b/l, no rales abd - soft NT ND BS+ vascular - pulses b/l feet 2+ musculo - mild right proximal thigh swelling, right leg is externally rotated and mildly shorter than the left leg neuro - right-sided hemiplegia (right arm and right leg), right facial droop, mixed aphasia skin - no rash psych - cannot assess orientation due to aphasia Results & Data Results & Data Vital Signs (Past 12 Hours) Vital Signs Temp Pulse Pulse Resp BP BP Pulse Ox 11/15/24 12:08 64 18 168/74 H 93 11/15/24 10:48 63 11/15/24 10:20 36.4 C L 65 16 153/70 H 93 O2 Del Method 11/15/24 12:08 Room Air 11/15/24 10:48 11/15/24 10:20 Room Air Laboratory Results Laboratory Results - last 24 hr 11/15/24 13:21 WBC 22.89 H RBC 4.63 L Hgb 14.1 Hct 41.2 L MCV 89.0 MCH 30.5 MCHC 34.2 RDW Std Deviation 42.5 RDW Coeff of Kenny 13.1 Plt Count 82 L MPV 10.3 Sodium 138 Potassium 4.9 Chloride 106 Carbon Dioxide 27 Anion Gap 5 BUN 19 Creatinine 1.09 Est Cr Clr Drug Dosing 48.0 eGFR 67.76 BUN/Creatinine Ratio 17.4 Glucose 128 H Calcium 9.1 Magnesium 1.9 Total Bilirubin 1.6 H AST 16 ALT 4 L Alkaline Phosphatase 65 Total Protein 6.2 Albumin 3.8 Globulin 2.4 L Albumin/Globulin Ratio 1.6 Vitamin B12 350 25-OH Vitamin D Total 38.0 TSH 1.735 Diagnostic Findings Hip/Pelvis X-Ray 11/15/24 10:44 SINGLE VIEW PELVIS; 2 VIEWS RIGHT HIP CLINICAL HISTORY: Fall. Right hip pain. FINDINGS: An AP view of the pelvis and AP and crosstable lateral views of the right hip are correlated with pelvic CT dated 09/14/2024. The skeletal structures are osteopenic. There is an impacted nondisplaced subcapital fracture of the right proximal femur. Overlying soft tissue edema is observed. No additional acute fracture is seen involving the left hip or the bony pelvis. Moderate arthritic change and joint space narrowing is seen in the hips. Degenerative sclerosis is noted in the sacroiliac joints and pubic symphysis. Enthesophytes arise from the anterior superior iliac spines. Postsurgical and spondylotic change is noted in the lower lumbar spine. There is no bowel obstruction. Tiny phleboliths are seen in the pelvis. IMPRESSION: Impacted subcapital fracture of the right proximal femur. Electronically signed by: Renny Hare M.D. 11/15/2024 11:[address] 11/15/24 11:43 CT SCAN OF THE CERVICAL SPINE CLINICAL HISTORY: Fall. COMPARISON STUDY: Cervical spine radiographs October 17, 2015. Neck CT September 14, 2024. TECHNIQUE: CT scan of the cervical spine is performed from the skull base to the upper thoracic spine. Images are reviewed in the axial, sagittal, and coronal planes. IV contrast was not administered for this examination. A dose lowering technique was utilized adhering to the principles of ALARA. CT DOSE: 1231.48 mGy.cm FINDINGS: Numerous mildly enlarged bilateral cervical lymph nodes are similar to neck CT of September 14, 2024. An index left level 5 lymph node on image 311 measures 1.5 x 1.1 cm. There are no cervical spine fractures. Alignment of the cervical spine is anatomic. Vertebral body heights are maintained. There are no osseous lesions. Posterior disc osteophyte complex at the C5-C6 levels unchanged. There is moderate facet arthrosis and degenerative disc disease within the cervical spine. The central canal and neural foramen are suboptimally assessed given CT technique. IMPRESSION: 1. No acute cervical spine fracture or subluxation. 2. No change in numerous mildly enlarged bilateral cervical lymph nodes since CT of September 14, 2024 consistent with known history of CLL. ACT 112: Negative or not required by law. Electronically signed by: Naveed Berry M.D. 11/15/2024 12:[address] 11/15/24 11:43 CT SCAN OF THE BRAIN WITHOUT IV CONTRAST CLINICAL HISTORY: Fall. COMPARISON STUDY: CT of the brain dated 08/17/2023 TECHNIQUE: Unenhanced axial CT scan of the brain is performed from the vertex to the skull base. Images are reviewed in the axial, sagittal, coronal planes. A dose lowering technique was utilized adhering to the principles of ALARA. Examination is degraded by streak artifact from bilateral cochlear implants. FINDINGS: Brain parenchyma: Again seen is asymmetric left hemispheric cortical atrophy, with a focus of left frontal encephalomalacia. There is asymmetric white matter hypodensities as well as periventricular calcifications seen on the left and these findings are unchanged from prior studies. There is no hemorrhage, mass effect, or evidence of acute territorial ischemia by CT criteria. Ponce-white matter differentiation is preserved. No extra-axial fluid collection is seen. Ventricles, sulci, cisterns: Prominent secondary to involutional change. Intracranial vasculature: There is atherosclerotic calcification of the cavernous carotid arteries. Calvarium: There is post surgical change in left frontal craniotomy. No destructive calvarial lesion is seen. Sinuses and mastoids: The paranasal sinuses are clear. There is evidence of bilateral mastoid surgery with cochlear implants in place. The mastoid air cells appear well-pneumatized. Orbits: The bony orbits are grossly intact. There are bilateral ocular lens implants. Soft tissues: A 5 mm metallic foreign body seen in the left frontal scalp. An 8 mm metallic foreign body overlies the left temporal convexity on image #33. IMPRESSION: 1. There is no hemorrhage, mass effect, or evidence of acute territorial ischemia by CT criteria. 2. Chronic and postsurgical changes as above. There has been no significant change from 08/17/2023. 3. Metallic foreign bodies are noted within the frontal scalp and overlying the left temporal convexity. ACT 112: Negative or not required by law. Electronically signed by: Renny Hare M.D. 11/15/2024 1:01 PM EKG - my reading - NSR, ST depression V5/V6 and I/AVL - similar to prior EKG in 2023; no other new areas of ST segment change Code Status & VTE Plan Code Status DNR/DNI PG Care Time/CCT Total # of Minutes Spent Total Time Spent with Patient: Total time spent is greater than 50% in coordination of care (as documented) at patient's floor/unit and/or counseling patient: Coding Level of Care Code 24444 INT INP/OBS CARE 375MIN Diagnoses Hip fracture, right S72.001A Hemiplegia and hemiparesis following cerebral infarction affecting right dominant side I69.351 Aortic stenosis I35.0 BPH with obstruction/lower urinary tract symptoms N40.1; N13.8 CLL (chronic lymphocytic leukemia) C91.10 Hypertension I10 Hyperlipidemia E78.5 Diabetes mellitus type 2 in nonobese E11.9 Hearing impaired H91.[address] Z96.21 Thrombocytopenia D69.6
[2024-11-15 13:50] LABS: Hematocrit (blood only) 41.2 % (42.0-52.0); Hemoglobin 14.1 g/dl (14.0-18.0); Mean Corpuscular Hemoglobin 30.5 pg (25.0-34.0); Mean Corpuscular Volume 89.0 fL (80.0-100.0); Platelet Count 82 K/uL (130-400); RDW Standard Deviation 42.5 fL (36.4-46.3); Red Blood Count 4.63 M/uL (4.70-6.10)
[2024-11-15 13:52] LABS: Anion Gap 5.0 (3-11); Bilirubin,Total 1.6 mg/dl (0.2-1.0); Calcium 9.1 mg/dl (8.6-10.3); Carbon Dioxide 27.0 mmol/L (21-32); Chloride 106.0 mmol/L (98-107); Magnesium 1.9 mg/dl (1.7-2.4); Potassium 4.9 mmol/L (3.5-5.1); Sodium 138.0 mmol/L (136-145)
[2024-11-15 13:58] LABS: Alanine Aminotransferase 4.0 U/L (7-52); Albumin Globulin Ratio 1.6 (0.9-2); Alkaline Phosphatase 65.0 U/L (34-104); Blood Urea Nitrogen 19.0 mg/dl (6-23); Creatinine Clr Calc Pharmacy 48.0 ml/min; Globulin 2.4 gm/dl (2.5-4.0); Glucose 128.0 mg/dl (70-99(Fasting)); Total Protein 6.2 gm/dl (6.0-8.3)
[2024-11-15 14:09] LABS: Thyroid Stimulating Hormone 1.735 uIu/ml (0.300-4.500)
--- NOTE | 2024-11-15 14:10 | Orthopedic Consultation ---
Date of Service November 15, 2024 Assessment & Plan (1) Displaced fracture of right femoral neck: * Case/imaging reviewed and discussed with Dr Conn * Recommend OR for right hip hemiarthroplasty * Plan for 11/16 pending medical clearance * Bedrest/NWB pre-op * NPO midnight for possible OR tomorrow * Disposition: TBD * Daily treatment: Physical Therapy/ Occupational Therapy per protocol * Pain control * Please hold DVT/anticoagulation overnight * Remainder care per primary team * Will continue to follow History of Present Illness Reason for Consultation: .R femur fracture Requesting Physician: . .Patient is a 84 y/o male with right hip pain. PMH including history of stroke with hemiparalysis effecting right side, DM-2, HTN, hyperlipidemia, CLL, aortic stenosis. Presents to ED with right hip pain after a fall. Significant pain and difficulty ambulating post injury. ED workup including XR right hip demonstrating femoral neck fracture. Admitted to hospitalist team, orthopedics consulted for management recommendations. At time of exam patient lying comfortably in bed, no acute distress. Reports mild right hip pain at rest that increases with attempted movements of the right leg. Denies tingling or numbness RLE. Has been progressing with PT, limited use of right leg for balance, but is unable to use right arm. Allergies Allergy/AdvReac Type Severity Reaction Status Date / Time No Known Allergies Allergy Verified 11/15/24 13:53 Home Medications Medication Instructions Recorded Confirmed Type atorvastatin 20 mg tablet 20 mg PO QAM 03/11/21 11/15/24 History losartan 50 mg tablet 50 mg PO DAILY 05/23/22 11/15/24 History amlodipine 2.5 mg tablet 2.5 mg PO QAM 12/25/22 11/15/24 History omeprazole 20 mg capsule,delayed 20 mg PO DAILY 12/25/22 11/15/24 History release paroxetine HCl 20 mg tablet 20 mg PO HS 08/16/23 11/15/24 History lamotrigine 100 mg tablet 100 mg PO BID #180 tabs 11/26/23 11/15/24 Rx Past Med/Surg History Problem List (Updated 11/15/24 @ 14:33 by Robert Meza MD) Hip fracture, right Displaced fracture of right femoral neck Hemiplegia and hemiparesis following cerebral infarction affecting right dominant side Anxiety Right sided weakness Elevated LFTs Lymphadenopathy Acute cholecystitis Sepsis Aortic stenosis Abdominal pain (Acute) Leukocytosis (Acute) BPH with obstruction/lower urinary tract symptoms Abnormal CT scan, gallbladder (Acute) Enterocolitis History of stroke Paralysis of right lower extremity CLL (chronic lymphocytic leukemia) (Acute) CVA (cerebrovascular accident due to intracerebral hemorrhage) Hypertension Hyperlipidemia Diabetes mellitus type 2 in nonobese Hearing impaired Medical History (Updated 11/15/24 @ 14:33 by Robert Meza MD) Cochlear implant in place Seizure Bladder wall thickening Enlarged prostate Abnormal CT of the abdomen Leukocytosis Fecal retention Aspiration into airway Gout Family History Other Family history non-contributory Social History Smoking Status: Former smoker Tobacco Type: Cigarettes Second Hand Exposure: No; Do You Dip or Chew Tobacco: No; Hx Alcohol Use: No Hx Substance Use: No Preferred Language: Micronesian Communication Ability: Effective Communication Ability Comment: APHASIC Tank Officer Required: No Beliefs That Will Affect Care: None Current Living Situation: Spouse Feels Safe at Home: Yes Assistive Devices: Hospital Bed, Walker and Wheelchair Review of Systems All systems reviewed & are unremarkable except as noted in HPI & below. Physical Exam . * General: Alert and oriented, no acute distress * Constitutional: well-developed, well-nourished. * Respiratory: Normal respiratory effort, no distress * Gastrointestinal: No tenderness to palpation, no rigidity or guarding. * Skin: No rash or lesion. * Neurologic: Grossly normal * Musculoskeletal: Right lower extremity shortened and externally rotated. Otherwise no obvious deformity or overlying skin changes to RLE. TTP proximal thigh/anterior hip region. Otherwise no specific tenderness of thigh, knee, lower leg, foot/ankle. Pain with log roll, otherwise ROM hip not assessed. AROM foot/ankle intact. Sensation intact plantar/dorsal foot. Brisk capillary refill. Results & Data Results & Data Laboratory Results . Diagnostic Findings . PG Care Time/CCT Total # of Minutes Spent Total Time Spent with Patient: Total time spent is greater than 50% in coordination of care (as documented) at patient's floor/unit and/or counseling patient: [place] [address] IN/OBS CONSULT LVL 4,60M Patient Type New Medical Decision Making High Complexity Diagnoses Displaced fracture of right femoral neck S72.001A
[2024-11-15 14:19] LABS: White Blood Count 22.89 K/ul (4.8-10.8)
[2024-11-15] MEDS: MoRPHine SULFATE 2 MG/ML CARP IV STA (14:35)
[2024-11-15 14:49] LABS: Immature Granulocytes # (auto) 0.07 K/uL (0.01-0.20); Immature Granulocytes % (auto) 0.3 %; Smudge Cells Present
[2024-11-15] MEDS: SODIUM CHLORIDE 0.9% 1,000 ML IV SCH (14:58)
[2024-11-15] MEDS: ACETAMINOPHEN 500 MG TAB PO STA (14:58)
[2024-11-15 16:40] LABS: Hemoglobin A1C 6.6 % (4.5-5.6)
--- NOTE | 2024-11-15 16:41 | XCELERA ---
[id number]
[2024-11-15] MEDS ORDERED: NALOXONE HCL 0.4 MG/1 ML VIAL/CARP IV PRN (17:45)
[2024-11-15] MEDS ORDERED: MAGNESIUM HYDROXIDE SUSP 30 ML UDC PO PRN (17:45)
[2024-11-15] MEDS ORDERED: MELATONIN 3 MG TAB PO PRN (17:45)
[2024-11-15] MEDS: INSULIN ASPART PER UNIT CHARGE SC SCH (17:59)
[2024-11-15] MEDS ORDERED: DEXTROSE 50% 50 ML SYRINGE IV PRN (18:00)
[2024-11-15] MEDS ORDERED: GLUCOSE 40% GEL 15 GM TUBE PO PRN (18:00)
[2024-11-15] MEDS ORDERED: GLUCAGON FOR INJ 1 MG VIAL SQ PRN (18:00)
[2024-11-15] MEDS ORDERED: CARBOHYDRATES FOR HYPOGLYCEMIA PO PRN (18:00)
[2024-11-15] MEDS ORDERED: GLUCOSE 10 TAB/TUBE PO PRN (18:00)
--- NOTE | 2024-11-15 18:13 | Electrocardiogram Report ---
Test Reason : Blood Pressure : */* mmHG Vent. Rate : 59 BPM Atrial Rate : 59 BPM P-R Int : 156 ms QRS Dur : 90 ms QT Int : 432 ms P-R-T Axes : 65 16 112 degrees QTcB Int : 427 ms Sinus bradycardia Abnormal ECG When compared with ECG of 16-Aug-2023 20:18, Premature supraventricular complexes are no longer Present Non-specific change in ST segment in Inferior leads T wave inversion no longer evident in Inferior leads Nonspecific T wave abnormality has replaced inverted T waves in Lateral leads Confirmed by Conor Nassar ([id number]) on 11/15/2024 6:13:12 PM Referred By: REFERRED SELF Confirmed By: Conor Nassar
[2024-11-15] MEDS: HYDROCODONE/ACETAMOPHEN 5/325MG TAB PO PRN (18:23)
[2024-11-15] MEDS: ACETAMINOPHEN 500 MG TAB PO SCH (20:56)
[2024-11-15] MEDS: lamoTRIgine 100 MG TAB PO SCH (20:56)
[2024-11-15 21:06] LABS: INR 1.0 (0.9-1.1); Prothrombin Time 11.0 Seconds (9.0-12.0)
[2024-11-16] MEDS: MoRPHine SULFATE 2 MG/ML CARP IV PRN (03:32)
[2024-11-16] MEDS: INSULIN ASPART PER UNIT CHARGE SC SCH (06:23)
[2024-11-16 07:53] LABS: Hematocrit (blood only) 38.4 % (42.0-52.0); Hemoglobin 13.6 g/dl (14.0-18.0); Mean Corpuscular Hemoglobin 31.6 pg (25.0-34.0); Mean Corpuscular Volume 89.3 fL (80.0-100.0); Platelet Count 78 K/uL (130-400); RDW Standard Deviation 42.6 fL (36.4-46.3); Red Blood Count 4.30 M/uL (4.70-6.10); White Blood Count 19.94 K/ul (4.8-10.8)
--- NOTE | 2024-11-16 07:57 | Hospitalist Progress Note ---
Date of Service November 16, 2024 Assessment & Plan (1) Hip fracture, right: (2) Hemiplegia and hemiparesis following cerebral infarction affecting right dominant side: (3) Aortic stenosis: (4) BPH with obstruction/lower urinary tract symptoms: (5) CLL (chronic lymphocytic leukemia): (6) Hypertension: (7) Diabetes mellitus type 2 in nonobese: (8) Cochlear implant in place: (9) Thrombocytopenia: Plan 84yo male with history of left-sided hemorrhagic stroke with resulting right-si ded hemiparesis and aphasia in 2020, seizure disorder, HTN, T2DM, aortic stenosis, CLL, BPH, and hearing loss with cochlear implants presents after suffering a fall this past Thursday evening about 930pm. Patient got out of bed quickly without assistance. His typically assists him out of bed for transfers as he does not walk/weight-bear at home. As he got out of bed he fell to the floor. Since the fall he complained constantly to his of pain in the right groin/right hip region. 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 -Dr Bakari Conn from [facility] [place] Orthopedics was consulted ORIF 11/16 Repeat echo continues to show aortic stenosis but no mention of LVOT -pain control - tylenol 500mg TID scheduled; norco prn; morphine prn -bedrest -25-OH vit D level was normal today #aortic stenosis repeat echo with aortic stenosis with valve gradient of 48 patient is medically optimized #known h/o CLL, not on treatment - -CBC findings today are c/w CLL, chronic thrombocytopenia may make asa post procedure not the best choice for VTE prevention -checked B12 level - wnl #h/o hemorrhagic stroke on left with resulting right-sided hemiparesis - -CT head today is stable with no new ICH or area of stroke -2 metallic foreign bodies were seen in the left scalp on CT today; etiology? #BPH - -due to bedrest status place ward -he is not on alpha sea at baseline #seizure disorder - -dx 2023 -continue lamictal 100mg BID -no recent obvious seizure activity #HTN - -cont amlodipine -hold ARB due to pending surgery and risk of maria de jesus-operative ALICIA #GERD - -cont PPI #hyperlipidemia - -LFTs & CPK all wnl -cont statin #T2DM - -check Hba1c -novolog sliding scale -BSGs ac/hs #DVT proph - -asa 81mg BID post-op will ultimately need PT/OT post-ORIF Incidental noted metallic object on CT scan is from bur hole decompression of intracranial hemorrhage Admission and Anticipated Discharge Date Admission Date: November 15, 2024 Subjective pt and in room are pleasantly confused spoke to daughter on phone updated Dr Conn for surgery pt stable no complaints Physical Exam Physical Exam: cardiac is regular with systolic murmur lungs are clear Results & Data Results & Data Vital Signs (Past 12 Hours) Vital Signs Temp Pulse Pulse Pulse Resp BP Pulse Ox 11/16/24 07:16 97.9 F 70 18 159/71 H 92 11/16/24 06:45 70 11/16/24 04:00 97.7 F 65 18 145/75 H 92 11/15/24 22:43 97.7 F 65 18 122/66 92 11/15/24 21:45 65 11/15/24 21:10 O2 Del Method 11/16/24 07:16 Room Air 11/16/24 06:45 11/16/24 04:00 Room Air 11/15/24 22:43 Room Air 11/15/24 21:45 11/15/24 21:10 Room Air Laboratory Results Reviewed CBC reviewed chemistry PG Care Time/CCT Total # of Minutes Spent Total Time Spent with Patient: Total time spent is greater than 50% in coordination of care (as documented) at patient's floor/unit and/or counseling patient: Coding Level of Care Code 26558 SUB INP/OBS CARE 3/50MIN Diagnoses Hip fracture, right S72.001A Hemiplegia and hemiparesis following cerebral infarction affecting right dominant side I69.351 Aortic stenosis I35.0 BPH with obstruction/lower urinary tract symptoms N40.1; N13.8 CLL (chronic lymphocytic leukemia) C91.10 Hypertension I10 Diabetes mellitus type 2 in nonobese E11.[address] Z96.21 Thrombocytopenia D69.6
[2024-11-16] MEDS: ATORVASTATIN 20 MG TAB PO SCH (08:00)
[2024-11-16 08:04] LABS: Anion Gap 4.0 (3-11); Blood Urea Nitrogen 18.0 mg/dl (6-23); Calcium 8.6 mg/dl (8.6-10.3); Carbon Dioxide 26.0 mmol/L (21-32); Chloride 107.0 mmol/L (98-107); Creatinine Clr Calc Pharmacy 52.1 ml/min; Glucose 129.0 mg/dl (70-99(Fasting)); Potassium 4.6 mmol/L (3.5-5.1); Sodium 137.0 mmol/L (136-145)
--- NOTE | 2024-11-16 09:32 | Anesthesiology Consultation ---
Date of Service November 16, 2024 Assessment & Plan Chart Review Chart Review: Acceptable Risk for Surgery and Patient NOT seen in Pre Admission Testing History Surgery Operation Date: 11/16/24 13:00 Proposed Procedures p Right Cemented Bipolar Hip - Bakari Conn MD Height/Weight Height: 5 ft 9 in Weight: 69.9 kg Allergies Allergy/AdvReac Type Severity Reaction Status Date / Time No Known Allergies Allergy Verified 11/15/24 13:53 Medications Home Medications Medication Instructions Recorded Confirmed Last Taken atorvastatin 20 mg tablet 20 mg PO QAM 03/11/21 11/15/24 11/15/24 losartan 50 mg tablet 50 mg PO DAILY 05/23/22 11/15/24 11/15/24 amlodipine 2.5 mg tablet 2.5 mg PO QAM 12/25/22 11/15/24 11/15/24 omeprazole 20 mg capsule,delayed 20 mg PO DAILY 12/25/22 11/15/24 11/15/24 release paroxetine HCl 20 mg tablet 20 mg PO HS 08/16/23 11/15/24 11/14/24 lamotrigine 100 mg tablet 100 mg PO BID #180 tabs 11/26/23 11/15/24 11/15/24 Active Medications Generic Name Dose Route Start Last Admin Trade Name Freq PRN Reason Stop Dose Admin Acetaminophen 500 mg 11/15/24 21:00 11/16/24 08:00 Acetaminophen 500 Mg Tab PO 12/15/24 20:59 500 mg TID LOLA Administration Hydrocodone Bitart/Acetaminophen 1 tab 11/15/24 17:45 11/15/24 18:23 Hydrocodone/Acetamophen 5/325mg Tab PO 11/29/24 17:44 1 tab Q4H PRN Administration MODERATE Pain (4,5,6) & Pre PT Amlodipine Besylate 2.5 mg 11/16/24 09:00 11/16/24 08:00 Amlodipine Besylate 5 Mg Tab PO 12/16/24 08:59 2.5 mg QAM LOLA Administration Atorvastatin Calcium 20 mg 11/16/24 09:00 11/16/24 08:00 Atorvastatin 20 Mg Tab PO 12/16/24 08:59 20 mg QAM LOLA Administration Sodium Chloride 1,000 mls @ 80 mls/hr 11/15/24 14:00 11/16/24 03:29 Nss IV 11/18/24 13:59 80 mls/hr .[id number] LOLA Administration Insulin Aspart 0 units 11/16/24 06:00 11/16/24 06:23 Insulin Aspart Per Unit Charge SC 12/16/24 05:59 Not Given Q6 LOLA Lamotrigine 100 mg 11/15/24 21:00 11/16/24 08:00 Lamotrigine 100 Mg Tab PO 12/15/24 20:59 100 mg BID LOLA Administration Protocol Morphine Sulfate 2 mg 11/15/24 17:45 11/16/24 03:32 Morphine Sulfate 2 Mg/Ml Carp IV 11/29/24 17:44 2 mg Q3H PRN Administration Pain (6,7,8,9,10) Pantoprazole Sodium 40 mg 11/16/24 09:00 11/16/24 08:00 Pantoprazole 40 Mg Tab PO 12/16/24 08:59 40 mg QAM LOLA Administration Paroxetine HCl 20 mg 11/15/24 21:00 11/15/24 20:55 Paroxetine Hcl 20 Mg Tab PO 12/15/24 20:59 20 mg HS LOLA Administration Past Medical History Medical History 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 Seizure Bladder wall thickening Enlarged prostate Abnormal CT of the abdomen Leukocytosis Fecal retention Aspiration into airway Gout Past Family History Family History Other Family history non-contributory Past Surgical History Surgical History H/O craniotomy 2020 - for hemorrhagic stroke Social History Smoking Status: Former smoker Do You Dip or Chew Tobacco: No Hx Alcohol Use: No Alcohol type: wine alcohol intake frequency: holidays/special occasions only Hx Substance Use: No substance use type: does not use Physical Exam Vital Signs Last Vital Signs Temp 36.6 C 11/16/24 07:16 Pulse 70 11/16/24 07:16 Resp 18 11/16/24 07:16 BP 159/71 H 11/16/24 07:16 Pulse Ox 92 11/16/24 07:16 O2 Del Method Room Air 11/16/24 07:16 Testing Laboratory Results 11/16/24 07:06 11/16/24 07:06 PT 11.0 Seconds (9.0-12.0) 11/15/24 20:10 INR 1.0 (0.9-1.1) 11/15/24 20:10 Hemoglobin A1c 6.6 % (4.5-5.6) H 11/15/24 13:21 Blood Type B Negative 11/15/24 20:10 Antibody Screen NEGATIVE 11/15/24 20:10 11/16/24 11/15/24 05:58 23:57 POC Glucose 122 H 111 H
[2024-11-16] MEDS ORDERED: LIDOCAINE 2% 2 ML VIAL/AMP(20MG/ML) INFIL ONE (12:51)
[2024-11-16] MEDS ORDERED: ROCURONIUM BROMIDE 10 MG/ML 5 ML VIAL IV ONE (12:51)
[2024-11-16] MEDS ORDERED: PROPOFOL IV EMULSION 10 MG/ML 20 ML VIAL IV ONE ×2 (12:51→13:23)
[2024-11-16] MEDS ORDERED: DEXAMETHASONE SOD INJ 4 MG/ML VIAL ONE (14:14)
[2024-11-16] MEDS ORDERED: GLYCOPYRROLATE 0.2 MG/ML VIAL ONE ×2 (14:14→16:34)
[2024-11-16] MEDS ORDERED: ONDANSETRON INJ 2 MG/ML 2 ML VIAL ONE (14:14)
[2024-11-16] MEDS ORDERED: ONDANSETRON INJ 2 MG/ML 2 ML VIAL IV PRN (14:57)
[2024-11-16] MEDS ORDERED: ATROPINE SULFATE 0.1 MG/ML 10ML SYR IV PRN (14:57)
--- NOTE | 2024-11-16 14:58 | History & Physical Bridge Note ---
Date of Service November 16, 2024 History & Physical Bridge Note I have examined the patient, reviewed the History & Physical and in the interval since the performance of the History & Physical I have noted the following changes of clinical significance: no changes noted
[2024-11-16] MEDS: TRANEXAMIC ACID / 0.7% NACL 1000MG/100ML BAG IV ONE (15:40)
[2024-11-16] MEDS ORDERED: HYDROmorphone INJ 2 MG/ML SYR/VIAL ONE (15:50)
[2024-11-16] MEDS ORDERED: SUGAMMADEX SODIUM 200 MG/2 ML VIAL IV ONE (15:59)
[2024-11-16] MEDS ORDERED: PHENYLEPHRINE 100MCG/ML 5ML SYR ONE (16:00)
[2024-11-16] MEDS: BUPIVACAINE/EPINEPHRINE 0.5% MPF 1:200,000 30 ML VIAL ONE (16:37)
--- NOTE | 2024-11-16 17:02 | Operative Report ---
PG Post Operative Report Pre & Post Diagnosis Operation Date: 11/16/24 13:00 Pre-Op Diagnosis: Displaced fracture of right femoral neck Post-Op Diagnosis: Displaced fracture of right femoral neck I identified the patient and participated in the time-out.: Yes Procedure Operation Date: 11/16/24 13:00 Actual Procedures p Right Cemented Bipolar Hip Arthroplasty(Right) - Bakari Conn MD Surgeon Bakari Conn MD Goods Layer Freddy Perez PA-C Estimated Blood Loss 200 Findings Consistent with Post-Op Diagnosis Operative findings revealed diffuse osteopenia. Displaced femoral neck fracture. Minimal arthritic change. Specimens Right femoral head sent for pathology. Anesthesia Type General Complications none Disposition Accompanied Patient To Recovery: No Indications The patient is an 82-year-old gentleman with multiple medical comorbidities including a history of a stroke was pretty severe right hemiparesis minimal ambulator history mechanical fall several days ago. He had acute onset of pain that persisted. Is brought to emergency room where x-rays revealed a slightly displaced femoral neck fracture. Considering his severe osteopenia, the fracture displacement we elected proceed with cemented bipolar arthroplasty as his most predictable operation. Description of Procedure Operative implants consist of: 1. Chris size 9 echo cemented to high offset femoral hip fracture stem. 2. 0/28 mm metal articular ball. 3. 52 mm bipolar shell and liner. 4. Distal centralizer. 5. Small cement restrictor. The patient was taken the op room, identified, placed on the operating table in the supine position. All conductors were appropriately padded. IV antibiotics fibra anesthesia team. A general anesthetic was implemented. Patient had severe aortic stenosis. The patient was then placed in the left lateral cubitus position. An axillary roll was placed. Distal Birkett position was used for positioning. The right hip was then and leg were then scrubbed with Hibiclens, prepped with ChloraPrep and draped in usual sterile fashion. A posterolateral approach to the right hip was then performed to a curvilinear incision centered over the greater trochanter. Sharp dissection was carried through subcutaneous tissue down of the IT band gluteal fascia. The IT band gluteal fascia incised longitudinally in line with skin incision. The underlying greater bursa was excised. The piriformis and external rotators along with the posterior hip joint capsule were then released from the posterior aspect of the hip as a single layer. I did tagged the posterior capsule and then made a TNA to allow for later repair. The hip was internally rotated. The femoral neck osteotomy cut was made about a centimeter above the lesser trochanter and below the fracture line. Femoral neck was removed along with the femoral head. The acetabulum sized to a size 52. Attention drawn the femur. The proximal femur was then with a cookie cutter followed by canal finder lateralizing reamer. I then broached begin with a size 7 progressing up to 11. We then trialed the hip and the +5 articular ball provided full stability and appropriate soft tissue tension and leg lengths. We elected place these implants. All trial implants were removed. A small cement restrictor was placed distally. I double batch Palacos G cement was mixed. A size 9 echo cemented stem was placed with a centralizer. All extraneous cement was removed. Once the cement hardened a 0/28 mm femoral head and a 52 mm bipolar shell and liner were placed. Hip was located and once again found to be stable. Attention jointer closing. The wound was irrigated coconuts with pulsatile lavage solution. I did inject locally with 60 cc of half percent Marcaine with epinephrine. The posterior capsule was then repaired with #2 Tycron suture. The IT band gluteal fascia was then closed with #1 PDS suture in a running fashion. Subcutaneous tissues were then closed with 2 layers of the deep layer 0 Vicryl suture and subcutaneous tissues with 2-0 Dexon suture in a buried interrupted fashion. Skin was closed with skin tiffany. Leg was then cleaned and dried and sterile dressed with Xeroform, 4 fours, ABD pad and foam tape was applied. The patient then brought out of general esthesia and transferred to the recovery room in [facility]. Patient tolerated the procedure well and there were no complications. Freddy Perez, physician it administrative assistant, was present for the entire procedure. His assistance was required for proper patient positioning, prepping draping, surgical exposure, retraction, perform the technical details of the operation, placement of the implants, closure of the incision site, and placement of postoperative sterile bandage. I attest to the content of the Intraoperative Record and any orders documented therein. Any exceptions are noted below.
--- NOTE | 2024-11-16 17:32 | XRay Report ---
Study: Right hip 2 views History: Postop Comparison: None Findings: There is no acute fracture or dislocation. Right hip arthroplasty in place. Cemented femoral component noted without associated fracture. Bone mineral density appears decreased. Impression: Right hip arthroplasty Electronically signed by Conor Hyde 11-16-2024 5:32 PM
--- NOTE | 2024-11-16 19:04 | Anesthesiology Progress Note ---
Date of Service November 16, 2024 Anesthesia Post Procedure Vital Signs Vital Signs: Temp Pulse Pulse Pulse Resp BP BP 11/16/24 18:30 94 H 16 101/60 11/16/24 18:20 98.4 F 90 18 126/63 11/16/24 18:10 93 H 20 132/77 11/16/24 18:00 94 H 14 129/61 11/16/24 17:50 90 12 129/57 L 11/16/24 17:40 90 20 135/59 L 11/16/24 17:30 87 20 131/55 L 11/16/24 17:20 88 14 130/56 L 11/16/24 17:10 90 12 137/59 L 11/16/24 17:02 98.4 F 92 H 14 159/67 H 11/16/24 12:45 98.2 F 57 L 20 155/69 H 11/16/24 11:21 97.9 F 66 18 131/69 11/16/24 07:16 97.9 F 70 18 159/71 H 11/16/24 06:45 70 11/16/24 04:00 97.7 F 65 18 145/75 H 11/15/24 22:43 97.7 F 65 18 122/66 11/15/24 21:45 65 11/15/24 21:10 11/15/24 19:30 98.1 F 66 18 131/70 Pulse Ox O2 Del Method O2 Flow Rate 11/16/24 18:30 94 Nasal Cannula 3 11/16/24 18:20 94 Nasal Cannula 3 11/16/24 18:10 94 Oxymask 3 11/16/24 18:00 92 Oxymask 3 11/16/24 17:50 93 Oxymask 3 11/16/24 17:40 94 Oxymask 3 11/16/24 17:30 98 Oxymask 6 11/16/24 17:20 99 Oxymask 6 11/16/24 17:10 97 Oxymask 6 11/16/24 17:02 97 Oxymask 6 11/16/24 12:45 96 Room Air 11/16/24 11:21 94 Room Air 11/16/24 07:16 92 Room Air 11/16/24 06:45 11/16/24 04:00 92 Room Air 11/15/24 22:43 92 Room Air 11/15/24 21:45 11/15/24 21:10 Room Air 11/15/24 19:30 93 Room Air Pain Intensity Right Hip: Pain Intensity: 4 Transfer of Care Handoff Completed per policy Notes Mental Status: see notes below (patient at baseline mental status) Patient Amnestic to Procedure: Yes Nausea / Vomiting: adequately controlled Pain: adequately controlled Airway Patency, RR, SpO2: stable & adequate BP & HR: stable & adequate Hydration State: stable & adequate Anesthetic Complications: no major complications apparent and Pt Satisfied with anesthetic care
[2024-11-17 07:06] LABS: Anion Gap 6.0 (3-11); Blood Urea Nitrogen 24.0 mg/dl (6-23); Calcium 8.2 mg/dl (8.6-10.3); Carbon Dioxide 25.0 mmol/L (21-32); Chloride 107.0 mmol/L (98-107); Creatinine Clr Calc Pharmacy 47.1 ml/min; Glucose 155.0 mg/dl (70-99(Fasting)); Potassium 5.0 mmol/L (3.5-5.1); Sodium 138.0 mmol/L (136-145)
[2024-11-17 07:09] LABS: Hematocrit (blood only) 35.6 % (42.0-52.0); Hemoglobin 12.2 g/dl (14.0-18.0); Mean Corpuscular Hemoglobin 31.2 pg (25.0-34.0); Mean Corpuscular Volume 91.0 fL (80.0-100.0); Platelet Count 127 K/uL (130-400); RDW Standard Deviation 42.0 fL (36.4-46.3); Red Blood Count 3.91 M/uL (4.70-6.10); White Blood Count 37.14 K/ul (4.8-10.8)
--- NOTE | 2024-11-17 07:09 | Orthopedic Progress Note ---
Date of Service November 17, 2024 Assessment & Plan (1) S/P total right hip arthroplasty: Plan: 84-year-old gentleman with right hemiparesis from previous stroke postop day 1 from a cemented bipolar hip arthroplasty for fracture. Seems to be doing okay. Does not have much neurological function on this right side. His hip is located. Plan: DVT prophylaxis including thigh-high teds, SCDs, and work and use Eliquis for 30 days. He apparently has some thrombocytopenia and aspirin is probably not the best choice. That would be our preference. 2. PT/OT. He can fully weight-bear as tolerated. He really does not do much ambulation. Does need to obey hip precautions. 3. Pain control. Seems to be under reasonable pain control. 4. Disposition he is orthopedically stable for discharge anytime medically stable. I did see him back 2 to 3 weeks out from surgery date. He can weight- bear as tolerated. Should obey hip precautions. Any questions can be directly [phone]. (2) Displaced fracture of right femoral neck: (3) Hemiplegia and hemiparesis following cerebral infarction affecting right dominant side: Admission and Anticipated Discharge Date Admission Date: November 15, 2024 Subjective 84-year-old gentleman with multiple medical comorbidities now postop day 1 from a right cemented bipolar hip arthroplasty for displaced femoral neck fracture. He is doing okay. Seems pretty comfortable. Reporting some hip pain. Physical Exam Physical Exam: Physical nation was a pleasant elderly male. He is lying in bed looks pretty comfortable. Examination of the right hip and leg reveals it to be well aligned. Abduction pillow is in place. Dressings clean dry and intact. Thigh is soft and supple. Minimal function of his right leg neurologically. Results & Data Vital Signs (Past 12 Hours) Vital Signs Temp Pulse Pulse Resp BP Pulse Ox O2 Del Method 11/17/24 06:45 76 11/17/24 06:27 93 Room Air 11/17/24 04:00 36.6 C 72 18 130/65 93 Nasal Cannula 11/16/24 23:00 37.0 C 80 18 120/71 93 Nasal Cannula 11/16/24 22:22 Nasal Cannula 11/16/24 21:55 76 11/16/24 21:00 36.8 C 77 18 115/71 95 Nasal Cannula 11/16/24 20:00 36.9 C 85 18 114/70 95 Nasal Cannula 11/16/24 19:28 36.5 C 92 H 18 117/63 95 Nasal Cannula O2 Flow Rate 11/17/24 06:45 11/17/24 06:27 11/17/24 04:00 3 11/16/24 23:00 3 11/16/24 22:22 3 11/16/24 21:55 11/16/24 21:00 3 11/16/24 20:00 3 11/16/24 19:28 3 Laboratory Results Labs are pending.
[2024-11-17 07:34] LABS: Acanthocytes 1+; Immature Granulocytes # (auto) 0.13 K/uL (0.01-0.20); Immature Granulocytes % (auto) 0.4 %; Polychromasia 1+; Smudge Cells Present
[2024-11-17] MEDS: INSULIN ASPART PER UNIT CHARGE SC SCH (08:00)
[2024-11-17 10:41] LABS: Prealbumin 13.1 mg/dl (20-40)
--- NOTE | 2024-11-17 14:25 | Hospitalist Progress Note ---
Date of Service November 17, 2024 Assessment & Plan (1) Hip fracture, right: (2) Hemiplegia and hemiparesis following cerebral infarction affecting right dominant side: (3) Aortic stenosis: (4) BPH with obstruction/lower urinary tract symptoms: (5) CLL (chronic lymphocytic leukemia): (6) Hypertension: (7) Diabetes mellitus type 2 in nonobese: (8) Cochlear implant in place: (9) Thrombocytopenia: Plan 84yo male with history of left-sided hemorrhagic stroke with resulting right-s ided hemiparesis and aphasia in 2020, seizure disorder, HTN, T2DM, aortic stenosis, CLL, BPH, and hearing loss with cochlear implants presents after suffering a fall this past Thursday evening about 930pm. Patient got out of bed quickly without assistance. His typically assists him out of bed for transfers as he does not walk/weight-bear at home. As he got out of bed he fell to the floor. Since the fall he complained constantly to his of pain in the right groin/right hip region. 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 -Dr Bakari Conn from [facility] [place] ORIF 11/16 bipolar arthroplasty Repeat echo continues to show aortic stenosis but no mention of LVOT -pain control - tylenol 500mg TID scheduled; norco prn; morphine prn -bedrest -25-OH vit D level was normal today Typical disposition will discuss with family about rehab placement #aortic stenosis repeat echo with aortic stenosis with valve gradient of 48 patient is medically optimized #known h/o CLL, not on treatment - -CBC findings today are c/w CLL, chronic thrombocytopenia Apixaban post procedure for VTE prevention -checked B12 level - wnl #h/o hemorrhagic stroke on left with resulting right-sided hemiparesis - -CT head today is stable with no new ICH or area of stroke -2 metallic foreign bodies were seen in the left scalp on CT today; etiology? #BPH - -due to bedrest status place ward #seizure disorder - -dx 2023 -continue lamictal 100mg BID -no recent obvious seizure activity #HTN - -cont amlodipine -hold ARB blood pressure stable #GERD - -cont PPI #hyperlipidemia - -LFTs & CPK all wnl -cont statin #T2DM - -check Hba1c -novolog sliding scale reviewed [id number] glucoses they are acceptable -BSGs ac/hs #DVT proph - - Apixaban postop her DVT prevent Consider transition for rehab Incidental noted metallic object on CT scan is from bur hole decompression of intracranial hemorrhage Admission and Anticipated Discharge Date Admission Date: November 15, 2024 Subjective Patient doing well status post right cemented bipolar hip arthroplasty. Discussion with at the bedside regarding rehab as he has typical right rosaline plegia. For unknown reasons he has marked leukocytosis postoperatively with a white count of 37,000. He has no overt signs of infection nor does he have diarrhea. Physical Exam Physical Exam: Pleasant gentleman he can converse in short sentences He is not short of breath Card exam is regular with a significant systolic ejection murmur Lungs are clear but diminished at the bases Abdomen is NABS and soft Results & Data Results & Data Vital Signs (Past 12 Hours) Vital Signs Temp Pulse Pulse Resp BP BP Pulse Ox 11/17/24 11:29 100.8 F H 103 H 20 124/66 93 11/17/24 07:47 97.9 F 75 20 132/72 93 11/17/24 06:45 76 11/17/24 06:27 93 11/17/24 04:00 97.9 F 72 18 130/65 93 O2 Del Method O2 Flow Rate 11/17/24 11:29 Room Air 11/17/24 07:47 Room Air 11/17/24 06:45 11/17/24 06:27 Room Air 11/17/24 04:00 Nasal Cannula 3 Laboratory Results Reviewed CBC marked leukocytosis. Postop hemoglobin is 12 setting mild acute blood loss anemia post procedure reviewed chemistry PG Care Time/CCT Total # of Minutes Spent Total Time Spent with Patient: Total time spent is greater than 50% in coordination of care (as documented) at patient's floor/unit and/or counseling patient: Coding Level of Care Code 56044 SUB INP/OBS CARE 3/50MIN Diagnoses Hip fracture, right S72.001A Hemiplegia and hemiparesis following cerebral infarction affecting right dominant side I69.351 Aortic stenosis I35.0 BPH with obstruction/lower urinary tract symptoms N40.1; N13.8 CLL (chronic lymphocytic leukemia) C91.10 Hypertension I10 Diabetes mellitus type 2 in nonobese E11.[address] Z96.21 Thrombocytopenia D69.6
[2024-11-17] MEDS: APIXABAN 2.5 MG TAB PO SCH (18:01)
[2024-11-18 03:19] VITALS: RESP 18
--- NOTE | 2024-11-18 06:57 | Orthopedic Progress Note ---
Date of Service November 18, 2024 Assessment & Plan (1) S/P total right hip arthroplasty: Plan: 84-year-old gentleman with multiple medical comorbidities now postop day 2 from a cemented bipolar hip arthroplasty for fracture. He seems to be orthopedically stable. Hips located. Plan: 1. DVT prophylaxis including thigh-high teds, SCDs, Eliquis for 30 days. 2. PT/OT. He can weight-bear as tolerated. Needs to obey hip precautions for 6 weeks. 3. Routine wound care. 4. Medical management as per the medicine service. 5. Disposition. He is orthopedically okay for discharge anytime medically stable. 90s seen back 2 to 3 weeks out from surgery date. Any orthopedic questions can be directly [phone]. (2) Hip fracture, right: (3) Displaced fracture of right femoral neck: Admission and Anticipated Discharge Date Admission Date: November 15, 2024 Subjective 84-year-old gentleman with right Juan Ramon pair is postop day 2 from right cemented bipolar hip arthroplasty for fracture. He seems to be doing pretty well. Looks comfortable in bed. Physical Exam Physical Exam: Physical nation was a pleasant elderly male patient lying in bed. He looks comfortable. Examination of the right leg reveals to be well aligned. Dressings clean dry and intact. Thigh is soft and supple. He is got a little motor function of his right leg due to hemiparesis. Results & Data Vital Signs (Past 12 Hours) Vital Signs Temp Pulse Pulse Resp BP Pulse Ox O2 Del Method 11/18/24 03:18 36.9 C 84 18 125/63 93 Room Air 11/17/24 23:53 37.0 C 96 H 20 130/63 91 Room Air 11/17/24 22:01 96 H 11/17/24 19:29 37.7 C H 97 H 18 150/65 H 93 Room Air
--- NOTE | 2024-11-18 07:21 | Orthopedic Progress Note ---
Date of Service November 18, 2024 Assessment & Plan (1) Displaced fracture of right femoral neck: * Continue Current Treatment * Disposition: [] * Daily treatment: Physical Therapy/ Occupational Therapy per protocol * Weight bearing status: [] * Continue to monitor for ABLA * Pain control * DVT prophylaxis, ASA/Eliquis * Office/hospital f/u 2 weeks for progress check and staple/suture removal * Remainder care per primary team * Stable for discharge from ortho standpoint, further planning per primary team Subjective . Active Problems: S/p Right hip hemiarthroplasty POD 2 84 y/o male s/p right hip hemiarthroplasty. Doing well overall, pain managed and improved function. Denies fever/chills, chest pain/SOB, nausea/vomiting. Otherwise no complaints. Review of Systems All systems reviewed & are unremarkable except as noted in HPI & below. Physical Exam . * General: Alert and oriented, no acute distress * Constitutional: well-developed, well-nourished. * Respiratory: Normal respiratory effort, no distress * Gastrointestinal: No tenderness to palpation, no rigidity or guarding. * Skin: No rash or lesion. * Neurologic: Grossly normal * Musculoskeletal: Right hip surgical dressing, not removed for exam. Otherwise no obvious deformity or overlying skin changes. Diffuse TTP proximal thigh and hip region. Otherwise no specific tenderness of distal thigh, lower leg, foot/ankle. AROM hip flexion intact. AROM foot/ankle intact. Sensation intact plantar/dorsal foot. Brisk capillary refill. Results & Data Results & Data Laboratory Results . Diagnostic Findings . PG Care Time/CCT Total # of Minutes Spent Total Time Spent with Patient: Total time spent is greater than 50% in coordination of care (as documented) at patient's floor/unit and/or counseling patient: Coding Diagnoses Displaced fracture of right femoral neck S72.001A
[2024-11-18 11:48] VITALS: BP 135/70; TEMP 99; O2SAT 97
[2024-11-18] MEDS: POLYETHYLENE (MIRALAX) 17 GM PACK PO ONE (11:56)
[2024-11-18 11:59] LABS: Hematocrit (blood only) 31.6 % (42.0-52.0); Hemoglobin 10.7 g/dl (14.0-18.0); Mean Corpuscular Hemoglobin 30.1 pg (25.0-34.0); Mean Corpuscular Volume 89.0 fL (80.0-100.0); Platelet Count 122 K/uL (130-400); RDW Standard Deviation 43.7 fL (36.4-46.3); Red Blood Count 3.55 M/uL (4.70-6.10); White Blood Count 26.42 K/ul (4.8-10.8)
[2024-11-18 12:17] LABS: Alanine Aminotransferase 3.0 U/L (7-52); Alkaline Phosphatase 60.0 U/L (34-104); Anion Gap 5.0 (3-11); Bilirubin,Total 0.8 mg/dl (0.2-1.0); Blood Urea Nitrogen 22.0 mg/dl (6-23); Calcium 8.4 mg/dl (8.6-10.3); Carbon Dioxide 24.0 mmol/L (21-32); Chloride 106.0 mmol/L (98-107); Creatinine Clr Calc Pharmacy 45.2 ml/min; Glucose 224.0 mg/dl (70-99(Fasting)); Potassium 4.2 mmol/L (3.5-5.1); Sodium 135.0 mmol/L (136-145); Total Protein 5.5 gm/dl (6.0-8.3)
[2024-11-18] MEDS: ONDANSETRON INJ 2 MG/ML 2 ML VIAL IV PRN (14:11)
[2024-11-18 14:21] VITALS: PULSE 86
--- NOTE | 2024-11-18 15:03 | Discharge Summary ---
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 Patient got out of bed quickly without assistance. His typically assists him out of bed for transfers as he does not walk/weight-bear at home. As he got out of bed he fell to the floor. Since the fall he complained constantly to his of pain in the right groin/right hip region. 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 -Dr Bakari Conn from [facility] [place] Orth[facility] ORIF 11/16 bipolar arthroplasty Repeat echo continues to show aortic stenosis but no mention of LVOT -pain control - tylenol 500mg TID scheduled; norco prn; morphine prn -bedrest -25-OH vit D level was normal today Typical disposition will discuss with family about rehab placement #aortic stenosis repeat echo with aortic stenosis with valve gradient of 48 patient is medically optimized #known h/o CLL, not on treatment - -CBC findings today are c/w CLL, chronic thrombocytopenia Apixaban post procedure for VTE prevention -checked B12 level - wnl #h/o hemorrhagic stroke on left with resulting right-sided hemiparesis - -CT head today is stable with no new ICH or area of stroke -2 metallic foreign bodies were seen in the left scalp on CT today; etiology? #BPH - -due to bedrest status place ward #seizure disorder - -dx 2023 -continue lamictal 100mg BID -no recent obvious seizure activity #HTN - -cont amlodipine -hold ARB blood pressure stable #GERD - -cont PPI #hyperlipidemia - -LFTs & CPK all wnl -cont statin #T2DM - -check Hba1c -novolog sliding scale reviewed [id number] glucoses they are acceptable [place] [place]DVT proph - - Apixaban postop her DVT prevent Consider transition for rehab Incidental noted metallic object on CT scan is from bur hole decompression of intracranial hemorrhage Admission HPI Per Admitting Provider 84yo male with history of left-sided hemorrhagic stroke with resulting right- sided hemiparesis and aphasia in 2020, seizure disorder, HTN, T2DM, aortic stenosis, CLL, BPH, and hearing loss with cochlear implants presents after suffering a fall this past Thursday evening about 930pm. Patient was in bed and heard fireworks outside. He got startled by them, and got out of bed quickly without assistance. His typically assists him out of bed for transfers as he does not walk/weight-bear at home - he uses a wheelchair at his house. As he got out of bed he fell to the floor. EMS was summoned to his home to help him back to bed as his could not help him off the floor. Since the fall he complained constantly to his of pain in the right groin/right hip region. Any movement, rolling in bed, etc was causing pain. was providing tylenol for pain. No recent illnesses. He has been eating/drinking but today has had nothing by mouth. During my encounter with him he kept pointing to both ears as if the ears were bothering him. He said "all the time" multiple times but myself nor his could decipher what he was trying to communicate to us. His mentioned that the cochlear implants sometimes bother him. Patient finally came to the ER today because of persistent right groin pain. Discharge Plan Discharge Items Patient Disposition: Transfer Inpatient Rehab Fac Reason For Visit: RIGHT HIP FRACTURE Discharge Diagnosis: Right Partial HIp Replacement for Fracture Activity: Per Instructions section Activity Comment: Follow/Obey hip precautions at all times. Weightbearing: Full weightbearing Weightbearing Comment: Weightbear as tolerated obeying hip precautions at all times. Non-emergency contact: Surgeon Call non-emergency contact if: you have any medication questions Follow-up/Referrals: Swapna Swan MD [Primary Care Provider] - Bakari Conn MD [Physician] - (Orthopedic follow-up 2-3 weeks from surgery date.) Diet: Carb Consistent or DM2 Addtl Attending Provider Instructions: ACTIVITY RECOMMENDATIONS: Diet: * You may resume previous diet. Physical Therapy: * Aggressive physical therapy is not usually needed. You will learn to take care of yourself safely and walk. * Follow the "Hip Precautions Instructions." * In some cases, the home health care social worker at the hospital will arrange to have a therapist come to your house for the first couple of weeks to help you learn these skills. * You need to practice on your own or with the help of a family member as needed. * When you learn these skills, most of the therapy can be done on your own. Home Exercise: * You were shown a series of exercises in the hospital. Do these exercises three to four times each day including the exercises you were shown in physical therapy. Walking: * Get up and walk several times each day. For the first four weeks, try not to stand or walk for more than one hour at a time. If you do stand or walk for more than one hour, you will not hurt anything, but your leg will likely swell. * As you feel comfortable, you may change from the walker or crutches to a cane and then to independent walking. MEDICATIONS: New Medicine: * You will likely be taking one or more of these medicines: 1. Tramadol - Take, as directed, when you need it, every six hours to control your pain. 2. Eliquis - Thins your blood to lessen the chance of forming a blood clot. Continue for 30 days * The most common side effects of pain medicine and iron are nausea and constipation. If nausea or constipation is too much of a problem or if you have any questions about your new medicines or doses, call [facility] at . We will try to help you manage these issues. "VERY IMPORTANT TO READ AND REVIEW" Pain: * The immediate post-operative period after hip replacement surgery is often quite painful. * You are given a prescription for pain medicine. You should take it, as directed, when you need it, especially before physical therapy and before going to bed. Pain that interferes with sleep is very common and can last several months. * You will likely need pain medicine for the first two to four weeks. It will not stop all of the pain. The pain will lessen and as you feel better, you may change to milder pain medicine such as Tylenol. * The most common side effects of pain medicine are nausea and constipation, so don't take more than you need. SPECIAL CARE INSTRUCTIONS: TEDs/Elastic Stockings: * The white elastic stockings help limit swelling and prevent blood clots from forming in your legs. The more you wear them, the more they work. * Wear them for six weeks. Incision Site Care: * Remove dressing postoperative day 2 and then shower. Keep direct shower pressure off the incision site. * After showering, cover tiffany with dry gauze and change daily or more frequently if the dressing is getting saturated with drainage. * May completely stop using bandage if wound is dry and no drainage * Thompsons are removed between 2 and 3 weeks post-op. If your follow-up appointment is made before 2 weeks, please have your appointment re- scheduled. It is too early to remove the tiffany. Prevention of Infection: * Take antibiotics one hour before any dental cleaning, dental work, urological procedure, gastrointestinal procedure or any invasive surgery in order to prevent your new joint from getting infected. * You may get the antibiotics from the doctor performing the procedure or you may call our office at before and we will call in a prescription to the pharmacy of your choice. Things to Watch For: * Drainage from the incision site that occurs more than one week after your surgery. * Severely increased leg pain or swelling. * Increased redness at the incision site. * Fever above 102 degrees Fahrenheit. * Unusual chest pain or shortness of breath. * Unusual pain or burning with urination. Call [facility] at with any of the above problems or if you have any questions about your medicines or recovery. FOLLOW UP VISIT: Make an appointment to see your doctor for approximately two weeks after surgery for a progress check and staple removal by calling the office at . Pending Studies at Discharge: No Stand-Alone Forms: My [facility] Skilled Items Patient informed of condition?: Yes DNR: Yes Discharge Level of Care: Acute rehab Communicable Disease: No Discharge Prognosis: Improving Lines: None Urinary Catheter: No Medications and DC Order Prescriptions: New polyethylene glycol 3350 [Miralax] 17 gram Powder In Packet 17 g PO Q6 Qty: 20 0RF pantoprazole 40 mg Tablet,Delayed Release (Dr/Ec) 40 mg PO QAM Qty: 30 0RF Eliquis 2.5 mg Tablet 2.5 mg PO BID Qty: 60 0RF acetaminophen 325 mg capsule 650 mg PO Q6H Qty: 120 0RF oxycodone 5 mg tablet 5 mg PO Q6H PRN (Reason: breakthrough pain) Qty: 10 0RF Continued lamotrigine 100 mg tablet 100 mg PO BID Qty: 180 3RF atorvastatin 20 mg tablet 20 mg PO QAM losartan 50 mg tablet 50 mg PO DAILY amlodipine 2.5 mg tablet 2.5 mg PO QAM omeprazole 20 mg capsule,delayed release(DR/EC) 20 mg PO DAILY paroxetine HCl 20 mg tablet 20 mg PO HS Discharge Orders: Discharge Order (Routine); Ordered 11/18/24 Ordered By: Malcom Rea/Other Patient Handouts: Type 2 Diabetes Admission Data Admit Date/Time: 11/15/24 14:22 Attending Provider: Malcom Han Admit Provider: Robert Meza Primary Care Provider: Swapna Swan Other Providers: Oli Gibbons; Bakari Conn; [facility] Hospital Stay Data Consultations 11/15/24 12:47 ED Decision to Admit Stat 11/15/24 13:56 Consult Orthopedic Surgery Routine Procedures Performed Operation Date: 11/16/24 13:00 Actual Procedures p Right Cemented Bipolar Hip Arthroplasty(Right) - Bakari Conn MD Diagnostic Imagining Performed 11/15/24 11:43 CT cervical spine wo con Stat CT head/brain wo con Stat Pending Results Patient Have Any Pending Studies at Discharge: No Discharge Instructions Given to Patient (Per Discharging Provider) ACTIVITY RECOMMENDATIONS: Diet: * You may resume previous diet. Physical Therapy: * Aggressive physical therapy is not usually needed. You will learn to take care of yourself safely and walk. * Follow the "Hip Precautions Instructions." * In some cases, the home health care social worker at the hospital will arrange to have a therapist come to your house for the first couple of weeks to help you learn these skills. * You need to practice on your own or with the help of a family member as needed. * When you learn these skills, most of the therapy can be done on your own. Home Exercise: * You were shown a series of exercises in the hospital. Do these exercises three to four times each day including the exercises you were shown in physical therapy. Walking: * Get up and walk several times each day. For the first four weeks, try not to stand or walk for more than one hour at a time. If you do stand or walk for more than one hour, you will not hurt anything, but your leg will likely swell. * As you feel comfortable, you may change from the walker or crutches to a cane and then to independent walking. MEDICATIONS: New Medicine: * You will likely be taking one or more of these medicines: 1. Tramadol - Take, as directed, when you need it, every six hours to control your pain. 2. Eliquis - Thins your blood to lessen the chance of forming a blood clot. Continue for 30 days * The most common side effects of pain medicine and iron are nausea and constipation. If nausea or constipation is too much of a problem or if you have any questions about your new medicines or doses, call [facility] at . We will try to help you manage these issues. "VERY IMPORTANT TO READ AND REVIEW" Pain: * The immediate post-operative period after hip replacement surgery is often quite painful. * You are given a prescription for pain medicine. You should take it, as directed, when you need it, especially before physical therapy and before going to bed. Pain that interferes with sleep is very common and can last several months. * You will likely need pain medicine for the first two to four weeks. It will not stop all of the pain. The pain will lessen and as you feel better, you may change to milder pain medicine such as Tylenol. * The most common side effects of pain medicine are nausea and constipation, so don't take more than you need. SPECIAL CARE INSTRUCTIONS: TEDs/Elastic Stockings: * The white elastic stockings help limit swelling and prevent blood clots from forming in your legs. The more you wear them, the more they work. * Wear them for six weeks. Incision Site Care: * Remove dressing postoperative day 2 and then shower. Keep direct shower pressure off the incision site. * After showering, cover tiffany with dry gauze and change daily or more frequently if the dressing is getting saturated with drainage. * May completely stop using bandage if wound is dry and no drainage * Thompsons are removed between 2 and 3 weeks post-op. If your follow-up appointment is made before 2 weeks, please have your appointment re- scheduled. It is too early to remove the tiffany. Prevention of Infection: * Take antibiotics one hour before any dental cleaning, dental work, urological procedure, gastrointestinal procedure or any invasive surgery in order to prevent your new joint from getting infected. * You may get the antibiotics from the doctor performing the procedure or you may call our office at before and we will call in a prescription to the pharmacy of your choice. Things to Watch For: * Drainage from the incision site that occurs more than one week after your surgery. * Severely increased leg pain or swelling. * Increased redness at the incision site. * Fever above 102 degrees Fahrenheit. * Unusual chest pain or shortness of breath. * Unusual pain or burning with urination. Call [facility] at with any of the above problems or if you have any questions about your medicines or recovery. FOLLOW UP VISIT: Make an appointment to see your doctor for approximately two weeks after surgery for a progress check and staple removal by calling the office at . Coding Diagnoses Hip fracture, right S72.001A Hemiplegia and hemiparesis following cerebral infarction affecting right dominant side I69.351 Aortic stenosis I35.0 BPH with obstruction/lower urinary tract symptoms N40.1; N13.8 CLL (chronic lymphocytic leukemia) C91.10 Hypertension I10 Diabetes mellitus type 2 in nonobese E11.[address] Z96.21 Thrombocytopenia D69.6
[2024-11-18] MEDS ORDERED: POLYETHYLENE (MIRALAX) 17 GM PACK PO SCH (18:00)
== END 2024-11-18 14:40 | DRG 522 ==
LOC: ED 10:16 → EDINP 14:22 → SUATTDRO 14:22 → 2W 17:07

== ENCOUNTER 2024-12-03 18:14 | Inpatient (IN) ==
--- NOTE | 2024-12-03 18:29 | Emergency Department Note ---
Impression & Plan Sepsis, Transaminitis, Complicated urinary tract infection, Non-ST elevation ND (NSTEMI) ED Provider Note NAME: BRADY CALDERON AGE: 84 SEX: M : 1940 ARRIVES VIA: Ambulance INFORMANT: Patient, EMS, family ED PROVIDER(S): Jorge Patel DO CHIEF COMPLAINT: AMS I took original medical command on this patient from [facility] on MICU 25-6. history is provided by prehospital team. They reported is an 85-year-old male with a hip replacement approximately 3 weeks ago. He has had 1 hour of multiple episodes of emesis, abdominal pain and rigors. Patient's vital signs were concerning for possible sepsis given fever and tachycardia. Did have a urethral catheter in place previously. Has not had a bowel movement in at least 5 days. The family was concerned that he did not need to go to the hospital. We discussed extensively and I made recommendations that the patient be transported to the hospital. I was concerned for possible sepsis and other factious etiologies. Family was agreeable after further discussion. HPI: This is a 84-year-old male with the PMHx of HTN, HLD, DM2, CVA with R hemiparesis, CLL, BPH, and recent right THR presenting to [facility] for further evaluation of abdominal pain. Patient is accompanied by family and EMS who provide additional history. The patient had a total hip replacement on the right side a few weeks ago. Today he has not been acting himself. He has seemed confused. He has had multiple episodes of emesis. They report whole body convulsions as well. They state he has not complained of pain near his operative site. His aphasia is relatively baseline per family. They deny fever or chills. No cough or congestion. Denies chest pain or palpitations. No shortness of breath. They deny abdominal pain, nausea and vomiting. No urinary complaints. No recent changes in bowel movements. Patient denies recent changes in medications or OTC supplements. Patient offers no other complaints, today. ADDITIONAL HISTORY OBTAINED: Per HPI Chronic Medical/Social Conditions Affecting Care: Per HPI PAST MEDICAL HISTORY: See Below PAST SURGICAL HISTORY: See Below FAMILY HISTORY: See Below SOCIAL HISTORY: See Below HOME MEDICATIONS: See Below ALLERGIES: See Below VITALS: See Below PHYSICAL EXAMINATION: GENERAL: Sitting up in bed, alert, well appearing, well nourished, no distress, non-toxic EYE EXAM: normal conjunctiva. PERRL and EOM's grossly intact. OROPHARYNX: no exudate, no erythema, lips, buccal mucosa, and tongue normal and mucous membranes are dry NECK: supple, no nuchal rigidity, no adenopathy, non-tender LUNGS: Clear to auscultation. Normal chest wall mechanics HEART: systolic murmur present, tachycardic rate, regular rhythm ABDOMEN: abdomen soft, generalized tenderness without rebound or rigidity BACK: Back is symmetrical on inspection and there is no deformity, no midline tenderness, no CVA tenderness. SKIN: no rashes and no bruising UPPER EXTREMITIES: upper extremities are grossly normal. LOWER EXTREMITIES: 1+ pitting edema in the RLE. Incision with tiffany is c/d/i NEURO EXAM: Normal sensorium, he is largely aphasic, no focal deficits MEDICAL DECISION MAKING: Differential diagnoses includes but not limited to sepsis, postoperative infection, CVA, bacteremia, postoperative fluid collection, ileus, appendicitis, bowel obstruction, diverticulitis, malignancy, nephrolithiasis, gastroenteritis, ACS, PNA, pancreatitis, biliary disease, UTI, esophageal reflux, gastritis, IBD In summary, this is a 84 year old male who presented with rigors, AMS and vomiting. Differential as above. Nursing notes and pertinent past medical records reviewed. Vital signs reviewed and the patient is borderline febrile tachycardic but otherwise hemodynamically stable. History and presentation revealed recent total hip replacement on the right now with what sounds like rigors, altered mental status and vomiting. Physical examination revealed unclear baseline but appears mildly aphasic. As a result of my initial evaluation, the patient symptoms plan for CTAs of the head and neck as well as abdomen. Plan for further evaluation of sepsis given meeting SIRS criteria. Will place the patient on broad-spectrum antibiotics. Does not appear to have a postoperative infection of the hip. Mild swelling here which is likely postoperative. Diagnostics interpreted by me include EKG and cardiac monitoring as listed below: -Cardiac Monitoring: An order was placed for continuous cardiac monitoring. The monitor shows a rate of 80-110 with regular rhythm. -ECG: EKG independently interpreted by me reveals normal sinus rhythm at a ventricular rate of [address] segment depressions in the lateral leads. No significant ST segment changes to suggest STEMI. Intervals within normal limits. Patient completed laboratory studies and imaging. Results independently interpreted by me are leukocytosis of 38,000 which has unclear etiology of the patient has CLL. Hemoglobin is 10.4. Does have a transaminitis with elevation AST of 120 and alkaline phosphatase at 613. Total bilirubin is elevated at 3.2. CXR independently interpreted by me reveals no evidence of focal consolidation to suggest pna. No large pneumothorax or pleural effusion. The patient was managed with IVFR, IV tylenol and zofran. No further episodes of vomiting. He did receive broad spectrum abx with IV Cefepime and Vancomcyin. NSTEMI likely 2/2 sepsis. Suspect source is GI given tranaminitis or UTI. Plan for hospitalization for further management of sepsis. I independently reviewed CT scan that showed no acute infectious components. Postoperative site of the right hip does have a fluid collection. Most likely hematoma or seroma. Doubt abscess or cellulitis based on exam. Ultimately, the decision was made to admit the patient for sepsis 2/2 GI illness and UTI c/b NSTEMI and acute encephalopathy. It was recommended to admit this patient at 2351. I discussed the case with the hospitalist service via [employer] and they are agreeable to admit the patient to their services. Based on the above, including the patient's age, coexisting illnesses, labs, imaging, and exam findings the decision to treat as an inpatient. I discussed the patient with the hospitalist team who recommended admission to their services. They received the medications, treatments, interventions indicated above and their condition []. I discussed my findings with the patient and their family and they understand and agree with the treatment plan. All patient / family questions were answered to their satisfaction. Consults/Care Managements Discussions: Per [facility] ER treatment provided: See above Procedures:none Critical Care: None The chart was completed utilizing [employer] Speech voice recognition software. Grammatical errors, random word insertions, pronoun errors, and incomplete sentences are an occasional consequence of this system due to software limitations, ambient noise, and hardware issues. Any formal questions or concerns about the content, text, or information contained within the body of this dictation should be directly addressed to the physician for clarification.I think Past Med/Surg History Problem List (Updated 12/04/24 @ 19:01 by Jorge Patel DO) Non-ST elevation ND (NSTEMI) (Acute) Complicated urinary tract infection (Acute) Transaminitis (Acute) Sepsis (Acute) Abnormal liver function tests Cholelithiasis Aphasia S/P total right hip arthroplasty Thrombocytopenia Hip fracture, right (Acute) Displaced fracture of right femoral neck Hemiplegia and hemiparesis following cerebral infarction affecting right dominant side Anxiety Right sided weakness Elevated LFTs Lymphadenopathy Acute cholecystitis Sepsis Aortic stenosis Abdominal pain (Acute) Leukocytosis (Acute) BPH with obstruction/lower urinary tract symptoms Abnormal CT scan, gallbladder (Acute) Enterocolitis History of stroke Paralysis of right lower extremity CLL (chronic lymphocytic leukemia) (Acute) Hypertension Hyperlipidemia Diabetes mellitus type 2 in nonobese Hearing impaired Medical History 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 Seizure Bladder wall thickening Enlarged prostate Abnormal CT of the abdomen Leukocytosis Fecal retention Aspiration into airway Gout Surgical History H/O craniotomy 2020 - for hemorrhagic stroke Family History Other Family history non-contributory Social History Smoking Status: Former smoker Tobacco Type: Cigarettes Second Hand Exposure: No; Do You Dip or Chew Tobacco: No; Hx Alcohol Use: No Hx Substance Use: No Preferred Language: Greek Communication Ability: Effective Communication Ability Comment: pt has expressive aphasia [employer] Required: No Beliefs That Will Affect Care: None Current Living Situation: Spouse Current Living Situation Comment: home with Other Information That Helps Us Care for You: No Feels Safe at Home: Yes Safety Concerns: Feels Safe At This Time Assistive Devices: Walker, Wheelchair and Other Assistive Devices Comment: cochlear implant Allergies Allergies Allergy/AdvReac Type Severity Reaction Status Date / Time No Known Allergies Allergy Verified 11/16/24 12:45 Home Meds Home Medications Medication Instructions Recorded Confirmed atorvastatin 20 mg tablet 20 mg PO QAM 03/11/21 11/15/24 losartan 50 mg tablet 50 mg PO DAILY 05/23/22 11/15/24 amlodipine 2.5 mg tablet 2.5 mg PO QAM 12/25/22 11/15/24 omeprazole 20 mg capsule,delayed 20 mg PO DAILY 12/25/22 11/15/24 release paroxetine HCl 20 mg tablet 20 mg PO HS 08/16/23 11/15/24 Previous Rx's Medication Instructions Recorded lamotrigine 100 mg tablet 100 mg PO BID #180 tabs 11/26/23 acetaminophen 325 mg capsule 650 mg (2 x 325 mg) PO Q6H #120 11/18/24 caps apixaban 2.5 mg tablet (Eliquis) 2.5 mg PO BID #60 tabs 11/18/24 oxycodone 5 mg tablet 5 mg PO Q6H PRN breakthrough pain 11/18/24 #10 tabs pantoprazole 40 mg tablet,delayed 40 mg PO QAM #30 tabs 11/18/24 release polyethylene glycol 3350 17 gram 17 g PO Q6 #20 ea 11/18/24 oral powder packet (Miralax) Results & Data (ED) Vital Signs Vital Signs - 24 hr 12/03/24 19:00 12/03/24 19:00 12/03/24 19:30 Pulse Rate 106 H Pulse Rate from SpO2 Sensor 103 H Respiratory Rate 22 Blood Pressure 127/70 106/68 Blood Pressure Mean 89 85 Pulse Oximetry 96 Oxygen Delivery Method Room Air 12/03/24 19:30 12/03/24 20:00 12/03/24 20:51 Pulse Rate 96 H 98 H Pulse Rate from SpO2 Sensor 96 H 98 H Respiratory Rate 31 H 37 H Blood Pressure 118/67 Blood Pressure Mean 89 Pulse Oximetry 94 96 Oxygen Delivery Method 12/03/24 21:00 12/03/24 22:00 12/03/24 22:26 Pulse Rate 98 H 83 86 Pulse Rate from SpO2 Sensor Respiratory Rate 37 H 29 H Blood Pressure 114/64 115/63 Blood Pressure Mean 77 84 Pulse Oximetry 96 93 Oxygen Delivery Method Room Air Room Air 12/03/24 22:30 12/03/24 23:00 12/04/24 00:00 Pulse Rate 84 81 88 Pulse Rate from SpO2 Sensor Respiratory Rate 31 H 31 H 27 H Blood Pressure 112/62 119/65 110/59 L Blood Pressure Mean 78 76 74 Pulse Oximetry 96 97 93 Oxygen Delivery Method Room Air Room Air 12/04/24 00:30 12/04/24 01:00 Pulse Rate 89 88 Pulse Rate from SpO2 Sensor Respiratory Rate 25 H 22 Blood Pressure 107/59 L 118/70 Blood Pressure Mean 75 86 Pulse Oximetry 95 95 Oxygen Delivery Method Laboratory Data 12/04/24 04:08 12/04/24 04:08 Lab Results 12/03/24 12/03/24 12/03/24 Range/Units 18:47 20:20 20:33 WBC 38.73 H* (4.8-10.8) K/ul RBC 3.39 L (4.70-6.10) M/uL Hgb 10.4 L (14.0-18.0) g/dl Hct 31.3 L (42.0-52.0) % MCV 92.3 (80.0-100.0) fL MCH 30.7 (25.0-34.0) pg MCHC 33.2 (32.0-36.0) g/dL RDW Std Deviation 45.8 (36.4-46.3) fL RDW Coeff of Kenny 13.8 (11.5-14.5) % Plt Count 211 (130-400) K/uL MPV 9.6 (9.4-12.4) fL Immature Gran % (Auto) 0.9 % Neut % (Auto) 38.6 % Lymph % (Auto) 58.8 % Jasper % (Auto) 1.3 % Eos % (Auto) 0.2 % Baso % (Auto) 0.2 % Neut # (Auto) 14.99 H (1.40-6.50) K/uL Lymph # (Auto) 22.76 H (1.20-3.40) K/uL Jasper # (Auto) 0.49 (0.11-0.59) K/uL Eos # (Auto) 0.09 (0.00-0.50) K/uL Baso # (Auto) 0.07 (0.00-0.20) K/uL Immature Gran # (Auto) 0.33 H (0.01-0.20) K/uL Smudge Cells Present Polychromasia 1+ Acanthocytes (Spur) 1+ Sodium 136 (136-145) mmol/L Potassium TNP Chloride 105 (98-107) mmol/L Carbon Dioxide 25 (21-32) mmol/L Anion Gap 6 (3-11) BUN 19 (6-23) mg/dl Creatinine 1.10 (0.6-1.4) mg/dl Est Cr Clr Drug Dosing 48.4 ml/min eGFR 67.02 BUN/Creatinine Ratio 17.3 (10-20) Glucose 193 H (70-99(Fasting)) mg/dl Lactate 1.9 (0.4-2.0) mmol/L Calcium 8.8 (8.6-10.3) mg/dl Magnesium 1.8 (1.7-2.4) mg/dl Total Bilirubin 3.2 H (0.2-1.0) mg/dl Direct Bilirubin TNP AST TNP ALT 110 H (7-52) U/L Alkaline Phosphatase 613 H (34-104) U/L Troponin I High Sens 48.6 H 70.7 H* D (0-20) pg/ml Total Protein 5.8 L (6.0-8.3) gm/dl Albumin 3.3 L (3.4-5.0) gm/dl Procalcitonin 0.89 H (0-0.5) ng/ml Urine Color Dark Yellow Urine Appearance Clear (Clear) Urine pH 7.5 (4.5-7.5) Ur Specific Downey > 1.045 H (1.000-1.030) Urine Protein Negative (Negative) Urine Glucose (UA) Negative (Negative) Urine Ketones Negative (Negative) Urine Blood Negative (Negative) Urine Nitrite Positive A (Negative) Urine Bilirubin Negative (Negative) Urine Urobilinogen Positive H (Negative) Ur Leukocyte Esterase 2+ H (Negative) Urine WBC (Auto) >50 H (0-5) /hpf Urine RBC (Auto) 0-2 (0-2) /hpf U Hyaline Cast (Auto) 0-2 (0-2) /lpf U Epithel Cells (Auto) 0-2 (0-2) /hpf Urine Bacteria (Auto) None Seen (None Seen) Urine Comment 12/03/24 Range/Units 20:34 WBC (4.8-10.8) K/ul RBC (4.70-6.10) M/uL Hgb (14.0-18.0) g/dl Hct (42.0-52.0) % MCV (80.0-100.0) fL MCH (25.0-34.0) pg MCHC (32.0-36.0) g/dL RDW Std Deviation (36.4-46.3) fL RDW Coeff of Kenny (11.5-14.5) % Plt Count (130-400) K/uL MPV (9.4-12.4) fL Immature Gran % (Auto) % Neut % (Auto) % Lymph % (Auto) % Jasper % (Auto) % Eos % (Auto) % Baso % (Auto) % Neut # (Auto) (1.40-6.50) K/uL Lymph # (Auto) (1.20-3.40) K/uL Jasper # (Auto) (0.11-0.59) K/uL Eos # (Auto) (0.00-0.50) K/uL Baso # (Auto) (0.00-0.20) K/uL Immature Gran # (Auto) (0.01-0.20) K/uL Smudge Cells Polychromasia Acanthocytes (Spur) Sodium (136-145) mmol/L Potassium 4.6 Chloride (98-107) mmol/L Carbon Dioxide (21-32) mmol/L Anion Gap (3-11) BUN (6-23) mg/dl Creatinine (0.6-1.4) mg/dl Est Cr Clr Drug Dosing ml/min eGFR BUN/Creatinine Ratio (10-20) Glucose (70-99(Fasting)) mg/dl Lactate (0.4-2.0) mmol/L Calcium (8.6-10.3) mg/dl Magnesium (1.7-2.4) mg/dl Total Bilirubin (0.2-1.0) mg/dl Direct Bilirubin 1.3 H AST 218 H ALT (7-52) U/L Alkaline Phosphatase (34-104) U/L Troponin I High Sens (0-20) pg/ml Total Protein (6.0-8.3) gm/dl Albumin (3.4-5.0) gm/dl Procalcitonin (0-0.5) ng/ml Urine Color Urine Appearance (Clear) Urine pH (4.5-7.5) Ur Specific Downey (1.000-1.030) Urine Protein (Negative) Urine Glucose (UA) (Negative) Urine Ketones (Negative) Urine Blood (Negative) Urine Nitrite (Negative) Urine Bilirubin (Negative) Urine Urobilinogen (Negative) Ur Leukocyte Esterase (Negative) Urine WBC (Auto) (0-5) /hpf Urine RBC (Auto) (0-2) /hpf U Hyaline Cast (Auto) (0-2) /lpf U Epithel Cells (Auto) (0-2) /hpf Urine Bacteria (Auto) (None Seen) Urine Comment Administered Medications Atorvastatin Calcium (Atorvastatin 20 Mg Tab) 20 mg PO QAM [facility] Stop: 01/03/25 08:59 Last Admin: 12/04/24 12:25 Dose: Not Given Documented By: ESL Piperacillin Sod/Tazobactam Sod (Zosyn) 4.5 gm in 100 mls @ 25 mls/hr IV Q8H [facility]; Protocol Stop: 12/14/24 17:59 Last Admin: 12/04/24 17:28 Dose: 25 mls/hr Documented By: ESL Acetaminophen (Ofirmev) 1,000 mg in 100 mls @ 400 mls/hr IV Q8H [facility] Stop: 12/07/24 12:59 Last Infusion: 12/04/24 14:03 Dose: Infused Documented By: Admin: 12/04/24 13:44 Dose: 400 mls/hr Documented By: ESL Insulin Aspart (Insulin Aspart Per Unit Charge) 0 units SC Q6 [facility] Stop: 01/03/25 05:59 Last Admin: 12/04/24 17:26 Dose: Not Given Documented By: Admin: 12/04/24 12:35 Dose: Not Given Documented By: Admin: 12/04/24 05:26 Dose: Not Given Documented By: EFK Lamotrigine (Lamotrigine 100 Mg Tab) 100 mg PO BID [facility]; Protocol Stop: 01/03/25 08:59 Last Admin: 12/04/24 12:26 Dose: Not Given Documented By: ESL Ondansetron HCl (Ondansetron Inj 2 Mg/Ml 2 Ml Vial) 4 mg IV Q6H PRN PRN Reason: Nausea Stop: 01/03/25 03:41 Last Admin: 12/04/24 06:13 Dose: 4 mg Documented By: HNT Pantoprazole Sodium (Pantoprazole 40 Mg Tab) 40 mg PO QAM [facility] Stop: 01/03/25 08:59 Last Admin: 12/04/24 12:26 Dose: Not Given Documented By: ESL Discontinued Medications Heparin Sodium (Porcine) (Heparin Sod (Porcine) 1000 Unit/Ml) 5,000 units IV NOW ONE Stop: 12/04/24 05:50 Last Admin: 12/04/24 06:29 Dose: 5,000 units Documented By: MANSI Co-signed By: BARBI Sodium Chloride (Nss) 1,000 mls @ 999 mls/hr IV .Q1H1M [facility] Stop: 12/03/24 19:45 Last Infusion: 12/03/24 20:14 Dose: Infused Documented By: Admin: 12/03/24 19:15 Dose: 999 mls/hr Documented By: PUMA Vancomycin HCl 1,500 mg/ (Sodium Chloride) 500 mls @ 200 mls/hr IV NOW STA Stop: 12/03/24 21:07 Last Infusion: 12/03/24 22:39 Dose: Infused Documented By: Admin: 12/03/24 19:59 Dose: 200 mls/hr Documented By: PUMA Cefepime HCl (Maxipime 2000mg) 2,000 mg in 20 mls @ 5 mls/min IV NOW STA; Protocol Stop: 12/03/24 18:41 Last Admin: 12/03/24 19:59 Dose: 5 mls/min Documented By: PUMA Acetaminophen (Ofirmev) 1,000 mg in 100 mls @ 400 mls/hr IV NOW STA Stop: 12/03/24 18:52 Last Infusion: 12/03/24 19:38 Dose: Infused Documented By: Admin: 12/03/24 19:14 Dose: 400 mls/hr Documented By: PUMA Cefepime HCl (Maxipime 2000mg) 2,000 mg in 20 mls @ 5 mls/min IV Q12H [facility]; Protocol Stop: 12/09/24 07:59 Last Admin: 12/04/24 08:09 Dose: 5 mls/min Documented By: BABAK Lactated Ringer's (Lr) 1,000 mls @ 80 mls/hr IV .[id number] [facility] Stop: 12/04/24 16:11 Last Infusion: 12/04/24 17:24 Dose: Infused Documented By: Admin: 12/04/24 05:29 Dose: 80 mls/hr Documented By: MANSI Vancomycin HCl 1,250 mg/ (Sodium Chloride) 275 mls @ 200 mls/hr IV Q24H [facility] Stop: 12/06/24 05:59 Last Infusion: 12/04/24 07:37 Dose: Infused Documented By: ESElke Admin: 12/04/24 05:29 Dose: 200 mls/hr Documented By: MANSI Heparin Sodium/Dextrose (Heparin 36035 Unit/500 Ml D5w) 25,000 units in 500 mls @ 0 mls/hr IV .Q0M [facility]; Protocol Stop: 01/03/25 05:59 Last Titration: 12/04/24 14:15 Dose: Infused Documented By: ESL Co-signed By: CFD Titration: 12/04/24 13:38 Dose: 0 units/hr, 0 mls/hr Documented By: BABAK Co-signed By: CFD Titration: 12/04/24 08:12 Dose: 1,150 units/hr, 23 mls/hr Documented By: BABAK Co-signed By: CFD Admin: 12/04/24 06:31 Dose: 1,150 units/hr, 23 mls/hr Documented By: MANSI Co-signed By: BARBI Piperacillin Sod/Tazobactam Sod (Zosyn) 4.5 gm in 100 mls @ 200 mls/hr IV 1200 [facility]; Protocol Stop: 12/04/24 12:29 Last Infusion: 12/04/24 13:29 Dose: Infused Documented By: ESElke Admin: 12/04/24 12:31 Dose: 200 mls/hr Documented By: BABAK Ioversol (Optiray 320 125ml) 115 ml IV ONCE ONE Stop: 12/03/24 20:17 Last Admin: 12/03/24 20:17 Dose: 115 ml Documented By: ROCHELLE Ondansetron HCl (Ondansetron Inj 2 Mg/Ml 2 Ml Vial) 4 mg IV NOW STA Stop: 12/03/24 18:39 Last Admin: 12/03/24 19:14 Dose: 4 mg Documented By: PUMA Imaging Data Radiologist's Impression: Abdomen/Pelvis CT 12/03/24 18:38 Exam(s): CT ABDOMEN + PELVIS With Contrast IV Amt: 115ml opt i320 EXAM: CT Abdomen and Pelvis With Intravenous Contrast CLINICAL HISTORY: Sepsis with vomiting TECHNIQUE: Axial computed tomography images of the abdomen and pelvis with intravenous contrast. CTDI is 38 mGy and DLP is 880 mGy-cm. Automated exposure control was utilized for the study. A dose lowering technique was utilized adhering to the principles of ALARA. CONTRAST: Patient received 115ml opt i320 of IV contrast COMPARISON: No relevant prior studies available. FINDINGS: Lung bases: Unremarkable. No mass. No consolidation. Pleural space: Trace bilateral pleural effusions. ABDOMEN: Liver: Unremarkable. No mass. Gallbladder and bile ducts: Cholelithiasis. No ductal dilation. Pancreas: Unremarkable. No mass. No ductal dilation. Spleen: Nonspecific splenomegaly. Adrenals: Unremarkable. No mass. Kidneys and ureters: Simple appear left renal cyst is present, no follow up is needed. The kidneys are otherwise unremarkable. No hydronephrosis. Stomach and bowel: Suspect thickening of the wall of the distal stomach. There is a moderate amount of stool in the rectal vault however there is thickening of the wall of the rectosigmoid colon. Diverticulosis. No obstruction. PELVIS: Appendix: No findings to suggest acute appendicitis. Bladder: Thickening of the urinary bladder wall could relate to nondistention or cystitis. Reproductive: Nonspecific prostate gland enlargement. ABDOMEN and PELVIS: Intraperitoneal space: Unremarkable. No free air. No significant fluid collection. Bones/joints: There are degenerative changes of the spine. No acute fracture. There is a right hip arthroplasty. No dislocation. Laminectomies at L4-L5 with posterior fixation. Soft tissues: Small bilateral fat-containing inguinal hernias. Vasculature: Moderate atherosclerosis. No aneurysm. Lymph nodes: Unremarkable. No enlarged lymph nodes. Tubes, lines and devices: A biliary drain appears in good position. IMPRESSION: 1. There is a moderate amount of stool in the rectal vault however there is thickening of the wall of the rectosigmoid colon. This is likely infectious or inflammatory. 2. Suspect thickening of the wall of the distal stomach. This could be infectious, inflammatory or neoplastic. 3. Thickening of the urinary bladder wall could relate to nondistention or cystitis. 4. Nonspecific splenomegaly. 5. Cholelithiasis. 6. Diverticulosis. 7. Nonspecific prostate gland enlargement.. 8. Trace bilateral pleural effusions. Electronically signed by: Kelly Garay MD 12/03/24 23:43 PM Chest X-Ray 12/03/24 18:38 Chest radiograph, one view History: Chest pain Comparison: 08/16/2023 Findings: Single AP view of the chest performed. No focal consolidation or pleural effusion. No pneumothorax. The cardiomediastinal silhouette is within normal limits. Normal pulmonary vascularity. No evidence for lymphadenopathy. No visualized bony or soft tissue abnormality. Impression: Normal chest radiograph Electronically signed by Conor Hyde 12-03-2024 8:[address] 12/03/24 18:38 Exam(s): CT HEAD Without Contrast EXAM: CT Head Without Intravenous Contrast CLINICAL HISTORY: Reason for exam: eval for stroke. TECHNIQUE: Axial computed tomography images of the head/brain without intravenous contrast. CTDI is 38 mGy and DLP is 880 mGy-cm. Automated exposure control was utilized for the study. A dose lowering technique was utilized adhering to the principles of ALARA. COMPARISON: No relevant prior studies available. FINDINGS: This study is limited secondary to motion artifact. Brain: Remote ischemic injury of the left frontal lobe and capsule with encephalomalacia and gliosis. No hemorrhage. No significant white matter disease. No edema. Ventricles: Moderate ventriculomegaly. Bones/joints: Unremarkable. No acute fracture. Soft tissues: Unremarkable. Sinuses: Unremarkable as visualized. No acute sinusitis. Mastoid air cells: Bilateral mastoidectomies with cochlear implants. IMPRESSION: No evidence of acute intracranial pathology. Electronically signed by: Fern Dimas MD 12/03/24 22:47 PM Head CTA 12/03/24 18:38 Exam(s): CTA HEAD With Contrast IV Amt: 115ml opti 320 EXAM: CT Angiography Head With Intravenous Contrast CLINICAL HISTORY: Reason for exam: eval for stroke. TECHNIQUE: Axial computed tomographic angiography images of the head with intravenous contrast. CTDI is 38 mGy and DLP is 880 mGy-cm. Automated exposure control was utilized for the study. A dose lowering technique was utilized adhering to the principles of ALARA. MIP reconstructed images were created and reviewed. CONTRAST: Patient received 115ml opti 320 of IV contrast COMPARISON: No relevant prior studies available. FINDINGS: This study is limited secondary motion artifact and metallic artifact. The dural venous sinuses are patent. Right internal carotid artery: No acute findings. Intracranial segment is patent with no significant stenosis. No aneurysm. Right anterior cerebral artery: Unremarkable. No occlusion or significant stenosis. No aneurysm. Right middle cerebral artery: Unremarkable. No occlusion or significant stenosis. No aneurysm. Right posterior cerebral artery: Unremarkable. No occlusion or significant stenosis. No aneurysm. Right vertebral artery: Unremarkable as visualized. Left internal carotid artery: No acute findings. Intracranial segment is patent with no significant stenosis. No aneurysm. Left anterior cerebral artery: Unremarkable. No occlusion or significant stenosis. No aneurysm. Left middle cerebral artery: Unremarkable. No occlusion or significant stenosis. No aneurysm. Left posterior cerebral artery: Unremarkable. No occlusion or significant stenosis. No aneurysm. Left vertebral artery: Unremarkable as visualized. Basilar artery: Unremarkable. No occlusion or significant stenosis. No aneurysm. IMPRESSION: Negative CT angiogram of the head. Electronically signed by: Fern Dimas MD 12/03/24 22:50 PM Neck CTA 12/03/24 18:38 Exam(s): CTA NECK With Contrast IV Amt: 115ml opti 320 EXAM: CT Angiography Neck With Intravenous Contrast CLINICAL HISTORY: Reason for exam: eval stroke. TECHNIQUE: Routine carotid CT angiography protocol was performed with intravenous contrast. NASCET criteria using the distal ICAs for comparison were used for evaluation of stenoses. CTDI is 38 mGy and DLP is 880 mGy-cm. Automated exposure control was utilized for the study. A dose lowering technique was utilized adhering to the principles of ALARA. MIP reconstructed images were created and reviewed. CONTRAST: Patient received 115ml opti 320 of IV contrast COMPARISON: None. FINDINGS: VASCULATURE: Right common carotid artery: Unremarkable. No occlusion or significant stenosis. No dissection. Right internal carotid artery: There is a 50% stenosis of the proximal right ICA.. No dissection. Right external carotid artery: Unremarkable. No occlusion. Right vertebral artery: Hypoplastic with occlusion of the proximal and mid segments with recanalization distally through collaterals.. Left common carotid artery: Unremarkable. No occlusion or significant stenosis. No dissection. Left internal carotid artery: There is a 50% stenosis of proximal left ICA. No dissection. Left external carotid artery: Unremarkable. No occlusion. Left vertebral artery: Unremarkable. No occlusion or significant stenosis. No dissection. NECK: Bones/joints: Severe spinal canal stenosis at C6-7. No acute fracture. Soft tissues: Unremarkable. Prominent mediastinal lymph nodes. Cervical lymphadenopathy. Lung apices: Bronchitis with pneumonitis. CAROTID STENOSIS REFERENCE USING NASCET CRITERIA: % ICA stenosis = (1 - narrowest ICA diameter/diameter of distal cervical ICA) x 100. Mild - <50% stenosis. Moderate - 50-69% stenosis. Severe - 70-94% stenosis. Near occlusion - 95-99% stenosis. Occluded - 100% stenosis. IMPRESSION: There are 50% stenosis of the proximal right and left ICA. 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 Electronically signed by: Fern Dimas MD 12/03/24 22:59 PM Discharge Plan Visit Data Chief Complaint: Abdominal Pain ED Provider: Jorge Patel Discharge Problem: Sepsis, Transaminitis, Complicated urinary tract infection, Non-ST elevation ND (NSTEMI) Patient Disposition: Admitted As Inpatient Condition: Serious Discharge Instructions Interventions: ED Discharge Assessment Last Done: 12/04/24 02:25
[2024-12-03] MEDS ORDERED: VANCOMYCIN CONSULT ACTIVE PRN (18:38)
[2024-12-03] MEDS: ACETAMINOPHEN 1,000 MG/100 ML VIAL IV STA (19:14)
[2024-12-03] MEDS: ONDANSETRON INJ 2 MG/ML 2 ML VIAL IV STA (19:14)
[2024-12-03] MEDS: SODIUM CHLORIDE 0.9% 1,000 ML IV SCH (19:15)
[2024-12-03 19:22] LABS: Hematocrit (blood only) 31.3 % (42.0-52.0); Hemoglobin 10.4 g/dl (14.0-18.0); Mean Corpuscular Hemoglobin 30.7 pg (25.0-34.0); Mean Corpuscular Volume 92.3 fL (80.0-100.0); Platelet Count 211 K/uL (130-400); RDW Standard Deviation 45.8 fL (36.4-46.3); Red Blood Count 3.39 M/uL (4.70-6.10); White Blood Count 38.73 K/ul (4.8-10.8)
[2024-12-03 19:41] LABS: Acanthocytes 1+; Immature Granulocytes # (auto) 0.33 K/uL (0.01-0.20); Immature Granulocytes % (auto) 0.9 %; Polychromasia 1+; Smudge Cells Present
[2024-12-03 19:51] LABS: Alanine Aminotransferase 110 U/L (7-52); Alkaline Phosphatase 613 U/L (34-104); Anion Gap 6 (3-11); Bilirubin,Total 3.2 mg/dl (0.2-1.0); Blood Urea Nitrogen 19 mg/dl (6-23); Calcium 8.8 mg/dl (8.6-10.3); Carbon Dioxide 25 mmol/L (21-32); Chloride 105 mmol/L (98-107); Creatinine Clr Calc Pharmacy 48.4 ml/min; Glucose 193 mg/dl (70-99(Fasting)); Magnesium 1.8 mg/dl (1.7-2.4); Sodium 136 mmol/L (136-145); Total Protein 5.8 gm/dl (6.0-8.3)
[2024-12-03] MEDS: CEFEPIME 2000MG 2,000 MG/20 ML SYR IV STA (19:59)
[2024-12-03] MEDS: VANCOMYCIN HCL 1,500 MG in SODIUM CHLORIDE 0.9% 500 ML IV STA (19:59)
--- NOTE | 2024-12-03 20:08 | XRay Report ---
Chest radiograph, one view History: Chest pain Comparison: 08/16/2023 Findings: Single AP view of the chest performed. No focal consolidation or pleural effusion. No pneumothorax. The cardiomediastinal silhouette is within normal limits. Normal pulmonary vascularity. No evidence for lymphadenopathy. No visualized bony or soft tissue abnormality. Impression: Normal chest radiograph Electronically signed by Conor Hyde 12-03-2024 8:07 PM
[2024-12-03] MEDS: OPTIRAY 320 125ml IV ONE (20:17)
[2024-12-03 21:24] LABS: Potassium 4.6 mmol/L (3.5-5.1)
--- NOTE | 2024-12-03 22:48 | CT Scan Report ---
Exam(s): CT HEAD Without Contrast EXAM: CT Head Without Intravenous Contrast CLINICAL HISTORY: Reason for exam: eval for stroke. TECHNIQUE: Axial computed tomography images of the head/brain without intravenous contrast. CTDI is 38 mGy and DLP is 880 mGy-cm. Automated exposure control was utilized for the study. A dose lowering technique was utilized adhering to the principles of ALARA. COMPARISON: No relevant prior studies available. FINDINGS: This study is limited secondary to motion artifact. Brain: Remote ischemic injury of the left frontal lobe and capsule with encephalomalacia and gliosis. No hemorrhage. No significant white matter disease. No edema. Ventricles: Moderate ventriculomegaly. Bones/joints: Unremarkable. No acute fracture. Soft tissues: Unremarkable. Sinuses: Unremarkable as visualized. No acute sinusitis. Mastoid air cells: Bilateral mastoidectomies with cochlear implants. IMPRESSION: No evidence of acute intracranial pathology. Electronically signed by: Fern iDmas MD 12/03/24 22:47 PM
--- NOTE | 2024-12-03 22:51 | CT Scan Report ---
Exam(s): CTA HEAD With Contrast IV Amt: 115ml opti 320 EXAM: CT Angiography Head With Intravenous Contrast CLINICAL HISTORY: Reason for exam: eval for stroke. TECHNIQUE: Axial computed tomographic angiography images of the head with intravenous contrast. CTDI is 38 mGy and DLP is 880 mGy-cm. Automated exposure control was utilized for the study. A dose lowering technique was utilized adhering to the principles of ALARA. MIP reconstructed images were created and reviewed. CONTRAST: Patient received 115ml opti 320 of IV contrast COMPARISON: No relevant prior studies available. FINDINGS: This study is limited secondary motion artifact and metallic artifact. The dural venous sinuses are patent. Right internal carotid artery: No acute findings. Intracranial segment is patent with no significant stenosis. No aneurysm. Right anterior cerebral artery: Unremarkable. No occlusion or significant stenosis. No aneurysm. Right middle cerebral artery: Unremarkable. No occlusion or significant stenosis. No aneurysm. Right posterior cerebral artery: Unremarkable. No occlusion or significant stenosis. No aneurysm. Right vertebral artery: Unremarkable as visualized. Left internal carotid artery: No acute findings. Intracranial segment is patent with no significant stenosis. No aneurysm. Left anterior cerebral artery: Unremarkable. No occlusion or significant stenosis. No aneurysm. Left middle cerebral artery: Unremarkable. No occlusion or significant stenosis. No aneurysm. Left posterior cerebral artery: Unremarkable. No occlusion or significant stenosis. No aneurysm. Left vertebral artery: Unremarkable as visualized. Basilar artery: Unremarkable. No occlusion or significant stenosis. No aneurysm. IMPRESSION: Negative CT angiogram of the head. Electronically signed by: Fern Dimas MD 12/03/24 22:50 PM
--- NOTE | 2024-12-03 23:00 | CT Scan Report ---
Exam(s): CTA NECK With Contrast IV Amt: 115ml opti 320 EXAM: CT Angiography Neck With Intravenous Contrast CLINICAL HISTORY: Reason for exam: eval stroke. TECHNIQUE: Routine carotid CT angiography protocol was performed with intravenous contrast. NASCET criteria using the distal ICAs for comparison were used for evaluation of stenoses. CTDI is 38 mGy and DLP is 880 mGy-cm. Automated exposure control was utilized for the study. A dose lowering technique was utilized adhering to the principles of ALARA. MIP reconstructed images were created and reviewed. CONTRAST: Patient received 115ml opti 320 of IV contrast COMPARISON: None. FINDINGS: VASCULATURE: Right common carotid artery: Unremarkable. No occlusion or significant stenosis. No dissection. Right internal carotid artery: There is a 50% stenosis of the proximal right ICA.. No dissection. Right external carotid artery: Unremarkable. No occlusion. Right vertebral artery: Hypoplastic with occlusion of the proximal and mid segments with recanalization distally through collaterals.. Left common carotid artery: Unremarkable. No occlusion or significant stenosis. No dissection. Left internal carotid artery: There is a 50% stenosis of proximal left ICA. No dissection. Left external carotid artery: Unremarkable. No occlusion. Left vertebral artery: Unremarkable. No occlusion or significant stenosis. No dissection. NECK: Bones/joints: Severe spinal canal stenosis at C6-7. No acute fracture. Soft tissues: Unremarkable. Prominent mediastinal lymph nodes. Cervical lymphadenopathy. Lung apices: Bronchitis with pneumonitis. CAROTID STENOSIS REFERENCE USING NASCET CRITERIA: % ICA stenosis = (1 - narrowest ICA diameter/diameter of distal cervical ICA) x 100. Mild - <50% stenosis. Moderate - 50-69% stenosis. Severe - 70-94% stenosis. Near occlusion - 95-99% stenosis. Occluded - 100% stenosis. IMPRESSION: There are 50% stenosis of the proximal right and left ICA. 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 Electronically signed by: Fern Dimas MD 12/03/24 22:59 PM
[2024-12-03 23:03] LABS: Appearance Urine Clear (Clear); Bacteria Urine Automated None Seen (None Seen); Cast Urine Automated 0-2 /lpf (0-2); Epithelial Cell Urine Auto 0-2 /hpf (0-2); Glucose Urine UA Negative (Negative); RBC Urine Automated 0-2 /hpf (0-2); WBC Urine Automated >50 /hpf (0-5)
--- NOTE | 2024-12-03 23:43 | CT Scan Report ---
Exam(s): CT ABDOMEN + PELVIS With Contrast IV Amt: 115ml opt i320 EXAM: CT Abdomen and Pelvis With Intravenous Contrast CLINICAL HISTORY: Sepsis with vomiting TECHNIQUE: Axial computed tomography images of the abdomen and pelvis with intravenous contrast. CTDI is 38 mGy and DLP is 880 mGy-cm. Automated exposure control was utilized for the study. A dose lowering technique was utilized adhering to the principles of ALARA. CONTRAST: Patient received 115ml opt i320 of IV contrast COMPARISON: No relevant prior studies available. FINDINGS: Lung bases: Unremarkable. No mass. No consolidation. Pleural space: Trace bilateral pleural effusions. ABDOMEN: Liver: Unremarkable. No mass. Gallbladder and bile ducts: Cholelithiasis. No ductal dilation. Pancreas: Unremarkable. No mass. No ductal dilation. Spleen: Nonspecific splenomegaly. Adrenals: Unremarkable. No mass. Kidneys and ureters: Simple appear left renal cyst is present, no follow up is needed. The kidneys are otherwise unremarkable. No hydronephrosis. Stomach and bowel: Suspect thickening of the wall of the distal stomach. There is a moderate amount of stool in the rectal vault however there is thickening of the wall of the rectosigmoid colon. Diverticulosis. No obstruction. PELVIS: Appendix: No findings to suggest acute appendicitis. Bladder: Thickening of the urinary bladder wall could relate to nondistention or cystitis. Reproductive: Nonspecific prostate gland enlargement. ABDOMEN and PELVIS: Intraperitoneal space: Unremarkable. No free air. No significant fluid collection. Bones/joints: There are degenerative changes of the spine. No acute fracture. There is a right hip arthroplasty. No dislocation. Laminectomies at L4-L5 with posterior fixation. Soft tissues: Small bilateral fat-containing inguinal hernias. Vasculature: Moderate atherosclerosis. No aneurysm. Lymph nodes: Unremarkable. No enlarged lymph nodes. Tubes, lines and devices: A biliary drain appears in good position. IMPRESSION: 1. There is a moderate amount of stool in the rectal vault however there is thickening of the wall of the rectosigmoid colon. This is likely infectious or inflammatory. 2. Suspect thickening of the wall of the distal stomach. This could be infectious, inflammatory or neoplastic. 3. Thickening of the urinary bladder wall could relate to nondistention or cystitis. 4. Nonspecific splenomegaly. 5. Cholelithiasis. 6. Diverticulosis. 7. Nonspecific prostate gland enlargement.. 8. Trace bilateral pleural effusions. Electronically signed by: Kelly Garay MD 12/03/24 23:43 PM
--- NOTE | 2024-12-04 00:54 | History & Physical Report ---
Date of Service December 04, 2024 Assessment & Plan (1) Sepsis: (2) Aphasia: (3) S/P total right hip arthroplasty: (4) Right sided weakness: (5) Elevated LFTs: (6) Aortic stenosis: (7) Abdominal pain: (8) Leukocytosis: (9) BPH with obstruction/lower urinary tract symptoms: (10) Enterocolitis: (11) History of stroke: (12) Paralysis of right lower extremity: (13) CLL (chronic lymphocytic leukemia): (14) Hypertension: (15) Hyperlipidemia: (16) Diabetes mellitus type 2 in nonobese: (17) Hearing impaired: (18) Hemiplegia and hemiparesis following cerebral infarction affecting right dominant side: (19) Cochlear implant in place: Plan 84yo male with history of left-sided hemorrhagic stroke with resulting right- sided hemiparesis and aphasia in 2020, seizure disorder, HTN, T2DM, aortic stenosis, CLL, BPH, and hearing loss with cochlear implants presents with abd ominal pain: #Sepsis // #UTI: Patient tachycardic and tachypneic on presentation, +Leukocytosis (of questionable value based on h/o CLL), elevated procal - suspect urinary source based on UA findings CXR negative Full sepsis fluid volume deferred d/t severe aortic stenosis - s/p 1L NSS, will give additional liter of fluids @80ml/h Blood and urine cultures pending Continue broad spectrum abx coverage with Vanc and Cefepime, narrow based on C&S #Aphasia/right-sided hemiparesis: Patient with h/o left-sided hemorrhagic stroke with residual speech and right- sided deficits - unclear severity of deficits prior to presentation, stroke r/o initiated CT head, CTA head negative, CTA neck notable for: 50% stenosis of the proximal right and left ICA MRI brain pending NPO pending dysphagia assessment PT/OT eval and treat #NSTEMI: No obvious chest pain, troponin elevated, uptrending - trend to peak EKG with ST depression in lateral leads Start heparin gtt TTE pending #Abdominal pain // #Transaminitis: Tbili 3.2, elevated AST/ALT, alk phos CT A/P w/ IV contrast notable for: nonspecific thickening of multiple structures: rectosigmoid colon, distal stomach, bladder. +cholelithiasis without evidence of cholecystitis Lower suspicion for GI source for infection - ?possible choledocholithiasis with passage of stone Repeat AM hepatic function panel #T2DM: Basal bolus insulin #HTN: amlodipine, losartan held d/t softer blood pressures #Seizure disoder: Continue Lamictal #Anxiety: Continue paroxetine #HLD: Continue atorvastatin Dispo: Admit med-tele VTE ppx: Heparin gtt FEN/GI: NPO pending dysphagia screen, LR @80ml/h x1L Full Code: Patient unable to engage meaningfully in discussion of advanced directives. Please discuss with patient/family in AM. History of Present Illness Primary Care Provider: Swapna Swan MD 84yo male with history of left-sided hemorrhagic stroke with resulting right- sided hemiparesis and aphasia in 2020, seizure disorder, HTN, T2DM, aortic stenosis, CLL, BPH, and hearing loss with cochlear implants presents with abdominal pain. Patient near completely aphasic and minimally able to contribute meaningfully to HPI, no family members present when history obtained. History obtained earlier by ED team noted that patient presented d/t acute onset abdominal pain, multiple episodes of vomiting, and rigors. ED Course: Patient tachycardic and tachypneic on presentation - blood and urine cultures obtained S/P 1L NSS, Cefepime and Vanc x1 dose each +Leukocytosis (chronic in the setting of CLL) Tbili 3.2, elevated AST/ALT, alk phos CXR negative CT head, CTA head negative, CTA neck notable for: 50% stenosis of the proximal right and left ICA CT A/P w/ IV contrast notable for: nonspecific thickening of multiple structures: rectosigmoid colon, distal stomach, bladder. +cholelithiasis without evidence of cholecystitis Allergies Allergy/AdvReac Type Severity Reaction Status Date / Time No Known Allergies Allergy Verified 11/16/24 12:45 Home Medications Medication Instructions Recorded Confirmed Type atorvastatin 20 mg tablet 20 mg PO QAM 03/11/21 11/15/24 History losartan 50 mg tablet 50 mg PO DAILY 05/23/22 11/15/24 History amlodipine 2.5 mg tablet 2.5 mg PO QAM 12/25/22 11/15/24 History omeprazole 20 mg capsule,delayed 20 mg PO DAILY 12/25/22 11/15/24 History release paroxetine HCl 20 mg tablet 20 mg PO 08/16/23 11/15/24 History lamotrigine 100 mg tablet 100 mg PO BID #180 tabs 11/26/23 11/15/24 Rx acetaminophen 325 mg capsule 650 mg (2 x 325 mg) PO Q6H #120 11/18/24 Rx caps apixaban 2.5 mg tablet (Eliquis) 2.5 mg PO BID #60 tabs 11/18/24 Rx oxycodone 5 mg tablet 5 mg PO Q6H PRN breakthrough pain 11/18/24 Rx #10 tabs pantoprazole 40 mg tablet,delayed 40 mg PO QAM #30 tabs 11/18/24 Rx release polyethylene glycol 3350 17 gram 17 g PO Q6 #20 ea 11/18/24 Rx oral powder packet (Miralax) Past Med/Surg History Problem List (Updated 12/04/24 @ 01:21 by Bowen Leal DO) Aphasia S/P total right hip arthroplasty Thrombocytopenia Hip fracture, right (Acute) Displaced fracture of right femoral neck Hemiplegia and hemiparesis following cerebral infarction affecting right dominant side Anxiety Right sided weakness Elevated LFTs Lymphadenopathy Acute cholecystitis Sepsis Aortic stenosis Abdominal pain (Acute) Leukocytosis (Acute) BPH with obstruction/lower urinary tract symptoms Abnormal CT scan, gallbladder (Acute) Enterocolitis History of stroke Paralysis of right lower extremity CLL (chronic lymphocytic leukemia) (Acute) Hypertension Hyperlipidemia Diabetes mellitus type 2 in nonobese Hearing impaired Medical History 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 Seizure Bladder wall thickening Enlarged prostate Abnormal CT of the abdomen Leukocytosis Fecal retention Aspiration into airway Gout Surgical History H/O craniotomy 2020 - for hemorrhagic stroke Family History Other Family history non-contributory Social History Smoking Status: Former smoker Tobacco Type: Cigarettes Second Hand Exposure: No; Do You Dip or Chew Tobacco: No; Hx Alcohol Use: No Hx Substance Use: No Preferred Language: Turkish Communication Ability: aphasic Communication Ability Comment: pt has expressive aphasia Mixing And Dispensing Supervisor Required: No Beliefs That Will Affect Care: None Current Living Situation: Spouse Current Living Situation Comment: home with Other Information That Helps Us Care for You: No Feels Safe at Home: Yes Safety Concerns: Feels Safe At This Time Assistive Devices: Hearing Aid - Bilateral Assistive Devices Comment: cochlear implant Review of Systems Review of Systems: Unobtainable d/t aphasia, hearing impairment Physical Exam Physical Exam: Constitutional: no acute distress HEENT: NCAT, no conjunctival injection CV: +systolic ejection murmur, +tachycardia, normal rhythm, extremities well- perfused, no LE edema Resp: no increased work of breathing GI: nondistended, minimally tender to palpation in all 4 quadrants, no rebound tenderness, guarding, or rigidity MSK: RUE and RLE 0/5 strength Skin: warm, dry, no rash appreciated Neuro: Expressive aphasia, RUE and RLE 0/5 strength. Appears alert and oriented, able to nod yes/no but uncooperative at times Results & Data Results & Data Vital Signs (Past 12 Hours) Vital Signs Temp Pulse Resp BP Pulse Ox O2 Del Method 12/03/24 23:00 81 31 H 119/65 97 Room Air 12/03/24 22:30 84 31 H 112/62 96 Room Air 12/03/24 22:26 86 12/03/24 22:00 83 29 H 115/63 93 Room Air 12/03/24 21:00 98 H 37 H 114/64 96 Room Air 12/03/24 20:51 98 H 37 H 96 12/03/24 20:00 118/67 12/03/24 19:30 96 H 31 H 94 12/03/24 19:30 106/68 12/03/24 19:00 106 H 22 96 Room Air 12/03/24 19:00 127/70 12/03/24 18:57 104 H 24 96 Room Air 12/03/24 18:38 96 Room Air 12/03/24 18:33 97 H 12/03/24 18:30 131/91 12/03/24 18:26 37.8 C H 104 H 35 H 131/91 96 Room Air 12/03/24 18:25 125/72 Supervising Physician Co-Signing Physician Notes Patient seen and examined, chart reviewed, case discussed with Dr. Leal and I agree with the assessment and plan as above. Patient with fevers, rigors, nausea and vomiting Is unable to provide history as largely non-verbal, hard of hearing. No family at bedside WBC=38.73 with elevated neutrophils and lymphocytes as well as bands Elevated LFTs in mixed pattern Elevated Procalcitonin Mild elevation of Trop 48.6 --> [address] depressions in lateral and inferior leads UA with possible infection Assessment/Plan -Trend troponin - if continues to increase would initiate heparin gtt -Empiric antibiotics Vancomycin and Cefepime -Follow cultures -Repeat LFTs -Remainder as above Resident Activity Tracking Resident Involvement: Resident Care Provided Care Provided: Adult Hospital Medicine
[2024-12-04] MEDS ORDERED: GLUCOSE 40% GEL 15 GM TUBE PO PRN (03:42)
[2024-12-04] MEDS ORDERED: POLYETHYLENE (MIRALAX) 17 GM PACK PO PRN (03:42)
[2024-12-04] MEDS ORDERED: GLUCOSE 10 TAB/TUBE PO PRN (03:42)
[2024-12-04] MEDS ORDERED: DEXTROSE 50% 50 ML SYRINGE IV PRN (03:42)
[2024-12-04] MEDS ORDERED: GLUCAGON FOR INJ 1 MG VIAL SQ PRN (03:42)
[2024-12-04] MEDS ORDERED: CARBOHYDRATES FOR HYPOGLYCEMIA PO PRN (03:42)
[2024-12-04] MEDS ORDERED: ACETAMINOPHEN 325 MG TAB PO PRN (03:42)
--- NOTE | 2024-12-04 04:04 | Billing Data ---
Date of Service December 04, 2024 Coding Level of Care Code 49225 INT INP/OBS CARE
[2024-12-04 04:50] LABS: Hematocrit (blood only) 32.6 % (42.0-52.0); Hemoglobin 10.5 g/dl (14.0-18.0); Mean Corpuscular Hemoglobin 29.8 pg (25.0-34.0); Mean Corpuscular Volume 92.6 fL (80.0-100.0); Platelet Count 221 K/uL (130-400); RDW Standard Deviation 46.6 fL (36.4-46.3); Red Blood Count 3.52 M/uL (4.70-6.10); White Blood Count 49.84 K/ul (4.8-10.8)
[2024-12-04 04:53] LABS: Alanine Aminotransferase 117.0 U/L (7-52); Alkaline Phosphatase 546.0 U/L (34-104); Anion Gap 7.0 (3-11); Bilirubin,Total 3.0 mg/dl (0.2-1.0); Blood Urea Nitrogen 19.0 mg/dl (6-23); Calcium 8.7 mg/dl (8.6-10.3); Carbon Dioxide 25.0 mmol/L (21-32); Chloride 105.0 mmol/L (98-107); Creatinine Clr Calc Pharmacy 47.3 ml/min; Glucose 182.0 mg/dl (70-99(Fasting)); Potassium 5.0 mmol/L (3.5-5.1); Sodium 137.0 mmol/L (136-145); Total Protein 5.8 gm/dl (6.0-8.3)
[2024-12-04] MEDS: INSULIN ASPART PER UNIT CHARGE SC SCH (05:26)
[2024-12-04] MEDS: VANCOMYCIN HCL 1,250 MG in SODIUM CHLORIDE 0.9% 250 ML IV SCH (05:29)
[2024-12-04] MEDS: LACTATED RINGER'S 1,000 ML IV SCH ×2 (05:29→19:46)
[2024-12-04] MEDS ORDERED: Heparin IV Adult Wt-Based Standard w/ INITIAL Bolus Protocol IV STA (05:34)
[2024-12-04] MEDS: ONDANSETRON INJ 2 MG/ML 2 ML VIAL IV PRN (06:13)
[2024-12-04] MEDS: HEPARIN SOD (PORCINE) 1000 UNIT/ML IV ONE (06:29)
[2024-12-04] MEDS: HEPARIN 25000 UNIT/500 ML D5W 25,000 UNITS/500 ML BAG IV SCH (06:31)
[2024-12-04 07:14] LABS: INR 1.1 (0.9-1.1); Partial Thromboplastin Time 28 Seconds (21-31); Prothrombin Time 11.6 Seconds (9.0-12.0)
[2024-12-04] MEDS: CEFEPIME 2000MG 2,000 MG/20 ML SYR IV SCH (08:09)
[2024-12-04] MEDS ORDERED: APIXABAN 2.5 MG TAB PO SCH (09:00)
[2024-12-04] MEDS: ATORVASTATIN 20 MG TAB PO SCH (12:25)
[2024-12-04] MEDS: lamoTRIgine 100 MG TAB PO SCH (12:26)
[2024-12-04] MEDS: PIPERACILLIN/TAZOBACTAM 4.5 GM/100 ML BAG IV SCH ×2 (12:31→17:28)
--- NOTE | 2024-12-04 12:58 | Gastrointestinal Consultation ---
Date of Consultation December 04, 2024 Assessment & Plan (1) Cholelithiasis: Presence of gallstones with a past history of cholecystitis status post gallbladder stent placement. Possibly recurrent acute cholecystitis or biliary source of infection. Elevated white count is compounded by his underlying CLL. Hemodynamically stable. Await abdominal ultrasound for further evaluation of the gallbladder and biliary tract. Multiple comorbidities make him a high risk for any interventional procedures such as ERCP or cholecystectomy. May need to consider percutaneous cholecystostomy in the setting. Continue IV antibiotics. (2) Abnormal liver function tests: Elevated LFTs consistent with possible choledocholithiasis which could be a cause for infection. 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 Continue antibiotics monitor LFTs hold apixaban await ultrasound for further information. History of Present Illness Reason for Consultation: Abdominal pain and gallstones Attending Physician: Malcom Han History of Present Illness Patient presented to the hospital with several day history of increasing abdominal pain. He is aphasic and unable to give a history. Status post a left CVA has underlying aortic stenosis and CLL. Approximate 2 years ago he had ultrasounds like acute cholecystitis he was felt not to be a surgical candidate and a gallbladder stent was placed. He had been doing really well from a GI standpoint until the day before admission. He recently underwent hip surgery and was started on Eliquis postoperatively. No evidence of GI bleeding no fever or chills no evidence of jaundice or dark urine. CT scan of the abdomen shows gallstones and nondilated bile duct and what appears to be an indwelling gallbladder stent. Allergies Allergy/AdvReac Type Severity Reaction Status Date / Time No Known Allergies Allergy Verified 11/16/24 12:45 Home Medications Medication Instructions Recorded Confirmed Type atorvastatin 20 mg tablet 20 mg PO QAM 03/11/21 11/15/24 History losartan 50 mg tablet 50 mg PO DAILY 05/23/22 11/15/24 History amlodipine 2.5 mg tablet 2.5 mg PO QAM 12/25/22 11/15/24 History omeprazole 20 mg capsule,delayed 20 mg PO DAILY 12/25/22 11/15/24 History release paroxetine HCl 20 mg tablet 20 mg PO HS 08/16/23 11/15/24 History lamotrigine 100 mg tablet 100 mg PO BID #180 tabs 11/26/23 11/15/24 Rx acetaminophen 325 mg capsule 650 mg (2 x 325 mg) PO Q6H #120 11/18/24 Rx caps apixaban 2.5 mg tablet (Eliquis) 2.5 mg PO BID #60 tabs 11/18/24 Rx oxycodone 5 mg tablet 5 mg PO Q6H PRN breakthrough pain 11/18/24 Rx #10 tabs pantoprazole 40 mg tablet,delayed 40 mg PO QAM #30 tabs 11/18/24 Rx release polyethylene glycol 3350 17 gram 17 g PO Q6 #20 ea 11/18/24 Rx oral powder packet (Miralax) Patient History Medical History 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 Seizure Bladder wall thickening Enlarged prostate Abnormal CT of the abdomen Leukocytosis Fecal retention Aspiration into airway Gout Surgical History H/O craniotomy 2020 - for hemorrhagic stroke Family History Other Family history non-contributory Social History Smoking Status: Former smoker Tobacco Type: Cigarettes Second Hand Exposure: No; Do You Dip or Chew Tobacco: No; Hx Alcohol Use: No Hx Substance Use: No Preferred Language: Greenlandic Communication Ability: Effective Communication Ability Comment: pt has expressive aphasia Jacquard Loom Carpet Weaver Required: No Beliefs That Will Affect Care: None Current Living Situation: Spouse Current Living Situation Comment: home with Other Information That Helps Us Care for You: No Feels Safe at Home: Yes Safety Concerns: Feels Safe At This Time Assistive Devices: Walker, Wheelchair and Other Assistive Devices Comment: cochlear implant Review of Systems Review of Systems: Patient claims he does have abdominal pain which is right upper quadrant in location unable to answer any additional questions Physical Exam Physical Exam: Eyes; anicteric HENT No masses Chest clear to A Cor S1, S2 physiologic Abd: soft tender right upper quadrant no rebound no guarding no masses Ext no edema Results & Data Vital Signs (Past 12 Hours) Vital Signs Temp Pulse Pulse Resp BP BP Pulse Ox 12/04/24 07:28 80 12/04/24 07:11 37.3 C 81 18 111/44 L 95 12/04/24 04:39 77 12/04/24 03:56 36.9 C 72 18 121/63 94 12/04/24 02:15 83 22 102/58 L 94 12/04/24 01:36 75 18 121/67 93 12/04/24 01:00 88 22 118/70 95 O2 Del Method 12/04/24 07:28 12/04/24 07:11 Room Air 12/04/24 04:39 12/04/24 03:56 Room Air 12/04/24 02:15 12/04/24 01:36 12/04/24 01:00 Laboratory Results Laboratory Results - last 48 hr 12/03/24 12/03/24 12/03/24 18:47 20:20 20:33 WBC 38.73 H* RBC 3.39 L Hgb 10.4 L Hct 31.3 L MCV 92.3 MCH 30.7 MCHC 33.2 RDW Std Deviation 45.8 RDW Coeff of Kenny 13.8 Plt Count 211 MPV 9.6 Immature Gran % (Auto) 0.9 Neut % (Auto) 38.6 Lymph % (Auto) 58.8 [place] % (Auto) 1.3 Eos % (Auto) 0.2 Baso % (Auto) 0.2 Neut # (Auto) 14.99 H Lymph # (Auto) 22.76 H [place] # (Auto) 0.49 Eos # (Auto) 0.09 Baso # (Auto) 0.07 Immature Gran # (Auto) 0.33 H Smudge Cells Present Polychromasia 1+ Acanthocytes (Spur) 1+ PT INR APTT PTT Ratio Sodium 136 Potassium TNP Chloride 105 Carbon Dioxide 25 Anion Gap 6 BUN 19 Creatinine 1.10 Est Cr Clr Drug Dosing 48.4 eGFR 67.02 BUN/Creatinine Ratio 17.3 Glucose 193 H POC Glucose Lactate 1.9 Calcium 8.8 Magnesium 1.8 Total Bilirubin 3.2 H Direct Bilirubin TNP AST TNP ALT 110 H Alkaline Phosphatase 613 H Troponin I High Sens 48.6 H 70.7 H* D Total Protein 5.8 L Albumin 3.3 L Procalcitonin 0.89 H Urine Color Dark Yellow Urine Appearance Clear Urine pH 7.5 Ur Specific [place] > 1.045 H Urine Protein Negative Urine Glucose (UA) Negative Urine Ketones Negative Urine Blood Negative Urine Nitrite Positive A Urine Bilirubin Negative Urine Urobilinogen Positive H Ur Leukocyte Esterase 2+ H Urine WBC (Auto) >50 H Urine RBC (Auto) 0-2 U Hyaline Cast (Auto) 0-2 U Epithel Cells (Auto) 0-2 Urine Bacteria (Auto) None Seen Urine Comment 12/03/24 12/04/24 12/04/24 20:34 04:08 05:25 WBC 49.84 H* RBC 3.52 L Hgb 10.5 L Hct 32.6 L MCV 92.6 MCH 29.8 MCHC 32.2 RDW Std Deviation 46.6 H RDW Coeff of Kenny 14.1 Plt Count 221 MPV 9.3 L Immature Gran % (Auto) Neut % (Auto) Lymph % (Auto) [place] % (Auto) Eos % (Auto) Baso % (Auto) Neut # (Auto) Lymph # (Auto) [place] # (Auto) Eos # (Auto) Baso # (Auto) Immature Gran # (Auto) Smudge Cells Polychromasia Acanthocytes (Spur) PT INR APTT PTT Ratio Sodium 137 Potassium 4.6 5.0 Chloride 105 Carbon Dioxide 25 Anion Gap 7 BUN 19 Creatinine 1.09 Est Cr Clr Drug Dosing 47.3 eGFR 67.76 BUN/Creatinine Ratio 17.4 Glucose 182 H POC Glucose 163 H Lactate Calcium 8.7 Magnesium Total Bilirubin 3.0 H Direct Bilirubin 1.3 H 1.9 H AST 218 H 221 H ALT 117 H Alkaline Phosphatase 546 H Troponin I High Sens 104.5 H* D Total Protein 5.8 L Albumin 3.2 L Procalcitonin Urine Color Urine Appearance Urine pH Ur Specific [place] Urine Protein Urine Glucose (UA) Urine Ketones Urine Blood Urine Nitrite Urine Bilirubin Urine Urobilinogen Ur Leukocyte Esterase Urine WBC (Auto) Urine RBC (Auto) U Hyaline Cast (Auto) U Epithel Cells (Auto) Urine Bacteria (Auto) Urine Comment 12/04/24 12/04/24 06:06 12:08 WBC RBC Hgb Hct MCV MCH MCHC RDW Std Deviation RDW Coeff of Kenny Plt Count MPV Immature Gran % (Auto) Neut % (Auto) Lymph % (Auto) [place] % (Auto) Eos % (Auto) Baso % (Auto) Neut # (Auto) Lymph # (Auto) [place] # (Auto) Eos # (Auto) Baso # (Auto) Immature Gran # (Auto) Smudge Cells Polychromasia Acanthocytes (Spur) PT 11.6 INR 1.1 APTT 28 PTT Ratio 1.0 Sodium Potassium Chloride Carbon Dioxide Anion Gap BUN Creatinine Est Cr Clr Drug Dosing eGFR BUN/Creatinine Ratio Glucose POC Glucose 147 H Lactate Calcium Magnesium Total Bilirubin Direct Bilirubin AST ALT Alkaline Phosphatase Troponin I High Sens 105.7 H* Total Protein Albumin Procalcitonin Urine Color Urine Appearance Urine pH Ur Specific [place] Urine Protein Urine Glucose (UA) Urine Ketones Urine Blood Urine Nitrite Urine Bilirubin Urine Urobilinogen Ur Leukocyte Esterase Urine WBC (Auto) Urine RBC (Auto) U Hyaline Cast (Auto) U Epithel Cells (Auto) Urine Bacteria (Auto) Urine Comment Diagnostic Findings Abdomen/Pelvis CT 12/03/24 18:38 Exam(s): CT ABDOMEN + PELVIS With Contrast IV Amt: 115ml opt i320 EXAM: CT Abdomen and Pelvis With Intravenous Contrast CLINICAL HISTORY: Sepsis with vomiting TECHNIQUE: Axial computed tomography images of the abdomen and pelvis with intravenous contrast. CTDI is 38 mGy and DLP is 880 mGy-cm. Automated exposure control was utilized for the study. A dose lowering technique was utilized adhering to the principles of ALARA. CONTRAST: Patient received 115ml opt i320 of IV contrast COMPARISON: No relevant prior studies available. FINDINGS: Lung bases: Unremarkable. No mass. No consolidation. Pleural space: Trace bilateral pleural effusions. ABDOMEN: Liver: Unremarkable. No mass. Gallbladder and bile ducts: Cholelithiasis. No ductal dilation. Pancreas: Unremarkable. No mass. No ductal dilation. Spleen: Nonspecific splenomegaly. Adrenals: Unremarkable. No mass. Kidneys and ureters: Simple appear left renal cyst is present, no follow up is needed. The kidneys are otherwise unremarkable. No hydronephrosis. Stomach and bowel: Suspect thickening of the wall of the distal stomach. There is a moderate amount of stool in the rectal vault however there is thickening of the wall of the rectosigmoid colon. Diverticulosis. No obstruction. PELVIS: Appendix: No findings to suggest acute appendicitis. Bladder: Thickening of the urinary bladder wall could relate to nondistention or cystitis. Reproductive: Nonspecific prostate gland enlargement. ABDOMEN and PELVIS: Intraperitoneal space: Unremarkable. No free air. No significant fluid collection. Bones/joints: There are degenerative changes of the spine. No acute fracture. There is a right hip arthroplasty. No dislocation. Laminectomies at L4-L5 with posterior fixation. Soft tissues: Small bilateral fat-containing inguinal hernias. Vasculature: Moderate atherosclerosis. No aneurysm. Lymph nodes: Unremarkable. No enlarged lymph nodes. Tubes, lines and devices: A biliary drain appears in good position. IMPRESSION: 1. There is a moderate amount of stool in the rectal vault however there is thickening of the wall of the rectosigmoid colon. This is likely infectious or inflammatory. 2. Suspect thickening of the wall of the distal stomach. This could be infectious, inflammatory or neoplastic. 3. Thickening of the urinary bladder wall could relate to nondistention or cystitis. 4. Nonspecific splenomegaly. 5. Cholelithiasis. 6. Diverticulosis. 7. Nonspecific prostate gland enlargement.. 8. Trace bilateral pleural effusions. Electronically signed by: Kelly Garay MD 12/03/24 23:43 PM Chest X-Ray 12/03/24 18:38 Chest radiograph, one view History: Chest pain Comparison: 08/16/2023 Findings: Single AP view of the chest performed. No focal consolidation or pleural effusion. No pneumothorax. The cardiomediastinal silhouette is within normal limits. Normal pulmonary vascularity. No evidence for lymphadenopathy. No visualized bony or soft tissue abnormality. Impression: Normal chest radiograph Electronically signed by Conor Hyde 12-03-2024 8:[address] 12/03/24 18:38 Exam(s): CT HEAD Without Contrast EXAM: CT Head Without Intravenous Contrast CLINICAL HISTORY: Reason for exam: eval for stroke. TECHNIQUE: Axial computed tomography images of the head/brain without intravenous contrast. CTDI is 38 mGy and DLP is 880 mGy-cm. Automated exposure control was utilized for the study. A dose lowering technique was utilized adhering to the principles of ALARA. COMPARISON: No relevant prior studies available. FINDINGS: This study is limited secondary to motion artifact. Brain: Remote ischemic injury of the left frontal lobe and capsule with encephalomalacia and gliosis. No hemorrhage. No significant white matter disease. No edema. Ventricles: Moderate ventriculomegaly. Bones/joints: Unremarkable. No acute fracture. Soft tissues: Unremarkable. Sinuses: Unremarkable as visualized. No acute sinusitis. Mastoid air cells: Bilateral mastoidectomies with cochlear implants. IMPRESSION: No evidence of acute intracranial pathology. Electronically signed by: Fern Dimas MD 12/03/24 22:47 PM Head CTA 12/03/24 18:38 Exam(s): CTA HEAD With Contrast IV Amt: 115ml opti 320 EXAM: CT Angiography Head With Intravenous Contrast CLINICAL HISTORY: Reason for exam: eval for stroke. TECHNIQUE: Axial computed tomographic angiography images of the head with intravenous contrast. CTDI is 38 mGy and DLP is 880 mGy-cm. Automated exposure control was utilized for the study. A dose lowering technique was utilized adhering to the principles of ALARA. MIP reconstructed images were created and reviewed. CONTRAST: Patient received 115ml opti 320 of IV contrast COMPARISON: No relevant prior studies available. FINDINGS: This study is limited secondary motion artifact and metallic artifact. The dural venous sinuses are patent. Right internal carotid artery: No acute findings. Intracranial segment is patent with no significant stenosis. No aneurysm. Right anterior cerebral artery: Unremarkable. No occlusion or significant stenosis. No aneurysm. Right middle cerebral artery: Unremarkable. No occlusion or significant stenosis. No aneurysm. Right posterior cerebral artery: Unremarkable. No occlusion or significant stenosis. No aneurysm. Right vertebral artery: Unremarkable as visualized. Left internal carotid artery: No acute findings. Intracranial segment is patent with no significant stenosis. No aneurysm. Left anterior cerebral artery: Unremarkable. No occlusion or significant stenosis. No aneurysm. Left middle cerebral artery: Unremarkable. No occlusion or significant stenosis. No aneurysm. Left posterior cerebral artery: Unremarkable. No occlusion or significant stenosis. No aneurysm. Left vertebral artery: Unremarkable as visualized. Basilar artery: Unremarkable. No occlusion or significant stenosis. No aneurysm. IMPRESSION: Negative CT angiogram of the head. Electronically signed by: Fern Dimas MD 12/03/24 22:50 PM Neck CTA 12/03/24 18:38 Exam(s): CTA NECK With Contrast IV Amt: 115ml opti 320 EXAM: CT Angiography Neck With Intravenous Contrast CLINICAL HISTORY: Reason for exam: eval stroke. TECHNIQUE: Routine carotid CT angiography protocol was performed with intravenous contrast. NASCET criteria using the distal ICAs for comparison were used for evaluation of stenoses. CTDI is 38 mGy and DLP is 880 mGy-cm. Automated exposure control was utilized for the study. A dose lowering technique was utilized adhering to the principles of ALARA. MIP reconstructed images were created and reviewed. CONTRAST: Patient received 115ml opti 320 of IV contrast COMPARISON: None. FINDINGS: VASCULATURE: Right common carotid artery: Unremarkable. No occlusion or significant stenosis. No dissection. Right internal carotid artery: There is a 50% stenosis of the proximal right ICA.. No dissection. Right external carotid artery: Unremarkable. No occlusion. Right vertebral artery: Hypoplastic with occlusion of the proximal and mid segments with recanalization distally through collaterals.. Left common carotid artery: Unremarkable. No occlusion or significant stenosis. No dissection. Left internal carotid artery: There is a 50% stenosis of proximal left ICA. No dissection. Left external carotid artery: Unremarkable. No occlusion. Left vertebral artery: Unremarkable. No occlusion or significant stenosis. No dissection. NECK: Bones/joints: Severe spinal canal stenosis at C6-7. No acute fracture. Soft tissues: Unremarkable. Prominent mediastinal lymph nodes. Cervical lymphadenopathy. Lung apices: Bronchitis with pneumonitis. CAROTID STENOSIS REFERENCE USING NASCET CRITERIA: % ICA stenosis = (1 - narrowest ICA diameter/diameter of distal cervical ICA) x 100. Mild - <50% stenosis. Moderate - 50-69% stenosis. Severe - 70-94% stenosis. Near occlusion - 95-99% stenosis. Occluded - 100% stenosis. IMPRESSION: There are 50% stenosis of the proximal right and left ICA. 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 Electronically signed by: Fern Dimas MD 12/03/24 22:59 PM PG Care Time/CCT Total # of Minutes Spent Total Time Spent with Patient: Total time spent is greater than 50% in coordination of care (as documented) at patient's floor/unit and/or counseling patient: Coding Level of Care Code 29961 INT INP/OBS CARE MIN Diagnoses Cholelithiasis K80.20 Abnormal liver function tests R79.89
--- NOTE | 2024-12-04 13:24 | Surgery Consultation ---
Date of Consultation December 04, 2024 Assessment & Plan (1) Abnormal liver function tests: This is a very complex patient with multiple medical issues. He clearly appears to be septic. Questionable 2 sources of infection including the lower abdomen (the sigmoid colon versus bladder) and the biliary tree. Patient seen examined and discussed with Dr. Beyer from GI. Patient cannot have an MRI secondary to an implant. Ultrasound has been ordered. Clearly Oli is not a surgical candidate at this time. I recommend keeping him n.p.o. and initiating IV antibiotics and gentle rehydration. We would have a very low threshold for interventional radiology placement of a cholecystostomy tube. He is on Eliquis although he did not have any today. I recommended we continue to hold that. GI is going to be evaluating him for potential ERCP. Unclear if he still has a biliary stent in place versus the stent got dislodged. My thought is that if we can get a cholecystostomy tube and we could perform a cholangiogram through that. We will continue to follow along and help manage although again I do not believe Oli is a surgical candidate. (2) Cholelithiasis: (3) Aphasia: (4) Thrombocytopenia: (5) Hemiplegia and hemiparesis following cerebral infarction affecting right dominant side: (6) Elevated LFTs: (7) Acute cholecystitis: (8) Sepsis: (9) Aortic stenosis: (10) Leukocytosis: (11) History of stroke: (12) CLL (chronic lymphocytic leukemia): (13) Hypertension: (14) Hyperlipidemia: (15) Diabetes mellitus type 2 in nonobese: (16) Hearing impaired: History of Present Illness Attending Physician: Malcom Han History of Present Illness History given by patient's family who is at bedside. I was asked to see Oli who is an 84-year-old male with significant past medical history which includes chronic lymphocytic leukemia, CVA with right sided hemiparesis type 2 diabetes mellitus, hypertension, hyperlipidemia among other things. He is currently hav ing abdominal pain both in the suprapubic/left lower quadrant region as well as the epigastric and right upper quadrant region. Apparently in the past at a different facility he was told he was too high of a surgical risk to have his gallbladder removed although they did place a biliary stent. Currently imaging has shown signs of potential diverticulitis/colitis, cystitis and even cholecystitis. He has a severe leukocytosis although the significance is questionable due to his CLL. He also has elevated LFTs including a bilirubin of 3.0. Allergies Allergy/AdvReac Type Severity Reaction Status Date / Time No Known Allergies Allergy Verified 11/16/24 12:45 Home Medications Medication Instructions Recorded Confirmed Type atorvastatin 20 mg tablet 20 mg PO QAM 03/11/21 11/15/24 History losartan 50 mg tablet 50 mg PO DAILY 05/23/22 11/15/24 History amlodipine 2.5 mg tablet 2.5 mg PO QAM 12/25/22 11/15/24 History omeprazole 20 mg capsule,delayed 20 mg PO DAILY 12/25/22 11/15/24 History release paroxetine HCl 20 mg tablet 20 mg PO HS 08/16/23 11/15/24 History lamotrigine 100 mg tablet 100 mg PO BID #180 tabs 11/26/23 11/15/24 Rx acetaminophen 325 mg capsule 650 mg (2 x 325 mg) PO Q6H #120 11/18/24 Rx caps apixaban 2.5 mg tablet (Eliquis) 2.5 mg PO BID #60 tabs 11/18/24 Rx oxycodone 5 mg tablet 5 mg PO Q6H PRN breakthrough pain 11/18/24 Rx #10 tabs pantoprazole 40 mg tablet,delayed 40 mg PO QAM #30 tabs 11/18/24 Rx release polyethylene glycol 3350 17 gram 17 g PO Q6 #20 ea 11/18/24 Rx oral powder packet (Miralax) Patient History Medical History 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 Seizure Bladder wall thickening Enlarged prostate Abnormal CT of the abdomen Leukocytosis Fecal retention Aspiration into airway Gout Surgical History H/O craniotomy 2020 - for hemorrhagic stroke Family History Other Family history non-contributory Social History Smoking Status: Former smoker Tobacco Type: Cigarettes Second Hand Exposure: No; Do You Dip or Chew Tobacco: No; Hx Alcohol Use: No Hx Substance Use: No Preferred Language: [place] Communication Ability: Effective Communication Ability Comment: pt has expressive aphasia Prop Sawyer Required: No Beliefs That Will Affect Care: None Current Living Situation: Spouse Current Living Situation Comment: home with Other Information That Helps Us Care for You: No Feels Safe at Home: Yes Safety Concerns: Feels Safe At This Time Assistive Devices: Walker, Wheelchair and Other Assistive Devices Comment: cochlear implant Physical Exam Constitutional: WD/WN, vitals as above no acute distress and not ill appearing Eyes: PERRL, conjunctivae normal, anicteric sclerae EOM intact bilaterally ENMT: external ear and nose normal, oropharynx normal Ears: no hearing impairment Neck: trachea midline, no thyromegaly Respiratory: normal respiratory effort; no respiratory distress and does not use accessory muscles Cardiovascular: Rate/Rhythm: regular rate and regular rhythm Gastrointestinal (Abdomen): Soft. Positive suprapubic tenderness. Positive right upper quadrant tenderness. No evidence of peritonitis Skin: no rashes, warm and dry Psychiatric: Orientation: alert, oriented x 3 and cooperative Results & Data Vital Signs (Past 12 Hours) Vital Signs Temp Pulse Pulse Resp BP BP Pulse Ox 12/04/24 07:28 80 12/04/24 07:11 37.3 C 81 18 111/44 L 95 12/04/24 04:39 77 12/04/24 03:56 36.9 C 72 18 121/63 94 12/04/24 02:15 83 22 102/58 L 94 12/04/24 01:36 75 18 121/67 93 O2 Del Method 12/04/24 07:28 12/04/24 07:11 Room Air 12/04/24 04:39 12/04/24 03:56 Room Air 12/04/24 02:15 12/04/24 01:36 PG Care Time/CCT Total # of Minutes Spent Total Time Spent with Patient: Total time spent is greater than 50% in coordination of care (as documented) at patient's floor/unit and/or counseling patient: Coding Level of Care Code 05149 INT INP/OBS CARE 3/75MIN Diagnoses Abnormal liver function tests R79.89 Cholelithiasis K80.20 Aphasia R47.01 Thrombocytopenia D69.6 Hemiplegia and hemiparesis following cerebral infarction affecting right dominant side I69.351 Elevated LFTs R79.89 Acute cholecystitis K81.0 Sepsis A41.9 Aortic stenosis I35.0 Leukocytosis D72.829 History of stroke Z86.73 CLL (chronic lymphocytic leukemia) C91.10 Hypertension I10 Hyperlipidemia E78.5 Diabetes mellitus type 2 in nonobese E11.9 Hearing impaired H91.90
[2024-12-04 13:33] LABS: ANTI-Xa, UFH(UnfractionatedHep 0.87 IU/ml (0.3-0.7)
[2024-12-04] MEDS: ACETAMINOPHEN 1,000 MG/100 ML VIAL IV SCH (13:44)
--- NOTE | 2024-12-04 16:29 | Ultrasound Report ---
EXAMINATION: US abdomen right upper quadrant COMPARISON: None HISTORY: Abdominal pain TECHNIQUE: The right upper quadrant of the abdomen was scanned in standard fashion with specialized ultrasound transducers using both ayers scale and limited color Doppler techniques. Findings: Liver: The liver demonstrates normal homogeneous echotexture. No evidence of a focal hepatic mass or intrahepatic biliary ductal dilatation. The main portal vein is patent with antegrade flow. Mildly enlarged measuring 17.8 cm. Gallbladder: The gallbladder is filled with stones, with wall echo shadow complex. No gallbladder wall thickening. The sonographic Milligan sign is negative when performed by the technologist. Small volume pericholecystic fluid. Bile Ducts: Dilated CBD measuring 8.6 mm. Pancreas: Visualized portions of the head and body of the pancreas are unremarkable. The duct at the head measures 3 mm in diameter. Right kidney: Normal echotexture, without mass or hydronephrosis. The lower pole is not well-seen. Fluid: No evidence of ascites or pleural effusions. Impression: 1. Cholelithiasis. Small volume pericholecystic fluid, is nonspecific, however acute cholecystitis is not entirely excluded. Sonographic Milligan sign performed by the technologist is negative, however. 2. Dilated common bile duct. Electronically signed by Conor Hyde 12-04-2024 4:28 PM
--- NOTE | 2024-12-04 16:31 | XCELERA ---
[id number]
--- NOTE | 2024-12-04 18:07 | Hospitalist Progress Note ---
Date of Service December 04, 2024 Assessment & Plan (1) Sepsis: (2) Aphasia: (3) S/P total right hip arthroplasty: (4) Right sided weakness: (5) Elevated LFTs: (6) Aortic stenosis: (7) Abdominal pain: (8) Leukocytosis: (9) BPH with obstruction/lower urinary tract symptoms: (10) Enterocolitis: (11) History of stroke: (12) Paralysis of right lower extremity: (13) CLL (chronic lymphocytic leukemia): (14) Hypertension: (15) Hyperlipidemia: (16) Diabetes mellitus type 2 in nonobese: (17) Hearing impaired: (18) Hemiplegia and hemiparesis following cerebral infarction affecting right dominant side: (19) Cochlear implant in place: Plan 84yo male with 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 gallbladder pathology: - Patient tachycardic and tachypneic on presentation, +Leukocytosis (of questionable value based on h/o CLL), elevated procal - Suspect GI source based on rising LFTs t. bili: 3.0, direct bili: 1.9, AST: 221 ALT:117 Alk phos:546 vs urinary source based on mild UA findings - CT A/P w/ IV contrast notable for: nonspecific thickening of multiple structures: rectosigmoid colon, distal stomach, bladder. +cholelithiasis without evidence of cholecystitis - CXR negative - Full sepsis fluid volume deferred d/t severe aortic stenosis - s/p 1L NSS, received additional liter of fluids @80ml/h - Blood and urine cultures pending - Continue broad spectrum abx coverage with Zosyn narrow based on C&S - RUQ U/S ordered - Surgery and GI teams consulted for acute intervention, potential percutaneous cholecystostomy vs ERCP study, patient high-risk for invasive surgery due to cardiac status and severe aortic stenosis #Aphasia/right-sided hemiparesis: - Patient with h/o left-sided hemorrhagic stroke with residual speech and right- sided deficits - unclear severity of deficits prior to presentation, stroke r/o initiated - CT head, CTA head negative, CTA neck notable for: 50% stenosis of the proximal right and left ICA - NPO pending dysphagia assessment - PT/OT eval and treat #Elevated troponin - No obvious chest pain, troponin elevated, uptrending - trend to peak - EKG with ST depression in lateral leads - Etiology likely from demand ishchemia rather than NSTEMI - TTE pending #Abdominal pain // #Transaminitis: - Tbili 3.2, elevated AST/ALT, alk phos - possible choledocholithiasis with passage of stone or cholangitis with LFTs trend and leukocytosis - Repeat AM hepatic function panel #T2DM: Basal bolus insulin #HTN: amlodipine, losartan held d/t softer blood pressures #Seizure disoder: Continue Lamictal #Anxiety: Continue paroxetine #HLD: Continue atorvastatin Dispo: Admit med-tele VTE ppx: Heparin gtt FEN/GI: NPO pending dysphagia screen, LR @80ml/h x1L Full Code: Patient unable to engage meaningfully in discussion of advanced directives. Please discuss with patient/family in AM. Admission and Anticipated Discharge Date Admission Date: December 04, 2024 Subjective Oli Diaz was seen this AM. Patient could not find hearing aids this AM and was frustrated until nursing was able to assist and find lost hearing aids. Patient does express agitation with care and is upset while case is being discussed with daughter in law and who were present. Patient denies chest pain, palpitations, and shortness of breath. Patient does endorse pain in the bladder/genital region and also diffuse upper abdominal pain worsened with palpation. Patient's abdomen is soft and non-tender. Patient is afebrile and hemodynamically stable. Physical Exam Physical Exam: General: patient resting comfortably, NAD, non-toxic in appearance, answers questions appropriately. Skin: warm, dry, intact HEENT: NC/AT, anicteric sclera, conjunctiva without injection, moist mucus membranes. Heart: +S1/S2, regular, no m/r/g Lungs: equal air entry bilaterally, no rales/rhonchi/wheezes Abd: +BS, soft, ND, RUQ and LUQ abdominal pain. moderate suprapubic pain present Ext: warm, no clubbing/cyanosis or edema, Pearl's neg. Neuro: nonfocal, speech intact, no facial droop, moving all extremities. Results & Data Results & Data Vital Signs (Past 12 Hours) Vital Signs Temp Pulse Pulse Resp BP Pulse Ox O2 Del Method 12/04/24 15:41 37.2 C 61 18 110/55 L 95 Room Air 12/04/24 14:58 72 12/04/24 07:28 80 12/04/24 07:11 37.3 C 81 18 111/44 L 95 Room Air Resident Activity Tracking Resident Involvement: Resident Care Provided Care Provided: Adult Hospital Medicine
[2024-12-04] MEDS: POLYETHYLENE (MIRALAX) 17 GM PACK PO SCH (20:01)
[2024-12-04] MEDS: HEPARIN SOD 5,000 UNIT/0.5 ML VIAL SQ SCH (20:01)
[2024-12-05 06:26] LABS: Hematocrit (blood only) 28.4 % (42.0-52.0); Hemoglobin 9.2 g/dl (14.0-18.0); Mean Corpuscular Hemoglobin 29.9 pg (25.0-34.0); Mean Corpuscular Volume 92.2 fL (80.0-100.0); Platelet Count 151 K/uL (130-400); RDW Standard Deviation 48.1 fL (36.4-46.3); Red Blood Count 3.08 M/uL (4.70-6.10); White Blood Count 17.66 K/ul (4.8-10.8)
[2024-12-05 06:54] LABS: Alanine Aminotransferase 82.0 U/L (7-52); Alkaline Phosphatase 372.0 U/L (34-104); Anion Gap 6.0 (3-11); Bilirubin,Total 2.2 mg/dl (0.2-1.0); Blood Urea Nitrogen 22.0 mg/dl (6-23); Calcium 8.2 mg/dl (8.6-10.3); Carbon Dioxide 24.0 mmol/L (21-32); Chloride 105.0 mmol/L (98-107); Creatinine Clr Calc Pharmacy 42.6 ml/min; Glucose 133.0 mg/dl (70-99(Fasting)); Potassium 4.6 mmol/L (3.5-5.1); Sodium 135.0 mmol/L (136-145); Total Protein 4.9 gm/dl (6.0-8.3)
--- NOTE | 2024-12-05 07:51 | Gastroenterology Progress Note ---
Date of Service December 05, 2024 Assessment & Plan (1) Abnormal liver function tests: Plan: LFTs improved. Ultrasound confirmed evidence of cholelithiasis. Review of CT scan did show gallbladder stent present. Mild dilatation of common bile duct. The fact that there is an indwelling gallbladder stent that is unlikely that a gallstone migrated out of the cystic duct. LFTs could be related to stent dysfunction, cholecystitis or nonbiliary sepsis. Blood cultures so far negative urine culture is pending. Await these results. Continue antibiotics and monitor liver enzymes. (2) Cholelithiasis: Plan: Confirmed on ultrasound. May have mild acute cholecystitis. Continue antibiotics await culture results. I recommend you contact the physicians who placed the gallbladder stent 2 years ago. It may be reasonable to consider replacing the gallbladder stent. Admission and Anticipated Discharge Date Admission Date: December 04, 2024 Subjective Awake conversing no significant complaints Physical Exam Physical Exam: No acute distress Respiratory rate regular Cardiac rhythm regular Abdomen soft minimal right-sided tenderness no rebound or guarding Results & Data Results & Data Vital Signs (Past 12 Hours) Vital Signs Temp Pulse Pulse Resp BP Pulse Ox O2 Del Method 12/05/24 07:33 63 12/05/24 07:32 36.5 C 64 16 139/74 95 Room Air 12/05/24 04:23 36.5 C 58 L 16 137/72 94 Room Air 12/04/24 23:59 61 12/04/24 22:00 36.7 C 59 L 16 111/58 L 95 Room Air Laboratory Results Laboratory Results - last 48 hr 12/03/24 12/03/24 12/03/24 18:47 20:20 20:33 WBC 38.73 H* RBC 3.39 L Hgb 10.4 L Hct 31.3 L MCV 92.3 MCH 30.7 MCHC 33.2 RDW Std Deviation 45.8 RDW Coeff of Kenny 13.8 Plt Count 211 MPV 9.6 Immature Gran % (Auto) 0.9 Neut % (Auto) 38.6 Lymph % (Auto) 58.8 Sutter % (Auto) 1.3 Eos % (Auto) 0.2 Baso % (Auto) 0.2 Neut # (Auto) 14.99 H Lymph # (Auto) 22.76 H Sutter # (Auto) 0.49 Eos # (Auto) 0.09 Baso # (Auto) 0.07 Immature Gran # (Auto) 0.33 H Smudge Cells Present Polychromasia 1+ Acanthocytes (Spur) 1+ PT INR APTT PTT Ratio Heparin Anti-Xa, Unfract Sodium 136 Potassium TNP Chloride 105 Carbon Dioxide 25 Anion Gap 6 BUN 19 Creatinine 1.10 Est Cr Clr Drug Dosing 48.4 eGFR 67.02 BUN/Creatinine Ratio 17.3 Glucose 193 H POC Glucose Lactate 1.9 Calcium 8.8 Magnesium 1.8 Total Bilirubin 3.2 H Direct Bilirubin TNP AST TNP ALT 110 H Alkaline Phosphatase 613 H Troponin I High Sens 48.6 H 70.7 H* D Total Protein 5.8 L Albumin 3.3 L Procalcitonin 0.89 H Urine Color Dark Yellow Urine Appearance Clear Urine pH 7.5 Ur Specific Wainwright > 1.045 H Urine Protein Negative Urine Glucose (UA) Negative Urine Ketones Negative Urine Blood Negative Urine Nitrite Positive A Urine Bilirubin Negative Urine Urobilinogen Positive H Ur Leukocyte Esterase 2+ H Urine WBC (Auto) >50 H Urine RBC (Auto) 0-2 U Hyaline Cast (Auto) 0-2 U Epithel Cells (Auto) 0-2 Urine Bacteria (Auto) None Seen Urine Comment Nasal Screen MRSA (PCR) 12/03/24 12/04/24 12/04/24 20:34 04:08 05:25 WBC 49.84 H* RBC 3.52 L Hgb 10.5 L Hct 32.6 L MCV 92.6 MCH 29.8 MCHC 32.2 RDW Std Deviation 46.6 H RDW Coeff of Kenny 14.1 Plt Count 221 MPV 9.3 L Immature Gran % (Auto) Neut % (Auto) Lymph % (Auto) Sutter % (Auto) Eos % (Auto) Baso % (Auto) Neut # (Auto) Lymph # (Auto) Sutter # (Auto) Eos # (Auto) Baso # (Auto) Immature Gran # (Auto) Smudge Cells Polychromasia Acanthocytes (Spur) PT INR APTT PTT Ratio Heparin Anti-Xa, Unfract Sodium 137 Potassium 4.6 5.0 Chloride 105 Carbon Dioxide 25 Anion Gap 7 BUN 19 Creatinine 1.09 Est Cr Clr Drug Dosing 47.3 eGFR 67.76 BUN/Creatinine Ratio 17.4 Glucose 182 H POC Glucose 163 H Lactate Calcium 8.7 Magnesium Total Bilirubin 3.0 H Direct Bilirubin 1.3 H 1.9 H AST 218 H 221 H ALT 117 H Alkaline Phosphatase 546 H Troponin I High Sens 104.5 H* D Total Protein 5.8 L Albumin 3.2 L Procalcitonin Urine Color Urine Appearance Urine pH Ur Specific Wainwright Urine Protein Urine Glucose (UA) Urine Ketones Urine Blood Urine Nitrite Urine Bilirubin Urine Urobilinogen Ur Leukocyte Esterase Urine WBC (Auto) Urine RBC (Auto) U Hyaline Cast (Auto) U Epithel Cells (Auto) Urine Bacteria (Auto) Urine Comment Nasal Screen MRSA (PCR) 12/04/24 12/04/24 12/04/24 06:06 12:08 12:34 WBC RBC Hgb Hct MCV MCH MCHC RDW Std Deviation RDW Coeff of Kenny Plt Count MPV Immature Gran % (Auto) Neut % (Auto) Lymph % (Auto) Sutter % (Auto) Eos % (Auto) Baso % (Auto) Neut # (Auto) Lymph # (Auto) Sutter # (Auto) Eos # (Auto) Baso # (Auto) Immature Gran # (Auto) Smudge Cells Polychromasia Acanthocytes (Spur) PT 11.6 INR 1.1 APTT 28 PTT Ratio 1.0 Heparin Anti-Xa, Unfract 0.87 H* Sodium Potassium Chloride Carbon Dioxide Anion Gap BUN Creatinine Est Cr Clr Drug Dosing eGFR BUN/Creatinine Ratio Glucose POC Glucose 147 H Lactate Calcium Magnesium Total Bilirubin Direct Bilirubin AST ALT Alkaline Phosphatase Troponin I High Sens 105.7 H* 97.2 H* Total Protein Albumin Procalcitonin Urine Color Urine Appearance Urine pH Ur Specific Wainwright Urine Protein Urine Glucose (UA) Urine Ketones Urine Blood Urine Nitrite Urine Bilirubin Urine Urobilinogen Ur Leukocyte Esterase Urine WBC (Auto) Urine RBC (Auto) U Hyaline Cast (Auto) U Epithel Cells (Auto) Urine Bacteria (Auto) Urine Comment Nasal Screen MRSA (PCR) 12/04/24 12/04/24 12/05/24 16:55 Unknown 01:42 WBC RBC Hgb Hct MCV MCH MCHC RDW Std Deviation RDW Coeff of Kenny Plt Count MPV Immature Gran % (Auto) Neut % (Auto) Lymph % (Auto) Sutter % (Auto) Eos % (Auto) Baso % (Auto) Neut # (Auto) Lymph # (Auto) Sutter # (Auto) Eos # (Auto) Baso # (Auto) Immature Gran # (Auto) Smudge Cells Polychromasia Acanthocytes (Spur) PT INR APTT PTT Ratio Heparin Anti-Xa, Unfract Sodium Potassium Chloride Carbon Dioxide Anion Gap BUN Creatinine Est Cr Clr Drug Dosing eGFR BUN/Creatinine Ratio Glucose POC Glucose 138 H 146 H Lactate Calcium Magnesium Total Bilirubin Direct Bilirubin AST ALT Alkaline Phosphatase Troponin I High Sens Total Protein Albumin Procalcitonin Urine Color Urine Appearance Urine pH Ur Specific Wainwright Urine Protein Urine Glucose (UA) Urine Ketones Urine Blood Urine Nitrite Urine Bilirubin Urine Urobilinogen Ur Leukocyte Esterase Urine WBC (Auto) Urine RBC (Auto) U Hyaline Cast (Auto) U Epithel Cells (Auto) Urine Bacteria (Auto) Urine Comment Nasal Screen MRSA (PCR) Negative 12/05/24 12/05/24 05:09 05:32 WBC 17.66 H RBC 3.08 L Hgb 9.2 L Hct 28.4 L MCV 92.2 MCH 29.9 MCHC 32.4 RDW Std Deviation 48.1 H RDW Coeff of Kenny 14.5 Plt Count 151 MPV 9.7 Immature Gran % (Auto) Neut % (Auto) Lymph % (Auto) Sutter % (Auto) Eos % (Auto) Baso % (Auto) Neut # (Auto) Lymph # (Auto) Sutter # (Auto) Eos # (Auto) Baso # (Auto) Immature Gran # (Auto) Smudge Cells Polychromasia Acanthocytes (Spur) PT INR APTT PTT Ratio Heparin Anti-Xa, Unfract Sodium 135 L Potassium 4.6 Chloride 105 Carbon Dioxide 24 Anion Gap 6 BUN 22 Creatinine 1.15 Est Cr Clr Drug Dosing 42.6 eGFR 63.54 BUN/Creatinine Ratio 19.1 Glucose 133 H POC Glucose 133 H Lactate Calcium 8.2 L Magnesium Total Bilirubin 2.2 H Direct Bilirubin 1.4 H AST 104 H ALT 82 H Alkaline Phosphatase 372 H Troponin I High Sens Total Protein 4.9 L Albumin 2.9 L Procalcitonin Urine Color Urine Appearance Urine pH Ur Specific Wainwright Urine Protein Urine Glucose (UA) Urine Ketones Urine Blood Urine Nitrite Urine Bilirubin Urine Urobilinogen Ur Leukocyte Esterase Urine WBC (Auto) Urine RBC (Auto) U Hyaline Cast (Auto) U Epithel Cells (Auto) Urine Bacteria (Auto) Urine Comment Nasal Screen MRSA (PCR) Diagnostic Findings Liver Ultrasound 12/04/24 11:48 EXAMINATION: US abdomen right upper quadrant COMPARISON: None HISTORY: Abdominal pain TECHNIQUE: The right upper quadrant of the abdomen was scanned in standard fashion with specialized ultrasound transducers using both ayers scale and limited color Doppler techniques. Findings: Liver: The liver demonstrates normal homogeneous echotexture. No evidence of a focal hepatic mass or intrahepatic biliary ductal dilatation. The main portal vein is patent with antegrade flow. Mildly enlarged measuring 17.8 cm. Gallbladder: The gallbladder is filled with stones, with wall echo shadow complex. No gallbladder wall thickening. The sonographic Milligan sign is negative when performed by the technologist. Small volume pericholecystic fluid. Bile Ducts: Dilated CBD measuring 8.6 mm. Pancreas: Visualized portions of the head and body of the pancreas are unremarkable. The duct at the head measures 3 mm in diameter. Right kidney: Normal echotexture, without mass or hydronephrosis. The lower pole is not well-seen. Fluid: No evidence of ascites or pleural effusions. Impression: 1. Cholelithiasis. Small volume pericholecystic fluid, is nonspecific, however acute cholecystitis is not entirely excluded. Sonographic Milligan sign performed by the technologist is negative, however. 2. Dilated common bile duct. Electronically signed by Conor Hyde 12-04-2024 4:28 PM PG Care Time/CCT Total # of Minutes Spent Total Time Spent with Patient: Total time spent is greater than 50% in coordination of care (as documented) at patient's floor/unit and/or counseling patient: Coding Level of Care Code 86326 SUB INP/OBS CARE 2/35MIN Diagnoses Abnormal liver function tests R79.89 Cholelithiasis K80.20
--- NOTE | 2024-12-05 15:40 | Surgery Progress Note ---
Date of Service December 05, 2024 Assessment & Plan (1) Sepsis: (2) Abdominal pain: (3) Cholelithiasis: Plan 84 yo male with history of gallbladder axios stent placement in December of 2022 with exchange of stent with two pigtail stents in April 2023 presented to ED with acute onset of abdominal pain and rigors. CT scan with possible rectosigmoiditis and possible cholecystitis. T. bili elevated at 3 and leukocytosis of 47K. Labs today show significant improvement of leukocytosis to 17k . T. bili and lfts improving. No surgical intervention recommended at this time. Would need GI input regarding prior stents and need for further intervention regarding stent manipulation, ERCP +/- stent placement, etc. Continue medical management Dr. Farias has seen and discussed with family. Agrees with above. Admission and Anticipated Discharge Date Admission Date: December 04, 2024 Subjective family at bedside, providing some of history and prior discussions with Dr. Beyer, Dr. Headley, and Dr. Leal at bedside states she does not think that the stent was removed. Stent placed in 2022. Physical Exam Constitutional: WD/WN, vitals as above cooperative and comfortable; no acute distress and not ill appearing Respiratory: normal respiratory effort; no respiratory distress Psychiatric: Orientation: alert Results & Data Vital Signs (Past 12 Hours) Vital Signs Temp Pulse Pulse Resp BP Pulse Ox O2 Del Method 12/05/24 15:29 64 12/05/24 15:28 63 12/05/24 11:25 36.7 C 59 L 16 119/70 97 Room Air 12/05/24 07:33 63 12/05/24 07:32 36.5 C 64 16 139/74 95 Room Air 12/05/24 04:23 36.5 C 58 L 16 137/72 94 Room Air Laboratory Results 12/05/24 12/05/24 12/05/24 Range/Units 12:32 05:32 05:09 WBC 17.66 H (4.8-10.8) K/ul RBC 3.08 L (4.70-6.10) M/uL Hgb 9.2 L (14.0-18.0) g/dl Hct 28.4 L (42.0-52.0) % MCV 92.2 (80.0-100.0) fL MCH 29.9 (25.0-34.0) pg MCHC 32.4 (32.0-36.0) g/dL RDW Std Deviation 48.1 H (36.4-46.3) fL RDW Coeff of Kenny 14.5 (11.5-14.5) % Plt Count 151 (130-400) K/uL MPV 9.7 (9.4-12.4) fL Sodium 135 L (136-145) mmol/L Potassium 4.6 (3.5-5.1) mmol/L Chloride 105 (98-107) mmol/L Carbon Dioxide 24 (21-32) mmol/L Anion Gap 6 (3-11) BUN 22 (6-23) mg/dl Creatinine 1.15 (0.6-1.4) mg/dl Est Cr Clr Drug Dosing 42.6 ml/min eGFR 63.54 BUN/Creatinine Ratio 19.1 (10-20) Glucose 133 H (70-99(Fasting)) mg/dl POC Glucose 126 H 133 H (70-99) mg/dl Calcium 8.2 L (8.6-10.3) mg/dl Total Bilirubin 2.2 H (0.2-1.0) mg/dl Direct Bilirubin 1.4 H (0-0.2) mg/dl AST 104 H (13-39) U/L ALT 82 H (7-52) U/L Alkaline Phosphatase 372 H (34-104) U/L Total Protein 4.9 L (6.0-8.3) gm/dl Albumin 2.9 L (3.4-5.0) gm/dl Nasal Screen MRSA (PCR) (Negative) 12/05/24 12/04/24 12/04/24 Range/Units 01:42 Unknown 16:55 WBC (4.8-10.8) K/ul RBC (4.70-6.10) M/uL Hgb (14.0-18.0) g/dl Hct (42.0-52.0) % MCV (80.0-100.0) fL MCH (25.0-34.0) pg MCHC (32.0-36.0) g/dL RDW Std Deviation (36.4-46.3) fL RDW Coeff of Kenny (11.5-14.5) % Plt Count (130-400) K/uL MPV (9.4-12.4) fL Sodium (136-145) mmol/L Potassium (3.5-5.1) mmol/L Chloride (98-107) mmol/L Carbon Dioxide (21-32) mmol/L Anion Gap (3-11) BUN (6-23) mg/dl Creatinine (0.6-1.4) mg/dl Est Cr Clr Drug Dosing ml/min eGFR BUN/Creatinine Ratio (10-20) Glucose (70-99(Fasting)) mg/dl POC Glucose 146 H 138 H (70-99) mg/dl Calcium (8.6-10.3) mg/dl Total Bilirubin (0.2-1.0) mg/dl Direct Bilirubin (0-0.2) mg/dl AST (13-39) U/L ALT (7-52) U/L Alkaline Phosphatase (34-104) U/L Total Protein (6.0-8.3) gm/dl Albumin (3.4-5.0) gm/dl Nasal Screen MRSA (PCR) Negative (Negative)
--- NOTE | 2024-12-05 15:44 | Hospitalist Progress Note ---
Date of Service December 05, 2024 Assessment & Plan (1) Sepsis: (2) Aphasia: (3) S/P total right hip arthroplasty: (4) Right sided weakness: (5) Elevated LFTs: (6) Aortic stenosis: (7) Abdominal pain: (8) Leukocytosis: (9) BPH with obstruction/lower urinary tract symptoms: (10) Enterocolitis: (11) History of stroke: (12) Paralysis of right lower extremity: (13) CLL (chronic lymphocytic leukemia): (14) Hypertension: (15) Hyperlipidemia: (16) Diabetes mellitus type 2 in nonobese: (17) Hearing impaired: (18) Hemiplegia and hemiparesis following cerebral infarction affecting right dominant side: (19) Cochlear implant in place: Plan 84yo male with 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 gallbladder pathology: - Patient tachycardic and tachypneic on presentation, +Leukocytosis (of questionable value based on h/o CLL), elevated procal - Suspect GI source based on rising LFTs t. bili: 3.0, direct bili: 1.9, AST: 221 ALT:117 Alk phos:546 vs urinary source based on mild UA findings - CT A/P w/ IV contrast notable for: nonspecific thickening of multiple structures: rectosigmoid colon, distal stomach, bladder. +cholelithiasis without evidence of cholecystitis - CXR negative - Full sepsis fluid volume deferred d/t severe aortic stenosis - s/p 1L NSS, 1L NSS 80ml/hr completed - Blood cx pending without growth at 24 hours, urine cx positive for pseudomonas - Continue broad spectrum abx coverage with Zosyn - RUQ U/S: potential mild acute cholecystitis vs cholangitis with mild pericholecystic fluid, cholelithiasis, mild CBD distention, old stent - Surgery and GI teams consulted for acute intervention, as labs rapidly improving and patient hemodynamically stable, complete 14 days total abx therapy with Ciprofloxacin 500mg BID and Metronidazole 500mg TID upon d/c - GI follow-up to remove old stent in [place] with endoscopy and removal any stones for better source control #Aphasia/right-sided hemiparesis: - Patient with h/o left-sided hemorrhagic stroke with residual speech and right- sided deficits - unclear severity of deficits prior to presentation, stroke r/o initiated - CT head, CTA head negative, CTA neck notable for: 50% stenosis of the proximal right and left ICA - Dysphagia assessment failed; following this speech consulted: no indication of oropharyngeal dysphagia or aspiration risk, initiate diet - PT/OT eval and treat #Elevated troponin - No obvious chest pain, troponin elevated, uptrending - trend to peak - EKG with ST depression in lateral leads - Etiology likely from demand ishchemia rather than NSTEMI - TTE largely unchanged from study completed earlier in month, EF 60-65% with severe aortic stenosis #T2DM: Basal bolus insulin #HTN: amlodipine, losartan held d/t softer blood pressures #Seizure disoder: Continue Lamictal #Anxiety: Continue paroxetine #HLD: Continue atorvastatin Dispo: Admit med-tele VTE ppx: Heparin gtt FEN/GI: NPO pending dysphagia screen, LR @80ml/h x1L Full Code: Patient unable to engage meaningfully in discussion of advanced directives. Please discuss with patient/family in AM. Admission and Anticipated Discharge Date Admission Date: December 04, 2024 Supervising Physician Co-Signing Physician Notes I personally examined the patient and verified all dominguez points of history and exam, discussed case, and agree with decision making with Dr Leal Still has belly pain but better than before. Predominantly upper abdomen. Family present at the bedsidemultiple good questions, answered to the best my ability. Vitals noted, in general he is awake and alert no distress. HEENT normocephalic atraumatic mucous membranes moist. Abdomen is soft but he does have epigastric tenderness no guarding rebound or rigidity. Chronic appearing neurodeficits. Sepsisappears to be biliary infectionapparently in the past he has had purulent cholecystitis. He has been deemed too complicated to be a viable surgical candidate. Previously improvement has been affected with endoscopic drainage/ERCP and stentinghe does still have a stent and that appears to have been there for about 2 years. Currently improving nicelyno clear need for cholecystostomy tube or other more urgent interventions. Anticipate his acute situation will continue to improve with antibiotics, and then we will need to get things set up for a stent exchange. Discussed with [facility] (GI here had recommended that we reach out to the GI team to replace the stenttherefore I didand they felt this can be done as an outpatient at the [facility]). Slowly advance diet, continue current care for now. Subjective Oli Diaz seen at bedside alongside daughter in law and . Patient reports feeling better but does still endorse LLQ and LUQ abdominal pain, but milder compared to yesterday. Long discussion with family regarding options following [facility] stay GI follow-up to remove/replace stent, continued antibiotic therapy, and road to recovery. Family is amenable to thinking about next steps and voice understanding about benefits and limitations with procedures available to patient. Patient remains afebrile and hemodynamically stable. Physical Exam Physical Exam: General: patient resting comfortably, NAD, non-toxic in appearance, answers questions appropriately. Skin: warm, dry, intact HEENT: NC/AT, anicteric sclera, conjunctiva without injection, moist mucus membranes. Heart: +S1/S2, regular, no m/r/g Lungs: equal air entry bilaterally, no rales/rhonchi/wheezes Abd: +BS, soft, ND, LLQ and LUQ abdominal pain Ext: warm, no clubbing/cyanosis or edema, Pearl's neg. Neuro: nonfocal, speech intact, no facial droop, moving all extremities. Results & Data Results & Data Vital Signs (Past 12 Hours) Vital Signs Temp Pulse Pulse Resp BP Pulse Ox O2 Del Method 12/05/24 15:29 64 12/05/24 15:28 63 12/05/24 11:25 36.7 C 59 L 16 119/70 97 Room Air 12/05/24 07:33 63 12/05/24 07:32 36.5 C 64 16 139/74 95 Room Air 12/05/24 04:23 36.5 C 58 L 16 137/72 94 Room Air Resident Activity Tracking Resident Involvement: Resident Care Provided Care Provided: Adult Hospital Medicine
--- NOTE | 2024-12-05 16:50 | Billing Data ---
Date of Service December 05, 2024 Coding Level of Care Code 97022 SUB INP/OBS CARE MIN
[2024-12-05] MEDS: MELATONIN 3 MG TAB PO PRN (20:29)
[2024-12-06] MEDS: ACETAMINOPHEN 325 MG TAB PO PRN (03:38)
--- NOTE | 2024-12-06 05:55 | Electrocardiogram Report ---
Test Reason : Blood Pressure : */* mmHG Vent. Rate : 96 BPM Atrial Rate : 96 BPM P-R Int : 152 ms QRS Dur : 88 ms QT Int : 348 ms P-R-T Axes : 65 36 148 degrees QTcB Int : 439 ms Normal sinus rhythm Septal infarct (cited on or before 16-Aug-2023) Abnormal ECG When compared with ECG of 15-Nov-2024 13:22, Vent. rate has increased by [address] now depressed in Inferolateral leads Confirmed by Jamal Benitez ([id number]) on 12/06/2024 5:55:22 AM Referred By: REFERRED SELF Confirmed By: Jamal Benitez
[2024-12-06 08:47] LABS: Hematocrit (blood only) 32.8 % (42.0-52.0); Hemoglobin 10.6 g/dl (14.0-18.0); Mean Corpuscular Hemoglobin 29.7 pg (25.0-34.0); Mean Corpuscular Volume 91.9 fL (80.0-100.0); Platelet Count 163 K/uL (130-400); RDW Standard Deviation 47.1 fL (36.4-46.3); Red Blood Count 3.57 M/uL (4.70-6.10); White Blood Count 18.69 K/ul (4.8-10.8)
[2024-12-06] MEDS: INSULIN ASPART PER UNIT CHARGE SC SCH (09:10)
[2024-12-06 09:16] LABS: Alanine Aminotransferase 78.0 U/L (7-52); Albumin Globulin Ratio 1.2 (0.9-2); Alkaline Phosphatase 453.0 U/L (34-104); Anion Gap 5.0 (3-11); Bilirubin,Total 3.6 mg/dl (0.2-1.0); Blood Urea Nitrogen 17.0 mg/dl (6-23); Calcium 8.7 mg/dl (8.6-10.3); Carbon Dioxide 26.0 mmol/L (21-32); Chloride 105.0 mmol/L (98-107); Creatinine Clr Calc Pharmacy 44.2 ml/min; Globulin 2.5 gm/dl (2.5-4.0); Glucose 114.0 mg/dl (70-99(Fasting)); Potassium 4.7 mmol/L (3.5-5.1); Sodium 136.0 mmol/L (136-145); Total Protein 5.5 gm/dl (6.0-8.3)
--- NOTE | 2024-12-06 09:19 | Hospitalist Progress Note ---
Date of Service December 06, 2024 Assessment & Plan (1) Sepsis: (2) Aphasia: (3) S/P total right hip arthroplasty: (4) Right sided weakness: (5) Elevated LFTs: (6) Aortic stenosis: (7) Abdominal pain: (8) Leukocytosis: (9) BPH with obstruction/lower urinary tract symptoms: (10) Enterocolitis: (11) History of stroke: (12) Paralysis of right lower extremity: (13) CLL (chronic lymphocytic leukemia): (14) Hypertension: (15) Hyperlipidemia: (16) Diabetes mellitus type 2 in nonobese: (17) Hearing impaired: (18) Hemiplegia and hemiparesis following cerebral infarction affecting right dominant side: (19) Cochlear implant in place: Plan 84yo male with 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 gallbladder pathology: - Patient tachycardic and tachypneic on presentation, +Leukocytosis (of questionable value based on h/o CLL), elevated procal - Suspect GI source based on rising LFTs t. bili: 3.0, direct bili: 1.9, AST: 221 ALT:117 Alk phos:546 vs urinary source based on mild UA findings - CT A/P w/ IV contrast notable for: nonspecific thickening of multiple structures: rectosigmoid colon, distal stomach, bladder. +cholelithiasis without evidence of cholecystitis - CXR negative - Full sepsis fluid volume deferred d/t severe aortic stenosis - s/p 1L NSS, 1L NSS 80ml/hr completed - Blood cx pending without growth at 24 hours, urine cx positive for pseudomonas - Continue broad spectrum abx coverage with Zosyn - RUQ U/S: potential mild acute cholecystitis vs cholangitis with mild pericholecystic fluid, cholelithiasis, mild CBD distention, old stent - Surgery and GI teams consulted for acute intervention, as labs rapidly improving and patient hemodynamically stable, complete 14 days total abx therapy with Ciprofloxacin 500mg BID and Metronidazole 500mg TID upon d/c - GI follow-up to remove old stent in [place] with endoscopy/ERCP and stent removal/replacement and ductal stone removal if necessary in the next few weeks as patient completes outpatient oral abx therapy #Aphasia/right-sided hemiparesis: - Patient with h/o left-sided hemorrhagic stroke with residual speech and right- sided deficits - unclear severity of deficits prior to presentation, stroke r/o initiated - CT head, CTA head negative, CTA neck notable for: 50% stenosis of the proximal right and left ICA - Dysphagia assessment failed; following this speech consulted: no indication of oropharyngeal dysphagia or aspiration risk, initiate diet - PT/OT eval and treat #Elevated troponin - No obvious chest pain, troponin elevated, uptrending - trend to peak - EKG with ST depression in lateral leads - Etiology likely from demand ishchemia rather than NSTEMI - TTE largely unchanged from study completed earlier in month, EF 60-65% with severe aortic stenosis #T2DM: Basal bolus insulin #HTN: amlodipine, losartan held d/t softer blood pressures #Seizure disoder: Continue Lamictal #Anxiety: Continue paroxetine #HLD: Continue atorvastatin Dispo: Admit med-tele VTE ppx: Heparin gtt FEN/GI: NPO pending dysphagia screen, LR @80ml/h x1L Full Code: Patient unable to engage meaningfully in discussion of advanced directives. Please discuss with patient/family in AM. Admission and Anticipated Discharge Date Admission Date: December 04, 2024 Supervising Physician Co-Signing Physician Notes I personally examined the patient and verified all dominguez points of history and exam, discussed case, and agree with decision making with Dr Leal notes that his abdominal pain is somewhere between the same and a little better - tolerating clear liquids without problem and without any increase in pain. Vitals noted, in general he is awake and alert no distress. HEENT normocephalic atraumatic mucous membranes moist. Abdomen is soft, still w epigastric tenderness but far less than yesterday and still no guarding/rebound/rigidity. Chronic appearing neurodeficits. Sepsisappears to be biliary infectionapparently in the past he has had purulent cholecystitis. He has been deemed too complicated to be a viable surgical candidate. Previously improvement has been affected with endoscopic drainage/ERCP and stentinghe does still have a stent and that appears to have been there for about 2 years. overall improving - labs notably slightly worse today but he examines better, pain subjectively the same/slightly better, no fever -- for now conitnue to follow. Anticipate his acute situation will continue to improve with antibiotics, and then we will need to get things set up for a stent exchange. if things were to overall worsen (both at the bedside and on labwork) or labs were to truly trend worse, then would discuss hospital to hospital transfer - not needed currently. 12/05, discussed with Ingrid GI (GI here had recommended that we reach out to the GI team to replace the stenttherefore I didand they felt this can be done as an outpatient at the [facility]). Slowly advance diet, continue current care for now. Subjective Oli Diaz seen at bedside today accompanied by daughter in law and . Plan of care is discussed with family who are amenable to continued antibiotic therapy with transition to oral abx and eventual f/u with GI for procedure to remove/replace stent. Patient endorses continued LUQ and LLQ abdominal pain rated as a 4/10. Reports that this pain has improved compared to yesterday and patient does not report any other acute complaints. Physical Exam Physical Exam: General: patient resting comfortably, NAD, non-toxic in appearance, answers questions appropriately. Skin: warm, dry, intact HEENT: NC/AT, anicteric sclera, conjunctiva without injection, moist mucus me mbranes. Heart: +S1/S2, regular, no m/r/g Lungs: equal air entry bilaterally, no rales/rhonchi/wheezes Abd: +BS, soft, ND, LLQ and LUQ abdominal pain Ext: warm, no clubbing/cyanosis or edema, Pearl's neg. Neuro: nonfocal, speech intact, no facial droop, moving all extremities. Results & Data Results & Data Vital Signs (Past 12 Hours) Vital Signs Temp Pulse Pulse Resp BP Pulse Ox O2 Del Method 12/06/24 07:17 36.4 C L 63 18 137/64 99 Room Air 12/06/24 04:10 36.7 C 61 18 139/70 97 Room Air 12/06/24 00:00 36.6 C 69 18 129/71 98 Room Air 12/05/24 22:31 61 Resident Activity Tracking Resident Involvement: Resident Care Provided Care Provided: Adult Hospital Medicine
[2024-12-06 09:37] LABS: Acanthocytes 1+; Immature Granulocytes # (auto) 0.17 K/uL (0.01-0.20); Immature Granulocytes % (auto) 0.9 %; Polychromasia 1+; Tear Drop Cells 1+
--- NOTE | 2024-12-06 13:12 | Billing Data ---
Date of Service December 06, 2024 Coding Level of Care Code 77942 SUB INP/OBS CARE MIN
--- NOTE | 2024-12-06 15:52 | Gastroenterology Progress Note ---
Date of Service December 06, 2024 Assessment & Plan (1) Sepsis: Plan: Clinically improved on antibiotics. We have been in discussions with [facility] regarding follow-up for gallbladder stent removal and change. Once discharged patient will be seen by the [facility] staff as an outpatient and then plan for endoscopic procedure. (2) Abnormal liver function tests: Plan: LFTs improving Admission and Anticipated Discharge Date Admission Date: December 04, 2024 Subjective Patient more awake and alert no GI complaints Physical Exam Physical Exam: No acute distress Respiratory rate regular Cardiac rhythm regular Abdomen soft nontender Results & Data Results & Data Vital Signs (Past 12 Hours) Vital Signs Temp Pulse Pulse Resp BP Pulse Ox O2 Del Method 12/06/24 15:28 36.8 C 67 16 134/63 96 Room Air 12/06/24 15:25 67 12/06/24 10:23 36.7 C 65 16 119/62 96 Room Air 12/06/24 09:45 64 12/06/24 07:17 36.4 C L 63 18 137/64 99 Room Air 12/06/24 04:10 36.7 C 61 18 139/70 97 Room Air PG Care Time/CCT Total # of Minutes Spent Total Time Spent with Patient: Total time spent is greater than 50% in coordination of care (as documented) at patient's floor/unit and/or counseling patient: Coding Level of Care Code 51900 SUB INP/OBS CARE 2/35MIN Diagnoses Sepsis A41.9 Abnormal liver function tests R79.89
[2024-12-07 06:04] LABS: Hematocrit (blood only) 29.9 % (42.0-52.0); Hemoglobin 9.5 g/dl (14.0-18.0); Mean Corpuscular Hemoglobin 29.1 pg (25.0-34.0); Mean Corpuscular Volume 91.7 fL (80.0-100.0); Platelet Count 149 K/uL (130-400); RDW Standard Deviation 46.6 fL (36.4-46.3); Red Blood Count 3.26 M/uL (4.70-6.10); White Blood Count 13.28 K/ul (4.8-10.8)
[2024-12-07 06:19] LABS: Alanine Aminotransferase 58.0 U/L (7-52); Albumin Globulin Ratio 1.1 (0.9-2); Alkaline Phosphatase 411.0 U/L (34-104); Anion Gap 4.0 (3-11); Bilirubin,Total 1.3 mg/dl (0.2-1.0); Blood Urea Nitrogen 16.0 mg/dl (6-23); Calcium 8.7 mg/dl (8.6-10.3); Carbon Dioxide 26.0 mmol/L (21-32); Chloride 107.0 mmol/L (98-107); Creatinine Clr Calc Pharmacy 55.0 ml/min; Globulin 2.5 gm/dl (2.5-4.0); Glucose 147.0 mg/dl (70-99(Fasting)); Potassium 4.8 mmol/L (3.5-5.1); Sodium 137.0 mmol/L (136-145); Total Protein 5.3 gm/dl (6.0-8.3)
[2024-12-07 06:55] LABS: Acanthocytes 2+; Immature Granulocytes # (auto) 0.04 K/uL (0.01-0.20); Immature Granulocytes % (auto) 0.3 %; Smudge Cells Present; Tear Drop Cells 1+
--- NOTE | 2024-12-07 12:28 | Hospitalist Progress Note ---
Date of Service December 07, 2024 Assessment & Plan (1) Sepsis: (2) Aphasia: (3) S/P total right hip arthroplasty: (4) Right sided weakness: (5) Elevated LFTs: (6) Aortic stenosis: (7) Abdominal pain: (8) Leukocytosis: (9) BPH with obstruction/lower urinary tract symptoms: (10) Enterocolitis: (11) History of stroke: (12) Paralysis of right lower extremity: (13) CLL (chronic lymphocytic leukemia): (14) Hypertension: (15) Hyperlipidemia: (16) Diabetes mellitus type 2 in nonobese: (17) Hearing impaired: (18) Hemiplegia and hemiparesis following cerebral infarction affecting right dominant side: (19) Cochlear implant in place: Plan 84yo male with 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 gallbladder pathology: - Patient tachycardic and tachypneic on presentation, +Leukocytosis (of questionable value based on h/o CLL), elevated procal - Suspect GI source based on rising LFTs t. bili: 3.0, direct bili: 1.9, AST: 221 ALT:117 Alk phos:546 vs urinary source based on mild UA findings - CT A/P w/ IV contrast notable for: nonspecific thickening of multiple structures: rectosigmoid colon, distal stomach, bladder. +cholelithiasis without evidence of cholecystitis - CXR negative - Full sepsis fluid volume deferred d/t severe aortic stenosis - s/p 1L NSS, 1L NSS 80ml/hr completed - Blood cx pending without growth at 24 hours, urine cx positive for pseudomonas - Continue broad spectrum abx coverage with Zosyn - RUQ U/S: potential mild acute cholecystitis vs cholangitis with mild pericholecystic fluid, cholelithiasis, mild CBD distention, old stent - Surgery and GI teams consulted for acute intervention, as labs rapidly improving and patient hemodynamically stable, complete 14 days total abx therapy with Ciprofloxacin 500mg BID and Metronidazole 500mg TID upon d/c - GI follow-up to remove old stent in [place] with endoscopy/ERCP and stent removal/replacement and ductal stone removal if necessary in the next few weeks as patient completes outpatient oral abx therapy - Tentative d/c with abx in 1-2 days #Aphasia/right-sided hemiparesis: - Patient with h/o left-sided hemorrhagic stroke with residual speech and right- sided deficits - unclear severity of deficits prior to presentation, stroke r/o initiated - CT head, CTA head negative, CTA neck notable for: 50% stenosis of the proximal right and left ICA - Dysphagia assessment failed; following this speech consulted: no indication of oropharyngeal dysphagia or aspiration risk, initiate diet - PT/OT eval and treat #Elevated troponin - No obvious chest pain, troponin elevated, uptrending - trend to peak - EKG with ST depression in lateral leads - Etiology likely from demand ishchemia rather than NSTEMI - TTE largely unchanged from study completed earlier in month, EF 60-65% with severe aortic stenosis #T2DM: Basal bolus insulin #HTN: amlodipine, losartan held d/t softer blood pressures #Seizure disoder: Continue Lamictal #Anxiety: Continue paroxetine #HLD: Continue atorvastatin Dispo: Admit med-tele VTE ppx: Heparin gtt FEN/GI: NPO pending dysphagia screen, LR @80ml/h x1L Full Code: Patient unable to engage meaningfully in discussion of advanced directives. Please discuss with patient/family in AM. Admission and Anticipated Discharge Date Admission Date: December 04, 2024 Supervising Physician Co-Signing Physician Notes I personally examined the patient and verified all dominguez points of history and exam, discussed case, and agree with decision making with Dr Leal ate regular food and things went down well / no worse pain / feeling good. expresses desire to go home tomorrow. Vitals noted, in general he is awake and alert no distress. HEENT normocephalic atraumatic mucous membranes moist. Abdomen is soft, only very mild epigastric tenderness no guarding/rebound/rigidity. Chronic appearing neurodeficits. Sepsisappears to be biliary infectionapparently in the past he has had purulent cholecystitis. He has been deemed too complicated to be a viable surgical candidate. Previously improvement has been affected with endoscopic drainage/ERCP and stentinghe does still have a stent and that appears to have been there for about 2 years. overall improving - labs improving, tolerating regular/low fat diet -- for now continue to follow. Anticipate his acute situation will continue to improve with antibiotics, and then we will need to get things set up for a stent exchange. with current improvement and tolerating diet - hopefully home 12/08. On 12/05, discussed with Ingrid GARCIA (GI here had recommended that we reach out to the GI team to replace the stenttherefore I didand they felt this can be done as an outpatient at the [facility]). Subjective Oli feels well this AM, reports that abdominal pain in LLQ and LUQ remains around a 5/10 but reports that this still feels better than compared to yesterday and reports that he did better with his full liquid dinner yesterday and breakfast today and is ready to try a low fat, regular diet for lunch. Patient remains afebrile and hemodynamically stable. Physical Exam Physical Exam: General: patient resting comfortably, NAD, non-toxic in appearance, answers questions appropriately. Skin: warm, dry, intact HEENT: NC/AT, anicteric sclera, conjunctiva without injection, moist mucus membranes. Heart: +S1/S2, regular, no m/r/g Lungs: equal air entry bilaterally, no rales/rhonchi/wheezes Abd: +BS, soft, NT/ND Ext: warm, no clubbing/cyanosis or edema Neuro: nonfocal, speech intact, no facial droop, moving all extremities. Results & Data Results & Data Vital Signs (Past 12 Hours) Vital Signs Temp Pulse Resp BP Pulse Ox O2 Del Method 12/07/24 11:11 36.4 C L 66 18 123/68 98 Room Air 12/07/24 07:35 36.9 C 62 20 115/62 98 Room Air 12/07/24 02:22 37 C 63 16 114/54 L 94 Room Air Resident Activity Tracking Resident Involvement: Resident Care Provided Care Provided: Adult Hospital Medicine
--- NOTE | 2024-12-07 18:01 | Billing Data ---
Date of Service December 07, 2024 Coding Level of Care Code 83867 SUB INP/OBS CARE MIN
[2024-12-08 08:20] LABS: Hematocrit (blood only) 31.8 % (42.0-52.0); Hemoglobin 10.3 g/dl (14.0-18.0); Mean Corpuscular Hemoglobin 29.3 pg (25.0-34.0); Mean Corpuscular Volume 90.6 fL (80.0-100.0); Platelet Count 154 K/uL (130-400); RDW Standard Deviation 45.4 fL (36.4-46.3); Red Blood Count 3.51 M/uL (4.70-6.10); White Blood Count 17.92 K/ul (4.8-10.8)
[2024-12-08 08:43] LABS: Alanine Aminotransferase 43.0 U/L (7-52); Albumin Globulin Ratio 1.3 (0.9-2); Alkaline Phosphatase 347.0 U/L (34-104); Anion Gap 6.0 (3-11); Bilirubin,Total 1.1 mg/dl (0.2-1.0); Blood Urea Nitrogen 15.0 mg/dl (6-23); Calcium 8.8 mg/dl (8.6-10.3); Carbon Dioxide 24.0 mmol/L (21-32); Chloride 107.0 mmol/L (98-107); Creatinine Clr Calc Pharmacy 49.1 ml/min; Globulin 2.5 gm/dl (2.5-4.0); Glucose 137.0 mg/dl (70-99(Fasting)); Potassium 4.7 mmol/L (3.5-5.1); Sodium 137.0 mmol/L (136-145); Total Protein 5.8 gm/dl (6.0-8.3)
--- NOTE | 2024-12-08 09:08 | Discharge Summary ---
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 Patient near completely aphasic and minimally able to contribute meaningfully to HPI, no family members present when history obtained. History obtained earlier by ED team noted that patient presented d/t acute onset abdominal pain, multiple episodes of vomiting, and rigors. ED Course: Patient tachycardic and tachypneic on presentation - blood and urine cultures obtained S/P 1L NSS, Cefepime and Vanc x1 dose each +Leukocytosis (chronic in the setting of CLL) Tbili 3.2, elevated AST/ALT, alk phos CXR negative CT head, CTA head negative, CTA neck notable for: 50% stenosis of the proximal right and left ICA CT A/P w/ IV contrast notable for: nonspecific thickening of multiple structures: rectosigmoid colon, distal stomach, bladder. +cholelithiasis without evidence of cholecystitis Admission Exam Per Admitting Provider Constitutional: no acute distress HEENT: NCAT, no conjunctival injection CV: +systolic ejection murmur, +tachycardia, normal rhythm, extremities well- perfused, no LE edema Resp: no increased work of breathing GI: nondistended, minimally tender to palpation in all 4 quadrants, no rebound tenderness, guarding, or rigidity MSK: RUE and RLE 0/5 strength Skin: warm, dry, no rash appreciated Neuro: Expressive aphasia, RUE and RLE 0/5 strength. Appears alert and oriented, able to nod yes/no but uncooperative at times Principal Diagnosis Sepsis Discharge Exam General: patient resting comfortably, NAD, non-toxic in appearance, answers questions appropriately. Skin: warm, dry, intact HEENT: NC/AT, anicteric sclera, conjunctiva without injection, moist mucus membranes. Heart: +S1/S2, regular, no m/r/g Lungs: equal air entry bilaterally, no rales/rhonchi/wheezes Abd: +BS, soft, NT/ND Ext: warm, no clubbing/cyanosis or edema Neuro: nonfocal, speech intact, no facial droop, moving all extremities. Discharge Data Allergies Allergy/AdvReac Type Severity Reaction Status Date / Time No Known Allergies Allergy Verified 11/16/24 12:45 Consultations 12/03/24 23:57 ED Decision to Admit Stat 12/04/24 11:38 Consult General Surgery Routine 12/04/24 11:43 Consult Gastroenterology Routine Ordered Studies 12/03/24 18:38 CT abd pelvis IV con only Stat CT head/brain wo con Stat CTA head w con [CT angio head w con] Stat CTA neck with con [CT angio neck with con] Stat 12/04/24 11:48 US RUQ [US liver] Routine Hospital Course (1) Sepsis: (2) Aphasia: (3) S/P total right hip arthroplasty: (4) Right sided weakness: (5) Elevated LFTs: (6) Aortic stenosis: (7) Abdominal pain: (8) Leukocytosis: (9) BPH with obstruction/lower urinary tract symptoms: (10) Enterocolitis: (11) History of stroke: (12) Paralysis of right lower extremity: (13) CLL (chronic lymphocytic leukemia): (14) Hypertension: (15) Hyperlipidemia: (16) Diabetes mellitus type 2 in nonobese: (17) Hearing impaired: (18) Hemiplegia and hemiparesis following cerebral infarction affecting right dominant side: (19) Cochlear implant in place: Plan 84yo male with history of 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 gallbladder pathology: - Patient tachycardic and tachypneic on presentation, +Leukocytosis (of questionable value based on h/o CLL), elevated procal - Suspect GI source based on rising LFTs t. bili: 3.0, direct bili: 1.9, AST: 221 ALT:117 Alk phos:546 vs urinary source based on mild UA findings - CT A/P w/ IV contrast notable for: nonspecific thickening of multiple structures: rectosigmoid colon, distal stomach, bladder. +cholelithiasis without evidence of cholecystitis - CXR negative - Full sepsis fluid volume deferred d/t severe aortic stenosis - s/p 1L NSS, 1L NSS 80ml/hr completed - Blood cx pending without growth at 24 hours, urine cx positive for pseudomonas - Continue broad spectrum abx coverage with Zosyn - RUQ U/S: potential mild acute cholecystitis vs cholangitis with mild pericholecystic fluid, cholelithiasis, mild CBD distention, old stent - Surgery and GI teams consulted for acute intervention, as labs rapidly improving and patient hemodynamically stable, complete 14 days total abx therapy with Ciprofloxacin 500mg BID and Metronidazole 500mg TID upon d/c - GI follow-up to remove old stent in [facility] with endoscopy/ERCP and stent removal/replacement and ductal stone removal if necessary in the next few weeks as patient completes outpatient oral abx therapy - Tentative d/c with abx in 1-2 days #Aphasia/right-sided hemiparesis: - Patient with h/o left-sided hemorrhagic stroke with residual speech and right- sided deficits - unclear severity of deficits prior to presentation, stroke r/o initiated - CT head, CTA head negative, CTA neck notable for: 50% stenosis of the proximal right and left ICA - Dysphagia assessment failed; following this speech consulted: no indication of oropharyngeal dysphagia or aspiration risk, initiate diet - PT/OT eval and treat #Elevated troponin - No obvious chest pain, troponin elevated, uptrending - trend to peak - EKG with ST depression in lateral leads - Etiology likely from demand ishchemia rather than NSTEMI - TTE largely unchanged from study completed earlier in month, EF 60-65% with severe aortic stenosis #T2DM: Basal bolus insulin #HTN: amlodipine, losartan held d/t softer blood pressures #Seizure disoder: Continue Lamictal #Anxiety: Continue paroxetine #HLD: Continue atorvastatin Dispo: Admit med-tele VTE ppx: Heparin gtt FEN/GI: NPO pending dysphagia screen, LR @80ml/h x1L Full Code: Patient unable to engage meaningfully in discussion of advanced directives. Please discuss with patient/family in AM. Total Time Total Time Spent Total Time Spent (In Minutes): See attending attestation Discharge Plan Discharge Items Patient Disposition: Home - Home Health Services Reason For Visit: SEPSIS Discharge Diagnosis: Sepsis Condition on Discharge: Serious Activity: Per Instructions section Non-emergency contact: Primary Care Provider Call non-emergency contact if: your symptoms worsen and your pain is not controlled Follow-up/Referrals: Swapna Swan MD [Primary Care Provider] - 08/08/25 9:10 am (F/U APPT @ [facility] Appt w/ Dr. Prajapati [address] [place] [address]) Diet: Regular and Low Fat Addtl Attending Provider Instructions: You were admitted to the hospital for Sepsis. You were treated with fluids and antibiotic therapy. The source of your infection was between an UTI and GI pathology, but based on Oli's left sided abdominal pain, elevated liver function tests and bilirubin levels, and imaging of the RUQ, it was more likely that his source of infection stemmed from gallbladder pathology. As the days progressed Reji's liver function tests and bilirubin levels greatly improved, signifying that his gallbladder pathology is likely a transient issue, and the fluctuations and improvements in these levels is likely due stones vs his stent in the affected region causing him significant discomfort. At the time of discharge we will place Reji on outpatient antibiotics for a total course of 14 days. At this time Reji has had 5 days of antibiotics while in the hospital and thus he will need to complete 9 more days at home of antibiotics. We will send two antibiotics, metronidazole (Flagyl) 500mg to be taken 3 times per day for the next 9 days and ciprofloxacin 500mg to be taken twice per day for the next 9 days as well. This combination of antibiotics is very successful at treating intra-abdominal infections and the ciprofloxacin has pseudomonal coverage which will cover for Reji's UTI that had a positive culture for pseudomonas aeruginosa. However, based on his clinical symptoms we are not expecting that a UTI is still occurring, but we would like to still cover for this pathogen to be safe and the use of these two antibiotics will be very similar to coverage of the antibiotics that the patient has been on in the hospital which was an IV antibiotic called Zosyn. You have indicated that a ERCP has been scheduled on Thursday with the GI doctors at [facility], and we recommend that you hold your Eliquis approximately 24 hours before your procedure, as there is little risk for bleeding during a procedure like this. It will be safe to resume this Eliquis 24 hours after your procedure and this medication should still be stopped as indicated by orthopedics in a one month period following your recent hip surgery. This ERCP procedure to remove/replace Reji's stent and remove any obstructive stones will be very important to get adequate source control of Reji's infection. Constipation: Please take Miralax twice per day once in the morning and once in the evening when feeling more constipated. It is likely in part overflow incontinence, in which it is often a hardened area of stool near the end of the colon that can contribute to constipation. Please continue using the Miralax twice per day until you see at least two stools in succession that are soft, normal in consistency, freddy like. A discharge summary will be sent to your primary care physician to ensure continuity of care. Please bring this discharge summary with you to your next office appointment so that your provider can review it at that time. Follow-up appointments: Make a follow-up appointment with your PCP within the next week. It is very important that you follow up with them shortly after discharge from the hospital. Follow up with Jane GARCIA on Friday 12/08 for ERCP procedure and follow up with recommendations provided by GI after this. Medications: Your medication list has been reviewed and reconciled upon discharge to ensure accuracy and continuity of care. An updated list of all your medications is included with your hospital discharge paperwork. Please review this list closely, and make note of any changes. We sent a new medication called Metronidazole 500mg to your pharmacy. Take Metronidazole 500 mg TID or 3 times a day approximately 6-8 hours apart for the next 9 days starting tomorrow. A total of 27 pills will be sent to your pharmacy. We sent a new medication called Ciprofloxacin to your pharmacy. Take Ciprofloxacin 500mg one tablet BID or twice daily approximately 8-12 hours apart for the next 9 days. A total of 18 pills will be sent to your pharmacy. This longer course is based on the severity of infection at presentation. Patient may not need to continue this medication for as long following GI intervention/source control with ERCP, thus follow GI recommendations based on how severe the gallbladder pathology is following procedure. Please try and take both of these medications with food as they can cause some abdominal discomfort when taken on an empty stomach Take your medications as instructed; do not skip a dose of your medicines. Make sure all of your doctors know every medicine you are taking (including zhsv-jki-efsvnru medicines, vitamins, and supplements). Call your primary care provider before taking any new medicines (including jufd-tvw-joptkin medicines, vitamins, and supplements), because some of these may interact with your current medications, or may make your symptoms worse. Tell your primary care provider if you cannot afford your medications. CONTACT YOUR PRIMARY CARE PROVIDER if you experience any of the following: Difficulty following your treatment plan, or difficulty taking medications CALL 911 OR GO TO THE EMERGENCY DEPARTMENT if you experience any of the following: Sudden, severe abdominal pain or nausea/vomiting Severe chest pain, or chest pain that radiates (moves) to your jaw or arm Sudden, severe shortness of breath or difficulty breathing Thank you for allowing us to participate in your care. Pending Studies at Discharge: No Stand-Alone Forms: [facility], Smoking Cessation Medications and DC Order Prescriptions: New ciprofloxacin HCl 500 mg tablet 500 mg PO BID Qty: 18 0RF metronidazole 500 mg tablet 500 mg PO TID Qty: 27 0RF Continued lamotrigine 100 mg tablet 100 mg PO BID Qty: 180 3RF atorvastatin 20 mg tablet 20 mg PO QAM losartan 50 mg tablet 50 mg PO DAILY amlodipine 2.5 mg tablet 2.5 mg PO QAM omeprazole 20 mg capsule,delayed release(DR/EC) 20 mg PO DAILY paroxetine HCl 20 mg tablet 20 mg PO HS polyethylene glycol 3350 [Miralax] 17 gram Powder In Packet 17 g PO Q6 Qty: 20 0RF pantoprazole 40 mg Tablet,Delayed Release (Dr/Ec) 40 mg PO QAM Qty: 30 0RF Eliquis 2.5 mg Tablet 2.5 mg PO BID Qty: 60 0RF acetaminophen 325 mg capsule 650 mg PO Q6H Qty: 120 0RF oxycodone 5 mg tablet 5 mg PO Q6H PRN (Reason: breakthrough pain) Qty: 10 0RF Discharge Orders: Discharge Order (Routine); Ordered 12/08/24 Ordered By: Scott Leal Admission Data Admit Date/Time: 12/04/24 01:26 Attending Provider: Chepe Hayden Admit Provider: Bowen Leal Primary Care Provider: Swapna Swan Other Providers: Lisa Conn; Raymundo,Home Care Fax; Teodoro Headley; Alexander Beyer I Other Interventions: Discharge Summary Assessment (RN) Last Done: 12/08/24 11:07 Supervising Physician Co-Signing Physician Notes I personally examined the patient and verified all dominguez points of history and exam, discussed case, and agree with decision making with Dr Leal regular food continues to stay down well, belly pain way better, wants to go home, family feels up to taking him home. Vitals noted, in general he is awake and alert no distress. HEENT normocephalic atraumatic mucous membranes moist. Abdomen is soft, only very mild epigastric tenderness no guarding/rebound/rigidity. Chronic appearing neurodeficits. Sepsisappears to be biliary infectionapparently in the past he has had purulent cholecystitis. He has been deemed too complicated to be a viable surgical candidate. Previously improvement has been affected with endoscopic drainage/ERCP and stentinghe does still have a stent and that appears to have been there for about 2 years. overall improving - labs improving leukocytosis now in his chronic range), tolerating regular/low fat diet --now safe/stable for home. Anticipate his acute situation will continue to improve with antibiotics, next week stent exchange. safe/stable for home. On 12/05, discussed with [facility] (GI here had recommended that we reach out to the GI team to replace the stenttherefore I didand they felt this can be done as an outpatient at the [facility]). updated GI today. pt set up for GI for early next week otherwise as above Resident Activity Tracking Resident Involvement: Resident Care Provided Care Provided: Adult Hospital Medicine
[2024-12-08 09:12] LABS: Acanthocytes 1+; Immature Granulocytes # (auto) 0.08 K/uL (0.01-0.20); Immature Granulocytes % (auto) 0.4 %; Tear Drop Cells 1+
[2024-12-08 11:39] VITALS: BP 120/74; PULSE 86; RESP 18; TEMP 97.9; O2SAT 99
--- NOTE | 2024-12-08 12:43 | Billing Data ---
Date of Service December 08, 2024 Coding Level of Care Code 71411 IN/OBS DISCH 30 MIN/LESS
== END 2024-12-08 13:59 | disposition home health service (06) | DRG 872 ==
LOC: ED 18:14 → SUATTDRO 12-04 01:26 → 2W 12-04 01:26